=== PATIENT | female | born 1995 | race Caucasian/White ===

== ENCOUNTER 2020-02-11 23:05 | Inpatient (IN) | payer BC, SELFPAY ==
[2020-02-11 22:50] VITALS: BMI 24.7
[2020-02-11 22:57] VITALS: PULSE 87; TEMP 37.2
[2020-02-11] MEDS: Lactated Ringers 1,000 ML 50 ML IV (23:45)
[2020-02-11 23:51] VITALS: BP 118/81; TEMP 37.2; O2SAT 97
[2020-02-11 23:52] VITALS: PULSE 85; O2SAT 96
[2020-02-12] VITALS (51 sets, daily range): BP systolic 89–137; BP diastolic 52–92; PULSE 79–119; RESP 14–16; TEMP 36.1–37.6; O2SAT 97–100
[2020-02-12 00:05] LABS: Absolute Lymphocyte Count 2.24 X10^3/uL (0.83-4.51); Absolute Neutrophil Count 10.4 X10^3/uL (2.0-7.7); Basophil# 0.03 X10^3/uL; Basophil% 0.2 % (0-1); Eosinophil# 0.08 X10^3/uL; Eosinophils% 0.6 % (0-5); Hematocrit 40.6 % (37-47); Hemoglobin 13.7 g/dL (12.0-15.0); Lymphocyte # 2.24 X10^3/ul (4.0); Lymphocyte % 16.2 % (19-41); Mean Corp Hgb Conc 33.7 g/dL (32-36); Mean Corpuscular Hgb 30.7 pg (27.0-32.0); Mean Platelet Vol. 12.2 fl (6.2-12.0); Monocyte# 1.02 X10^3/uL; Monocyte% 7.4 % (0-10); NRBC Flagged by Analyzer 0 % (0-5); Neutrophil # 10.38 X10^3/uL (2.7-7.7); Neutrophil % 75.2 % (47-70); Platelet Count 217 K/mm3 (150-450); RBC Distribution Width CV 12.6 % (11.6-14.6); RBC Distribution Width SD 41.7 fl (35.1-43.9); Red Blood Count 4.46 M/mm3 (4.2-5.4); White Blood Count 13.8 K/mm3 (4.4-11.0)
[2020-02-12] MEDS: Oxytocin 30 units/NS 500 ml 30 UNITS/500 ML IV.SOLN IV (00:17)
[2020-02-12] MEDS: Lactated Ringers 500 ML 999 ML IV ×2 (02:52→04:10)
[2020-02-12] MEDS: fentaNYL-bupivacaine (epidural) 100 ML BAG EPIDURAL (04:02)
--- NOTE | 2020-02-12 07:08 | HP.PCM_ITS ---
- Problem List (1) 39 weeks gestation of Status: Acute (2) Amniotic fluid leaking Status: Acute History Date of Admission: 02/11/20 Final ADRIANA: 02/15/20 Gestational age: 39 Weeks and 4 Days History of this : This is a 24 year-old, G [1], P [0], at 39.4 weeks gestational age that presents with SROM of clear fluid and contractions. Stated large gush of clear fluid around 8:30 pm and started feeling cramping at that time. Positive movement. Denies any vaginal bleeding. Continues to leak clear fluid. Allergies No Known Allergies Allergy (Verified 02/11/20 22:51) Home Medications: Home Medications Vit No.130/Iron/Folic [ Tablet] 1 tab PO DAILY 02/11/20 Smoking Status: Never smoker Number of Fetus(es): 1 NST - FHR Rate Baby A Baseline: 125 Variability:: Moderate Decelerations:: None FHR Category:: Category I Uterine Activity:: TOCO reading every 2-4 minutes History Past Pregnancies: Past Pregnancies Delivery Date Name GA/ Weeks Outcome Route Wt Infant Sex Labor Length Anesthesia Delivery Location Provider FOB Labs: A+ Rubella - Immune HB -neg RPR- NR HIV- NR GBS- positive Expected Delivery Method: Spontaneous Vaginal Review of Systems Constitutional: Denies: Anorexia, Chills, Fever Cardiovascular: Denies: Chest Pain Respiratory: Denies: Cough, Shortness of Breath Gastrointestinal: Denies: Abdominal Pain Genitourinary: Denies: Dysuria Neurological: Denies: Headaches Physical Exam Vitals: Vital Signs Temp Pulse BP Pulse Ox 97.6 F L 108 H 105/64 99 02/12/20 06:28 02/12/20 06:30 02/12/20 06:29 02/12/20 06:30 General: Alert, Oriented x3, Cooperative HEENT: Atraumatic Cardiovascular: Regular rate Lungs: Normal air movement Abdomen: Soft, Non Tender, Gravid Neurological: Cranial nerves II-XII grossly intact Estimated gestational size: Appropriate for gestational size 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 Patel notified and is collaborating physician
[2020-02-12] MEDS: Oxytocin 30 units/NS 500 ml 30 UNITS/500 ML IV.SOLN 334 UNITS IV (09:12)
--- NOTE | 2020-02-12 10:09 | PCM.OPRPT ---
Problem List (1) 39 weeks gestation of Status: Acute (2) Amniotic fluid leaking Status: Acute Report of Operation Date of Procedure: 02/12/20 Pre-Operative Diagnosis: Term gestation, SROM Post-Operative Diagnosis: Same, live femal Vaginal Delivery Maternal Presentation: Active Labor, Spontaneous Rupture of Membranes Amniotic Membrane Rupture Type: Spontaneous at home Rupture of Membrane time: 2019 Amniotic Fluid Description: Clear Final ADRIANA: 02/15/20 Gestational age: 39 Weeks and 4 Days Date of Procedure: 02/12/20 Pre-Operative Diagnosis: Term gestation , SROM Post-Operative Diagnosis: Same, live female infant Surgery/ Procedure Performed: Spontaneous Vaginal Delivery Type of Anesthesia: Epidural Description of Procedure: Patient quickly progressed to complete dilation. Began pushing with contractions. Infant head for several pushes so changed maternal position to left side lying and pushed. found to be in OP position. Repositioned patient to hands and knees to push. head delivered with maternal effort. Anterior shoulder delivered quickly with gentle traction less than 10 seconds. Infant vigorous and attended to by awaiting staff. Cord was clamped and cut by FOB after 2 minute delay. Mother repositioned in bed and infant placed immediately skin to skin. Pitocin infusion started for active management of third stage. Placenta delivered spontaneously and intact. Second degree perineal laceration repaired in usual fashion with 3-0 Vicryl Rapid and was hemostatic. Vaginal sweep completed by me. EBL 350 cc. All needles and sponges accounted for. Fundus was firm 1 below U. Mother and baby bonding well. Presentation: ROP Placental Delivery Description: Spontaneous Placenta Disposition: [facility] Cord Vessel Description: 3 Vessels Cord Entanglement: None Estimated Blood Loss: 350 A gender: Female (1 minute): 9 (5 minute): 9 Episiotomy Description: None Laceration: Perineal Extension/lac, 2nd degree Medications given after delivery: IV Pitocin Complications: None
[2020-02-12] MEDS: 0.9% Saline Lock 10 ML Syringe IV (11:44)
[2020-02-12] MEDS: Acetaminophen 500 MG Tablet 1000 MG PO (17:45)
[2020-02-13 03:34] VITALS: BP 118/79; PULSE 106
[2020-02-13 03:45] VITALS: BP 118/79; PULSE 90; RESP 16; TEMP 36.5; O2SAT 98
[2020-02-13] MEDS: Ibuprofen 600 MG Tablet PO (03:51)
--- NOTE | 2020-02-13 05:59 | PCM.PN.OB ---
Patient Problems: Active and Suspected Problems 39 weeks gestation of (Acute) Amniotic fluid leaking (Acute) Subjective: Patient is doing well. Pain is controlled. She is ambulating and voiding without difficulty. Tolerating regular diet without nausea or vomiting. She denies lightheadedness, dizziness, chest pain, shortness of breath, leg pain. Lochia normal. - Physical Exam Vitals/I&O's: Vital Signs Temp Pulse Resp BP Pulse Ox 97.7 F L 90 16 118/79 98 02/13/20 03:45 02/13/20 03:45 02/13/20 03:45 02/13/20 03:45 02/13/20 03:45 Oxygen Delivery Method Room Air Weight: 153 lb 2 oz Body Mass Index (BMI) 24.7 Intake and Output for Last 24 Hours 02/11/20 02/12/20 02/13/20 23:59 23:59 23:59 Intake Total 3249.09 / 3249.09 Output Total 2400 / 2400 Balance 849.09 / 849.09 General: Alert, No apparent distress HEENT: Atraumatic Abdomen: Soft, Non Tender Extremities: No edema Skin: No rashes Neurological: Neuro grossly intact Psych/Mental Status: Normal Affect, Appropriate Laboratory Results 02/11/20 23:45: Blood Type A POSITIVE, Antibody Screen NEGATIVE Current Medications Acetaminophen (Tylenol) 1,000 mg PO Q8H PRN PRN PRN Reason: Pain Score 1-10/10 Last Admin: 02/12/20 17:45 Dose: 1,000 mg Documented by: Bisacodyl (Dulcolax) 10 mg RECTAL UD PRN PRN Reason: If no BM Dibucaine (Dibucaine) 1 applic TOPICAL TID PRN PRN; Protocol PRN Reason: Discomfort Hydrocortisone (Hytone) 1 applic TOPICAL TID PRN PRN; Protocol PRN Reason: Discomfort Ibuprofen (Motrin) 600 mg PO Q6H PRN PRN PRN Reason: Pain Score 1-10/10 Last Admin: 02/13/20 03:51 Dose: 600 mg Documented by: Methylergonovine Maleate (Methergine) 0.2 mg IM X1 PRN PRN Reason: Excess bleeding/uterine atony Ondansetron HCl (Zofran) 4 mg IV Q4H PRN PRN PRN Reason: Nausea Senna/Docusate Sodium (Senokot-S, Betty-Colace) 1 - 2 tablet PO DAILY PRN PRN PRN Reason: Constipation Simethicone (Mylicon) 80 mg PO PCHS PRN PRN Reason: Indigestion/Stomach pain Sodium Chloride () 5 - 15 ml IV UD PRN PRN Reason: SALINE FLUSH Last Admin: 02/12/20 11:44 Dose: 10 ml Documented by: Medical Necessity - Tobacco Use Smoking Status: Never smoker Assessment/Plan All Active Problems 39 weeks gestation of (Acute) Amniotic fluid leaking (Acute) Patient is day 1 from a spontaneous vaginal delivery. She is doing well. Desires to go home today. Discharge instructions reviewed.
--- NOTE | 2020-02-13 06:01 | DCINST_ITS ---
Discharge Diet: No Restrictions Discharge Activity: May Shower May resume sexual activity in: 6 weeks Ice area for (Minutes): 15 Weight Bearing Status: Weight bearing as tolerated Lifting Restrictions: Nothing heavier than baby for 4 weeks Call your doctor if you observe: Fever of 101 or Higher, Inability to urinate, Inability to have a bowel movement, Using more than one pad per hour, Shortness of breath, Dizziness, Fainting spells, Swelling in the ankles, Chest pain, Increased palpitations (irregular heartbeat), Calf discomfort, Uncontrolled pain Cleanse incision/area with: Soap & Water Additional Instructions: If you experience any of the following, contact your healthcare provider. * Bleeding that soaks a pad every hour for 2 hours * Fever 100.4 or higher * Unrelieved incision or abdominal pain * Swelling, redness, discharge or bleeding from your incision or episiotomy site * Your incision begins to separate * Problems urinating (including inability to urinate or burning while urinating). * Visual changes * Severe headache * Flu-like symptoms * Pain or redness in one of both of your breasts * Pain, warmth, tenderness or swelling in your legs, especially the calf area * Frequent nausea and vomiting * Symptoms of depression or anxiety If you experience any of the following, call 911 or go to the nearest Emergency Room. * Chest pain * Problems breathing * Seizure activity * Partial or complete paralysis of a body part, slurred speech, weakness or drooping of the face, or a sudden inability to walk or hold your balance Allergies/Adverse Reactions: Allergies No Known Allergies Allergy (Verified 02/11/20 22:51) Medications to take at Discharge Vit No.130/Iron/Folic [ Tablet] 1 tab PO DAILY 02/11/20 When: 1-2 weeks for , which can be virtual. Then 6 weeks for post visit. Primary Care Physician: Care Physician,No Primary [Primary Care Provider] - Test Results: Test results from this visit will be discussed in further detail at your follow- up appointment, if applicable.
[2020-02-13 09:41] VITALS: BP 109/76; PULSE 93
[2020-02-13 09:42] VITALS: BP 109/76; PULSE 93; RESP 16; TEMP 36.8; O2SAT 99
[2020-02-13] MEDS: Acetaminophen 500 MG Tablet 1000 MG PO (09:43)
== END 2020-02-13 12:10 | disposition home or self-care (01) | DRG 807 ==
LOC: WPOUT 23:21 → WP 23:21
PROVIDERS: Admitting Provider Advanced Practice Midwife; Visit Provider Advanced Practice Midwife
DX: O99.824 Streptococcus B carrier state complicating childbirth (principal); Z37.0 Single live birth; Z3A.39 39 weeks gestation of pregnancy; O70.1 Second degree perineal laceration during delivery
CPT/HCPCS: 59025; 59050; 85025; 86850; 86900; 86901; 99218; J7120; A4216; G0378

== ENCOUNTER 2020-05-02 11:00 | Outpatient (CLI) | payer BC, SELFPAY | END 2020-05-02 11:40 | disposition home or self-care (01) | LOC: WPOUT 11:12 → WP 11:13 | PROVIDERS: Visit Provider Obstetrics & Gynecology | DX: R63.3 Feeding difficulties (principal) | CPT/HCPCS: 96158 ==

== ENCOUNTER 2023-03-28 01:47 | Inpatient (IN) | payer OTHER, SELFPAY ==
[2023-03-27 21:42] VITALS: BMI 24.8
[2023-03-27 21:46] VITALS: BP 121/77; PULSE 87; TEMP 37.2; O2SAT 97; O2SAT 98
[2023-03-27] MEDS: LACTATED RINGERS 500 ML 999 ML IV (22:25)
[2023-03-27] MEDS: Acetaminophen 500 MG Tablet 1000 MG PO (22:35)
[2023-03-28] VITALS (79 sets, daily range): BP systolic 93–139; BP diastolic 50–97; PULSE 62–108; RESP 16–18; TEMP 36.6–37.1; O2SAT 93–100
[2023-03-28] MEDS: 0.9% Saline Lock 10 ML Syringe IV ×2 (00:31→12:15)
[2023-03-28] MEDS: DiphenhydrAMINE 50 MG/ML Syringe IV (00:31)
[2023-03-28 01:59] LABS: Absolute Lymphocyte Count 1.94 X10^3/uL (0.83-4.51); Absolute Neutrophil Count 10.1 X10^3/uL (2.0-7.7); Basophil# 0.05 X10^3/uL; Basophil% 0.4 % (0-1); Eosinophil# 0.09 X10^3/uL; Eosinophils% 0.7 % (0-5); Hematocrit 39.7 % (37-47); Lymphocyte # 1.94 X10^3/ul (0.83-4.51); Lymphocyte % 14.7 % (19-41); Mean Corp Hgb Conc 32.7 g/dL (32-36); Mean Corpuscular Hgb 30.3 pg (27.0-32.0); Mean Corpuscular Volume 92.5 fL (81-99); Mean Platelet Vol. 12.3 fl (6.2-12.0); Monocyte# 0.98 X10^3/uL; Monocyte% 7.4 % (0-10); NRBC Flagged by Analyzer 0 % (0-5); Neutrophil # 10.11 X10^3/uL (2.7-7.7); Neutrophil % 76.4 % (47-70); Platelet Count 205 K/mm3 (150-450); RBC Distribution Width SD 43.4 fl (35.1-43.9); Red Blood Count 4.29 M/mm3 (4.2-5.4); White Blood Count 13.2 K/mm3 (4.4-11.0)
[2023-03-28 02:02] LABS: ROM Internal Control Test YES-OK TO RESULT pt. (Internal QC); ROM Patient Test POSITIVE (Negative); Record Kit Lot#, ROM+ K1409
[2023-03-28] MEDS: Lactated Ringers 1,000 ML 200 ML IV (02:16)
[2023-03-28] MEDS: LACTATED RINGERS 500 ML 999 ML IV ×2 (02:16→06:58)
[2023-03-28] MEDS: fentaNYL-bupivacaine (epidural) 100 ML BAG EPIDURAL ×2 (02:50→07:37)
[2023-03-28 03:11] LABS: Syphilis Antibodies Non-reactive
[2023-03-28] MEDS: Oxytocin 15 Units/NS 250ml 15 UNITS/250 ML IV.SOLN 2 UNITS IV (05:45)
--- NOTE | 2023-03-28 07:17 | PCM.HP.OB ---
HPI - General General Date of Admission: 03/28/23 HPI Narrative LUAN ESCALONA, is a 27 F at 39.6 weeks gestation who presents to triage with spontaneous onset of contractions and leaking fluid. Maternal Data Information ADRIANA Calculator Estimated Delivery Date Method Current WG Current Estimate 03/29/23 Manual 39w 6d PFSH PFSH Medical History (Updated 03/28/23 @ 07:21 by Naomi Olivera CNM) Anxiety Headache depression Home Medications vits no.130-ferrous fum 27 mg iron-folic acid 800 mcg tablet 1 tab PO DAILY Check with primary doctor 02/11/20 [History Last Taken 03/26/23] Allergy/AdvReac Type Severity Reaction Status Date / Time No Known Allergies Allergy Verified 03/27/23 21:55 Surgical History (Updated 03/27/23 @ 22:40 by Lisa Dennis) History of surgery Social History Smoking Status: Never smoker History Elective abortions Hx Para 1 Spontaneous abortions Hx # Term Pregnancies Ectopic pregnancies Hx # Pregnancies Multiple births # of living children ROS Eyes Eyes: Denies blurry vision, change in vision or spots in vision ENT HEENT: Denies dizziness or headache(s) Cardiovascular Cardiovascular: Denies abdominal pain, chest pain or dyspnea Respiratory/Chest Respiratory/Chest: Denies cough, dyspnea, shortness of breath at rest or shortness of breath with exertion Gastrointestinal Gastrointestinal: Denies abdominal pain, diarrhea or vomiting Genitourinary Genitourinary: Denies change in urinary stream, difficulty urinating or dysuria Musculoskeletal Musculoskeletal: Reports none Integumentary Integumentary: Denies rash Neurologic Neurologic: Denies dizziness, headache(s), memory loss or weakness Psychiatric Psychiatric: Reports none Vital Signs Vital Signs Vital Signs: 03/27/23 21:46 03/27/23 21:46 03/27/23 21:46 Temperature Temperature Source Pulse Rate 87 Blood Pressure 121/77 H BP Systolic 121 BP Diastolic 77 Pulse Ox 97 03/27/23 21:46 03/27/23 21:46 03/27/23 21:46 Temperature 99.0 F Temperature Source Temporal Pulse Rate Blood Pressure BP Systolic BP Diastolic Pulse Ox 98 03/28/23 00:37 03/28/23 00:37 03/28/23 00:37 Temperature 98.8 F Temperature Source Temporal Pulse Rate Blood Pressure BP Systolic BP Diastolic Pulse Ox 97 03/28/23 00:38 03/28/23 00:38 03/28/23 02:22 Temperature Temperature Source Pulse Rate 92 108 H Blood Pressure 111/76 BP Systolic 111 BP Diastolic 76 Pulse Ox 03/28/23 02:22 03/28/23 02:23 03/28/23 02:23 Temperature Temperature Source Pulse Rate 102 H Blood Pressure BP Systolic BP Diastolic Pulse Ox 94 93 03/28/23 02:25 03/28/23 02:25 03/28/23 02:27 Temperature Temperature Source Pulse Rate 90 89 Blood Pressure 120/92 H BP Systolic 120 BP Diastolic 92 Pulse Ox 03/28/23 02:27 03/28/23 02:29 03/28/23 02:29 Temperature Temperature Source Pulse Rate 80 Blood Pressure 125/97 H BP Systolic 125 BP Diastolic 97 Pulse Ox 97 03/28/23 02:32 03/28/23 02:32 03/28/23 02:35 Temperature Temperature Source Pulse Rate 82 Blood Pressure 139/82 H BP Systolic 139 BP Diastolic 82 Pulse Ox 97 03/28/23 02:35 03/28/23 02:37 03/28/23 02:37 Temperature Temperature Source Pulse Rate 91 86 Blood Pressure BP Systolic BP Diastolic Pulse Ox 97 03/28/23 02:39 03/28/23 02:39 03/28/23 02:42 Temperature Temperature Source Pulse Rate 80 88 Blood Pressure 117/78 BP Systolic 117 BP Diastolic 78 Pulse Ox 03/28/23 02:42 03/28/23 02:44 03/28/23 02:44 Temperature Temperature Source Pulse Rate 100 Blood Pressure 133/72 H BP Systolic 133 BP Diastolic 72 Pulse Ox 97 03/28/23 02:47 03/28/23 02:47 03/28/23 02:49 Temperature Temperature Source Pulse Rate 91 Blood Pressure 101/57 L BP Systolic 101 BP Diastolic 57 Pulse Ox 100 03/28/23 02:49 03/28/23 02:52 03/28/23 02:52 Temperature Temperature Source Pulse Rate 96 102 H Blood Pressure BP Systolic BP Diastolic Pulse Ox 100 03/28/23 02:54 03/28/23 02:54 03/28/23 02:57 Temperature Temperature Source Pulse Rate 102 H 93 Blood Pressure 100/58 L BP Systolic 100 BP Diastolic 58 Pulse Ox 03/28/23 02:57 03/28/23 02:59 03/28/23 02:59 Temperature Temperature Source Pulse Rate 89 Blood Pressure 102/55 L BP Systolic 102 BP Diastolic 55 Pulse Ox 100 03/28/23 03:02 03/28/23 03:02 03/28/23 03:04 Temperature Temperature Source Pulse Rate 93 Blood Pressure 110/59 L BP Systolic 110 BP Diastolic 59 Pulse Ox 100 03/28/23 03:04 03/28/23 03:07 03/28/23 03:07 Temperature Temperature Source Pulse Rate 88 92 Blood Pressure BP Systolic BP Diastolic Pulse Ox 100 03/28/23 03:09 03/28/23 03:09 03/28/23 03:12 Temperature Temperature Source Pulse Rate 80 82 Blood Pressure 98/57 L BP Systolic 98 BP Diastolic 57 Pulse Ox 03/28/23 03:12 03/28/23 03:14 03/28/23 03:14 Temperature Temperature Source Pulse Rate 86 Blood Pressure 104/58 L BP Systolic 104 BP Diastolic 58 Pulse Ox 100 03/28/23 03:17 03/28/23 03:17 03/28/23 03:22 Temperature Temperature Source Pulse Rate 83 84 Blood Pressure BP Systolic BP Diastolic Pulse Ox 100 03/28/23 03:22 03/28/23 03:24 03/28/23 03:24 Temperature Temperature Source Pulse Rate 82 Blood Pressure 103/54 L BP Systolic 103 BP Diastolic 54 Pulse Ox 100 03/28/23 03:27 03/28/23 03:27 03/28/23 03:29 Temperature Temperature Source Pulse Rate 87 Blood Pressure 107/60 BP Systolic 107 BP Diastolic 60 Pulse Ox 100 03/28/23 03:29 03/28/23 03:32 03/28/23 03:32 Temperature Temperature Source Pulse Rate 83 85 Blood Pressure BP Systolic BP Diastolic Pulse Ox 100 03/28/23 03:34 03/28/23 03:34 03/28/23 03:37 Temperature Temperature Source Pulse Rate 85 91 Blood Pressure 103/57 L BP Systolic 103 BP Diastolic 57 Pulse Ox 03/28/23 03:37 03/28/23 03:39 03/28/23 03:39 Temperature Temperature Source Pulse Rate 92 Blood Pressure 93/50 L BP Systolic 93 BP Diastolic 50 Pulse Ox 100 03/28/23 03:42 03/28/23 03:42 03/28/23 03:44 Temperature Temperature Source Pulse Rate 84 Blood Pressure 95/50 L BP Systolic 95 BP Diastolic 50 Pulse Ox 99 03/28/23 03:44 03/28/23 03:47 03/28/23 03:47 Temperature Temperature Source Pulse Rate 88 87 Blood Pressure BP Systolic BP Diastolic Pulse Ox 98 03/28/23 03:49 03/28/23 03:49 03/28/23 03:52 Temperature Temperature Source Pulse Rate 83 88 Blood Pressure 99/57 L BP Systolic 99 BP Diastolic 57 Pulse Ox 03/28/23 03:52 03/28/23 03:54 03/28/23 03:54 Temperature Temperature Source Pulse Rate 84 Blood Pressure 101/57 L BP Systolic 101 BP Diastolic 57 Pulse Ox 98 03/28/23 03:57 03/28/23 03:57 03/28/23 04:00 Temperature Temperature Source Pulse Rate 84 Blood Pressure 99/56 L BP Systolic 99 BP Diastolic 56 Pulse Ox 98 03/28/23 04:00 03/28/23 04:02 03/28/23 04:02 Temperature Temperature Source Pulse Rate 83 89 Blood Pressure BP Systolic BP Diastolic Pulse Ox 97 03/28/23 04:04 03/28/23 04:04 03/28/23 04:07 Temperature Temperature Source Pulse Rate 84 91 Blood Pressure 103/55 L BP Systolic 103 BP Diastolic 55 Pulse Ox 03/28/23 04:07 03/28/23 04:18 03/28/23 05:14 Temperature Temperature Source Temporal Pulse Rate Blood Pressure 110/64 BP Systolic 110 BP Diastolic 64 Pulse Ox 98 03/28/23 05:14 03/28/23 05:12 03/28/23 05:12 Temperature 98.0 F Temperature Source Temporal Pulse Rate 79 Blood Pressure BP Systolic BP Diastolic Pulse Ox 03/28/23 05:12 03/28/23 05:12 03/28/23 06:32 Temperature 98.0 F Temperature Source Temporal Temporal Pulse Rate Blood Pressure BP Systolic BP Diastolic Pulse Ox 03/28/23 06:32 03/28/23 06:32 03/28/23 06:32 Temperature 98.5 F Temperature Source Pulse Rate 81 Blood Pressure 101/61 BP Systolic 101 BP Diastolic 61 Pulse Ox Weight Weight: 154 lb 1.65 oz Body Mass Index (BMI) 24.8 Physical Exam Const alert, oriented x3 and no apparent distress General Appearance: cooperative Orientation / Consciousness: awake Exam Limitations: no limitations HEENT normocephalic Head and Scalp: normal to inspection Eyes General Eye: normal appearance of both eyes Neck full ROM and no lymphadenopathy Lymph Lymphatic: no lymphadenopathy noted Chest inspection of chest normal Resp normal respiratory effort, normal air movement and clear to auscultation bilaterally Effort and Inspection: able to speak in complete sentences and symmetric chest movement Cardio regular rate and regular rhythm GI normal to inspection, nondistended, normoactive bowel sounds Manual OB Exam: presentation cephalic Back/Spine normal ROM Extremity full ROM and no calf tenderness Skin no rashes or lesions noted General Skin Exam: no breakdown Neuro oriented x3 and CN's II-XII intact bilaterally Psych mental status grossly normal and thought process normal Labs Labs Labs: Blood Type A POSITIVE Antibody Screen NEGATIVE Hct 39.7 % (37-47) Hgb 13.0 g/dL (12.0-15.0) Syphilis Total Ab Non-reactive Rhogam given: No Assessment & Plan (1) Spontaneous onset of labor: (2) Spontaneous rupture of amniotic membranes: (3) Anxiety: (4) depression: (5) Amniotic fluid leaking: (6) 39 weeks gestation of : PLAN: Plan ROM plus positive CE 5/80/-2 Admit to labor and delivery Routine labs Start IV fluids and run per policy GBS negative Epidural when indicated Start Pitocin IV 2 mu/min and increase per policy Dr. Hilton notified of admission
[2023-03-28] MEDS: Oxytocin 15 Units/NS 250ml 15 UNITS/250 ML IV.SOLN 83 UNITS IV (08:49)
--- NOTE | 2023-03-28 10:11 | EX.PCM.OBRPT ---
Maternal Data Information ADRIANA Calculator Estimated Delivery Date Method Current WG Current Estimate 03/29/23 Manual 39w 6d Vaginal Delivery Maternal Presentation Maternal Presentation: Active Labor Operative Information Date of Procedure: 03/28/23 Pre-Operative Diagnosis: 39 weeks , active labor Post-Operative Diagnosis: same, live female infant Surgery / Procedure Performed: Spontaneous Vaginal Delivery Type of Anesthesia: Epidural Estimated Blood Loss: 150 Time of Delivery: 08:16 Findings Description of Procedure: Progressed to fully dilated. Good maternal pushing efforts delivered the infant's head followed by the anterior and posterior shoulders. Rest infant's body was delivered without complication. The infant was placed on the mother's chest for immediate skin to skin. was vigorous at time of delivery. Delayed cord clamping was performed. Placenta then delivered intact spontaneously without complication. Pitocin was given per protocol. Small second-degree vaginal laceration was appreciated. This was repaired with 3-0 Rapide in usual fashion. Good hemostasis was appreciated. Presentation: Vertex Amniotic Membrane Rupture Type: Spontaneous Amniotic Fluid Description: Clear Placental Delivery Description: Spontaneous Placenta Disposition: [facility] Specimen(s) Removed: placenta Cord Vessel Description: 3 Vessels Cord Entanglement: None Infant A Gender: Female (1 minute): 9 (5 minute): 9 Delayed Cord Clamping: Yes Post Vaginal Delivery Medications Given After Delivery: IV Pitocin Episiotomy Description: None Laceration: Vaginal Extension/lac and 2nd degree Complication Complications: None
--- NOTE | 2023-03-28 12:41 | NURSING ---
Epidural catheter removed with no resistance at 1200 - blue tip intact.
[2023-03-28] MEDS: Ibuprofen 600 MG Tablet PO ×2 (15:57→23:35)
[2023-03-28] MEDS: Acetaminophen 500 MG Tablet PO (20:48)
[2023-03-29 04:00] VITALS: BP 102/66; PULSE 75; RESP 18; TEMP 36.7
[2023-03-29] MEDS: Acetaminophen 500 MG Tablet 1000 MG PO (04:03)
[2023-03-29 08:40] VITALS: BP 121/79; PULSE 88; RESP 16; TEMP 36.8; O2SAT 97
--- NOTE | 2023-03-29 08:41 | PCM.DC.SUM ---
Providers Date of Admission: 03/28/23 Primary Care Physician: Laura Primary Care Phys Reason For Visit: LABOR AND DELIVERY/VAGINAL DELIVERY Diagnosis Discharge Diagnosis (1) Spontaneous onset of labor: Status: Acute (2) Spontaneous rupture of amniotic membranes: Status: Acute (3) Anxiety: Status: Acute Code(s): F41.9 - Anxiety disorder, unspecified (4) depression: Status: Acute Code(s): F53.0 - depression (5) Amniotic fluid leaking: Status: Acute Code(s): O42.90 - Premature rupture of membranes, unspecified as to length of time between rupture and onset of labor, unspecified weeks of gestation (6) 39 weeks gestation of : Status: Acute Code(s): Z3A.39 - 39 weeks gestation of (7) (spontaneous vaginal delivery): Status: Acute Code(s): O80 - Encounter for full-term uncomplicated delivery (8) Care and examination of lactating mother: Status: Acute Code(s): Z39.1 - Encounter for care and examination of lactating mother Medications at Discharge Home Medications vits no.130-ferrous fum 27 mg iron-folic acid 800 mcg tablet 1 tab PO DAILY Check with primary doctor 02/11/20 Hospital Course Operations None Procedures None Summary of Care Provided Minutes Spent on Discharge: 15 Hospital Course: Patient had . Hospital course was uneventful. Physical Exam Narrative Patient seen at bedside. Feeling good. Ambulating and voiding without difficulty. independently. Desires discharge home today. Const alert and no apparent distress General Appearance: cooperative and comfortable Exam Limitations: no limitations HEENT normocephalic Eyes General Eye: normal appearance of both eyes Neck full ROM General: normal visual inspection Chest Chest: symmetrical chest wall rise Resp normal respiratory effort and normal air movement Effort and Inspection: symmetric chest movement Auscultation: clear to auscultation bilaterally Cardio regular rate and regular rhythm GI normal to inspection, nondistended, normoactive bowel sounds Back/Spine normal ROM Extremity full ROM and no calf tenderness General Extremity: normal exam except as noted Skin no rashes or lesions noted Neuro CN's II-XII intact bilaterally Psych mental status grossly normal Weight / BMI Weight Weight: 154 lb 1.65 oz Body Mass Index (BMI) 24.8 ABG / Lab / Microbiology Data 03/27/23 22:20 D/C Instructions Discharge Diet: No restrictions May resume sexual activity in: 6-8 weeks Weight Bearing Status: Weight bearing as tolerated Call your doctor if you observe: Fever of 101 or Higher, Inability to urinate, Using more than 1 pad per hour, Shortness of breath, Chest pain, Calf discomfort and Uncontrolled pain Please Follow Up With: Naomi Olivera CNM When: 2 weeks virtual visit/ 6 weeks in office Meaningful Use Info Meaningful Use Diagnoses (Choose all that apply): None applicable Discharge Plan Admission Admit Date/Time: 03/28/23 01:47 Primary Reason for Your Visit: Labor and Delivery Attending Provider: Meagan Braun Primary Care Provider: Care Physician,No Primary Consulting Providers: Naomi Olivera Discharge Orders/Prescriptions Prescriptions: Continued vit no.[id number] 1 EACH tablet 1 tab PO DAILY Referrals / Follow Up: Naomi Olivera CNM [Med Staff - Adv Practice Prof] - Care Physician,No Primary [Primary Care Provider] - Disposition Disposition (needs filled in before D/C Order can be placed): Home, Self Care
[2023-03-29] MEDS: Senna/Docusate Sodium 1 Tablet PO (09:08)
[2023-03-29] MEDS: Ibuprofen 600 MG Tablet PO (09:08)
--- NOTE | 2023-03-29 11:06 | CASEMGMT ---
Social Work Assessment Labor and Delivery Unit Patient [id number] [address] [place] [address] Phone number: [phone] Date of Referral: 03/28/23 Time of Referral:? [id number] Referred By: Meagan Hilton Date of Intervention: ??03/29/23 Time of Intervention:?1000 Reason for Referral:? Hx of PPD Sw completed chart review and acknowledges social work consult due to maternal history of depression. Sw presented to bedside and introduced self to mother of baby (JACEY- Shavon) and father of baby (FOB- Brian). Sw explained reason for sw involvement and completed psychosocial assessment. History obtained from: medical records and mother of baby (JACEY)???and FOB Household composition: Currently residing in the family home is MICHAEL MARI, their 3 year old daughter (Jhoana: : 02/12/2020), maternal grandma and now baby. Parents state their housing is safe and secure, no concerns at this time. Patient's parent/guardian status:? ?Parents report that they have known each other since Kindergarten, and started dating right after they graduated high school. They attended college together at [employer]. They have been together for 10 years. No concerns at this time regarding domestic violence or intimate partner violence. Medical History: JACEY is 27 year old female who is 2, para 1- now 2 following labor and delivery of baby. JACEY received routine care with [facility] during . JACEY presented to unit in labor at 39 weeks gestation. Baby was born via vaginal delivery. Baby girl, named Festus Fraser, was born weighing 6lb 1oz and her apgars were 8 and 9 at one and five minutes of life respectfully. Baby will be followed by Dr. Doll for pediatrics. Educational Status:? Both parents graduated from high school and obtained college degrees. No concerns regarding reading, learning or comprehension. Financial Status: Both parents are gainfully employed outside of the home. FOJagjit is a chiropractor and states that he is able to take one week off of work. 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 Supplies: Parents state that they have obtained all necessary baby items including: car seat, safe sleep space, clothes, diapers, wipes and a breast pump. Childcare/Caregiver(s):? When both parents are working maternal grandma will babysit for them. Transportation:?? Both parents have their drivers license and reliable means of transportation. No transportation barriers at this time. Programs/Agencies Involved: ?Parents are not connected to any community resources at this time. Isa provided MOB with list of [facility] resources including mental health supports. ?? Children Services/Legal Issues:?No history of involvement, no issues or concerns warranting a referral to be made at this time. ?? Behavioral Health Issues: ??Mental Health History:??MICHAEL denies mental health history/ diagnoses. JACEY states that she has been diagnosed with anxiety and did experience depression following the of her first daughter. MOB states that at that time she developed OCD tendencies with germs. JACEY reports that during that time she also experienced intrusive anxious thoughts, but is also able to recognize that her baby was born during COVID and a lot of that time it was not known what things were going to look like. JACEY states that she is able to recognize when she is struggling mentally and tries to redirect her thought process. JACEY states that her never affected her roland/ connection with the baby, and she denies ever having thoughts of hurting herself or hurting the baby. ? Substance Use History:??MOB denies substance use prior to and during . Family History:???MOB and MICHAEL deny family history of addiction and mental health. ?? Drug Screens: ?No urine screens observed in chart review. ? Family/Social Stressors:?Parents deny stressors at this time. JACEY states that she feels better mentally after this labor/ delivery. Support Systems: Parents report they have a lot of family support from maternal grandma and paternal grandparents. Depression/Shaken Baby/Safe Sleeping:? Sw educated parents on signs and symptoms of baby blue and depression. Sw provided parents with list of mental health resources available to them in [facility]. Sw educated parents on shaken baby prevention and ABCs of safe sleep. Parents expressed understanding. Sw encouraged parents to talk about ways that FOB can be supportive and helpful for MOB if she were to struggle with her mental health during this period. ASSESSMENT:?MOB and baby admitted following labor and delivery. MOB observed to provide tender and loving hands on care of baby. FOB strong support person for MOB. Parents have obtained all necessary baby supplies/ items and have natural supports in place. Parents were talkative and engaged during psychosocial assessment. MOB open regarding her mental health history and her experience with depression/ anxiety after the of her first daughter. MOB was encouraged to get connected to community mental health supports should she struggle with depression/ anxiety during this period- MOB was receptive to that recommendation. PLAN:? MOB and baby to be discharged when medically ready. ?No other services requested or indicated. Tyrell Gonzalez, MANAGER ARCHITECTURAL, [employer]
[2023-03-29 11:55] VITALS: BP 121/79; PULSE 88; RESP 16; TEMP 36.8; O2SAT 97
== END 2023-03-29 12:35 | disposition home or self-care (01) | DRG 807 ==
LOC: WPOUT 01:47 → WP 01:47
PROVIDERS: Advanced Practice Midwife; Admitting Provider Obstetrics & Gynecology; Referring Provider Obstetrics & Gynecology; Visit Provider Obstetrics & Gynecology
DX: O42.92 Full-term premature rupture of membranes, unspecified as to length of time between rupture and onset of labor (principal); Z37.0 Single live birth; O99.344 Other mental disorders complicating childbirth; F41.9 Anxiety disorder, unspecified; O70.1 Second degree perineal laceration during delivery; Z3A.39 39 weeks gestation of pregnancy; Z87.59 Personal history of other complications of pregnancy, childbirth and the puerperium
CPT/HCPCS: 59025; 59050; 84112; 85025; 86780; 86850; 86900; 86901; 99221; J7120; A4216; G0378

== ENCOUNTER 2025-03-05 07:25 | Day surgery (SDC) | payer OTHER, SELFPAY ==
--- NOTE | 2025-03-02 11:22 | HP.PCM_ITS ---
History and Physical Date of Admission: 03/05/25 HPI: The patient is a 29 year old female presenting for pre-operative visit. She is scheduled for laparscopy with removal of malpositioned IUD, for IUD malpositioned, intraperitoneal on 03/05/25. Procedure discussed along with risks, benefits and complications. Other alternatives discussed for management. Consent form signed? Yes. ? ? PAST MEDICAL HISTORY PAST MEDICAL HISTORYDiagnosisDate?Anxiety state??Endometrioma??Ovarian cyst?? depression? ? ? PAST SURGICAL HISTORY PAST SURGICAL HISTORYProcedureLateralityDate?INSERTION OF IUD?07/09/2023?PAST SURGICAL HISTORY OF???wisdom teeth ? ? ? CURRENT MEDICATIONS Current Outpatient MedicationsMedicationSigDispenseRefill?escitalopram oxalate (LEXAPRO) 10 mg tabletTake 1.5 tablets by mouth once daily.90 tablet3?PNV no.95/ferrous fum/folic ac ( PO)Take by mouth.???norethindrone (AYGESTIN) 5 mg tabletTake 1 tablet by mouth once daily.90 tablet3?levonorgestrel (MIRENA) 21 mcg/24 hours (8 yrs) 52 mg IUD1 Each by INTRAUTERINE route as directed.1 Each0?No current facility-administered medications for this visit. ? ? ALLERGIES: Patient has no known allergies. ? PERSONAL HISTORY: [SOCIAL HISTORY] [SOCIAL HISTORY] Social History Tobacco Use ? Smoking status: Never ? Smokeless tobacco: Never Vaping Use ? Vaping status: Never Used Substance Use Topics ? Alcohol use: Yes ? ? Alcohol/week: 1.0 standard drink o f alcohol ? ? Types: 1 Standard drinks or equivalent per week ? ? Comment: occasional ? Drug use: No ? FAMILY HISTORY: FAMILY HISTORY FAMILY HISTORY ProblemRelationAge of Onset?GlaucomaMother??Detached RetinaFather??[id number]?HypertensionFather??Kidney DiseaseMaternal Grandmother??Heart AttackMaternal Grandfather??Alzheimer's DiseasePaternal Grandmother??other (blood infection)Paternal Grandfather??No Known ProblemsDaughter??No Known ProblemsDaughter??HypertensionHalf-brother??HypertensionHalf-brother? ? ? REVIEW OF SYMPTOMS: GENERAL: denies fevers or chills ENDOCRINOLOGY: has not been on steroids Cardiology : denies palpitations or chest pain Respiratory: denies SOB or cough Hematology: denies history of prolonged bleeding or easy bruising or VTE Allergy: Denies history of personal or family history of allergy to anesthesia ? PHYSICAL EXAMINATION: ? VITALS: Blood pressure 110/62, pulse 96, height 165.1 cm (5' 5), weight 67.1 kg (148 lb), last menstrual period 02/25/2025, SpO2 99%, not currently . ? GENERAL: The patient is well nourished, well hydrated in no acute distress. , The patient is oriented to time, place, and person. NECK: Supple. No lynphadenopathy, normal thyroid, no thyromegaly. LUNGS: Clear to auscultation bilaterally. no wheezes, rhonchi or rales HEART: Regular rate and rhythm, Normal heart sounds, and No murmurs or gallops ? IMPRESSION: malpositioned, intraperitoneal IUD ? PLAN: The risks/benefits/alternatives and personal involved for the planned laparoscopy with removal of IUD, possible hysteroscopy if unable to remove IUD laparoscopically, were reviewed with the patient. Her questions were answered to her satisfaction and she desires to proceed. Consent was signed. I reviewed with her postop instructions and expectations. ? ? I have reviewed and updated past medical and surgical history, medications and allergies This H&P was completed in my office on 03/02/25. Assessment & Plan Assessment/Plan (1) Malpositioned IUD:
[2025-03-05] VITALS (9 sets, daily range): BP systolic 105–115; BP diastolic 71–82; PULSE 72–86; RESP 16–20; TEMP 36.1–36.6; O2SAT 98–100; BMI 23.8
--- OUTSIDE RECORDS SUMMARY | 2025-03-05 07:32 | XMS RPT_ITS | CCD ---
Author Organization [facility] Care Team Providers Care Correctional Medicine Physician Name Role Phone Ann Costa Primary Care Provider [phone] ANN COSTA Primary Care Unavailable PROVIDER, UNKNOWN Referring Unavailable Ann Costa Primary Care Provider [phone] Candida LOGISTICS ENGINEER.Dalila ORDONEZ Primary Care Provider GRICEL CHRISTENSEN Referring Unavailable DALILA TIRADO Primary Care Unavailable DALILA TIRADO Attending Unavailable DALILA TIRADO M Primary Care Unavailable JOSE ARMANDO GIRON Attending Unavailable ANN COSTA Primary Care Unavailable ANN COSTA Primary Care Unavailable ANN COSTA Primary Care Unavailable ANN COSTA Primary Care Unavailable JOSE ARMANDO GIRON Attending Unavailable ANN COSTA Primary Care Unavailable SELAM ELLIS Attending Unavailable DALILA TIRADO M Primary Care Unavailable GRICEL CHRISTENSEN Referring Unavailable DALILA TIRADO Primary Care Unavailable GRICEL CHRISTENSEN Attending Unavailable GRICEL CHRISTENSEN Referring Unavailable KANG TIRADOE M Primary Care Unavailable GRICEL CHRISTENSEN Attending Unavailable KANG TIRADOE M Primary Care Unavailable BRAYDEN MOSLEY Attending Unavailable DOROTHEA ADRIAN Referring Unavailable KANG TIRADOE M Primary Care Unavailable DOROTHEA ADRIAN Attending Unavailable KANG TIRADOE M Primary Care Unavailable DOROTHEA ADRIAN Referring Unavailable DEONTE TIRADOLENE M Primary Care Unavailable Selam Ellis Attending Unavailable Care Physician, No Primary Primary Care Unava ilable Medications Current Medications Medication Drug Class(es) Dates Sig (Normalized) Sig (Original) escitalopram 10 mg oral tablet (17 sources) Serotonin Reuptake Inhibitor Start: 06-04-2024 End: 07-23-2024 take 1 tablet by mouth once daily escitalopram oxalate (LEXAPRO) 10 mg tablet Indications: Recurrent mild major depressive disorder with anxiety Take 1 tablet by mouth once daily. 90 tablet 3 07/23/2024 Active iv contrast (will be provided with radiology test) (12 sources) Start: 08-25-2024 End: 08-26-2024 iv contrast (will be provided with radiology test) Indications: Pelvic and perineal pain MRI Female Pelvis Inject, intravenously, once for 1 dose. No IV access, insert saline lock prior to the beginning of sedation, infusion, injection of imaging exam. Discontinue saline lock post exam. If Pt has a central line or IVAD, may access for administration according to line specific nursing protocol. Once exam is complete flush line and de-access according to line specific nursing protocol in the MR contrast administration guidelines link. 1 each 08/25/2024 08/26/2024 Active Start: 06-17-2023 End: 07-07-2024 iv contrast (will be provide d with radiology test) MRI Female Pelvis Inject, intravenously, once for 1 dose. No IV access, insert saline lock prior to the beginning of sedation, infusion, injection of imaging exam. Discontinue saline lock post exam. If Pt has a central line or IVAD, may access for administration according to line specific nursing protocol. Once exam is complete flush line and de-access according to line specific nursing protocol in the MR contrast administration guidelines link. 1 Each 06/17/2023 07/07/2024 Discontinued (Course of therapy completed) Start: 06-17-2023 iv contrast (w ill be provided with radiology test) MRI Female Pelvis Inject, intravenously, once for 1 dose. No IV access, insert saline lock prior to the beginning of sedation, infusion, injection of imaging exam. Discontinue saline lock post exam. If Pt has a central line or IVAD, may access for administration according to line specific nursing protocol. Once exam is complete flush line and de-access according to line specific nursing protocol in the MR contrast administration guidelines link. 1 Each 06/17/2023 Active Start: 06-17-2023 iv contrast (w ill be provided with radiology test) MRI Female Pelvis Inject, intravenously, once for 1 dose. No IV access, insert saline lock prior to the beginning of sedation, infusion, injection of imaging exam. Discontinue saline lock post exam. If Pt has a central line or IVAD, may access for administration according to line specific nursing protocol. Once exam is complete flush line and de-access according to line specific nursing protocol in the MR contrast administration guidelines link. 1 Each 0 06/17/2023 Active Comment on above: MRI Female Pelvis In ject, intravenously, once for 1 dose. No IV access, insert saline lock prior to the beginning of sedation, infusion, injection of imaging exam. Discontinue saline lock post exam. If Pt has a central line or IVAD, may access for administration according to line specific nursing protocol. Once exam is complete flush line and de-access according to line specific nursing protocol in the MR contrast administration guidelines link. levonorgestrel 0.341838 mg/hr intrauterine system (20 sources) Progestin, Progestin-containing Intrauterine Device Start: 07-09-2023 End: 07-07-2031 levonorgestrel (MIRENA) 21 mcg/24 hours (8 yrs) 52 mg IUD 1 Each by INTRAUTERINE route as directed. 1 Each 07/09/2023 07/07/2031 Active Comment on above: 1 Each by INTRAUTERI NE route as directed. metroNIDAZOLE 0.0075 mg/mg vaginal gel (6 sources) Nitroimidazole Antimicrobial Start: 04-22-2023 End: 04-27-2023 metroNIDAZOLE (METROGEL) 0.75 % (37.5mg/5 gram) Vaginal Gel Indications: BV (bacterial vaginosis) Use 1 Applicatorful vaginally daily at bedtime for 5 days. 70 g 0 04/22/2023 04/27/2023 Active Start: 07-19-2022 End: 07-24-2022 metroNIDAZOLE (METROGEL) 0.7 5 % (37.5mg/5 gram) Vaginal Gel Use 1 Applicatorful vaginally daily at bedtime for 5 days. 70 g 0 07/19/2022 07/24/2022 Active Start: 07-05-2022 End: 07-12-2022 take 1 tablet by mouth twice daily metroNIDAZOLE (FLAGYL) 500 mg tablet Take 1 tablet by mouth twice daily for 7 days. 14 tablet 0 07/05/2022 07/12/2022 Active Comment on above: Take 1 tablet by [facility] twice daily for 7 days. Use 1 Applicatorful vaginally daily at bedtime for 5 days. norethindrone acetate 5 mg oral tablet (20 sources) Start: 024 End: 026 take 1 tablet by mouth once daily norethindrone (AYGESTIN) 5 mg tablet Indications: Endometriosis Take 1 tablet by mouth once daily. 90 tablet 3 10/13/2024 10/13/2025 Active Comment on above: Take 1 tablet by alicia th once daily. PNV no.95/ferrous fum/folic ac ( PO) (3 sources) PNV no.95/ferrou s fum/folic ac ( PO) Take by mouth. Active Vit No.[id number]-Youwl (1 source) Start: take 1 tablet by mouth once daily Vit No.765-Vuav-Ugyjs Active 1 TABLET PO DAILY February 10, 2020 11:00pm pseudoephedrine hydrochloride 30 mg oral tablet (1 source) alpha-Adrenergic Agonist Start: 025 End: take 1 tablet by mouth every four hours pseudoephedrine (SUDAFED) 30 mg tablet Indications: Eustachian tube dysfunction, right Take 1 tablet by mouth every 4 hours for 5 days. 30 tablet 07/07/2024 07/12/2024 Active Completed/Discontinued Medications Medication Drug Class(es) Dates Sig (Normalized) Sig (Original) Ethinyl Estradiol / Ferrous fumarate / Norethindrone (2 sources) Estrogen Start: 03-30-2021 End: 07-04-2022 take 1 tablet by mouth once daily, then take 0.05 tablet by mouth once Norethin Antonio-Eth Estrad-FE (,) 1 mg-20 mcg (21)/75 mg (7) per tablet Indications: Cyst of right ovary , Encounter for initial prescription of contraceptive pills Take 1 tablet by mouth once daily. 28 tablet 03/30/2021 07/04/2022 Discontinued (Course of therapy completed) Start: 03-30-2021 take 1 tablet by alicia th once daily, then take 0.05 tablet by mouth once Norethin Antonio-Eth Estrad-FE (,) 1 mg-20 mcg (21)/75 mg (7) per tablet Indications: Cyst of right ovary , Encounter for initial prescription of contraceptive pills Take 1 tablet by mouth once daily. 28 tablet 03/30/2021 Active Comment on above: Take 1 tablet by [facility] once daily. fluticasone propionate 0.05 mg/actuat metered dose nasal spray (3 sources) Corticosteroid Start: 07-07-19 End: 07-24-19 take 1 spray(s) nasal route twice daily fluticasone (FLONASE ALLERGY RELIEF) 50 mcg/actuation nasal spray Indications: Eustachian tube dysfunction, right Use 1 [place] in each nostril two times a day. 1 Each 07/07/2024 07/23/2024 Discontinued PNV 67-syol-crabalroptfe -dha 29 mg iron-1 mg -350 mg CKDR (20 sources) Start: 07-09-19 End: 07-07-19 take 1 capsule by mouth once daily PNV 81-dmts-iyjlewonrkvm -dha 29 mg iron-1 mg -350 mg CKDR Take 1 capsule by mouth once daily. As covered by insurance 30 Each 07/09/2022 07/07/2024 Discontinued (Course of therapy completed) Start: 07-09-2022 take 1 capsule by [facility] once daily PNV 23-mjpp-sfeubvakoopf-dha 29 mg iron- 1 mg -350 mg CKDR Take 1 capsule by mouth once daily. As covered by insurance 30 Each 07/09/2022 Active Comment on above: Take 1 capsule by [facility] once daily. As covered by insurance PNV 67-iron ps-folate no.1-dha (VITAFOL ULTRA) 29 mg iron- 1 mg-200 mg cap (2 sources) Start: 07-04-2022 End: 07-09-2022 take 1 capsule by mouth once daily PNV 67-iron ps-folate no.1-dha (VITAFOL ULTRA) 29 mg iron- 1 mg-200 mg cap Take 1 capsule by mouth once daily. 30 capsule 07/04/2022 07/09/2022 Discontinued (Course of therapy completed) Start: 07-04-2022 take 1 capsule by [facility] once daily PNV 67-iron ps-folate no.1-dha (VITAFOL ULTRA) 29 mg iron- 1 mg-200 mg cap Take 1 capsule by mouth once daily. 30 capsule 07/04/2022 Active Comment on above: Take 1 capsule by [facility] once daily. predniSONE 10 mg oral tablet (3 sources) Start: 07-07-2024 End: 07-23-2024 take 1 tablet by mouth once predniSONE (DELTASONE) 10 mg tablet Indications: Eustachian tube dysfunction, right Day #1 - 6 tablets PO then Day #2 - 5 tablets PO then Day #3 - 4 tablets PO then Day #4 - 3 tablets PO then Day #5 - 2 tablets PO then Day #6 - 1 tablet PO 21 tablet 07/07/2024 07/23/2024 Discontinued Surgical Lubricant Jelly gel (19 sources) Start: 08-25-2024 End: 10-13-2024 Surgical Lubricant Jelly gel Indications: Pelvic and perineal pain For MRI Female Pelvis, MRI department to provide. Administer intra-vaginal Surgilube immediately prior the MRI procedure (total amount to patient toleranace). 3 g 08/25/2024 10/13/2024 Discontinued Start: 08-25-2024 Surgical Lubri cant Jelly gel Indications: Pelvic and perineal pain For MRI Female Pelvis, MRI department to provide. Administer intra-vaginal Surgilube immediately prior the MRI procedure (total amount to patient toleranace). 3 g 08/25/2024 Active Start: 06-17-2023 End: 08-25-2024 Surgical Lubricant Jelly gel For MRI Female Pelvis, MRI department to provide. Administer intra-vaginal Surgilube immediately prior the MRI procedure (total amount to patient toleranace). 1 g 06/17/2023 08/25/2024 Discontinued Start: 06-17-2023 Surgical Lubri cant Jelly gel For MRI Female Pelvis, MRI department to provide. Administer intra-vaginal Surgilube immediately prior the MRI procedure (total amount to patient toleranace). 1 g 06/17/2023 Active Start: 06-17-2023 Surgical Lubri cant Jelly gel For MRI Female Pelvis, MRI department to provide. Administer intra-vaginal Surgilube immediately prior the MRI procedure (total amount to patient toleranace). 1 g 0 06/17/2023 Active Comment on above: For MRI Female Pelvi s, MRI department to provide. Administer intra-vaginal Surgilube immediately prior the MRI procedure (total amount to patient toleranace). Problems Active Problems Problem Classification Problem Date Documented Date Episodic/Chronic Administrative/social admission (1 source) First encounter by subject; Translations: [Persons encountering health services in other specified circumstances] 06-04-2024 Episodic Anxiety disorders (20 sources) Anxiety; Translations: [Anxiety disorder, unspecified] Onset: 07-13-2024 03-28-2023 Chronic Complication of device; implant or graft (7 sources) IUD threads lost; Translations: [Displacement of intrauterine contraceptive device, initial encounter] Onset: 01-01-2025 12-28-2024 Episodic Endometriosis (20 sources) Endometriosis (clinical); Translations: [Endometrioma] Onset: 07-29-2022 Chronic Genitourinary symptoms and ill-defined conditions (20 sources) Female stress incontinence; Translations: [Stress incontinence (female) (male)] Onset: 05-17-2023 05-17-2023 Chronic Inflammatory diseases of female pelvic organs (3 sources) Bacterial vaginosis; Translations: [Acute vaginitis] Episodic Miscellaneous mental health disorders (2 sources) depression; Translations: [ depression] 03-28-2023 Episodic Mood disorders (16 sources) Recurrent mild major depressive disorder co-occurrent with anxiety; Translations: [Major depressive disorder, recurrent, mild] Onset: 07-13-2024 06-04-2024 Chronic Mood disorders (1 source) Mood disorders; Translations: [Depression, unspecified depression type] Onset: 07-23-2024 Other aftercare (1 source) Long-term current use of hormonal contraceptive; Translations: [penitentiary (current) use of hormonal contraceptives] 10-28-2024 Episodic Other ear and sense organ disorders (1 source) Otalgia, right ear; Translations: [Otalgia, unspecified] 07-07-2024 Episodic Other female genital disorders (3 sources) Vaginal discharge; Translations: [Other specified noninflammatory disorders of vagina] Episodic Other female genital disorders (1 source) Vaginal odor; Translations: [Other specified noninflammatory disorders of vagina] 04-19-2023 Episodic Other lower respiratory disease (1 source) Cough; Translations: [Acute cough] 02-22-2024 Episodic Other upper respiratory infections (2 sources) Acute upper respiratory infection; Translations: [Acute upper respiratory infection, unspecified] 02-22-2024 Episodic Otitis media and related conditions (1 source) Dysfunction of right eustachian tube; Translations: [Unspecified Eustachian tube disorder, right ear] 07-07-2024 Episodic Ovarian cyst (3 sources) Cyst of bilateral ovaries; Translations: [Unspecified ovarian cyst, right side] Episodic Polyhydramnios and other problems of amniotic cavity (2 sources) Amniotic fluid leaking; Translations: [Premature rupture of membranes, unspecified as to length of time between rupture and onset of labor, unspecified weeks of gestation] 02-12-2020 Episodic Residual codes; unclassified (2 sources) Treatment not available; Translations: [Procedure and treatment not carried out for other reasons] Episodic Residual codes; unclassified (1 source) Gestation period, 8 weeks; Translations: [8 weeks gestation of ] Episodic Residual codes; unclassified (2 sources) Gestation period, 12 weeks; Translations: [12 weeks gestation of ] Episodic Residual codes; unclassified (1 source) Gestation period, 16 weeks; Translations: [16 weeks gestation of ] Episodic Residual codes; unclassified (2 sources) Gestation period, 20 weeks; Translations: [20 weeks gestation of ] Episodic Residual codes; unclassified (1 source) Gestation period, 28 weeks; Translations: [28 weeks gestation of ] 01-08-2023 Episodic Residual codes; unclassified (1 source) Gestation period, 31 weeks; Translations: [31 weeks gestation of ] 01-25-2023 Episodic Residual codes; unclassified (1 source) Gestation period, 35 weeks; Translations: [35 weeks gestation of ] 02-25-2023 Episodic Residual codes; unclassified (1 source) Gestation period, 37 weeks; Translations: [37 weeks gestation of ] 03-08-2023 Episodic Residual codes; unclassified (1 source) Gestation period, 38 weeks; Translations: [38 weeks gestation of ] 03-15-2023 Episodic Residual codes; unclassified (2 sources) Gestation period, 39 weeks; Translations: [39 weeks gestation of ] 03-27-2023 Episodic Residual codes; unclassified (1 source) 39 weeks gestation of ; Translations: [ state, incidental] 03-29-2023 Episodic Residual codes; unclassified (1 source) Left before being seen; Translations: [Procedure and treatment not carried out due to patient leaving prior to being seen by health care provider] 07-07-2024 Episodic Residual codes; unclassified (1 source) Medical care unavailable; Translations: [Procedure and treatment not carried out for other reasons] 07-07-2024 Episodic Unclassified (2 sources) Spontaneous onset of labor; Translations: [Spontaneous onset of labor] 03-28-2023 Unclassified (2 sources) Spontaneous rupture of membranes; Translations: [Spontaneous rupture of amniotic membranes] 03-28-2023 Unclassified (1 source) Endometrioma; Translations: [Endometrioma] Onset: 07-29-2022 Unclassified (1 source) Patient encounter status 11-24-2024 Past or Other Problems Problem Classification Problem Date Documented Date Episodic/Chronic Abdominal pain (20 sources) Pain in female pelvis; Translations: [Pelvic and perineal pain] Onset: 05-17-2023 Episodic Bacterial infection; unspecified site (19 sources) Bacteria present; Translations: [Streptococcus, group B, as the cause of diseases classified elsewhere] Onset: 01-29-2020 Resolved: 03-28-2020 03-28-2020 Episodic Blindness and vision defects (20 sources) Hypermetropia; Translations: [Hypermetropia, unspecified eye] Onset: 12-21-2014 12-21-2014 Episodic Contraceptive and procreative management (3 sources) Intrauterine contraceptive device in situ; Translations: [Encounter for routine checking of intrauterine contraceptive device] Onset: 11-24-2024 10-28-2024 Episodic Immunizations and screening for infectious disease (20 sources) Requires measles, mumps and rubella vaccination; Translations: [Encounter for immunization] Onset: 11-16-2019 11-16-2019 Episodic Other complications of (20 sources) Bacterial vaginosis in ; Translations: [Infection of other part of genital tract in , unspecified trimester] Onset: 08-06-2022 Episodic Other connective tissue disease (20 sources) Muscle weakness; Translations: [Muscle weakness (generalized)] Onset: 05-17-2023 05-17-2023 Episodic Other and delivery including normal (20 sources) test positive; Translations: [Encounter for test, result positive] Onset: 10-22-2019 Resolved: 03-28-2020 Episodic Other screening for suspected conditions (not mental disorders or infectious disease) (10 sources) Patient encounter status; Translations: [Encounter for screening for nuchal translucency] Onset: 07-23-2024 Episodic Residual codes; unclassified (20 sources) FH: Congenital heart disease; Translations: [Family history of other congenital malformations, deformations and chromosomal abnormalities] Onset: 10-22-2019 10-22-2019 Episodic Residual codes; unclassified (20 sources) H/O: depression; Translations: [Personal history of other complications of , childbirth and the puerperium] Onset: 08-06-2022 Episodic Residual codes; unclassified (20 sources) Family history of cleft palate; Translations: [Family history of other congenital malformations, deformations and chromosomal abnormalities] Onset: 08-06-2022 Episodic Residual codes; unclassified (20 sources) Gestation period, 33 weeks; Translations: [33 weeks gestation of ] Onset: 05-17-2023 02-08-2023 Episodic Residual codes; unclassified (13 sources) Disturbance in sleep behavior; Translations: [Sleep disorder, unspecified] Onset: 07-13-2024 07-13-2024 Episodic Residual codes; unclassified (1 source) Personal history of other complications of , childbirth and the puerperium; Translations: [History of depression] Onset: 08-06-2022 Episodic Screening and history of mental health and substance abuse codes (1 source) Personal history of other mental and behavioral disorders; Translations: [History of depression] Onset: 08-06-2022 Episodic Results Test Name Value Interpretation Reference Range Facil ity Divya 03-01-2025 CNCO Letter Text Normal [facility] CNOVradha 03-01-2025 CNOV Office Visit (OBGYWM) ---- SHAVON ESCALONA ([id number]) 1995 F Date Time Provider Department 03/01/25 9:20 AM SELAM ELLIS OBGYWM During your visit today, we recorded the following information about you: Pulse Blood pressure Weight Height 96/minute 110/62 67.1 kg 1.651 m Last Period 02/25/25 Selam Ellis MD 03/02/2025 11:22 AM Signed Pre-Op History and Physical HPI: The patient is a 29 year old female presenting for pre-operative visit. She is scheduled for laparscopy with removal of malpositioned IUD, for IUD malpositioned, intraperitoneal on 03/05/25. Procedure discussed along with risks, benefits and complications. Other alternatives discussed for management. Consent form signed? Yes. PAST MEDICAL HISTORY Diagnosis Date Anxiety state Endometrioma Ovarian cyst depression PAST SURGICAL HISTORY Procedure Laterality Date INSERTION OF IUD 07/09/2023 PAST SURGICAL HISTORY OF wisdom teeth Current Outpatient Medications Medication Sig Dispense Refill escitalopram oxalate (LEXAPRO) 10 mg tablet Take 1.5 tablets by mouth once daily. 90 tablet 3 PNV no.95/ferrous fum/folic ac ( PO) Take by mouth. norethindrone (AYGESTIN) 5 mg tablet Take 1 tablet by mouth once daily. 90 tablet 3 levonorgestrel (MIRENA) 21 mcg/24 hours (8 yrs) 52 mg IUD 1 Each by INTRAUTERINE route as directed. 1 Each 0 No current facility-administer ed medications for this visit. ALLERGIES: Patient has no known allergies. PERSONAL HISTORY: SOCIAL HISTORY[1] FAMILY HISTORY: FAMILY HISTORY Problem Relation Age of Onset Glaucoma Mother Detached Retina Father Heart Father 70 Hypertension Father Kidney Disease Maternal Grandmother Heart Attack Maternal Grandfather Alzheimer's Disease Paternal Grandmother other (blood infection) Paternal Grandfather No Known Problems Daughter No Known Problems Daughter Hypertension Half-brother Hypertension Half-brother REVIEW OF SYMPTOMS: GENERAL: denies fevers or chills ENDOCRINOLOGY: has not been on steroids Cardiology : denies palpitations or chest pain Respiratory: denies SOB or cough Hematology: denies history of prolonged bleeding or easy bruising or VTE Allergy: Denies history of personal or family history of allergy to anesthesia PHYSICAL EXAMINATION: VITALS: Blood pressure 110/62, pulse 96, height 165.1 cm (5' 5), weight 67.1 kg (148 lb), last menstrual period 02/25/2025, SpO2 99%, not currently . GENERAL: The patient is well nourished, well hydrated in no acute distress. , The patient is oriented to time, place, and person. NECK: Supple. No lynphadenopathy, normal thyroid, no thyromegaly. LUNGS: Clear to auscultation bilaterally. no wheezes, rhonchi or rales HEART: Regular rate and rhythm, Normal heart sounds, and No murmurs or gallops IMPRESSION: malpositioned, intraperitoneal IUD PLAN: The risks/benefits/alte rnatives and personal involved for the planned laparoscopy with removal of IUD, possible hysteroscopy if unable to remove IUD laparoscopically, were reviewed with the patient. Her questions were answered to her satisfaction and she desires to proceed. Consent was signed. I reviewed with her postop instructions and expectations. I have reviewed and updated past medical and surgical history, medications and allergies Selam Ellis M.D. [1] Social History Tobacco Use Smoking status: Never Smokeless tobacco: Never Vaping Use Vaping status: Never Used Substance Use Topics Alcohol use: Yes Alcohol/week: 1.0 standard drink of alcohol Types: 1 Standard drinks or equivalent per week Comment: occasional Drug use: No Selam Ellis MD 03/02/2025 11:22 AM Signed Shavon Escalona is a 29 year old female who presents for problem visit for malpositioned IUD. HPI: 29 YOF who would like to conceive. Was to hae IUD removed and noted no IUD strings visualized. Had workup of pelvic US and pelvic xray and IUD found to be in pelvis, likely extrauterine based on imaging. She had no increased pain or awareness IUD was not in uterus. No new concerns today. OB History Gravida2 Para2 Term2 Preterm0 AB0 Living2 SAB0 IAB0 Ectopic0 Multiple0 Live Births2 Business Services Analyst History LMP: 02/25/2025 (Exact Date), IUD Age at Menarche: Age at First : Age at Menopause: Business Services Analyst History Comments: Sexual Activity: Yes; Male Contraception: I.U.D. PAST MEDICAL HISTORY Diagnosis Date Anxiety state Endometrioma Ovarian cyst depression PAST SURGICAL HISTORY Procedure Laterality Date INSERTION OF IUD 07/09/2023 PAST SURGICAL HISTORY OF wisdom teeth FAMILY HISTORY Problem Relation Age of Onset Glaucoma Mother Detached Retina Father Heart Father 70 Hypertension Father Kidney Disease Maternal Grandmother Heart Attack Maternal Grandfather Alzheimer's Disease Patern (more content not included)... Normal [facility] HISTORY PHYSICALon HISTORY PHYSICAL HNO ID: [id number] Author: SELAM ELLIS MD Service: ? Author Type: Physician Type: H&P Filed: 03/02/2025 11:22 Note Text: Pre-Op History and Physical HPI: The patient is a 29 year old female presenting for pre-operative visit. She is scheduled for laparscopy with removal of malpositioned IUD, for IUD malpositioned, intraperitoneal on 03/05/25. Procedure discussed along with risks, benefits and complications. Other alternatives discussed for management. Consent form signed? Yes. PAST MEDICAL HISTORY Diagnosis Date Anxiety state Endometrioma Ovarian cyst depression PAST SURGICAL HISTORY Procedure Laterality Date INSERTION OF IUD 07/09/2023 PAST SURGICAL HISTORY OF wisdom teeth Current Outpatient Medications Medication Sig Dispense Refill escitalopram oxalate (LEXAPRO) 10 mg tablet Take 1.5 tablets by mouth once daily. 90 tablet 3 PNV no.95/ferrous fum/folic ac ( PO) Take by mouth. norethindrone (AYGESTIN) 5 mg tablet Take 1 tablet by mouth once daily. 90 tablet 3 levonorgestrel (MIRENA) 21 mcg/24 hours (8 yrs) 52 mg IUD 1 Each by INTRAUTERINE route as directed. 1 Each 0 No current facility-administer ed medications for this visit. ALLERGIES: Patient has no known allergies. PERSONAL HISTORY: SOCIAL HISTORY[1] FAMILY HISTORY: FAMILY HISTORY Problem Relation Age of Onset Glaucoma Mother Detached Retina Father Heart Father 70 Hypertension Father Kidney Disease Maternal Grandmother Heart Attack Maternal Grandfather Alzheimer's Disease Paternal Grandmother other (blood infection) Paternal Grandfather No Known Problems Daughter No Known Problems Daughter Hypertension Half-brother Hypertension Half-brother REVIEW OF SYMPTOMS: GENERAL: denies fevers or chills ENDOCRINOLOGY: has not been on steroids Cardiology : denies palpitations or chest pain Respiratory: denies SOB or cough Hematology: denies history of prolonged bleeding or easy bruising or VTE Allergy: Denies history of personal or family history of allergy to anesthesia PHYSICAL EXAMINATION: VITALS: Blood pressure 110/62, pulse 96, height 165.1 cm (5' 5), weight 67.1 kg (148 lb), last menstrual period 02/25/2025, SpO2 99%, not currently . GENERAL: The patient is well nourished, well hydrated in no acute distress. , The patient is oriented to time, place, and person. NECK: Supple. No lynphadenopathy, normal thyroid, no thyromegaly. LUNGS: Clear to auscultation bilaterally. no wheezes, rhonchi or rales HEART: Regular rate and rhythm, Normal heart sounds, and No murmurs or gallops IMPRESSION: malpositioned, intraperitoneal IUD PLAN: The risks/benefits/alte rnatives and personal involved for the planned laparoscopy with removal of IUD, possible hysteroscopy if unable to remove IUD laparoscopically, were reviewed with the patient. Her questions were answered to her satisfaction and she desires to proceed. Consent was signed. I reviewed with her postop instructions and expectations. I have reviewed and updated past medical and surgical history, medications and allergies Selam Ellis M.D. [1] Social History Tobacco Use Smoking status: Never Smokeless tobacco: Never Vaping Use Vaping status: Never Used Substance Use Topics Alcohol use: Yes Alcohol/week: 1.0 standard drink of alcohol Types: 1 Standard drinks or equivalent per week Comment: occasional Drug use: No Normal [facility] XR PELVIS 3V AP/INLET/OUTLET on 02-02-2025 XR PELVIS 3V AP/INLET/OUTLET * * *Final Report* * * DATE OF EXAM: Feb 02 2025 12:30PM LDX [id number] - XR PELVIS 3V AP/INLET/OUTLET / PROCEDURE REASON: Displacement of intrauterine contraceptive device, initial encounter * * * * Physician Interpretation * * * * EXAMINATION: XR PELVIS 3V AP/INLET/OUTLET HISTORY: Displacement of IUD Displacement of intrauterine contraceptive device, initial encounter . TECHNIQUE: XR PELVIS 3V AP/INLET/OUTLET Laterality: NOT APPLICABLE Number of different views (projections): 3 M: XB_1 COMPARISON: Pelvic ultrasound 01/01/2025 RESULT: Only frontal views of the pelvis were obtained. An IUD is present within the upper pelvic region. The IUD is somewhat oblique within the pelvis. No other significant abnormality. IMPRESSION: The IUD appears to be present within the pelvis. It is difficult to determine how the IUD relates to the uterus or other structures present. Please refer to recent pelvic ultrasound. If a true positioning of the IUD is needed to be assessed, CT would be more definitive. Health And Safety Inspector: PSCB Transcribe Date/Time: Feb 06 2025 2:41P Dictated by : JUAN CARLOS MARTÍNEZ MD This examination was interpreted and the report reviewed and electronically signed by: JUAN CARLOS MARTÍNEZ MD on Feb 06 2025 2:44PM EST [id number] Normal [facility] US Pelvison 01-04-2025 Indication IUD strings not seen Impression Normal appearing retroverted uterus that measures 71 mm x 28 mm x 57 mm. Endometrium measures 1.2 mm. No IUD is visualized within endometrial cavity or pelvis. Both ovaries are visualized and appear normal with follicular change. No adnexal masses were observed. There is free fluid visualized in the peritoneal cavity. Recommendations Recommend pelvic xray as clinically indicated. Menstrual History no regular menses with IUD Method Transabdominal, transvaginal, 3D ultrasound examination, Color Doppler examination Uterus Uterus: Visualized Uterus position: retroverted Myometrium: normal Endometrium: endometrial midline: linear Cervix details: normal Uterus length 71 mm Uterus width 57 mm Uterus height 28 mm Uterus Vol 59.0 cm Endometrial thickness, total 1.2 mm IUCD Position control IUCD type: Mirena intrauterine system. Location: no IUCD seen in the endometrial cavity Right Ovary Rt ovary: Visualized Rt ovary morphology: premenopausal normal follicular Rt ovary D1 22 mm Rt ovary D2 24 mm Rt ovary D3 13 mm Rt ovary Vol 3.4 cm Left Ovary Lt ovary: Visualized Lt ovary morphology: premenopausal normal follicular Lt ovary D1 30 mm Lt ovary D2 32 mm Lt ovary D3 19 mm Lt ovary Vol 9.7 cm Cul de Sac Visualized. free fluid visualized Largest pool 15.6 mm x 8.2 mm x 20.6 mm. Vol 1.380 ml Performed By: Sultana Hampton RDMS Read By: aJqui Beaver M.D. MATERNAL MEDICINE [facility] US Pelvison 01-01-2025 Radiology Study observation (narrative) [facility] CNOVon 12-28-2024 CNOV Office Visit (OBGYWM) ---- CANDIESHAVON HOWE ([id number]) 1995 F Date Time Provider Department 12/28/24 9:30 AM GRICEL CHRISTENSEN OBJESÚSWFavian During your visit today, we recorded the following information about you: Blood pressure Weight 98/58 67.6 kg Gricel Christensen APRN.CNM 12/28/2024 10:09 AM Signed Shavon presents for removal of IUD due to desire for . UNIVERSAL PROTOCOL / SAFETY CHECKLIST Procedure to be Performed: IUD removal Sign In: A Moment of CARE was completed. Appropriate PPE (Personal Protective Equipment) worn by all providers involved with the procedure. Special equipment not required. Patient/Surrogate Stated/Verified: Patient name, Date of , Relevant allergies, and The intended procedure Time Out: Relevant labs, photos, and/or imaging studies have been reviewed. Intended patient and procedure match the source document(s) (e.g. consent, HANDP, associated studies [imaging, pathology]) match the intended patient and procedure. Consent obtained and matches the intended procedure. Yes. Correct side/site is not applicable. Medications required for this procedure: Not applicable Fire risk assessed and is not applicable. Implants: are not applicable. Sign Out: Specimens not collected. All instruments, equipment, possible retained foreign bodies are accounted for. Yes. The post-procedure plan of care has been communicated to the patient or surrogate. PROCEDURE: Speculum placed in vagina, IUD strings not visualized. Attempted retrieval of IUD strings and unsuccessful. Unable to visualized strings for removal ASSESSMENT/PLAN: Unable to remove IUD. Will return for ultrasound. Discussed endosee to assist with removal and physicians for management. Will follow up after US results. Contraception plans: Mirena IUD Gricel Christensen APRN.CNM Referring Provider: GRICEL CHRISTENSEN [[id number]] Allergies As of Date: 12/28/2024 (No Known Allergies) Date Reviewed: 12/28/2024 Reviewed by: Fela Berrios MA - Fully Assessed Reason for Visit: IUD Removal [1950] Primary Visit Diagnosis:Intrauter ine contraceptive device threads lost, initial encounter [T83.32XA] Order(s):PELVIC US [facility]I [[id number]] Order #: [id number]: 1 FUTURE Prescriptions as of 12/28/2024 - PNV no.95/ferrous fum/folic ac ( PO) Take by mouth. - norethindrone (AYGESTIN) 5 mg tablet Take 1 tablet by mouth once daily. - escitalopram oxalate (LEXAPRO) 10 mg tablet Take 1 tablet by mouth once daily. - levonorgestrel (MIRENA) 21 mcg/24 hours (8 yrs) 52 mg IUD 1 Each by INTRAUTERINE route as directed. 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] 12/21/2014 Disorder of accommodation [CUN5731] 12/21/2014 with care elsewhere [Z34.90] 10/22/2019 03/28/2020 Family history of congenital heart defect [Z82.*10/22/2019 Need for MMR vaccine [Z23] 11/16/2019 Positive GBS test [B95.1] 01/29/2020 03/28/2020 Endometrioma [N80.129] 07/29/2022 Bacterial vaginosis in [O23.599, B96.*08/06/2022 History of depression [Z87.59, Z86.5*08/06/2022 Family history of cleft palate [Z82.79] 08/06/2022 DIMITRI (stress urinary incontinence, female) [N39.*05/17/2023 Muscle weakness [M62.81] 05/17/2023 Pelvic pressure in [O26.899, R10.2] 05/17/2023 33 weeks gestation of [Z3A.33] 05/17/2023 NATHANIEL (generalized anxiety disorder) [F41.1] 07/13/2024 Recurrent mild major depressive disorder with a*07/13/2024 Sleep disturbance [G47.9] 07/13/2024 Disposition: Return for pelvic us. Follow-up and Disposition History for Encounter Date Provider Department Center 12/28/2024 [id number]-EQRLEGRICEL CHRISTENSEN Encounter Status:Closed by GRICEL CHRISTENSEN on 12/28/24 [facility] CNOVon 11-24-2024 CNOV Office Visit (OBGYWM) ---- SHAVON ESCALONA ([id number]) 1995 F Date Time Provider Department 11/24/24 1:45 PM GRICEL CHRISTENSEN OBGYWM During your visit today, we recorded the following information about you: Blood pressure Weight 108/72 66.7 kg Gricel Christensen APRN.CNM 11/24/2024 2:12 PM Signed Obstetrics and Gynecology [place] [employer] ADJUST[employer] Visit Subjective Recording using [employer] software for draft documentation of the visit was discussed with the patient/authorized district sales representative; all questions welcomed and answered. Patient/authorized district sales representative agreed to proceed CHIEF COMPLAINT: IUD removal HPI: The patient is a 29-year-old female, , with a history of anxiety, presenting for IUD removal and preconception counseling. The patient desires removal of her Mirena IUD. She plans to start trying to conceive in the next few months. She has been taking vitamins continuously and reports minimal pain, with occasional cramping. Her first occurred on the first attempt, while the second took approximately seven months. She is currently taking Lexapro, prescribed by her PCP in June, and inquires about its safety during . She denies use of other antidepressants. HISTORY: OB History Gravida2 Para2 Term2 Preterm0 AB0 Living2 SAB0 IAB0 Ectopic0 Multiple0 Live Births2 Business Services Analyst History LMP: 08/10/2024 (Exact Date), IUD Age at Menarche: Age at First : Age at Menopause: Business Services Analyst History Comments: Sexual Activity: Yes; Male Contraception: No contraception data on record PAST MEDICAL HISTORY Diagnosis Date Anxiety state Endometrioma Ovarian cyst depression PAST SURGICAL HISTORY Procedure Laterality Date PAST SURGICAL HISTORY OF wisdom teeth FAMILY HISTORY Problem Relation Age of Onset No Known Problems Mother Detached Retina Father Heart Father 70 Hypertension Father Kidney Disease Maternal Grandmother Heart Attack Maternal Grandfather Alzheimer's Disease Paternal Grandmother other (blood infection) Paternal Grandfather No Known Problems Daughter No Known Problems Daughter Hypertension Half-brother Hypertension Half-brother Social History Tobacco Use Smoking status: Never Smokeless tobacco: Never Vaping Use Vaping status: Never Used Substance Use Topics Alcohol use: Yes Alcohol/week: 1.0 standard drink of alcohol Types: 1 Standard drinks or equivalent per week Comment: occasional Drug use: No Current Outpatient Medications Medication Sig norethindrone (AYGESTIN) 5 mg tablet Take 1 tablet by mouth once daily. escitalopram oxalate (LEXAPRO) 10 mg tablet Take 1 tablet by mouth once daily. levonorgestrel (MIRENA) 21 mcg/24 hours (8 yrs) 52 mg IUD 1 Each by INTRAUTERINE route as directed. No current facility-administer ed medications for this visit. ALLERGIES No Known Allergies REVIEW OF SYSTEMS: Genitourinary: (+) intermittent crampy pelvic pain Objective SENSITIVE EXAM: The sensitive examination was discussed with the Patient or Patient's Authorized Expeditionary Fighting Vehicle Crewman. As applicable, any other physician, advance practice provider, medical student, or other health professional student that will be observing or involved in the sensitive examination for educational or training purposes was discussed with the Patient or Authorized Expeditionary Fighting Vehicle Crewman. The Patient or Authorized Expeditionary Fighting Vehicle Crewman has agreed to proceed with the sensitive examination. (Sensitive examination includes inspection and/or palpation of the breasts, pelvis, prostate and anorectal regions). PHYSICAL EXAM: BP 108/72 Wt 147 lb (66.7kg) LMP 08/10/2024 GENERAL: Well-appearing, no acute distress BREAST: soft, non-tender, symmetric, no dominant mass, normal nipple-areolar complex, no lymphadenopathy, no nipple discharge PULMONARY: normal inspiratory effort ABDOMEN: soft, non-tender, no masses NEURO: alert and oriented x3 EXTREMITIES: normal Assessment AND Plan ASSESSMENT AND PLAN: 1. Encounter for IUD removal (Z30.432) - REMOVE INTRAUTERINE DEVICE 2. Encounter for preconception consultation - ICD9: V26.49, ICD10: Z31.69 - Advised continuation of Lexapro during ; provided educational handout on potential risks and benefits. - Continue PNV 3. History of depression - ICD9: V13.29, V11.8, ICD10: Z87.59, Z86.59 - Advised continuation of Lexapro during ; provided educational handout on potential risks and benefits. 4. NATHANIEL (generalized anxiety disorder) - ICD9: 300.02, ICD10: F41.1 - Advised continuation of Lexapro during ; provided educational handout on potential risks and benefits. Gricel Christensen APRN.CNM Allergies As of Date: 11/24/2024 (No Known Allergies) Date Reviewed: 11/24/2024 Reviewed by: Cameron Cruz MA - Fully Assessed Reason for Visit: Discussion [813] Cmt: Removal of IUD (more content not included)... Normal [facility] MR Pelvis WO and W contrast Addy 09-30-2024 IMPRESSION: Posterior compartment findings can be seen with deep infiltrative endometriosis. Serially decreased size of a left ovarian lesion that is probably a hemorrhagic cyst rather than endometrioma. Health And Safety Inspector: SHAI Transcribe Date/Time: Sep 30 2024 10:25A Dictated by : JOSE ARMANDO AGUILAR MD This examination was interpreted and the report reviewed and electronically signed by: JOSE PHAN DO on Sep 30 2024 12:56PM [facility] DIVISION OF RADIOLOGY * * *Final Report* * * DATE OF EXAM: Sep 30 2024 10:18AM Q 0713 - MRI FEMALE PELVIS WO/W IVCON / PROCEDURE REASON: Pelvic and perineal pain * * * * Physician Interpretation * * * * MRI OF THE PELVIS WITHOUT AND WITH CONTRAST (ENDOMETRIOSIS PROTOCOL) HISTORY: Pelvic/perineal pain. Concern for endometriosis TECHNIQUE: Magnet: Siemens 3T Skyra scanner. Coil: Torso phased array Sequences / planes: Multisequence, multiplanar MR imaging of the pelvis was performed with and without intravenous contrast. Contrast: Contrast Media 1: IV administration of 6.5 ml of Elucirem Contrast Media 2: Vaginal administration of 30 ml of SurgiLube COMPARISON: Pelvic ultrasound 06/04/2023, 07/10/2022 RESULT: Limitations: Most of the T2 sequences are degraded by motion. Uterus: Size: 4.1 x 3.0 x 7.4 cm Orientation: Retroverted Endometrium: Homogeneous signal intensity with no mass measuring 3 mm. Junctional zone: Maximum thickness: 9 mm, Homogeneous T2 hypointense signal Cervix: Normal Leiomyomas: None Adenomyomas: None Anterior compartment: Bladder: No MR evidence of endometriosis Ureters: No hydronephrosis. Round ligaments: No MR evidence of endometriosis Vesicouterine pouch: No MR evidence of endometriosis Vesicovaginal septum: No MR evidence of endometriosis Prevesicular space: No MR evidence of endometriosis Middle Compartment Disease: Ovaries: - Right ovary: 2.3 x 1.7 x 2.1cm. Physiologic follicles. No endometrioma. - Left ovary: 2.2 x 3.5 x 2.0 cm. Physiologic follicles. T1 hyperintense 7 mm focus (13:49), serially decreasing in size. Fallopian tubes: No hydrosalpinx Vagina: No MR evidence of endometriosis Cervix: No MR evidence of endometriosis Posterior compartment disease: Torus uterinus (Uterine body): T2 hypointense plaque-like thickening of the posterior aspect of the uterine body (3:24) with possible subtle intermingled tiny T1 hyperintense foci (12:41). Uterosacral ligament: No irregular thickening or abnormal signal to suggest endometriosis Retrocervical Space: No MR evidence of endometriosis Anterior rectal wall: No rectal wall involvement Rectovaginal space / septum: Normal Additional bowel lesions present? (Sigmoid colon/ small bowel): -No additional bowel lesions identified -Appendix is normal Additional sites of endometriosis: -No abdominal wall lesions -No findings suspicious for neural endometriosis Pelvis free fluid: Trace free fluid, likely physiologic. Lymph nodes: No lymph nodes enlarged by size criteria. Bones & Soft Tissues: No significant finding. Localizer images: No additional findings. DIVISION OF RADIOLOGY Provider, [facility] - 09/30/2024 * * *Final Report* * * DATE OF EXAM: Sep 30 2024 10:18AM QBM 0713 - MRI FEMALE PELVIS WO/W IVCON / PROCEDURE REASON: Pelvic and perineal pain * * * * Physician Interpretation * * * * MRI OF THE PELVIS WITHOUT AND WITH CONTRAST (ENDOMETRIOSIS PROTOCOL) HISTORY: Pelvic/perineal pain. Concern for endometriosis TECHNIQUE: Magnet: Siemens 3T Skyra scanner. Coil: Torso phased array Sequences / planes: Multisequence, multiplanar MR imaging of the pelvis was performed with and without intravenous contrast. Contrast: Contrast Media 1: IV administration of 6.5 ml of Elucirem Contrast Media 2: Vaginal administration of 30 ml of SurgiLube COMPARISON: Pelvic ultrasound 06/04/2023, 07/10/2022 RESULT: Limitations: Most of the T2 sequences are degraded by motion. Uterus: Size: 4.1 x 3.0 x 7.4 cm Orientation: Retroverted Endometrium: Homogeneous signal intensity with no mass measuring 3 mm. Junctional zone: Maximum thickness: 9 mm, Homogeneous T2 hypointense signal Cervix: Normal Leiomyomas: None Adenomyomas: None Anterior compartment: Bladder: No MR evidence of endometriosis Ureters: No hydronephrosis. Round ligaments: No MR evidence of endometriosis Vesicouterine pouch: No MR evidence of endometriosis Vesicovaginal septum: No MR evidence of endometriosis Prevesicular space: No MR evidence of endometriosis Middle Compartment Disease: Ovaries: - Right ovary: 2.3 x 1.7 x 2.1cm. Physiologic follicles. No endometrioma. - Left ovary: 2.2 x 3.5 x 2.0 cm. Physiologic follicles. T1 hyperintense 7 mm focus (13:49), serially decreasing in size. Fallopian tubes: No hydrosalpinx Vagina: No MR evidence of endometriosis Cervix: No MR evidence of endometriosis Posterior compartment disease: Torus uterinus (Uterine body): T2 hypointense plaque-like thickening of the posterior aspect of the uterine body (3:24) with possible subtle intermingled tiny T1 hyperintense foci (12:41). Uterosacral ligament: No irregular thickening or abnormal signal to suggest endometriosis Retrocervical Space: No MR evidence of endometriosis Anterior rectal wall: No rectal wall involvement Rectovaginal space / septum: Normal Additional bowel lesions present? (Sigmoid colon/ small bowel): -No additional bowel lesions identified -Appendix is normal Additional sites of endometriosis: -No abdominal wall lesions -No findings suspicious for neural endometriosis Pelvis free fluid: Trace free fluid, likely physiologic. Lymph nodes: No lymph nodes enlarged by size criteria. Bones & Soft Tissues: No significant finding. Localizer images: No additional findings. IMPRESSION IMPRESSION: Posterior compartment findings can be seen with deep infiltrative endometriosis. Serially decreased size of a left ovarian lesion that is probably a hemorrhagic cyst rather than endometrioma. Health And Safety Inspector: SHAI Transcribe Date/Time: Sep 30 2024 10:25A Dictated by : JOSE ARMANDO AGUILAR MD This examination was interpreted and the report reviewed and electronically signed by: JOSE PHAN DO on Sep 30 2024 12:56PM EST [facility] Radiology Study observation (narrative) [facility] MR Pelvis WO and W contrast IVOrdered By: [facility] Provider on 09-30-2024 [facility] MRI FEMALE PELVIS WO/W IVCON on 09-30-2024 MRI FEMALE PELVIS WO/W IVCON * * *Final Report* * * DATE OF EXAM: Sep 30 2024 10:18AM QBM 0713 - MRI FEMALE PELVIS WO/W IVCON / PROCEDURE REASON: Pelvic and perineal pain * * * * Physician Interpretation * * * * MRI OF THE PELVIS WITHOUT AND WITH CONTRAST (ENDOMETRIOSIS PROTOCOL) HISTORY: Pelvic/perineal pain. Concern for endometriosis TECHNIQUE: Magnet: Siemens 3T Skyra scanner. Coil: Torso phased array Sequences / planes: Multisequence, multiplanar MR imaging of the pelvis was performed with and without intravenous contrast. Contrast: Contrast Media 1: IV administration of 6.5 ml of Elucirem Contrast Media 2: Vaginal administration of 30 ml of SurgiLube COMPARISON: Pelvic ultrasound 06/04/2023, 07/10/2022 RESULT: Limitations: Most of the T2 sequences are degraded by motion. Uterus: Size: 4.1 x 3.0 x 7.4 cm Orientation: Retroverted Endometrium: Homogeneous signal intensity with no mass measuring 3 mm. Junctional zone: Maximum thickness: 9 mm, Homogeneous T2 hypointense signal Cervix: Normal Leiomyomas: None Adenomyomas: None Anterior compartment: Bladder: No MR evidence of endometriosis Ureters: No hydronephrosis. Round ligaments: No MR evidence of endometriosis Vesicouterine pouch: No MR evidence of endometriosis Vesicovaginal septum: No MR evidence of endometriosis Prevesicular space: No MR evidence of endometriosis Middle Compartment Disease: Ovaries: - Right ovary: 2.3 x 1.7 x 2.1cm. Physiologic follicles. No endometrioma. - Left ovary: 2.2 x 3.5 x 2.0 cm. Physiologic follicles. T1 hyperintense 7 mm focus (13:49), serially decreasing in size. Fallopian tubes: No hydrosalpinx Vagina: No MR evidence of endometriosis Cervix: No MR evidence of endometriosis Posterior compartment disease: Torus uterinus (Uterine body): T2 hypointense plaque-like thickening of the posterior aspect of the uterine body (3:24) with possible subtle intermingled tiny T1 hyperintense foci (12:41). Uterosacral ligament: No irregular thickening or abnormal signal to suggest endometriosis Retrocervical Space: No MR evidence of endometriosis Anterior rectal wall: No rectal wall involvement Rectovaginal space / septum: Normal Additional bowel lesions present? (Sigmoid colon/ small bowel): -No additional bowel lesions identified -Appendix is normal Additional sites of endometriosis: -No abdominal wall lesions -No findings suspicious for neural endometriosis Pelvis free fluid: Trace free fluid, likely physiologic. Lymph nodes: No lymph nodes enlarged by size criteria. Bones and Soft Tissues: No significant finding. Localizer images: No additional findings. IMPRESSION: Posterior compartment findings can be seen with deep infiltrative endometriosis. Serially decreased size of a left ovarian lesion that is probably a hemorrhagic cyst rather than endometrioma. Health And Safety Inspector: PSCB Transcribe Date/Time: Sep 30 2024 10:25A Dictated by : JOSE ARMANDO AGUILAR MD This examination was interpreted and the report reviewed and electronically signed by: JOSE PHAN DO on Sep 30 2024 12:56PM EST [id number] [id number] Normal [facility] CNOVon 07-23-2024 CNOV Office Visit (AGINTMLW) ---- SHAVON ESCALONA ([id number]) 1995 F Date Time Provider Department 07/23/24 2:40 PM DALILA TIRADO AGINTMLW During your visit today, we recorded the following information about you: Pulse Respiration Blood pressure Weight 85/minute 18/minute 106/70 65 kg Height 1.676 m Dalila Tirado, LOGISTICS ENGINEER.RETIREMENT ASSISTANT 07/23/2024 3:45 PM Addendum This note was created using [employer]. Subjective Shavon Escalona is a 28 year old female here today to establish care. PMH NATHANIEL, and depression. NATHANIEL and depression: she had virtual visit on 06/04/24 and 07/13/[address] Giron. She was started on lexapro 10 mg daily. Feeling nervous, anxious, or on edge 1 Several days Not being able to stop or control worrying 1 Several days Worrying too much about different things 0 Not at all sure Trouble relaxing 0 Not at all sure Being so restless that it's hard to sit still 0 Not at all sure Being easily annoyed or irritable 1 Several days Feeling afraid as if something awful might happen 0 Not at all sure NATHANIEL-7 Anxiety Score 3 If you checked off any problems, how difficult have these problems made it for you to do your work, take care of things at home, or get along with other people? Somewhat difficult THE LAST 2 WEEKS, HAVE YOU BEEN BOTHERED BY ANY OF THE FOLLOWING? - Little interest or pleasure in doing things 0 NOT AT ALL Feeling down, depressed, or hopeless 0 Trouble falling or staying asleep, or sleeping too much 1 Feeling tired or having little energy 1 Poor appetite or overeating 0 Feeling bad yourself-you are a failure or have let yourself or others 0 Trouble concentrating, like reading the paper or watching TV 0 Moving/speaking slowly (others notice) OR being more fidgety/restless 0 Thoughts that you would be better off or of hurting yourself 0 PHQ TOTAL SCORE = 2 PHQ problems effect on difficulty of work, home, and social activity: 1 - NOT DIFFICULT AT ALL , she reports hx of ovarian cysts and pelvic cramping. States she is on Aygestin for possible endometriosis. She has MRI ordered. She stop breast feeding 2 wks. Migraines: dx in Middle school. Denies aura. She reports starts back of d. Light and sound sensitivity. She reports at most 2 a month. Will use heating pad and Excedrin migraine. She reports sometimes medicine helps. She reports just working through. 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 She does not smoke or vape. She reports rare alcohol use. 1-2x/month at most. She does work out class once a week. ALLERGIES No Known Allergies Current Outpatient Medications Medication Sig Dispense Refill predniSONE (DELTASONE) 10 mg tablet Day #1 - 6 tablets PO then Day #2 - 5 tablets PO then Day #3 - 4 tablets PO then Day #4 - 3 tablets PO then Day #5 - 2 tablets PO then Day #6 - 1 tablet PO (Patient not taking: Reported on 07/23/2024) 21 tablet 0 fluticasone (FLONASE ALLERGY RELIEF) 50 mcg/actuation nasal spray Use 1 [place] in each nostril two times a day. (Patient not taking: Reported on 07/23/2024) 1 Each 0 escitalopram oxalate (LEXAPRO) 10 mg tablet Take 1 tablet by mouth once daily. 30 tablet 1 norethindrone (AYGESTIN) 5 mg tablet Take 1 tablet by mouth once daily. 90 tablet 3 levonorgestrel (MIRENA) 21 mcg/24 hours (8 yrs) 52 mg IUD 1 Each by INTRAUTERINE route as directed. 1 Each 0 Surgical Lubricant Jelly gel For MRI Female Pelvis, MRI department to provide. Administer intra-vaginal Surgilube immediately prior the MRI procedure (total amount to patient toleranace). 1 g 0 No current facility-administer ed medications for this visit. ACTIVE PROBLEM LIST Hyperopia Disorder of Accommodation Family History of Congenital Heart Defect Need for Mmr Vaccine Endometrioma Bacterial Vaginosis in History of Depression Family History of Cleft Palate Dimitri (Stress Urinary Incontinence, Female) Muscle Weakness Pelvic Pressure in 33 Weeks Gestation of Nathaniel (Generalized Anxiety Disorder) Recurrent Mild Major Depressive Disorder With Anxiety (Hcc) (Hcc) Sleep Disturbance PAST MEDICAL HISTORY Diagnosis Date Anxiety state Endometrioma Ovarian cyst depression PAST SURGICAL HISTORY Procedure Laterality Date PAST SURGICAL HISTORY OF wisdom teeth Social History Tobacco Use Smoking status: Never Smokeless tobacco: Never Vaping Use Vaping status: Never Used Substance Use Topics Alcohol use: Yes Alcohol/week: 1.0 standard drink of alcohol Types: 1 Standard drinks or equivalent per week Comment: occasional Drug use: No Family History Problem Relation Age of Onset No Known Problems Mother Detached Retina Father Heart Father Hypertension Father Hypertension Brother No Known Problems Brother Kidney Disease Maternal Grandmother Heart A (more content not included)... Normal [facility] CNOVon 07-07-2024 CNOV Office Visit (WALKWA) ---- SHAVON ESCALONA ([id number]) 1995 F Date Time Provider Department 07/07/24 12:15 PM LEXII MARTINEZ During your visit today, we recorded the following information about you: Temperature Pulse Blood pressure Weight 97.5 degrees 82/minute 98/60 63.7 kg Lexii Martinez PA-C 07/07/2024 1:01 PM Signed Subjective Shavon Escalona is a 28 year old female with no significant past medical history who presents to [facility] care today for evaluation of right ear pain x 2 days. No fevers. Review of Systems HENT: Positive for ear pain (right). Negative for ear discharge. Skin: Negative for rash and wound. Objective LMP 06/21/2022 (Exact Date) Physical Exam Vitals reviewed. Constitutional: General: She is not in acute distress. Appearance: Normal appearance. She is normal weight. She is not ill-appearing or toxic-appearing. Comments: The patient appears to be non-toxic, in no acute distress, and resting comfortably on the table. HENT: Head: Normocephalic and atraumatic. Right Ear: Tympanic membrane, ear canal and external ear normal. Left Ear: Tympanic membrane, ear canal and external ear normal. Eyes: Extraocular Movements: Extraocular movements intact. Cardiovascular: Rate and Rhythm: Normal rate and regular rhythm. Heart sounds: Normal heart sounds. No murmur heard. No friction rub. No gallop. Pulmonary: Effort: Pulmonary effort is normal. No respiratory distress. Breath sounds: Normal breath sounds. No wheezing. Musculoskeletal: Cervical back: Normal range of motion. Skin: General: Skin is warm and dry. Findings: No erythema or rash. Neurological: General: No focal deficit present. Mental Status: She is alert and oriented to person, place, and time. Mental status is at baseline. Psychiatric: Mood and Affect: Mood normal. Behavior: Behavior normal. Thought Content: Thought content normal. Assessment and Plan Normal exam. Suspect patient's symptoms are due to eustachian tube dysfunction. Patient counseled regarding suspected diagnosis and given prescriptions for prednisone, Sudafed, and Flonase. Advised to follow-up with primary care as needed for any new or worsening symptoms. ASSESSMENT/PLAN: 1. Eustachian tube dysfunction, right - ICD9: 381.81, ICD10: H69.91 (primary diagnosis) - PREDNISONE 10 MG TABLET - PSEUDOEPHEDRINE 30 MG TABLET - FLUTICASONE PROPIONATE 50 MCG/ACTUATION NASAL SPRAY,SUSPENSION 2. Right ear pain - ICD9: 388.70, ICD10: H92.01 Medical Decision Making: Problems: Low: Acute, uncomplicated illness or injury Risk: Minimal: Minimal risk from testing/treatment Moderate: Drug management Medical Decision Making Level: 3 - Low I spent a total of 20 minutes on the date of the service which included preparing to see the patient, [id number] patient care, completing clinical documentation, performing a medically appropriate examination, counseling and educating the patient/family/account executive healthcare, and ordering medications, tests, or procedures. TALYA Hubbard Ariana P, PA-C 07/07/2024 12:51 PM Signed Eustachian Tube Dysfunction, or ETD- can cause dulled hearing. It is usually a temporary problem that lasts a week or so and most commonly occurs during and after a cold. There are various other causes and sometimes it lasts longer. Often, no treatment is needed but decongestants, antihistamines, or a steroid nasal spray can help. What is the Eustachian tube and what does it do? The Eustachian tube is a narrow tube that connects the space behind the eardrum (the middle ear) with the back of the nose. In adults it is about 3-4 cm long. The middle ear is normally filled with air. The air in the middle ear is constantly being absorbed by the cells that line the middle ear. Fresh supplies of air are needed to get to the middle ear periodically. The Eustachian tube is normally closed but opens when we swallow, yawn or chew. This allows air to flow into the middle ear and any mucus to flow out. This keeps the air pressure equal to either side of the eardrum. Having equal air pressure on each side of the eardrum and the middle ear free of mucus, helps the eardrum to vibrate. This vibration is needed for us to hear properly. What is Eustachian tube dysfunction (ETD)? ETD means that the Eustachian tube is blocked or does not open properly. Air cannot then get into the middle ear. Therefore, the air pressure on the outer side of the eardrum becomes greater than the air pressure in the middle ear. This pushes the eardrum inward. The eardrum becomes tense and does not vibrate so well when hit by sound waves. What are the causes of Eustachian tube dysfunction (ETD)? ETD occurs if the Eustachian tube becomes blocked, if the lining of the tube swells, or if the tube does not open fully to allow air to tra (more content not included)... Normal [facility] HCG QUAL UR B/Oon 07-09-2023 status Negative neg - pos [facility] [place] Quality Check Yes [facility] BACTERIAL VAGINOSIS NAATon 0 06-19-2023 Lactobacillus crispatus+gasseri+colton enii + Gardnerella vaginalis + Atopobium vaginae rRNA JUAN+probe Ql (Vag fld) Negative Negative for bacterial vaginosis [facility] CHRISTAL/TRICHOMONAS NAATon 0 06-19-2023 C. glabrata RNA JUAN+probe Ql (Vag fld) Negative Negative for Christal glabrata [facility] Christal sp DNA JUAN+probe Ql (Vag fld) Negative Negative for Christal species [facility] T. vaginalis DNA JUAN+probe Ql (Unsp spec) Negative Negative for Trichomonas vaginalis by amplification [facility] US DOPPLER COMPLETEon 2023 US DOPPLER COMPLETE * * *Final Report* * * DATE OF EXAM: Jun 04 2023 11:32AM FUAD 1033 - US DOPPLER COMPLETE / PROCEDURE REASON: N80.129-Endometriom a * * * * Physician Interpretation * * * * EXAMINATION: TRANSVAGINAL AND LIMITED TRANSABDOMINAL FEMALE PELVIC ULTRASOUND CLINICAL HISTORY: History of endometriosis TECHNIQUE: Sonography of the pelvis was performed by transvaginal and transabdominal (limited) techniques. Images were obtained and stored in a permanent archive. MQ: UFP_2021 COMPARISON: 07/10/2022 RESULT: Uterus: -Size: 8.6 x 3.1 x 5.2 cm -Orientation: Retroverted -Endometrial echo complex: Evaluation of the endometrium was adequate. No endometrial abnormality. The endometrial echo complex measured 0.4 cm. -Cervix: Unremarkable. -Adenomyosis assessment: There are no sonographic findings of adenomyosis. -Fibroids: There are no fibroids. Right Ovary: 2.6 x 1.5 x 2.5 cm. Normal appearance Left Ovary: 4.1 x 2.7 x 1.9 cm 1.1 cm avascular cyst containing low-level echoes. Decreased from prior study. Likely small endometrioma Free Fluid: Trace free pelvic fluid Arterial and venous Doppler interrogation of the right and left ovary is normal IMPRESSION: Avascular cyst within the left ovary containing low level echoes. Decreased from prior study. Likely endometrioma. O-RADS Category 2 ,almost certainly benign. Trace free pelvic fluid. No follow-up necessary Health And Safety Inspector: SHAI Transcribe Date/Time: Jun 04 2023 12:09P Dictated by : CAS SCHOFIELD MD This examination was interpreted and the report reviewed and electronically signed by: CAS SCHOFIELD MD on Jun 04 2023 12:13PM EST [id number] [facility] [place] US FEMALE PELVIS TRANSVAGon 06-04-2023 US FEMALE PELVIS TRANSVAG * * *Final Report* * * DATE OF EXAM: Jun 04 2023 11:32AM U 1060 - US FEMALE PELVIS TRANSVAG / PROCEDURE REASON: N80.129-Endometriom a * * * * Physician Interpretation * * * * EXAMINATION: TRANSVAGINAL AND LIMITED TRANSABDOMINAL FEMALE PELVIC ULTRASOUND CLINICAL HISTORY: History of endometriosis TECHNIQUE: Sonography of the pelvis was performed by transvaginal and transabdominal (limited) techniques. Images were obtained and stored in a permanent archive. MQ: UFP_2021 COMPARISON: 07/10/2022 RESULT: Uterus: -Size: 8.6 x 3.1 x 5.2 cm -Orientation: Retroverted -Endometrial echo complex: Evaluation of the endometrium was adequate. No endometrial abnormality. The endometrial echo complex measured 0.4 cm. -Cervix: Unremarkable. -Adenomyosis assessment: There are no sonographic findings of adenomyosis. -Fibroids: There are no fibroids. Right Ovary: 2.6 x 1.5 x 2.5 cm. Normal appearance Left Ovary: 4.1 x 2.7 x 1.9 cm 1.1 cm avascular cyst containing low-level echoes. Decreased from prior study. Likely small endometrioma Free Fluid: Trace free pelvic fluid Arterial and venous Doppler interrogation of the right and left ovary is normal IMPRESSION: Avascular cyst within the left ovary containing low level echoes. Decreased from prior study. Likely endometrioma. O-RADS Category 2 ,almost certainly benign. Trace free pelvic fluid. No follow-up necessary Health And Safety Inspector: SHAI Transcribe Date/Time: Jun 04 2023 12:09P Dictated by : CAS SCHOFIELD MD This examination was interpreted and the report reviewed and electronically signed by: CAS SCHOFIELD MD on Jun 04 2023 12:13PM EST [id number] [id number] Normal [facility] No Panel InformationOrdered By: Naomi Olivera on 03-28-2023 Vaginal Amniotic Fluid Detection Positive Negative [facility] Comment on above: Amniotic fluid prese nt indicates rupture of Membranes. RESULTS CALLED TO Aleksandra SWENSON 03/28/23 0202 Clinton Carter.REPORT READ BACK BY SAME. Absolute lymphocyte countOrd ered By: Naomi Olivera on 03-27-2023 Lymphocytes Auto (Unsp spec) [#/Vol] 1.94 10*3/uL 0.83-4.51 [facility] Basophil percentageOrdered B y: Naomi Olivera on 03-27-2023 Basophils/100 WBC (Bld) 0.4 % 0-1 [facility] Eosinophils/100 WBC (Bld) 0.7 % 0-5 [facility] Neutrophils (Bld) [#/Vol] 10.1 10*3/uL 2.0-7.7 [facility] Neutrophils/100 WBC (Bld) 76.4 % 47-70 [facility] WBC (Bld) [#/Vol] 13.2 10*3/uL 4.4-11.0 [facility] Blood erythrocytes count (nu mber/volume)Ordered By: Naomi Olivera on 03-27-2023 RBC (Bld) [#/Vol] 4.29 10*6/uL 4.2-5.4 [facility] Blood hemoglobin measurement (mass/volume)Ordered By: Naomi Olivera on 03-27-2023 Hemoglobin (Bld) [Mass/Vol] 13.0 g/dL 12.0-15.0 [facility] Blood lymphocytes/100 leukoc ytesOrdered By: Naomi Olivera on 03-27-2023 Lymphocytes/100 WBC (Bld) 14.7 % 19-41 [facility] Blood monocytes/100 leukocyt esOrdered By: Naomi Olivera on 03-27-2023 Monocytes/100 WBC (Bld) 7.4 % 0-10 [facility] Blood platelet mean volumeOr dered By: Naomi Olivera on 03-27-2023 Platelet mean volume (Bld) [Entitic vol] 12.3 fL 6.2-12.0 [facility] Determination of erythrocyte mean corpuscular volume (MCV)Ordered By: Naomi Olivera on 03-27-2023 MCV (RBC) [Entitic vol] 92.5 fL 81-99 [facility] Hematocrit Auto (Bld) [Volum e fraction]Ordered By: Naomi Olivera on 03-27-2023 Hematocrit (Bld) [Volume fraction] 39.7 % 37-47 [facility] Laboratory - Hematology and Cell countsOrdered By: Naomi Olivera on 03-27-2023 Erythrocyte distribution width (RBC) [Entitic vol] 43.4 fL 35.1-43.9 [facility] Erythrocyte distribution width (RBC) [Ratio] 13.0 % 11.6-14.6 [facility] Immature granulocytes/100 WBC (Bld) 0.400 % 0.0-0.9 [facility] Comment on above: IG% - Immature Granu locytes (promyelocytes, myelocytes and metamyelocytes) > 1% indicates that a LEFT SHIFT is Present. MCH (RBC) [Entitic mass] 30.3 pg 27.0-32.0 [facility] Nucleated RBC/100 WBC (Bld) [Ratio] 0 % 0-5 [facility] MCHC Auto (RBC) [Mass/Vol]Or dered By: Naomi Olivera on 03-27-2023 MCHC (RBC) [Mass/Vol] 32.7 g/dL 32-36 [facility] Platelets bldOrdered By: Estrada Olivera on 03-27-2023 Platelets (Bld) [#/Vol] 205 10*3/uL 150-450 [facility] Serum Treponema species anti body detectionOrdered By: Naomi Olivera on 03-27-2023 Treponema sp Ab Ql (S) Non-Reactive [facility] URINE OB DIP B/Oon 3 Glucose Ql (U) Negative Neg mg/dL [facility] Protein.monoclonal (U) [Mass/Vol] Negative Neg mg/dL [facility] URINE OB DIP B/Oon 3 Glucose Ql (U) Negative Neg mg/dL [facility] Protein.monoclonal (U) [Mass/Vol] Negative Neg mg/dL [facility] URINE OB DIP B/Oon 3 Glucose Ql (U) Negative Neg mg/dL [facility] Protein.monoclonal (U) [Mass/Vol] Negative Neg mg/dL [facility] URINE OB DIP B/Oon 3 Glucose Ql (U) Negative Neg mg/dL [facility] Protein.monoclonal (U) [Mass/Vol] Negative Neg mg/dL [facility] URINE OB DIP B/Oon 3 Glucose Ql (U) Negative Neg mg/dL [facility] Protein.monoclonal (U) [Mass/Vol] Negative Neg mg/dL [facility] URINE OB DIP B/Oon 3 Glucose Ql (U) Negative Neg mg/dL [facility] Protein.monoclonal (U) [Mass/Vol] Negative Neg mg/dL [facility] OBSTETRIC ULTRASOUND WHIon 0 11-29-2022 [facility] OBSTETRIC ULTRASOUND WHIon 0 11-13-2022 [facility] URINE OB DIP B/Oon 3 Glucose Ql (U) Negative Neg mg/dL [facility] Protein.monoclonal (U) [Mass/Vol] Negative Neg mg/dL [facility] URINE OB DIP B/Oon 3 Glucose Ql (U) Negative Neg mg/dL [facility] Protein.monoclonal (U) [Mass/Vol] Negative Neg mg/dL [facility] NUCHAL TRANSLUCENCY WHIon [facility] URINE OB DIP B/Oon 3 Glucose Ql (U) Negative Neg mg/dL [facility] Protein.monoclonal (U) [Mass/Vol] Negative Neg mg/dL [facility] C. trachomatis+N. gonorrhoea e DNA JUAN+probe Ql (Unsp spec)on 08-22-2022 C. trachomatis DNA JUAN+probe Ql (Unsp spec) Negative Negative for Chlamydia trachomatis by amplificaton [facility] N. gonorrhoeae DNA JUAN+probe Ql (Unsp spec) Negative Negative for Neisseria gonorrhoeae by amplification [facility] BACTERIAL VAGINOSIS AMPLIFIC ATIONon 08-21-2022 Lactobacillus crispatus+gasseri+colton enii + Gardnerella vaginalis + Atopobium vaginae rRNA JUAN+probe Ql (Vag fld) Positive Abnormal Negative for bacterial vaginosis [facility] PELVIC US WHIon 07-10-2022 [facility] Comprehensive Metabolic Pane jasbir 10-28-2020 Albumin [Mass/Vol] 4.2 g/dL Normal 3.5-4.6 [facility] Comment on above: Performed By: #### C MP #### [facility] [address] [place] [address] ALP [Catalytic activity/Vol] 68 U/L Normal 40-130 [facility] Comment on above: Performed By: #### C MP #### [facility] [address] [place] [address] ALT [Catalytic activity/Vol] U/L Normal 0-33 [facility] Comment on above: Performed By: #### C MP #### [facility] [address] [place] [address] Anion gap [Moles/Vol] 11 mmol/L Normal 9-15 [facility] Comment on above: Performed By: #### C MP #### [facility] [address] [place] [address] AST [Catalytic activity/Vol] 19 U/L Normal 0-35 [facility] Comment on above: Performed By: #### C MP #### [facility] [address] [place] [address] Bilirubin [Mass/Vol] 0.3 mg/dL Normal 0.2-0.7 [facility] Comment on above: Performed By: #### C MP #### [facility] [address] [place] [address] Calcium [Mass/Vol] 9.4 mg/dL Normal 8.5-9.9 [facility] Comment on above: Performed By: #### C MP #### [facility] [address] [place] [address] Chloride [Moles/Vol] 108 mmol/L Critically high 95-107 [facility] Comment on above: Performed By: #### C MP #### [facility] [address] [place] [address] CO2 [Moles/Vol] 22 mmol/L Normal 20-31 [facility] Comment on above: Performed By: #### C MP #### [facility] [address] [place] [address] Creatinine [Mass/Vol] 0.73 mg/dL Normal 0.50-0.90 [facility] Comment on above: Performed By: #### C MP #### [facility] [address] [place] [address] GFR >60.0 Normal >60 [facility] Comment on above: Result Comment: >60 mL/min/1.73m2 EGFR, calc. for ages 18 and older using the MDRD formula (not corrected for weight), is valid for stable renal function. Performed By: #### C MP #### [facility] [address] [place] [address] GFR/1.73 sq M.predicted among blacks MDRD (S/P/Bld) [Vol rate/Area] mL/min/{1.73_m2} Normal >60 [facility] Comment on above: Result Comment: >60 mL/min/1.73m2 EGFR, calc. for ages 18 and older using the MDRD formula (not corrected for weight), is valid for stable renal function. Performed By: #### C MP #### [facility] [address] [place] [address] Globulin (S) [Mass/Vol] 2.5 g/dL Normal 2.3-3.5 [facility] Comment on above: Performed By: #### C MP #### [facility] [address] [place] [address] Glucose [Mass/Vol] 73 mg/dL Normal 70-99 [facility] Comment on above: Performed By: #### C MP #### [facility] [address] [place] [address] Potassium [Moles/Vol] 4.4 mmol/L Normal 3.4-4.9 [facility] Comment on above: Performed By: #### C MP #### [facility] [address] [place] [address] Protein [Mass/Vol] 6.7 g/dL Normal 6.3-8.0 [facility] Comment on above: Performed By: #### C MP #### [facility] [address] [place] [address] Sodium [Moles/Vol] 141 mmol/L Normal 135-144 [facility] Comment on above: Performed By: #### C MP #### [facility] [address] [place] [address] Urea nitrogen [Mass/Vol] 15 mg/dL Normal 6-20 [facility] Comment on above: Performed By: #### C MP #### [facility] [address] [place] [address] TSH w/out Reflexon TSH w/out Reflex 1.240 uIU/mL Normal 0.440-3.86 [facility] Comment on above: Performed By: #### T SH #### [facility] [address] [place] [address] Thyroxine Freeon 10-28-2020 Thyroxine Free 1.20 ng/dL Normal 0.84-1.68 [facility] Comment on above: Performed By: #### F RT4 #### [facility] [address] [place] [address] CBC With Platelet and Differ entialon 10-10-2020 Basophils (Bld) [#/Vol] 0.0 10*3/uL Normal 0.0-0.2 [facility] Comment on above: Performed By: #### C BCWD #### [facility] [address] [place] [address] Basophils/100 WBC (Bld) 1.0 % Normal [facility] Comment on above: Performed By: #### C BCWD #### [facility] [address] [place] [address] Eosinophils (Bld) [#/Vol] 0.1 10*3/uL Normal 0.0-0.7 [facility] Comment on above: Performed By: #### C BCWD #### [facility] [address] [place] [address] Eosinophils/100 WBC (Bld) 1.6 % Normal [facility] Comment on above: Performed By: #### C BCWD #### [facility] [address] [place] [address] Erythrocyte distribution width (RBC) [Ratio] 13.0 % Normal 11.5-14.5 [facility] Comment on above: Performed By: #### C BCWD #### [facility] [address] [place] [address] Hematocrit (Bld) [Volume fraction] 42.9 % Normal 37.0-47.0 [facility] Comment on above: Performed By: #### C BCWD #### [facility] [address] [place] [address] Hemoglobin (Bld) [Mass/Vol] 14.5 g/dL Normal 12.0-16.0 [facility] Comment on above: Performed By: #### C BCWD #### [facility] [address] [place] [address] Lymphocytes (Bld) [#/Vol] 1.9 10*3/uL Normal 1.0-4.8 [facility] Comment on above: Performed By: #### C BCWD #### [facility] [address] [place] [address] Lymphocytes/100 WBC (Bld) 43.6 % Normal [facility] Comment on above: Performed By: #### C BCWD #### [facility] [address] [place] [address] MCH (RBC) [Entitic mass] 31.3 pg Normal 27.0-31.3 [facility] Comment on above: Performed By: #### C BCWD #### [facility] [address] [place] [address] MCHC 33.8 % Normal 33.0-37.0 [facility] Comment on above: Performed By: #### C BCWD #### [facility] [address] [place] [address] MCV (RBC) [Entitic vol] 92.5 fL Normal 82.0-100.0 [facility] Comment on above: Performed By: #### C BCWD #### [facility] [address] [place] [address] Monocytes (Bld) [#/Vol] 0.4 10*3/uL Normal 0.2-0.8 [facility] Comment on above: Performed By: #### C BCWD #### [facility] [address] [place] [address] Monocytes/100 WBC (Bld) 9.3 % Normal [facility] Comment on above: Performed By: #### C BCWD #### [facility] [address] [place] [address] Neutrophils (Bld) [#/Vol] 2.0 10*3/uL Normal 1.4-6.5 [facility] Comment on above: Performed By: #### C BCWD #### [facility] [address] [place] [address] Neutrophils/100 WBC (Bld) 44.5 % Normal [facility] Comment on above: Performed By: #### C BCWD #### [facility] [address] [place] [address] Platelets (Bld) [#/Vol] 263 10*3/uL Normal 130-400 [facility] Comment on above: Performed By: #### C BCWD #### [facility] [address] [place] [address] RBC (Bld) [#/Vol] 4.63 10*6/uL Normal 4.20-5.40 [facility] Comment on above: Performed By: #### C BCWD #### [facility] [address] [place] [address] WBC (Bld) [#/Vol] 4.5 10*3/uL Low 4.8-10.8 [facility] Comment on above: Performed By: #### C BCWD #### [facility] [address] [place] [address] Iron Profileon 10-10-2020 % Saturation 40 % Normal 11-46 [facility] Comment on above: Performed By: #### I RONP #### [facility] [address] [place] [address] Iron Binding Capacity 290 ug/dL Normal 178-450 [facility] Comment on above: Performed By: #### I RONP #### [facility] [address] [place] [address] Iron [Mass/Vol] 115 ug/dL Normal 37-145 [facility] Comment on above: Performed By: #### I RONP #### [facility] [address] [place] [address] Vitamin B12 and Folateon Cobalamin (Vitamin B12) [Mass/Vol] 743 pg/mL Normal 232-1245 [facility] Comment on above: Performed By: #### B 12FO #### [facility] [address] [place] [address] Folate >20.0 Normal 7.3-26.1 [facility] Comment on above: Result Comment: As o f 15, the methodology has changed. Results from this methodology should not be compared with results from previous methodology. Performed By: #### B 12FO #### [facility] [address] [place] [address] Vital Signs Date Time Vital Sign Value Performing Clinician Tiburcio douglas 12-28-2024 09:34-0400 Body mass index (BMI) [Ratio] 24.05 kg/m2 Gricel Christensen LOGISTICS ENGINEER.CNM Work Phone: [facility] 12-28-2024 09:34-0400 Body weight 67.59 kg Gricel Christensen LOGISTICS ENGINEER.CNM Work Phone: [facility] 12-28-2024 09:34-0400 Diastolic blood pressure 58 mm[Hg] Gricel Christensen LOGISTICS ENGINEER.CNM Work Phone: [facility] 12-28-2024 09:34-0400 Systolic blood pressure 98 mm[Hg] Gricel Christensen LOGISTICS ENGINEER.CNM Work Phone: [facility] 11-24-2024 13:41-0400 Body mass index (BMI) [Ratio] 23.73 kg/m2 Gricel Christensen LOGISTICS ENGINEER.CNM Work Phone: [facility] 11-24-2024 13:41-0400 Body weight 66.68 kg Gricel Christensen LOGISTICS ENGINEER.CNM Work Phone: [facility] 11-24-2024 13:41-0400 Diastolic blood pressure 72 mm[Hg] Gricel Christensen LOGISTICS ENGINEER.CNM Work Phone: [facility] 11-24-2024 13:41-0400 Systolic blood pressure 108 mm[Hg] Gricel Christensen LOGISTICS ENGINEER.CNM Work Phone: [facility] 07-23-2024 14:47-0500 Body height 167.6 cm Dalila Candida LOGISTICS ENGINEER.RETIREMENT ASSISTANT Work Phone: [facility] 07-23-2024 14:47-0500 Body mass index (BMI) [Ratio] 23.15 kg/m2 Dalila Candida LOGISTICS ENGINEER.RETIREMENT ASSISTANT Work Phone: [facility] 07-23-2024 14:47-0500 Body weight 65.05 kg Dalila Candida LOGISTICS ENGINEER.RETIREMENT ASSISTANT Work Phone: [facility] 07-23-2024 14:47-0500 Diastolic blood pressure 70 mm[Hg] Dalila Candida LOGISTICS ENGINEER.RETIREMENT ASSISTANT Work Phone: [facility] 07-23-2024 14:47-0500 Heart rate 85 /min Dalila Candida LOGISTICS ENGINEER.RETIREMENT ASSISTANT Work Phone: [facility] 07-23-2024 14:47-0500 Respiratory rate 18 /min Dalila Candida LOGISTICS ENGINEER.RETIREMENT ASSISTANT Work Phone: [facility] 07-23-2024 14:47-0500 SaO2% (BldA) [Mass fraction] 98 % Dalila Candida LOGISTICS ENGINEER.RETIREMENT ASSISTANT Work Phone: [facility] 07-23-2024 14:47-0500 Systolic blood pressure 106 mm[Hg] Dalila Candida LOGISTICS ENGINEER.RETIREMENT ASSISTANT Work Phone: [facility] 07-07-2024 12:39-0500 Body mass index (BMI) [Ratio] 22.68 kg/m2 Lexii Wormald PA-C Work Phone: [facility] 07-07-2024 12:39-0500 Body temperature 97.5 [degF] Lexii Wormald PA-C Work Phone: [facility] 07-07-2024 12:39-0500 Body weight 63.75 kg Lexii Wormald PA-C Work Phone: [facility] 07-07-2024 12:39-0500 Diastolic blood pressure 60 mm[Hg] Lexii Wormald PA-C Work Phone: [facility] 07-07-2024 12:39-0500 Heart rate 82 /min Lexii Wormald PA-C Work Phone: [facility] 07-07-2024 12:39-0500 SaO2% (BldA) [Mass fraction] 98 % Lexii Wormald PA-C Work Phone: [facility] 07-07-2024 12:39-0500 Systolic blood pressure 98 mm[Hg] Lexii Martinez PA-C Work Phone: [facility] 06-04-2024 08:14-0500 Body height 167.6 cm Jose Armando Giron MD Work Phone: [facility] 06-04-2024 08:14-0500 Body mass index (BMI) [Ratio] 22.27 kg/m2 Jose Armando Giron MD Work Phone: [facility] 06-04-2024 08:14-0500 Body weight 62.6 kg Jose Armando Giron MD Work Phone: [facility] 07-09-2023 15:04-0500 Body weight 64.5 kg Esther Arthur LOGISTICS ENGINEER.RETIREMENT ASSISTANT Work Phone: [facility] 07-09-2023 15:04-0500 Diastolic blood pressure 60 mm[Hg] Esther Arthur LOGISTICS ENGINEER.RETIREMENT ASSISTANT Work Phone: [facility] 07-09-2023 15:04-0500 Systolic blood pressure 92 mm[Hg] Esther Arthur LOGISTICS ENGINEER.RETIREMENT ASSISTANT Work Phone: [facility] 06-18-2023 13:37-0500 Body weight 63.32 kg Gricel Christensen LOGISTICS ENGINEER.CNM Work Phone: [facility] 06-18-2023 13:37-0500 Diastolic blood pressure 62 mm[Hg] Gricel Christensen LOGISTICS ENGINEER.CNM Work Phone: [facility] 06-18-2023 13:37-0500 Systolic blood pressure 100 mm[Hg] Gricel Christensen LOGISTICS ENGINEER.CNM Work Phone: [facility] 04-19-2023 09:49-0500 Body weight 61.24 kg Terrance Gottlieb MD Work Phone: [facility] 04-19-2023 09:49-0500 Diastolic blood pressure 60 mm[Hg] Terrance Gottlieb MD Work Phone: [facility] 04-19-2023 09:49-0500 Systolic blood pressure 100 mm[Hg] Terrance Gottlieb MD Work Phone: [facility] 03-29-2023 11:55-0500 Body temperature 98.3 [degF] [facility] 03-29-2023 11:55-0500 Diastolic blood pressure 79 mm[Hg] [facility] 03-29-2023 11:55-0500 Heart rate 88 /min [facility] 03-29-2023 11:55-0500 Respiratory rate 16 /min [facility] 03-29-2023 11:55-0500 SaO2% (BldA) [Mass fraction] 97 % [facility] 03-29-2023 11:55-0500 Systolic blood pressure 121 mm[Hg] [facility] 03-27-2023 21:42-0500 Body height 167.64 cm [facility] 03-27-2023 21:42-0500 Body mass index (BMI) [Ratio] 24.8 kg/m2 [facility] 03-27-2023 21:42-0500 Body weight 69.9 kg [facility] 03-27-2023 08:41-0500 Body weight 68.95 kg Meagan Hilton MD Work Phone: [facility] 03-27-2023 08:41-0500 Diastolic blood pressure 68 mm[Hg] Meagan Hilton MD Work Phone: [facility] 03-27-2023 08:41-0500 Systolic blood pressure 98 mm[Hg] Meagan Hilton MD Work Phone: [facility] 03-15-2023 11:53-0400 Body weight 67.22 kg Oleg Patel MD Work Phone: [facility] 03-15-2023 11:53-0400 Diastolic blood pressure 62 mm[Hg] Oleg Patel MD Work Phone: [facility] 03-15-2023 11:53-0400 Systolic blood pressure 92 mm[Hg] Oleg Patel MD Work Phone: [facility] 03-08-2023 14:55-0400 Body weight 67.13 kg Meagan Hilton MD Work Phone: [facility] 03-08-2023 14:55-0400 Diastolic blood pressure 60 mm[Hg] Meagan Hilton MD Work Phone: [facility] 03-08-2023 14:55-0400 Systolic blood pressure 106 mm[Hg] Meagan Hilton MD Work Phone: [facility] 02-25-2023 15:11-0400 Body weight 66.68 kg Meagan Hilton MD Work Phone: [facility] 02-25-2023 15:11-0400 Diastolic blood pressure 60 mm[Hg] Meagan Hilton MD Work Phone: [facility] 02-25-2023 15:11-0400 Systolic blood pressure 100 mm[Hg] Meagan Hilton MD Work Phone: [facility] 02-08-2023 14:34-0400 Body weight 65.14 kg Terrance Gottlieb MD Work Phone: [facility] 02-08-2023 14:34-0400 Diastolic blood pressure 60 mm[Hg] Terrance Gottlieb MD Work Phone: [facility] 02-08-2023 14:34-0400 Systolic blood pressure 100 mm[Hg] Terrance Gottlieb MD Work Phone: [facility] 01-25-2023 13:12-0400 Body weight 63.59 kg Naomi Olivera LOGISTICS ENGINEER.CNM Work Phone: [facility] 01-25-2023 13:12-0400 Diastolic blood pressure 64 mm[Hg] Naomi Plotts LOGISTICS ENGINEER.CNM Work Phone: [facility] 01-25-2023 13:12-0400 Systolic blood pressure 102 mm[Hg] Naomi Plotts LOGISTICS ENGINEER.CNM Work Phone: [facility] 01-08-2023 14:54-0400 Body weight 64.41 kg Oleg Patel MD Work Phone: [facility] 01-08-2023 14:54-0400 Diastolic blood pressure 60 mm[Hg] Oleg Patel MD Work Phone: [facility] 01-08-2023 14:54-0400 Systolic blood pressure 100 mm[Hg] Oleg Patel MD Work Phone: [facility] 11-29-2022 08:08-0400 Body height 167.6 cm Ob Ultrasound Work Phone: [facility] 11-29-2022 08:08-0400 Body weight 61.24 kg Ob Ultrasound Work Phone: [facility] 11-13-2022 09:02-0400 Body weight 60.78 kg Oleg Patel MD Work Phone: [facility] 11-13-2022 09:02-0400 Diastolic blood pressure 62 mm[Hg] Oleg Patel MD Work Phone: [facility] 11-13-2022 09:02-0400 Systolic blood pressure 86 mm[Hg] Oleg Patel MD Work Phone: [facility] 11-13-2022 08:03-0400 Body height 167.6 cm Alda Sprague MD Work Phone: [facility] 11-13-2022 08:03-0400 Body weight 60.78 kg Alda Sprague MD Work Phone: [facility] 10-17-2022 15:16-0400 Body weight 60.15 kg Naomi Olivera LOGISTICS ENGINEER.CNM Work Phone: [facility] 10-17-2022 15:16-0400 Diastolic blood pressure 60 mm[Hg] Naomi Harmonts LOGISTICS ENGINEER.CNM Work Phone: [facility] 10-17-2022 15:16-0400 Systolic blood pressure 100 mm[Hg] Naomi Plotts LOGISTICS ENGINEER.CNM Work Phone: [facility] 09-18-2022 08:43-0400 Body weight 57.15 kg Selam Ellis MD Work Phone: [facility] 09-18-2022 08:43-0400 Diastolic blood pressure 58 mm[Hg] Selam Ellis MD Work Phone: [facility] 09-18-2022 08:43-0400 Systolic blood pressure 96 mm[Hg] Selam Ellis MD Work Phone: [facility] 08-21-2022 15:23-0400 Body height 167.6 cm Meagan Hilton MD Work Phone: [facility] 08-21-2022 15:23-0400 Body weight 59.6 kg Meagan Hilton MD Work Phone: [facility] 08-21-2022 15:23-0400 Diastolic blood pressure 60 mm[Hg] Meagan Hilton MD Work Phone: [facility] 08-21-2022 15:23-0400 Systolic blood pressure 100 mm[Hg] Meagan Hilton MD Work Phone: [facility] 08-08-2022 15:29-0400 Body weight 62.14 kg Naomi Plotts LOGISTICS ENGINEER.CNM Work Phone: [facility] 08-08-2022 15:29-0400 Diastolic blood pressure 60 mm[Hg] Naomi Plotts LOGISTICS ENGINEER.CNM Work Phone: [facility] 08-08-2022 15:29-0400 Systolic blood pressure 102 mm[Hg] Naomi Plotts LOGISTICS ENGINEER.CNM Work Phone: [facility] Encounters Encounter Date Encounter Type Care Provider Facility Start: 03-05-2025 ambulatory Selam Ruiz y:[facility] Start: 03-03-2025 Encounter for other preprocedural examination Selam Ellis [facility] Start: 03-01-2025 End: 03-01-2025 ambulatory SELAM ELLIS Facility:[facility] Start: 02-02-2025 [facility] Facility: [facility] Start: 02-02-2025 End: 02-02-2025 Subsequent hospital visit by physician [facility] Comment on above: Displacement of intr auterine contraceptive device, initial encounter [T83.32XA] Start: 01-01-2025 End: 01-01-2025 Patient encounter procedure [employer] [facility]/Gyne[facility] Start: 01-01-2025 End: 01-01-2025 ambulatory [employer] Work Phone: OB/Gynecology Start: 12-28-2024 End: 12-28-2024 Patient encounter procedure Gricel Christensen LOGISTICS ENGINEER.CNM Work Phone: OB/Gynecology Comment on above: Intrauterine contrac eptive device threads lost, initial encounter (Primary Dx) Start: 12-28-2024 End: 12-28-2024 [facility] Facility:[facility] Start: 11-24-2024 End: 11-24-2024 Patient encounter procedure Griceldemetrice Christensen APRN.CNFavian Work Phone: OB/Gynecology Comment on above: Encounter for IUD re moval (Primary Dx); Encounter for preconception consultation; History of depression; NATHANIEL (generalized anxiety disorder) Start: 11-24-2024 End: 11-24-2024 [facility] Facility:[facility] Start: 10-28-2024 End: 10-28-2024 Telemedicine consultation with patient Brayden Mosley DO Work Phone: Obstetrics/Gynecology Start: 10-28-2024 End: 10-28-2024 ambulatory Braydenjuanito Mosley DO Work Phone: Obstetrics/Gynecology Comment on above: Endometriosis (Prima ry Dx); 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; Encounter for management of intrauterine contraceptive device (IUD), unspecified IUD management type Start: 10-13-2024 End: 10-13-2024 Manual pelvic examination Dorothea Adrian APRN.RETIREMENT ASSISTANT Work Phone: Gynecology Comment on above: Female pelvic pain ( Primary Dx); Endometriosis Start: 10-13-2024 End: 10-13-2024 Telemedicine consultation with patient Dorothea Adrian APRN.JOSÉ LUIS Work Phone: Gynecology Start: 10-13-2024 End: 10-13-2024 ambulatory DOROTHEA ADRIAN Facility:[facility] Start: 10-01-2024 End: 10-02-2024 Refill Dorothea Adrian LOGISTICS ENGINEER.RETIREMENT ASSISTANT Work Phone: Obstetrics/Gynecology Comment on above: Refill Request Start: 09-30-2024 ambulatory DOROTHEA ADRIAN Facil ity:[facility] Start: 09-30-2024 End: 09-30-2024 Subsequent hospital visit by physician Mri 7 Radio Main Q (I-Stat/1.5t/3t) Work Phone: [facility] Comment on above: Pelvic and perineal pain [R10.2] Start: 08-24-2024 End: 08-25-2024 Get Medical Advice Brayden Mosley DO Work Phone: Obstetrics/Gynecology Comment on above: MRI Order Start: 07-31-2024 End: 07-31-2024 Refill Dorothea Adrian LOGISTICS ENGINEER.RETIREMENT ASSISTANT Work Phone: Obstetrics/Gynecology Comment on above: Refill Request Start: 07-23-2024 End: 07-23-2024 Patient encounter procedure Dalila Tirado APRN.JOSÉ LUIS Work Phone: [facility] Comment on above: Encounter for medica l examination to establish care (Primary Dx); Recurrent mild major depressive disorder with anxiety (HCC) (HCC); Screening for lipid disorders Start: 07-23-2024 End: 07-23-2024 Patient encounter status Dalila Tirado APRN.JOSÉ LUIS Work Phone: [facility] Work Phone: Start: 07-23-2024 End: 07-23-2024 ambulatory DALILA TIRADO Facility:[facility] Start: 07-23-2024 Encounter for genera l adult medical examination without [facility] Start: 07-13-2024 End: 07-13-2024 [facility] Jose Armando Giron MD Work Phone: [facility] Comment on above: NATHANIEL (generalized anx iety disorder) (Primary Dx); Recurrent mild major depressive disorder with anxiety (HCC) (HCC); Sleep disturbance Start: 07-07-2024 End: 07-07-2024 ambulatory [employer] Facility:[facility] Start: 07-07-2024 End: 07-07-2024 Patient encounter procedure Lexii Martinez PA-C Work Phone: [facility] Comment on above: Eustachian tube dysf unction, right (Primary Dx); Right ear pain Start: 07-07-2024 End: 07-07-2024 ambulatory [employer] Facility:[facility] Start: 07-07-2024 End: 07-07-2024 Telemedicine consultation with patient Alicia Hilton RETIREMENT ASSISTANT Work Phone: Telemedicine Comment on above: Patient left without being seen (Primary Dx) Treatment not availa ble (Primary Dx) Start: 06-04-2024 End: 06-04-2024 [facility] Jose Armando Giron MD Work Phone: [facility] Comment on above: NATHANIEL (generalized anx iety disorder) (Primary Dx); Recurrent mild major depressive disorder with anxiety (HCC) (HCC); Encounter to establish care with new doctor Start: 02-22-2024 End: 02-22-2024 Telemedicine consultation with patient Jennie [place].RETIREMENT ASSISTANT Work Phone: Telemedicine Comment on above: Acute URI (Primary D x); Acute cough; Laryngitis Start: 01-17-2024 End: 01-17-2024 Subsequent hospital visit by physician Mri 7 Radio Main Q (I-Stat/1.5t/3t) Work Phone: MRI Q Start: 01-17-2024 End: 01-23-2024 ambulatory Brayden Mosley DO Work Phone: Obstetrics/Gynecology Comment on above: MRI Start: 07-09-2023 End: 07-09-2023 Patient encounter procedure Esther Storm APRN.RETIREMENT ASSISTANT Work Phone: OB/Gynecology Comment on above: Encounter for IUD in sertion (Primary Dx) Start: 06-26-2023 ambulatory Gricel Christensen APRN.CNM Work Phone: OB/Gynecology Comment on above: Control Start: 06-24-2023 ambulatory Gricel Christensen APRN.CNM Work Phone: [facility] Start: 06-24-2023 Letter encounter Griceljaneen Christensen APRN.CNM Work Phone: OB/Gynecology Comment on above: Return to Work Lette r Start: 06-18-2023 End: 06-18-2023 Patient encounter procedure Griceldemetrice Christensen APRN.CNM Work Phone: OB/Gynecology Comment on above: Vaginal discharge (P rimary Dx); control counseling Start: 06-04-2023 ambulatory [facility] CO[facility] Start: 04-22-2023 Telephone encounter Terrance nunez MD Work Phone: OB/Gynecology Comment on above: Orders Start: 04-19-2023 End: 04-19-2023 Patient encounter procedure Terrance Gottlieb MD Work Phone: OB/Gynecology Comment on above: state (Pr imary Dx); Vaginal odor Start: 04-09-2023 End: 04-09-2023 ambulatory Gricel Christensen APRN.CNM Work Phone: OB/Gynecology Comment on above: Encounter for screen ing for maternal depression (Primary Dx); Lactating mother Start: 04-09-2023 End: 04-09-2023 Telemedicine consultation with patient Gricel Fermin CORTEZ.CNM Work Phone: [facility] Start: 04-05-2023 End: 04-05-2023 Telemedicine consultation with patient Darlene De Leon APRN.RETIREMENT ASSISTANT Work Phone: [facility] Start: 04-05-2023 End: 04-05-2023 ambulatory Darlene De Leon APRN.RETIREMENT ASSISTANT Work Phone: Telemedicine Comment on above: Virtual Visit Treatment not availa ble (Primary Dx) Start: 04-05-2023 E-mail encounter sunita fraire caregiver Darlene De Leon ANUP Work Phone: [facility] Start: 03-28-2023 ambulatory eMagan Hilton MD Work Phone: OB/Gynecology Comment on above: Ob Delivery Note Start: 03-28-2023 End: 03-29-2023 Evaluation and management of inpatient [facility] Work Phone: Start: 03-27-2023 End: 03-27-2023 Patient encounter procedure Meagan Hilton MD Work Phone: OB/Gynecology Comment on above: Encounter for superv ision of other normal in third trimester (Primary Dx); 39 weeks gestation of Start: 03-18-2023 Telephone encounter Naomi alfaro APRN.CNM Work Phone: OB/Gynecology Comment on above: Breast Pump Start: 03-15-2023 End: 03-15-2023 Patient encounter procedure Oleg Patel MD Work Phone: OB/Gynecology Comment on above: 38 weeks gestation o f (Primary Dx); Encounter for supervision of other normal in third trimester Start: 03-08-2023 End: 03-08-2023 Patient encounter procedure Meagan Hilton MD Work Phone: OB/Gynecology Comment on above: Pelvic pressure in p regnancy (Primary Dx); 37 weeks gestation of Start: 02-25-2023 End: 02-25-2023 Patient encounter procedure Meagan Hilton MD Work Phone: OB/Gynecology Comment on above: Encounter for superv ision of normal first in third trimester (Primary Dx); 35 weeks gestation of Start: 02-08-2023 End: 02-08-2023 Patient encounter procedure Terrance Gottlieb MD Work Phone: OB/Gynecology Comment on above: 33 weeks gestation o f (Primary Dx); Encounter for supervision of normal first in third trimester; Need for influenza vaccination; Pelvic pressure in Start: 01-25-2023 End: 01-25-2023 Patient encounter procedure Naomi Olivera APRN.CNM Work Phone: OB/Gynecology Comment on above: 31 weeks gestation o f (Primary Dx); Encounter for supervision of normal first in third trimester Start: 01-08-2023 End: 01-08-2023 Patient encounter procedure Oleg Patel MD Work Phone: OB/Gynecology Comment on above: 28 weeks gestation o f (Primary Dx); Encounter for supervision of other normal in second trimester; Need for vaccination Start: 11-29-2022 End: 11-29-2022 Patient encounter procedure [employer] [place] [facility] Work Phone: OB/Gynecology Comment on above: Encounter for follow -up ultrasound of anatomy [Z36.2] (Primary Dx); Encounter for supervision of other normal in second trimester Start: 11-19-2022 Telephone encounter Meagan Hilton MD Work Phone: OB/Gynecology Comment on above: Orders Start: 11-13-2022 End: 11-13-2022 Patient encounter procedure Oleg Patel MD Work Phone: OB/Gynecology Comment on above: Encounter for superv ision of other normal in second trimester (Primary Dx); 20 weeks gestation of Encounter for anatomic survey (Primary Dx); 20 weeks gestation of Start: 10-17-2022 End: 10-17-2022 Patient encounter procedure Naomi Olivera APRN.BALBIR Work Phone: OB/Gynecology Comment on above: 16 weeks gestation o f (Primary Dx); Encounter for supervision of other normal in first trimester Start: 09-18-2022 End: 09-18-2022 Patient encounter procedure Selam Ellis MD Work Phone: OB/Gynecology Comment on above: Encounter for superv ision of other normal in first trimester (Primary Dx); 12 weeks gestation of ; Vaginal discharge Encounter for (NT) n uchal translucency scan (Primary Dx); Encounter for supervision of other normal in first trimester; 12 weeks gestation of Start: 08-21-2022 End: 08-21-2022 Patient encounter procedure Meagan Hilton MD Work Phone: OB/Gynecology Comment on above: Encounter for superv ision of other normal in first trimester (Primary Dx); 8 weeks gestation of Start: 08-10-2022 Telephone encounter Oleg denis MD Work Phone: OB/Gynecology Comment on above: Results Start: 08-08-2022 End: 08-08-2022 Patient encounter procedure Naomi Olivera LOGISTICS ENGINEER.CNM Work Phone: OB/Gynecology Comment on above: Vaginal discharge (P rimary Dx); Acute vaginitis Start: 08-06-2022 End: 08-06-2022 Nursing evaluation of patient and report Nurse Pnob [facility] Work Phone: OB/Gynecology Comment on above: Supervision of jeovany l first , antepartum (Primary Dx); Bacterial vaginosis in ; History of depression; Family history of cleft palate Start: 07-30-2022 End: 07-30-2022 ambulatory Gricel Christensen APRN.CNFavian Work Phone: OB/Gynecology Comment on above: Endometrioma (Primar y Dx); Ovarian cyst, bilateral; Ovarian cyst, complex; Encounter for test, result positive; Bacterial vaginitis Start: 07-30-2022 End: 07-30-2022 Telemedicine consultation with patient Gricel Fermin SCHMIDT Work Phone: [facility] Start: 07-20-2022 Telephone encounter Naomi alfaro APRN.CNM Work Phone: OB/Gynecology Comment on above: Patient Question Start: 07-19-2022 Telephone encounter Selam Ellis MD Work Phone: OB/Gynecology Comment on above: Vaginal Problem Start: 07-10-2022 End: 07-10-2022 Patient encounter procedure Meagan Hilton MD Work Phone: OB/Gynecology Comment on above: Pelvic pain in femal e (Primary Dx); Ovarian cyst, bilateral Start: 07-10-2022 End: 07-10-2022 ambulatory Ob Ultrasound Work Phone: OB/Gynecology Start: 07-10-2022 End: 07-10-2022 Patient encounter procedure [employer] [facility] Work Phone: [facility] Start: 07-06-2022 Telephone encounter Gricel mosher APRN.CNM Work Phone: OB/Gynecology Comment on above: Insurance Authorizat ion Start: 07-05-2022 Telephone encounter Terrance nunez MD Work Phone: OB/Gynecology Comment on above: Results Start: 07-03-2022 End: 07-03-2022 ambulatory Dago Gamez LOGISTICS ENGINEER.RETIREMENT ASSISTANT Work Phone: Telemedicine Comment on above: Treatment not availa ble (Primary Dx) Start: 07-03-2022 End: 07-03-2022 Telemedicine consultation with patient Desofiyanda Gamez LOGISTICS ENGINEER.RETIREMENT ASSISTANT Work Phone: [facility] Start: 07-02-2022 ambulatory Terrance Christie Work Phone: [facility] Start: 07-02-2022 Patient encounter procedure Terrance Gottlieb MD Work Phone: OB/Gynecology Comment on above: Future Appointment q uestion Procedures Date Procedure Procedure Detail Performing Clinician Start: 01-01-2025 Us pelvic nonobstetr ic real-time image complete Gricel Christensen APRN.CNM Work Phone: Start: 09-30-2024 Mri pelvis w/o & w/c ontrast material Dorothea Adrian APRN.RETIREMENT ASSISTANT Work Phone: Start: 07-13-2024 Follow-up visit Follow Up JOSE ARMANDO N MACK Start: 07-09-2023 Urine test visual color cmprsn meths Gricel Christensen APRN.CNM Work Phone: Start: 06-18-2023 BACTERIAL VAGINOSIS NAAT Gricel Fermin LOGISTICS ENGINEER.CNM Work Phone: Start: 06-18-2023 Iadna trichomonas va ginalis amplified probe tech Gricel Fermin LOGISTICS ENGINEER.CNM Work Phone: Start: 03-27-2023 URINE OB DIP B/O Meagan Hilton MD Work Phone: Start: 03-15-2023 URINE OB DIP B/O Oleg Patel MD Work Phone: Start: 03-08-2023 URINE OB DIP B/O Meagan Hilton MD Work Phone: Start: 02-25-2023 URINE OB DIP B/O Meagan Hilton MD Work Phone: Start: 02-08-2023 INFLUENZA VACCINE, A GE 6 MO - 64 YR, QUADRIVALENT (AFLURIA, FLULAVAL, FLUZONE) Terrance Gottlieb MD Work Phone: Start: 02-08-2023 URINE OB DIP B/O Terrance ballard MD Work Phone: Start: 01-08-2023 URINE OB DIP B/O Oleg Patel MD Work Phone: Start: 11-29-2022 Us preg uterus after 1st trimest / gestation Meagan Hilton MD Work Phone: Start: 11-13-2022 URINE OB DIP B/O Oleg Patel MD Work Phone: Start: 11-13-2022 Us preg uterus after 1st trimest / gestation Meagan Hilton MD Work Phone: Start: 10-17-2022 URINE OB DIP B/O Christian Olivera LOGISTICS ENGINEER.CNM Work Phone: Start: 09-18-2022 URINE OB DIP B/O Darby Ellis MD Work Phone: Start: 09-18-2022 Us nuchal translucency 1st gestation Meagan Hilton MD Work Phone: Start: 08-21-2022 BACTERIAL VAGINOSIS AMPLIFICATION Meagan Hilton MD Work Phone: Start: 08-21-2022 Iadna chlamydia trac homatis amplified probe tq Meagan Hilton MD Work Phone: Start: 07-10-2022 Us pelvic nonobstetr ic real-time image complete Gricel Christensen APRN.CNM Work Phone: Plan of Treatment Date Care Activity Detail Author Start: 01-08-2033 Urine microalbumin profile [facility] Start: 05-17-2026 Screening for malign ant neoplasm of cervix [facility] Start: 01-18-2025 Influenza vaccination [facility] Start: 01-01-2025 End: 01-01-2025 ambulatory 01/01/2025 1:00 PM EDT Procedure OB/Gynecology [address] [place] [address] Remote, [employer] [facility] [address] [place] [address] Intrauterine contraceptive device threads lost, initial encounter [T83.32XA] OB/Gynecology Comment on above: Intrauterine contrac eptive device threads lost, initial encounter [T83.32XA] Start: 12-28-2024 End: 12-28-2025 US Pelvis PELVIC US [facility] Anc Imaging Routine Intrauterine contraceptive device threads lost, initial encounter Expected: 12/28/2024, Expires: 12/28/2025 [facility] Work Phone: Comment on above: Expected: 12/28/2024 , Expires: 12/28/2025 Start: 12-28-2024 End: 12-28-2024 Patient encounter procedure 12/28/2024 9:30 AM EDT Office Visit OB/Gynecology [address] [place] [address] Gricel Christensen APRN.CNM [address] [place] [address] IUD removal OB/Gynecology Comment on above: IUD removal Start: 11-24-2024 End: 11-24-2024 Patient encounter procedure 11/24/2024 1:45 PM EDT Office Visit OB/Gynecology [address] [place] [address] Gricel Christensen APRN.CNM [address] [place] [address] Remove IUD, discuss Lexaprol trying to conceive. OB/Gynecology Comment on above: Remove IUD, discuss Lexaprol trying to conceive. Start: 11-16-2024 Influenza vaccination Influenza Vacc ine (#1) [facility] Comment on above: Postponed from 01/18 (Declined at this time) Start: 10-13-2024 End: 10-13-2024 Follow-up encounter 10/13/2024 4:00 PM EDT [facility] Gynecology [address] [place] [address] Dorothea Adrian, LOGISTICS ENGINEER.RETIREMENT ASSISTANT [address] [place] [address] Follow up - MRI Gynecology Comment on above: Follow up - MRI Start: 07-23-2024 End: 07-23-2024 Patient encounter procedure 07/23/2024 2:40 PM EST Office Visit [facility] [address] [place] [address] Dalila Tirado, LOGISTICS ENGINEER.RETIREMENT ASSISTANT [address] [place] [address] NEW PCP in next 6-8 weeks in the [facility] area. [facility] Comment on above: NEW PCP in next 6-8 weeks in the [facility]. Start: 07-23-2024 End: 10-22-2024 Lipid 1996 panel - Serum or Plasma LIPID PANEL BASIC Lab Routine Screening for lipid disorders Expected: 07/23/2024, Expires: 10/22/2024 [facility] Work Phone: Comment on above: Expected: 07/23/2024 , Expires: 10/22/2024 Start: 07-13-2024 End: 07-13-2024 Follow-up encounter 07/13/2024 3:40 PM EST [facility] [address] [place], [place] [id number] Jose Armando Giron MD [address] [place] [address] ONE MONTH MEDS FOLLOW UP( this was the soonest saturday ) Family Medicine Comment on above: ONE MONTH MEDS FOLLO W UP( this was the soonest saturday ) Start: 07-07-2024 End: 07-07-2024 Patient encounter procedure 07/07/2024 12:15 PM EST Office Visit [facility] [address] [place] [address] Earache [facility] Comment on above: Earache Start: 01-19-2024 Covid-19 Vaccine ( season) Covid-19 Vaccine ( season) [facility] Start: 01-19-2024 Covid-19 Vaccine ( season) Covid-19 Vaccine ( season) [facility] Start: 01-19-2024 Influenza vaccination Influenza Vacc ine (#1) [facility] Start: 05-20-2023 Depression Assessment Depression Ass essment [facility] Start: 03-29-2023 Patient discharge [facility] Start: 03-28-2023 PAP TESTING PAP TESTING [facility] Start: 03-28-2023 Administration of medication [facility] Start: 03-28-2023 Application of ice collar, cap or bag [facility] Start: 03-28-2023 Catheterization of vein [facility] Start: 03-28-2023 Introduction of urin sanaz catheter [facility] Start: 03-28-2023 Measuring intake and output [facility] Start: 03-28-2023 Notification of physician [facility] Start: 03-28-2023 Procedure discontinued [facility] Start: 03-28-2023 Provision of activit y privileges [facility] Start: 03-28-2023 Vital signs measurements [facility] Start: 03-28-2023 [facility] Start: 03-28-2023 Admission procedure [facility] Start: 03-28-2023 Consultation [facility] Start: 01-18-2023 Covid-19 Vaccine () Covid-19 Vaccine () [facility] Start: 01-18-2023 Influenza vaccination C [facility] Start: 11-19-2022 End: 11-20-2023 OBSTETRIC ULTRASOUND [facility] OBSTETRIC ULTRASOUND [facility] Anc Imaging Routine Encounter for supervision of other normal in second trimester Expected: 11/19/2022, Expires: 11/20/2023 [facility] Work Phone: Comment on above: Expected: 11/19/2022 , Expires: 11/20/2023 Start: 10-17-2022 End: 12-17-2022 ALPHA FETOPRO MATERNAL [facility] Work Phone: Comment on above: Expected: 10/17/2022 , Expires: 12/17/2022 Start: 09-18-2022 End: 11-18-2022 Chromosome 21 trisomy [Presence] in Blood or Tissue by Cytogenetics [facility] Work Phone: Comment on above: Expected: 09/18/2022 , Expires: 11/18/2022 Start: 09-18-2022 End: 11-18-2022 Microscopic observation [Identifier] in Vaginal fluid by Gram stain BACT/CHRISTAL VAG GRAM STAIN Microbiology Routine Encounter for supervision of other normal in first trimester 12 weeks gestation of Vaginal discharge Expected: 09/18/2022, Expires: 11/18/2022 [facility] Work Phone: Comment on above: Expected: 09/18/2022 , Expires: 11/18/2022 Start: 08-21-2022 End: 10-21-2022 CBC panel - Blood by Automated count CBC Lab Routine 8 weeks gestation of Encounter for supervision of other normal in first trimester Expected: 08/21/2022, Expires: 10/21/2022 [facility] Work Phone: Comment on above: Expected: 08/21/2022 , Expires: 10/21/2022 Start: 08-21-2022 End: 10-21-2022 Hepatitis B virus surface Ag [Presence] in Serum HEP B SURF AG SCRN Lab Routine 8 weeks gestation of Encounter for supervision of other normal in first trimester Expected: 08/21/2022, Expires: 10/21/2022 [facility] Work Phone: Comment on above: Expected: 08/21/2022 , Expires: 10/21/2022 Start: 08-21-2022 End: 10-21-2022 Hepatitis C virus Ab [Presence] in Serum HEP C AB IA W/CONF SCRN Lab Routine 8 weeks gestation of Encounter for supervision of other normal in first trimester Expected: 08/21/2022, Expires: 10/21/2022 [facility] Work Phone: Comment on above: Expected: 08/21/2022 , Expires: 10/21/2022 Start: 08-21-2022 End: 10-21-2022 HIV 1+2 Ab [Presence] in Serum or Plasma by Immunoassay HIV 1 2 COMBO(AG/AB),WITH REFLEX TO DIFFERENTIATION Lab Routine 8 weeks gestation of Encounter for supervision of other normal in first trimester Expected: 08/21/2022, Expires: 10/21/2022 [facility] Work Phone: Comment on above: Expected: 08/21/2022 , Expires: 10/21/2022 Start: 08-21-2022 End: 08-22-2023 NUCHAL TRANSLUCENCY WHI NUCHAL TRANSLUCENCY [facility] Anc Imaging Routine 8 weeks gestation of Encounter for supervision of other normal in first trimester Expected: 08/21/2022, Expires: 08/22/2023 [facility] Work Phone: Comment on above: Expected: 08/21/2022 , Expires: 08/22/2023 Start: 08-21-2022 End: 08-22-2023 OBSTETRIC ULTRASOUND WHI OBSTETRIC ULTRASOUND [facility] Anc Imaging Routine 8 weeks gestation of Encounter for supervision of other normal in first trimester Expected: 08/21/2022, Expires: 08/22/2023 [facility] Work Phone: Comment on above: Expected: 08/21/2022 , Expires: 08/22/2023 Start: 08-21-2022 End: 10-21-2022 RUBELLA IGG AB RUBELLA IGG AB Lab Routine 8 weeks gestation of Encounter for supervision of other normal in first trimester Expected: 08/21/2022, Expires: 10/21/2022 [facility] Work Phone: Comment on above: Expected: 08/21/2022 , Expires: 10/21/2022 Start: 08-21-2022 End: 10-21-2022 SYPHILIS TOTAL W/REFLEX SYPHILIS TOTAL W/REFLEX Lab Routine 8 weeks gestation of Encounter for supervision of other normal in first trimester Expected: 08/21/2022, Expires: 10/21/2022 [facility] Work Phone: Comment on above: Expected: 08/21/2022 , Expires: 10/21/2022 Start: 08-21-2022 End: 10-21-2022 TYPE + SCREEN TYPE + SCREEN Blood Bank Routine 8 weeks gestation of Encounter for supervision of other normal in first trimester Expected: 08/21/2022, Expires: 10/21/2022 [facility] Work Phone: Comment on above: Expected: 08/21/2022 , Expires: 10/21/2022 Start: 05-20-2022 DEPRESSION ASSESSMENT DEPRESSION ASS ESSMENT [facility] Start: 01-18-2022 Influenza vaccination INFLUENZA (#1) [facility] Start: 2021 HPV Vaccine (1 - 3-d ose SCDM series) HPV Vaccine (1 - 3-dose SCDM series) [facility] Start: 06-19-2021 COVID-19 VACCINE (3 - Booster for Moderna series) COVID-19 VACCINE (3 - Booster for Moderna series) [facility] Start: 06-19-2021 COVID-19 VACCINE (3 - Moderna series) COVID-19 VACCINE (3 - Moderna series) [facility] Start: 2013 Urine microalbumin profile DTAP,TDAP,TD (1 - Tdap) [facility] Start: 2012 Anxiety Screening Anxiety Screening [facility] Start: 2012 Depression Screening Depression Scre ening [facility] Start: 2012 HEPATITIS C SCREENING HEPATITIS C SC REENING [facility] Start: 1994 HEPATITIS B (1 of 3 - 3-dose series) HEPATITIS B (1 of 3 - 3-dose series) [facility] Start: 1994 Hepatitis B Vaccine (1 of 3 - 3-dose series) Hepatitis B Vaccine (1 of 3 - 3-dose series) [facility] Bacteria identified in Urine by Culture URINE CULTURE Microbiology Routine 8 weeks gestation of Encounter for supervision of other normal in first trimester 08/21/2022 4:10 PM EDT [facility] Work Phone: BACTERIAL VAGINOSIS AMPLIFICATION BACTERIAL VAGINOSIS AMPLIFICATION Lab Routine Vaginal discharge 08/08/2022 4:03 PM EDT [facility] Work Phone: CHRISTAL / TRICHOMONA S AMPLIFICATION CHRISTAL / TRICHOMONAS AMPLIFICATION Microbiology Routine Vaginal discharge 08/08/2022 4:03 PM EDT [facility] Work Phone: Chlamydia trachomatis+Neisseria gonorrhoeae DNA [Presence] in Unspecified specimen by JUAN with probe detection GC/CHLAMYDIA DNA DET Lab Routine Vaginal discharge 08/08/2022 4:03 PM EDT [facility] Work Phone: Insertion intrauteri ne device iud INSERT INTRAUTERINE DEVICE Procedures Routine control counseling Ordered: 06/18/2023 [facility] Work Phone: Comment on above: Ordered: 06/18/2023 Insertion intrauteri ne device iud INSERT INTRAUTERINE DEVICE Procedures Routine Encounter for IUD insertion Ordered: 07/09/2023 [facility] Work Phone: Comment on above: Ordered: 07/09/2023 Microscopic observat ion [Identifier] in Vaginal fluid by Gram stain BACT/CHRISTAL VAG GRAM STAIN Microbiology Routine state Vaginal odor 04/19/2023 10:11 AM EST [facility] Work Phone: End: 09-24-2025 MR Pelvis WO and W contrast IV MRI FEMALE PELVIS WO/W IVCON Radiology Routine Pelvic and perineal pain 1 Occurrences starting 08/25/2024 until 09/24/2025 [facility] Work Phone: Comment on above: 1 Occurrences starti ng 08/25/2024 until 09/24/2025 Patient referral [facility] Work Phone: POC AUTOMOTIVE PROJECT ENGINEER ULTRASOUND POC AUTOMOTIVE PROJECT ENGINEER ULTRASO UND Anc Imaging Routine 8 weeks gestation of Ordered: 08/21/2022 [facility] Work Phone: Comment on above: Ordered: 08/21/2022 Removal intrauterine device iud REMOVE INTRAUTERINE DEVICE Procedures Routine Encounter for IUD removal Ordered: 11/24/2024 [facility] Work Phone: Comment on above: Ordered: 11/24/2024 ROUTINE, GR OUP B STREP PCR ROUTINE, GROUP B STREP PCR Microbiology Routine 37 weeks gestation of 03/08/2023 3:11 PM EDT [facility] Work Phone: URINE OB DIP B/O URINE OB DIP B/ O Lab Routine 31 weeks gestation of Encounter for supervision of normal first in third trimester Ordered: 01/25/2023 [facility] Work Phone: Comment on above: Ordered: 01/25/2023 XR Pelvis AP and Inl et and Outlet XR PELVIS 3V AP/INLET/OUTLET Radiology Routine Displacement of intrauterine contraceptive device, initial encounter 02/02/2025 12:30 PM EDT [facility] Work Phone: [facility] Immunizations Immunization Date Immunization Notes Care Provider Fa bita 02-08-2023 influenza, injectabl e, quadrivalent, contains preservative Terrance Gottlieb MD Work Phone: [facility] 02-08-2023 influenza virus vacc ine, unspecified formulation Mri (I-Stat/1.5t/3t) Work Phone: [facility] 01-08-2023 tetanus toxoid, redu junior diphtheria toxoid, and acellular pertussis vaccine, adsorbed Oleg Patel MD Work Phone: [facility] Payers Date Payer Category Payer Self-pay [id number] 2022 Private Health Insurance [id number] 2022 Private Health Insurance [id number] 2019 Unknown [id number] Unknown CAITLIN [id number] Unknown [id number] Social History Date Type Detail Facility Start: 12-21-2014 End: 07-04-2022 Tobacco smoking status NDIS Never smoked tobacco [facility] Work Phone: Start: 12-21-2014 End: 07-04-2022 Tobacco use and exposure Smokeless tobacco non-user [facility] Work Phone: Start: 06-09-2021 End: 07-09-2023 Alcohol intake Ex-drinker (finding) [facility] Start: 10-22-2019 History SDOH Alcohol Frequency 2 [facility] Start: 10-22-2019 History SDOH Financial 5 [facility] Start: 10-22-2019 History SDOH Food Worry 1 [facility] Start: 10-22-2019 Education 18 [facility] Start: 1995 Sex Assigned At Not on file [facility] Start: 07-05-2022 [facility] Start: 10-22-2019 End: 10-17-2022 History of Social function [facility] Work Phone: Start: 10-22-2019 End: 10-17-2022 Alcohol Use Disorder Identification Test - Consumption [AUDIT-C] [facility] Work Phone: How often to you hav e a drink containing alcohol? Monthly or less [facility] Work Phone: Start: 12-07-2014 Average Number of Drinks Not on file [facility] Work Phone: (I/We) worried wheth er (my/our) food would run out before (I/we) got money to buy more. Never true [facility] Work Phone: Start: 03-27-2023 Tobacco smoking status NHIS Unknown if ever smoked [facility] Start: 1995 Sex Assigned At Female [facility] Start: 06-04-2024 End: 12-28-2024 Alcoholic beverage intake Current drinker of alcohol (finding) [facility] Has the [employer], [employer], or [employer] threatened to shut off services in your home in past 12Mo No [facility] Are you now , , , , never or living with a partner? [facility] How many standard dr inks containing alcohol do you have on a typical day? 1 or 2 [facility] How often do you hav e 6 or more drinks on 1 occasion? Never [facility] Do you feel stress - tense, restless, nervous, or anxious, or unable to sleep at night because your mind is troubled all the time - these days [OSQ] To some extent [facility] Start: 07-23-2024 Alcohol Comment occasional [facility] Goals Date Patient Goal Desired Activity /State Clinical Notes 01-29-2020 to 03-02-2025 Chayo Almodovar RT(R) - 02/02/2025 11:30 AM Jaqui Bunn MD - 01/04/2025 1:08 PM Gricel Pitts APRN.CNM - 12/28/2024 9:27 AM Gricel Pitts APRN.CNM - 11/24/2024 1:39 PM EDT Note Date & Type Note Facility 03-02-2025 Note [facility] Medical Records Department [address] [place] [address] History Physical Exam 03/02/25 1122 MR#: [id number] Acct: [id number] Name: SHAVON ESCALONA Rep #: [id number] : 1995 29 From: Selam Ellis MD PCP: Care Physician,No Primary Status:PRE SDC Location: SDC History and Physical Date of Admission: 03/05/25 HPI: The patient is a 29 year old female presenting for pre-operative visit. She is scheduled for laparscopy with removal of malpositioned IUD, for IUD malpositioned, intraperitoneal on 03/05/25. Procedure discussed along with risks, benefits and complications. Other alternatives discussed for management. Consent form signed? Yes. ? PAST MEDICAL HISTORY PAST MEDICAL HISTORYDiagnosisDate???Anxiety state?Endometrioma?Ovar aubree cyst? depression? PAST SURGICAL HISTORY PAST SURGICAL HISTORYProcedureLateralityDate??? INSERTION OF IUD???07/09/2023???PAST SURGICAL HISTORY OF? wisdom teeth ? CURRENT MEDICATIONS Current Outpatient MedicationsMedicationSigDispenseR efill???escitalopram oxalate (LEXAPRO) 10 mg tabletTake 1.5 tablets by mouth once daily.90 tablet3???PNV no.95/ferrous fum/folic ac ( PO)Take by mouth.?norethindrone (AYGESTIN) 5 mg tabletTake 1 tablet by mouth once daily.90 tablet3???levonorgestrel (MIRENA) 21 mcg/24 hours (8 yrs) 52 mg IUD1 Each by INTRAUTERINE route as directed.1 Each0???No current facility-administered medications for this visit. ? ALLERGIES: Patient has no known allergies. ??? PERSONAL HISTORY: [SOCIAL HISTORY] [SOCIAL HISTORY] Social History Tobacco Use ??? Smoking status: Never ??? Smokeless tobacco: Never Vaping Use ??? Vaping status: Never Used Substance Use Topics ??? Alcohol use: Yes ? Alcohol/week: 1.0 standard drink of alc ohol ? Types: 1 Standard drinks or equi valent per week ? Comment: occasional ??? Drug use: No ??? FAMILY HISTORY: FAMILY HISTORY FAMILY HISTORY ProblemRelationAge of Onset???GlaucomaMother?Detac hed RetinaFather?SbysxKjwhph30?? ?HypertensionFather?Kidney DiseaseMaternal Grandmother?Heart AttackMaternal Grandfather?Alzheimer's DiseasePaternal Grandmother?other (blood infection)Paternal Grandfather?No Known ProblemsDaughter?No Known ProblemsDaughter?Hypertensio nHalf-brother?HypertensionHa lf-brother? REVIEW OF SYMPTOMS: GENERAL: denies fevers or chills ENDOCRINOLOGY: has not been on steroids Cardiology : denies palpitations or chest pain Respiratory: denies SOB or cough Hematology: denies history of prolonged bleeding or easy bruising or VTE Allergy: Denies history of personal or family history of allergy to anesthesia ??? PHYSICAL EXAMINATION: ??? VITALS: Blood pressure 110/62, pulse 96, height 165.1 cm (5' 5), weight 67.1 kg (148 lb), last menstrual period 02/25/2025, SpO2 99%, not currently . ??? GENERAL: The patient is well nourished, well hydrated in no acute distress. , The patient is oriented to time, place, and person. NECK: Supple. No lynphadenopathy, normal thyroid, no thyromegaly. LUNGS: Clear to auscultation bilaterally. no wheezes, rhonchi or rales HEART: Regular rate and rhythm, Normal heart sounds, and No murmurs or gallops ??? IMPRESSION: malpositioned, intraperitoneal IUD ??? PLAN: The risks/benefits/alternatives and personal involved for the planned laparoscopy with removal of IUD, possible hysteroscopy if unable to remove IUD laparoscopically, were reviewed with the patient. Her questions were answered to her satisfaction and she desires to proceed. Consent was signed. I reviewed with her postop instructions and expectations. ? I have reviewed and updated past medical and surgical history, medications and allergies This H P was completed in my office on 03/02/25. Assessment Plan Assessment/Plan (1) Malpositioned IUD: 03/02/25 1124 Cosigner Signature (if applicable): CC: Dr. Selam Ellis MD; No Primary Care Physician Signed [facility] 03-02-2025 Note HNO ID: [id number] Author: SELAM ELLIS MD Service: ? Author Type: Physician Type: Progress Notes Filed: 03/02/2025 11:22 Note Text: Shavon Escalona is a 29 year old female who presents for problem visit for malpositioned IUD. HPI: 29 YOF who would like to conceive. Was to hae IUD removed and noted no IUD strings visualized. Had workup of pelvic US and pelvic xray and IUD found to be in pelvis, likely extrauterine based on imaging. She had no increased pain or awareness IUD was not in uterus. No new concerns today. OB History Gravida2 Para2 Term2 Preterm0 AB0 Living2 SAB0 IAB0 Ectopic0 Multiple0 Live Births2 Business Services Analyst History LMP: 02/25/2025 (Exact Date), IUD Age at Menarche: Age at First : Age at Menopause: Business Services Analyst History Comments: Sexual Activity: Yes; Male Contraception: I.U.D. PAST MEDICAL HISTORY Diagnosis Date Anxiety state Endometrioma Ovarian cyst depression PAST SURGICAL HISTORY Procedure Laterality Date INSERTION OF IUD 07/09/2023 PAST SURGICAL HISTORY OF wisdom teeth FAMILY HISTORY Problem Relation Age of Onset Glaucoma Mother Detached Retina Father Heart Father 70 Hypertension Father Kidney Disease Maternal Grandmother Heart Attack Maternal Grandfather Alzheimer's Disease Paternal Grandmother other (blood infection) Paternal Grandfather No Known Problems Daughter No Known Problems Daughter Hypertension Half-brother Hypertension Half-brother SOCIAL HISTORY[1] Current Outpatient Medications Medication Sig escitalopram oxalate (LEXAPRO) 10 mg tablet Take 1.5 tablets by mouth once daily. PNV no.95/ferrous fum/folic ac ( PO) Take by mouth. norethindrone (AYGESTIN) 5 mg tablet Take 1 tablet by mouth once daily. levonorgestrel (MIRENA) 21 mcg/24 hours (8 yrs) 52 mg IUD 1 Each by INTRAUTERINE route as directed. No current facility-administered medications for this visit. Allergies As of Date: 03/01/2025 (No Known Allergies) Fully Assessed 12/28/2024 Allergies and current medication updated:Yes SENSITIVE EXAM: Sensitive exam not performed. EXAM: BP 110/62 Pulse 96 Ht 5' 5 (1.65m) Wt 148 lb (67.1kg) SpO2 99% LMP 02/25/2025 BMI 24.63 kg/(m2). GENERAL: pleasant, female in no apparent distress ASSESSMENT AND PLAN: Assessment AND Plan Malpositioned intrauterine device (IUD), subsequent encounter I d/w her r/b/a laparoscopy with IUD removal. Would perform hysteroscopy only if necessary as based on imaging seems IUD is likely abutting the fundus. Questions answered. Decision for surgery today. Reviewed imaging- pelvic US and xray and mri. See HANDP. Selam Ellis MD [1] Social History Tobacco Use Smoking status: Never Smokeless tobacco: Never Vaping Use Vaping status: Never Used Substance Use Topics Alcohol use: Yes Alcohol/week: 1.0 standard drink of alcohol Types: 1 Standard drinks or equivalent per week Comment: occasional Drug use: No [facility] 02-02-2025 History of Present illness Narrative Radiology Service Progress Note PATIENT NAME: Shavon Escalona DATE OF SERVICE: February 02, 2025 TIME: 12:04 PM PATIENT IDENTITY VERIFICATION COMPLETED USING TWO (2) IDENTIFIERS: Name and Date of confirmed by patient verbally. FALL SCREENING: Has the patient had 2 falls in the last year or 1 fall with injury or currently using an Ambulatory Assistive Device (Walker, Cane, Wheelchair, Crutches, etc.)? No PATIENT GENDER DATA: Assigned female at . status: : No status: NO. PATIENT RELEVANT IMPLANT DATA REVIEWED: Not Applicable PATIENT PRESENTS WITH AN IMPLANTABLE OR ATTACHED APPLICATION PERFORMANCE ENGINEER: No RADIOLOGY DEPARTMENT: General X-ray: Exam(s) Completed: Pelvis X-Ray: Pelvis inlet/outlet PERIPHERAL IV DATA: Not applicable SIGNED BY: RT Edda(R) February 02, 2025 12:04 PM documented in this encounter [facility] 02-02-2025 Note HNO ID: [id number] Author: CHAYO ALMODOVAR RT(R) Service: ? Author Type: Technologist Type: Progress Notes Filed: 02/02/2025 12:05 Note Text: Radiology Service Progress Note PATIENT NAME: Shavon Escalona DATE OF SERVICE: February 02, 2025 TIME: 12:04 PM PATIENT IDENTITY VERIFICATION COMPLETED USING TWO (2) IDENTIFIERS: Name and Date of confirmed by patient verbally. FALL SCREENING: Has the patient had 2 falls in the last year or 1 fall with injury or currently using an Ambulatory Assistive Device (Walker, Cane, Wheelchair, Crutches, etc.)? No PATIENT GENDER DATA: Assigned female at . status: : No status: NO. PATIENT RELEVANT IMPLANT DATA REVIEWED: Not Applicable PATIENT PRESENTS WITH AN IMPLANTABLE OR ATTACHED APPLICATION PERFORMANCE ENGINEER: No RADIOLOGY DEPARTMENT: General X-ray: Exam(s) Completed: Pelvis X-Ray: Pelvis inlet/outlet PERIPHERAL IV DATA: Not applicable SIGNED BY: RT Edda(R) February 02, 2025 12:04 PM [facility] 01-04-2025 Note HNO ID: [id number] Author: JAQUI BEAVER MD Service: ? Author Type: Physician Type: Progress Notes Filed: 01/04/2025 13:10 Note Text: Shavon Escalona is a 29 year old female who presented for systems software designer ultrasound today. Encounter Diagnosis ICD-10-CM 1. Intrauterine contraceptive device threads lost, initial encounter T83.32XA Please see report under imaging tab. Jaqui Beaver MD January 04, 2025 1:08 PM [facility] 01-04-2025 History of Present illness Narrative Shavon Escalona is a 29 year old female who presented for systems software designer ultrasound today. Encounter Diagnosis ICD-10-CM 1. Intrauterine contraceptive device threads lost, initial encounter T83.32XA Please see report under imaging tab. Jaqui Beaver MD January 04, 2025 1:08 PM documented in this encounter [facility] 12-28-2024 Note HNO ID: [id number] Author: GRICEL CHRISTENSEN APRN.CNM Service: ? Author Type: Textile Machinery Instructor Type: Progress Notes Filed: 12/28/2024 10:09 Note Text: Shavon presents for removal of IUD due to desire for . UNIVERSAL PROTOCOL / SAFETY CHECKLIST Procedure to be Performed: IUD removal Sign In: A Moment of CARE was completed. Appropriate PPE (Personal Protective Equipment) worn by all providers involved with the procedure. Special equipment not required. Patient/Surrogate Stated/Verified: Patient name, Date of , Relevant allergies, and The intended procedure Time Out: Relevant labs, photos, and/or imaging studies have been reviewed. Intended patient and procedure match the source document(s) (e.g. consent, HANDP, associated studies [imaging, pathology]) match the intended patient and procedure. Consent obtained and matches the intended procedure. Yes. Correct side/site is not applicable. Medications required for this procedure: Not applicable Fire risk assessed and is not applicable. Implants: are not applicable. Sign Out: Specimens not collected. All instruments, equipment, possible retained foreign bodies are accounted for. Yes. The post-procedure plan of care has been communicated to the patient or surrogate. PROCEDURE: Speculum placed in vagina, IUD strings not visualized. Attempted retrieval of IUD strings and unsuccessful. Unable to visualized strings for removal ASSESSMENT/PLAN: Unable to remove IUD. Will return for ultrasound. Discussed endosee to assist with removal and physicians for management. Will follow up after US results. Contraception plans: Mirena IUD Gricel Christensen APRN.CNM [facility] 12-28-2024 History of Present illness Narrative Shavon presents for removal of IUD due to desire for . UNIVERSAL PROTOCOL / SAFETY CHECKLIST Procedure to be Performed: IUD removal Sign In: A Moment of CARE was completed. Appropriate PPE (Personal Protective Equipment) worn by all providers involved with the procedure. Special equipment not required. Patient/Surrogate Stated/Verified: Patient name, Date of , Relevant allergies, and The intended procedure Time Out: Relevant labs, photos, and/or imaging studies have been reviewed. Intended patient and procedure match the source document(s) (e.g. consent, H&P, associated studies [imaging, pathology]) match the intended patient and procedure. Consent obtained and matches the intended procedure. Yes. Correct side/site is not applicable. Medications required for this procedure: Not applicable Fire risk assessed and is not applicable. Implants: are not applicable. Sign Out: Specimens not collected. All instruments, equipment, possible retained foreign bodies are accounted for. Yes. The post-procedure plan of care has been communicated to the patient or surrogate. PROCEDURE: Speculum placed in vagina, IUD strings not visualized. Attempted retrieval of IUD strings and unsuccessful. Unable to visualized strings for removal ASSESSMENT/PLAN: Unable to remove IUD. Will return for ultrasound. Discussed endosee to assist with removal and physicians for management. Will follow up after US results. Contraception plans: Mirena IUD Gricel Christensen APRN.CNM documented in this encounter [facility] 11-24-2024 Note HNO ID: [id number] Author: GRICEL CHRISTENSEN APRN.CNM Service: ? 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 Patient/authorized district sales representative agreed to proceed CHIEF COMPLAINT: IUD removal HPI: The patient is a 29-year-old female, , with a history of anxiety, presenting for IUD removal and preconception counseling. The patient desires removal of her Mirena IUD. She plans to start trying to conceive in the next few months. She has been taking vitamins continuously and reports minimal pain, with occasional cramping. Her first occurred on the first attempt, while the second took approximately seven months. She is currently taking Lexapro, prescribed by her PCP in June, and inquires about its safety during . She denies use of other antidepressants. HISTORY: OB History Gravida2 Para2 Term2 Preterm0 AB0 Living2 SAB0 IAB0 Ectopic0 Multiple0 Live Births2 Business Services Analyst History LMP: 08/10/2024 (Exact Date), IUD Age at Menarche: Age at First : Age at Menopause: Business Services Analyst History Comments: Sexual Activity: Yes; Male Contraception: No contraception data on record PAST MEDICAL HISTORY Diagnosis Date Anxiety state Endometrioma Ovarian cyst depression PAST SURGICAL HISTORY Procedure Laterality Date PAST SURGICAL HISTORY OF wisdom teeth FAMILY HISTORY Problem Relation Age of Onset No Known Problems Mother Detached Retina Father Heart Father 70 Hypertension Father Kidney Disease Maternal Grandmother Heart Attack Maternal Grandfather Alzheimer's Disease Paternal Grandmother other (blood infection) Paternal Grandfather No Known Problems Daughter No Known Problems Daughter Hypertension Half-brother Hypertension Half-brother Social History Tobacco Use Smoking status: Never Smokeless tobacco: Never Vaping Use Vaping status: Never Used Substance Use Topics Alcohol use: Yes Alcohol/week: 1.0 standard drink of alcohol Types: 1 Standard drinks or equivalent per week Comment: occasional Drug use: No Current Outpatient Medications Medication Sig norethindrone (AYGESTIN) 5 mg tablet Take 1 tablet by mouth once daily. escitalopram oxalate (LEXAPRO) 10 mg tablet Take 1 tablet by mouth once daily. levonorgestrel (MIRENA) 21 mcg/24 hours (8 yrs) 52 mg IUD 1 Each by INTRAUTERINE route as directed. No current facility-administered medications for this visit. ALLERGIES No Known Allergies REVIEW OF SYSTEMS: Genitourinary: (+) intermittent crampy pelvic pain Objective SENSITIVE EXAM: The sensitive examination was discussed with the Patient or Patient's Authorized Expeditionary Fighting Vehicle Crewman. As applicable, any other physician, advance practice provider, medical student, or other health professional student that will be observing or involved in the sensitive examination for educational or training purposes was discussed with the Patient or Authorized Expeditionary Fighting Vehicle Crewman. The Patient or Authorized Expeditionary Fighting Vehicle Crewman has agreed to proceed with the sensitive examination. (Sensitive examination includes inspection and/or palpation of the breasts, pelvis, prostate and anorectal regions). PHYSICAL EXAM: BP 108/72 Wt 147 lb (66.7kg) LMP 08/10/2024 GENERAL: Well-appearing, no acute distress BREAST: soft, non-tender, symmetric, no dominant mass, normal nipple-areolar complex, no lymphadenopathy, no nipple discharge PULMONARY: normal inspiratory effort ABDOMEN: soft, non-tender, no masses NEURO: alert and oriented x3 EXTREMITIES: normal Assessment AND Plan ASSESSMENT AND PLAN: 1. Encounter for IUD removal (Z30.432) - REMOVE INTRAUTERINE DEVICE 2. Encounter for preconception consultation - ICD9: V26.49, ICD10: Z31.69 - Advised continuation of Lexapro during ; provided educational handout on potential risks and benefits. - Continue PNV 3. History of depression - ICD9: V13.29, V11.8, ICD10: Z87.59, Z86.59 - Advised continuation of Lexapro during ; provided educational handout on potential risks and benefits. 4. NATHANIEL (generalized anxiety disorder) - ICD9: 300.02, ICD10: F41.1 - Advised continuation of Lexapro during ; provided educational handout on potential risks and benefits. Gricel Christensen APRN.[facility] 11-24-2024 History of Present illness Narrative Images from the original note were not included. Obstetrics and Gynecology [place] BAR[employer] ENDSHAKE ADJUSTER Visit Subjective Recording using [employer]SpotLand software for draft documentation of the visit was discussed with the patient/authorized district sales representative; all questions welcomed and answered. Patient/authorized district sales representative agreed to proceed CHIEF COMPLAINT: IUD removal HPI: The patient is a 29-year-old female, , with a history of anxiety, presenting for IUD removal and preconception counseling. The patient desires removal of her Mirena IUD. She plans to start trying to conceive in the next few months. She has been taking vitamins continuously and reports minimal pain, with occasional cramping. Her first occurred on the first attempt, while the second took approximately seven months. She is currently taking Lexapro, prescribed by her PCP in June, and inquires about its safety during . She denies use of other antidepressants. HISTORY: OB History Gravida2 Para2 Term2 Preterm0 AB0 Living2 SAB0 IAB0 Ectopic0 Multiple0 Live Births2 Business Services Analyst History LMP: 08/10/2024 (Exact Date), IUD Age at Menarche: Age at First : Age at Menopause: Business Services Analyst History Comments: Sexual Activity: Yes; Male Contraception: No contraception data on record PAST MEDICAL HISTORY Diagnosis Date Anxiety state Endometrioma Ovarian cyst depression PAST SURGICAL HISTORY Procedure Laterality Date PAST SURGICAL HISTORY OF wisdom teeth FAMILY HISTORY Problem Relation Age of Onset No Known Problems Mother Detached Retina Father Heart Father 70 Hypertension Father Kidney Disease Maternal Grandmother Heart Attack Maternal Grandfather Alzheimer's Disease Paternal Grandmother other (blood infection) Paternal Grandfather No Known Problems Daughter No Known Problems Daughter Hypertension Half-brother Hypertension Half-brother Social History Tobacco Use Smoking status: Never Smokeless tobacco: Never Vaping Use Vaping status: Never Used Substance Use Topics Alcohol use: Yes Alcohol/week: 1.0 standard drink of alcohol Types: 1 Standard drinks or equivalent per week Comment: occasional Drug use: No Current Outpatient Medications Medication Sig norethindrone (AYGESTIN) 5 mg tablet Take 1 tablet by mouth once daily. escitalopram oxalate (LEXAPRO) 10 mg tablet Take 1 tablet by mouth once daily. levonorgestrel (MIRENA) 21 mcg/24 hours (8 yrs) 52 mg IUD 1 Each by INTRAUTERINE route as directed. No current facility-administered medications for this visit. ALLERGIES No Known Allergies REVIEW OF SYSTEMS: Genitourinary: (+) intermittent crampy pelvic pain Objective SENSITIVE EXAM: The sensitive examination was discussed with the Patient or Patient's Authorized Expeditionary Fighting Vehicle Crewman. As applicable, any other physician, advance practice provider, medical student, or other health professional student that will be observing or involved in the sensitive examination for educational or training purposes was discussed with the Patient or Authorized Expeditionary Fighting Vehicle Crewman. The Patient or Authorized Expeditionary Fighting Vehicle Crewman has agreed to proceed with the sensitive examination. (Sensitive examination includes inspection and/or palpation of the breasts, pelvis, prostate and anorectal regions). PHYSICAL EXAM: BP 108/72 Wt 147 lb (66.7kg) LMP 08/10/2024 GENERAL: Well-appearing, no acute distress BREAST: soft, non-tender, symmetric, no dominant mass, normal nipple-areolar complex, no lymphadenopathy, no nipple discharge PULMONARY: normal inspiratory effort ABDOMEN: soft, non-tender, no masses NEURO: alert and oriented x3 EXTREMITIES: normal Assessment & Plan ASSESSMENT AND PLAN: 1. Encounter for IUD removal (Z30.432) - REMOVE INTRAUTERINE DEVICE 2. Encounter for preconception consultation - ICD9: V26.49, ICD10: Z31.69 - Advised continuation of Lexapro during ; provided educational handout on potential risks and benefits. - Continue PNV 3. History of depression - ICD9: V13.29, V11.8, ICD10: Z87.59, Z86.59 - Advised continuation of Lexapro during ; provided educational handout on potential risks and benefits. 4. NATHANIEL (generalized anxiety disorder) - ICD9: 300.02, ICD10: F41.1 - Advised continuation of Lexapro during ; provided educational handout on potential risks and benefits. Gricel Christensen APRN.CNM documented in this encounter [facility] 10-28-2024 Instructions Brayden Mosley DO - 10/28/2024 4:25 PM EDT - Continue norethindrone and IUD for symptom management. - When ready to conceive, discontinue norethindrone and remove IUD; monitor symptoms and attempt . - If symptoms worsen or is not achieved, re-evaluate for potential surgical intervention. - No additional hormone panel testing recommended at this time. - Follow-up as needed through [facility], with messages triaged to nurse practitioner for initial review. documented in this encounter [facility] 10-28-2024 Note HNO ID: [id number] Author: BRAYDEN MOSLEY DO Service: ? Author Type: Physician Type: Progress Notes Filed: 10/28/2024 16:25 Note Text: Women's Health [place] SECTION FOR MINIMALLY INVASIVE GYNECOLOGIC SURGERY OUTPATIENT VISIT DATE 10/28/2024 OUTPATIENT VISIT TYPE FUV This is a virtual visit using [facility] Zoom Video Visit. It required patient-provider interaction for the medical decision making as documented below. I have communicated my name and active licensure. The patient's identity and physical location were verified at the time of this visit. Either the patient or their legal district sales representative has been informed of the risks and benefits of -- and alternatives to -- treatment through a remote evaluation and consents to proceed with the evaluation remotely. I spent a total of 30 minutes on the date of the service which included preparing to see the patient, [id number] patient care, completing clinical documentation, obtaining and/or reviewing separately obtained history, performing a medically appropriate examination, counseling and educating the patient/family/caregiver, and ordering medications, tests, or procedures PRIMARY CARE PHYSICIAN: Dalila Tirado [address] [place] [id number] CHIEF COMPLAINT: No chief complaint on file. HISTORY OF PRESENT ILLNESS: Shavon Escalona is a pleasant 28 year old The patient recently completed an MRI after discontinuing . She is currently using both an IUD and norethindrone daily for pain management. Since stopping , she experienced one episode of non-consistent bleeding lasting about a week, which she describes as her only period. She reports occasional spotting lasting a few hours. She notes daily cramping since ceasing , which improves with increased physical activity. She denies any significant gastrointestinal issues but experiences uterine and lower back cramping before bowel movements, describing it as uncomfortable but not impeding bowel function. Compared to May 2023, she reports improvement in pain, attributing it to the norethindrone and IUD. Previously, she experienced daily cramping and multiple cysts. Currently, her pain is manageable and does not interfere with daily activities, social plans, work, or parenting. She occasionally uses a heating pad and performs stretching exercises for relief. She and her are planning to conceive within the next 6-12 months. She is considering continuing current pain management until after another before evaluating further treatment options. She denies any previous surgeries for endometriosis. Past Gynecologic History: Business Services Analyst History LMP: 08/10/2024 (Exact Date), IUD Age at Menarche: Age at First : Age at Menopause: Business Services Analyst History Comments: Sexual Activity: Yes; Male Contraception: No contraception data on record Past Obstetrical History: OB History Gravida2 Para2 Term2 Preterm0 AB0 Living2 SAB0 IAB0 Ectopic0 Multiple0 Live Births2 Past Medical History: PAST MEDICAL HISTORY Diagnosis Date Anxiety state Endometrioma Ovarian cyst depression Past Surgical History: PAST SURGICAL HISTORY Procedure Laterality Date PAST SURGICAL HISTORY OF wisdom teeth Family History: FAMILY HISTORY Problem Relation Age of Onset No Known Problems Mother Detached Retina Father Heart Father 70 Hypertension Father Kidney Disease Maternal Grandmother Heart Attack Maternal Grandfather Alzheimer's Disease Paternal Grandmother other (blood infection) Paternal Grandfather No Known Problems Daughter No Known Problems Daughter Hypertension Half-brother Hypertension Half-brother Social History: Social History Tobacco Use Smoking status: Never Smokeless tobacco: Never Vaping Use Vaping status: Never Used Substance Use Topics Alcohol use: Yes Alcohol/week: 1.0 standard drink of alcohol Types: 1 Standard drinks or equivalent per week Comment: occasional Drug use: No Current Outpatient Medications Medication Sig norethindrone (AYGESTIN) 5 mg tablet Take 1 tablet by mouth once daily. escitalopram oxalate (LEXAPRO) 10 mg tablet Take 1 tablet by mouth once daily. levonorgestrel (MIRENA) 21 mcg/24 hours (8 yrs) 52 mg IUD 1 Each by INTRAUTERINE route as directed. No current facility-administered medications for this visit. Allergies As of Date: 10/28/2024 (No Known Allergies) Fully Assessed 10/13/2024 REVIEW OF SYSTEMS: POSITIVES IN BOLD Genitourinary: (+) pelvic cramping, (+) vaginal spotting Musculoskeletal: (+) low back pain Gastrointestinal: (-) constipation PHYSICAL EXAMINATION: Vital Signs: There were no vitals filed for this visit. There is no height or weight on file to calculate BMI. General appearance: Well appearing, alert, in no acute distress, well-hydrated, well nourished. Skin: Skin (more content not included)... [facility] 10-28-2024 History of Present illness Narrative Images from the original note were not included. Women's Health [place] SECTION FOR MINIMALLY INVASIVE GYNECOLOGIC SURGERY OUTPATIENT VISIT DATE 10/28/2024 OUTPATIENT VISIT TYPE FUV This is a virtual visit using PT [employer] [employer] Video Visit. It required patient-provider interaction for the medical decision making as documented below. I have communicated my name and active licensure. The patient's identity and physical location were verified at the time of this visit. Either the patient or their legal district sales representative has been informed of the risks and benefits of -- and alternatives to -- treatment through a remote evaluation and consents to proceed with the evaluation remotely. I spent a total of 30 minutes on the date of the service which included preparing to see the patient, [id number] patient care, completing clinical documentation, obtaining and/or reviewing separately obtained history, performing a medically appropriate examination, counseling and educating the patient/family/caregiver, and ordering medications, tests, or procedures PRIMARY CARE PHYSICIAN: Dalila Tirado [address] [place], [place] [id number] CHIEF COMPLAINT: No chief complaint on file. HISTORY OF PRESENT ILLNESS: Shavon Escalona is a pleasant 28 year old The patient recently completed an MRI after discontinuing . She is currently using both an IUD and norethindrone daily for pain management. Since stopping , she experienced one episode of non-consistent bleeding lasting about a week, which she describes as her only period. She reports occasional spotting lasting a few hours. She notes daily cramping since ceasing , which improves with increased physical activity. She denies any significant gastrointestinal issues but experiences uterine and lower back cramping before bowel movements, describing it as uncomfortable but not impeding bowel function. Compared to May 2023, she reports improvement in pain, attributing it to the norethindrone and IUD. Previously, she experienced daily cramping and multiple cysts. Currently, her pain is manageable and does not interfere with daily activities, social plans, work, or parenting. She occasionally uses a heating pad and performs stretching exercises for relief. She and her are planning to conceive within the next 6-12 months. She is considering continuing current pain management until after another before evaluating further treatment options. She denies any previous surgeries for endometriosis. Past Gynecologic History: Business Services Analyst History LMP: 08/10/2024 (Exact Date), IUD Age at Menarche: Age at First : Age at Menopause: Business Services Analyst History Comments: Sexual Activity: Yes; Male Contraception: No contraception data on record Past Obstetrical History: OB History Gravida2 Para2 Term2 Preterm0 AB0 Living2 SAB0 IAB0 Ectopic0 Multiple0 Live Births2 Past Medical History: PAST MEDICAL HISTORY Diagnosis Date Anxiety state Endometrioma Ovarian cyst depression Past Surgical History: PAST SURGICAL HISTORY Procedure Laterality Date PAST SURGICAL HISTORY OF wisdom teeth Family History: FAMILY HISTORY Problem Relation Age of Onset No Known Problems Mother Detached Retina Father Heart Father 70 Hypertension Father Kidney Disease Maternal Grandmother Heart Attack Maternal Grandfather Alzheimer's Disease Paternal Grandmother other (blood infection) Paternal Grandfather No Known Problems Daughter No Known Problems Daughter Hypertension Half-brother Hypertension Half-brother Social History: Social History Tobacco Use Smoking status: Never Smokeless tobacco: Never Vaping Use Vaping status: Never Used Substance Use Topics Alcohol use: Yes Alcohol/week: 1.0 standard drink of alcohol Types: 1 Standard drinks or equivalent per week Comment: occasional Drug use: No Current Outpatient Medications Medication Sig norethindrone (AYGESTIN) 5 mg tablet Take 1 tablet by mouth once daily. escitalopram oxalate (LEXAPRO) 10 mg tablet Take 1 tablet by mouth once daily. levonorgestrel (MIRENA) 21 mcg/24 hours (8 yrs) 52 mg IUD 1 Each by INTRAUTERINE route as directed. No current facility-administered medications for this visit. Allergies As of Date: 10/28/2024 (No Known Allergies) Fully Assessed 10/13/2024 REVIEW OF SYSTEMS: POSITIVES IN BOLD Genitourinary: (+) pelvic cramping, (+) vaginal spotting Musculoskeletal: (+) low back pain Gastrointestinal: (-) constipation PHYSICAL EXAMINATION: Vital Signs: There were no vitals filed for this visit. There is no height or weight on file to calculate BMI. General appearance: Well appearing, alert, in no acute distress, well-hydrated, well nourished. Skin: Skin color, texture, turgor normal, no suspicious rashes or lesions IMPRESSION: Ms. Escalona is a 28 year old female who presents today with 1. Endometriosis Patient has not undergone surgery for endometriosis. MRI shows a small cyst on the left ovary, decreasing in size, and non-specific changes in the posterior compartment that could indicate endometriosis. No significant colon or rectal involvement observed. Symptoms are currently well-managed with norethindrone and IUD. - Continue current management with norethindrone and IUD. - Discussed potential for endometrioma to grow if hormonal treatments are stopped - Advised patient to stop norethindrone and remove IUD when ready to conceive, monitoring symptoms and fertility. - Re-evaluate for potential surgery if symptoms worsen or if difficulty conceiving occurs. 2. penitentiary (current) use of hormonal contraceptives Encounter for management of intrauterine contraceptive device (IUD), unspecified IUD management type Patient is currently using norethindrone and has an IUD in place. Symptoms are well-controlled, and patient is not experiencing significant pain or disruption to daily life. - Continue norethindrone and IUD until ready to conceive. - Educated patient on potential for bleeding upon stopping norethindrone. - Discussed future use of norethindrone post- based on symptoms and preferences. - Patient understands and agrees with the plan. Written and verbal health teaching given to patient, patient verbalizes understanding and agrees with treatment plan. Brayden Mosley DO documented in this encounter [facility] 10-13-2024 Note HNO ID: [id number] Author: DOROTHEA ADRIAN APRN.JOSÉ LUIS Service: ? Author Type: Nurse Practitioner Type: Progress Notes Filed: 10/14/2024 12:36 Note Text: [facility] [place] [facility] Ben[facility] Gynecology [facility] PATIENT NAME: Shavon Escalona PCP: Dalila Tirado APRN.RETIREMENT ASSISTANT DATE: 10/13/2024 This is a virtual visit using PT [employer] Video Visit. It required patient-provider interaction for the medical decision making as documented below. I have communicated my name and active licensure. The patient's identity and physical location were verified at the time of this visit. Either the patient or their legal district sales representative has been informed of the risks and benefits of -- and alternatives to -- treatment through a remote evaluation and consents to proceed with the evaluation remotely Shavon Escalona is a 28 year old who presents for a follow up visit to discuss MRI results HPI: She is a patient who has been seen and evaluated by Dr. Mosley 06/18/2023 Her MRI needed to be reordered. She has now completed the imaging and would like to discuss plan of care. At visit with Dr. Mosley plan was to get MRI, Start Norethindrone and have IUD inserted. She had IUD inserted on 07/09/2023. She is still taking Norethindrone. She stopped about 3-4 months ago Over the 2 months she has started having pain and cramping again. IMAGING MRI FEMALE PELVIS WO/W IVCON (09/30/2024 10:18 AM) IMPRESSION: Posterior compartment findings can be seen with deep infiltrative endometriosis. Serially decreased size of a left ovarian lesion that is probably a hemorrhagic cyst rather than endometrioma. OB History Gravida2 Para2 Term2 Preterm0 AB0 Living2 SAB0 IAB0 Ectopic0 Multiple0 Live Births2 Business Services Analyst History LMP: 08/10/2024 (Exact Date), IUD Age at Menarche: Age at First : Age at Menopause: Business Services Analyst History Comments: Sexual Activity: Yes; Male Contraception: No contraception data on record PAST MEDICAL HISTORY Diagnosis Date Anxiety state Endometrioma Ovarian cyst depression PAST SURGICAL HISTORY Procedure Laterality Date PAST SURGICAL HISTORY OF wisdom teeth PHYSICAL EXAM: LMP 08/10/2024 (Exact Date) No Physical Exam Constitutional: Appearance: Normal appearance. Neurological: Mental Status: She is alert. Psychiatric: Mood and Affect: Mood normal. Behavior: Behavior normal. Thought Content: Thought content normal. Judgment: Judgment normal. ASSESSMENT AND PLAN: Assessment AND Plan Female pelvic pain Orders: CONSULT TO PHYSICAL THERAPY; Future Endometriosis Orders: norethindrone (AYGESTIN) 5 mg tablet; Take 1 tablet by mouth once daily. Pelvic pain: Reviewed MRI. Previously seen cyst now described has likely hemorrhagic cyst not endometrioma. Refilled Norethindrone. Ordered PFPT. Please make a follow up appointment with Dr. Mosley for a through discussion of your MRI findings. Dorothea Adrian APRN.JOSÉ LUIS October 13, 2024 4:02 PM [facility] 10-13-2024 History of Present illness Narrative [facility] [place] [facility] PATIENT NAME: Shavon Rainey Vin PCP: Dalila Tirado APRN.RETIREMENT ASSISTANT DATE: 10/13/2024 This is a virtual visit using PT [employer] Video Visit. It required patient-provider interaction for the medical decision making as documented below. I have communicated my name and active licensure. The patient's identity and physical location were verified at the time of this visit. Either the patient or their legal district sales representative has been informed of the risks and benefits of -- and alternatives to -- treatment through a remote evaluation and consents to proceed with the evaluation remotely Shavon Shanksjuanito is a 28 year old who presents for a follow up visit to discuss MRI results HPI: She is a patient who has been seen and evaluated by Dr. Mosley 06/18/2023 Her MRI needed to be reordered. She has now completed the imaging and would like to discuss plan of care. At visit with Dr. Mosley plan was to get MRI, Start Norethindrone and have IUD inserted. She had IUD inserted on 07/09/2023. She is still taking Norethindrone. She stopped about 3-4 months ago Over the 2 months she has started having pain and cramping again. IMAGING MRI FEMALE PELVIS WO/W IVCON (09/30/2024 10:18 AM) IMPRESSION: Posterior compartment findings can be seen with deep infiltrative endometriosis. Serially decreased size of a left ovarian lesion that is probably a hemorrhagic cyst rather than endometrioma. OB History Gravida2 Para2 Term2 Preterm0 AB0 Living2 SAB0 IAB0 Ectopic0 Multiple0 Live Births2 Business Services Analyst History LMP: 08/10/2024 (Exact Date), IUD Age at Menarche: Age at First : Age at Menopause: Business Services Analyst History Comments: Sexual Activity: Yes; Male Contraception: No contraception data on record PAST MEDICAL HISTORY Diagnosis Date Anxiety state Endometrioma Ovarian cyst depression PAST SURGICAL HISTORY Procedure Laterality Date PAST SURGICAL HISTORY OF wisdom teeth PHYSICAL EXAM: LMP 08/10/2024 (Exact Date) No Physical Exam Constitutional: Appearance: Normal appearance. Neurological: Mental Status: She is alert. Psychiatric: Mood and Affect: Mood normal. Behavior: Behavior normal. Thought Content: Thought content normal. Judgment: Judgment normal. ASSESSMENT AND PLAN: Assessment & Plan Female pelvic pain Orders: CONSULT TO PHYSICAL THERAPY; Future Endometriosis Orders: norethindrone (AYGESTIN) 5 mg tablet; Take 1 tablet by mouth once daily. Pelvic pain: Reviewed MRI. Previously seen cyst now described has likely hemorrhagic cyst not endometrioma. Refilled Norethindrone. Ordered PFPT. Please make a follow up appointment with Dr. Mosley for a through discussion of your MRI findings. Dorothea Adrian APRN.JOSÉ LUIS October 13, 2024 4:02 PM documented in this encounter [facility] 10-02-2024 Telephone encounter Note Called Patient. Verified name and . Informed patient that she could schedule VV with an REAL ESTATE ASSESSOR to discuss MRI results Patient needs refill Refill(s) request: Requested Prescriptions Pending Prescriptions Disp Refills norethindrone (AYGESTIN) 5 mg tablet 90 tablet 0 Sig: Take 1 tablet by mouth once daily. Request from: Patient Last order: norethindrone (AYGESTIN) 5 mg tablet Take 1 tablet by mouth once daily. 90 tablet 0 ordered 07/31/2024 07/31/2025 Last visit: Office visit with provider Dr. Mosley on date 06/17/2023 IMPRESSION: Ms. Escalona is a 27 year old female who presents today with endometriosis Reviewed imaging, discussed endometriomas, etiology, diagnosis and management options We discussed at length what is known about the pathophysiology of endometriosis. Educated that there is little if any correlation between the severity of endometriosis seen at the time of surgery and the severity of pain symptoms or even implications for fertility. The diagnosis can only be confirmed by surgery with tissue sample examined by pathology. Educated that endometriosis is often a chronic condition that may recur and often requires a longterm treatment plan. Once endometriosis is identified, there are many effective therapies for endometriosis, but, unfortunately, there is no single therapy that is effective for all women with endometriosis-related pelvic pain. The first line therapy for women with endometriosis who are not trying to conceive is often hormonal suppression and approximately 70% of women experience improvement in their pain with hormonal suppression (i.e., progestins, oral contraceptives). Surgical therapy with excision and/or ablation of endometriosis provides a similar chance for pain improvement (~ 70%), but the risk of recurrent pain approaches 50% just 2 - 4 years after surgery. Repetitive surgeries tend to be less successful than the initial surgery for the treatment of pain. Some women are candidates for denervation procedures such as a presacral neurectomy. Ordered pelvic MRI to evaluate for deep infiltrating endometriosis Rx'd norethindrone 5 mg daily; discussed it is ok to have insertion of mirena iud and take norethindrone daily Rtc after pelvic MRI Future appointments: No future appointments. Appointment scheduled: No follow-up visit currently scheduled. Action taken: Refill request routed to clinician Jyothi Dejesus RN October 02, 2024 11:01 AM [facility] 10-02-2024 Miscellaneous Notes Called Patient. Verified name and . Informed patient that she could schedule VV with an REAL ESTATE ASSESSOR to discuss MRI results Patient needs refill Refill(s) request: Requested Prescriptions Pending Prescriptions Disp Refills norethindrone (AYGESTIN) 5 mg tablet 90 tablet 0 Sig: Take 1 tablet by mouth once daily. Request from: Patient Last order: norethindrone (AYGESTIN) 5 mg tablet Take 1 tablet by mouth once daily. 90 tablet 0 ordered 07/31/2024 07/31/2025 Last visit: Office visit with provider Dr. Mosley on date 06/17/2023 IMPRESSION: Ms. Escalona is a 27 year old female who presents today with endometriosis Reviewed imaging, discussed endometriomas, etiology, diagnosis and management options We discussed at length what is known about the pathophysiology of endometriosis. Educated that there is little if any correlation between the severity of endometriosis seen at the time of surgery and the severity of pain symptoms or even implications for fertility. The diagnosis can only be confirmed by surgery with tissue sample examined by pathology. Educated that endometriosis is often a chronic condition that may recur and often requires a longterm treatment plan. Once endometriosis is identified, there are many effective therapies for endometriosis, but, unfortunately, there is no single therapy that is effective for all women with endometriosis-related pelvic pain. The first line therapy for women with endometriosis who are not trying to conceive is often hormonal suppression and approximately 70% of women experience improvement in their pain with hormonal suppression (i.e., progestins, oral contraceptives). Surgical therapy with excision and/or ablation of endometriosis provides a similar chance for pain improvement (~ 70%), but the risk of recurrent pain approaches 50% just 2 - 4 years after surgery. Repetitive surgeries tend to be less successful than the initial surgery for the treatment of pain. Some women are candidates for denervation procedures such as a presacral neurectomy. Ordered pelvic MRI to evaluate for deep infiltrating endometriosis Rx'd norethindrone 5 mg daily; discussed it is ok to have insertion of mirena iud and take norethindrone daily Rtc after pelvic MRI Future appointments: No future appointments. Appointment scheduled: No follow-up visit currently scheduled. Action taken: Refill request routed to clinician Jyothi Dejesus RN October 02, 2024 11:01 AM documented in this encounter [facility] 09-30-2024 History of Present illness Narrative Radiology Service Progress Note DATE OF SERVICE: September 30, 2024 TIME: 8:44 AM PATIENT WEIGHT: 145 LBS PATIENT IDENTITY VERIFICATION COMPLETED USING TWO (2) STANDARD IDENTIFIERS: Name and Date of confirmed by patient verbally and Name and Date of confirmed by identification band. FALL SCREENING: Has the patient had 2 falls in the last year or 1 fall with injury or currently using an Ambulatory Assistive Device (Walker, Cane, Wheelchair, Crutches, etc.)? No PATIENT GENDER DATA: Assigned female at . status: : No status: NO. ALLERGIES: Reviewed and unchanged CONTRAST ALLERGY: No EXAM: MRI - CONTRAST TYPE: GROUP II IV SITE: Ambulatory: A peripheral IV was started in the Left antecubital site with a Angio cath: 22 gauge. IV SITE APPEARANCE: Clean,Dry and Intact SIGNATURE: Selam Huang RN PATIENT NAME: Shavon Escalona DATE: September 30, 2024 TIME: 8:44 AM Radiology Service Progress Note PATIENT NAME: Shavon Escalona DATE OF SERVICE: September 30, 2024 TIME: 9:16 AM PATIENT IDENTITY VERIFICATION COMPLETED USING TWO (2) IDENTIFIERS: Name and Date of confirmed by patient verbally. FALL SCREENING: Has the patient had 2 falls in the last year or 1 fall with injury or currently using an Ambulatory Assistive Device (Walker, Cane, Wheelchair, Crutches, etc.)? No PATIENT GENDER DATA: Assigned female at . status: : No status: NO. PATIENT RELEVANT IMPLANT DATA REVIEWED: Yes PATIENT PRESENTS WITH AN IMPLANTABLE OR ATTACHED APPLICATION PERFORMANCE ENGINEER: No RADIOLOGY DEPARTMENT: MR; Exam(s) Completed: Body: Female Pelvis. Lavender Administered: No PERIPHERAL IV DATA: Site assessment: Clean,Dry and Intact, Site disposition Discontinued SIGNED BY: RT Spring(R) September 30, 2024 9:16 AM documented in this encounter [facility] 09-30-2024 Note HNO ID: [id number] Author: CHARLES KENNEDY RT(R) Service: Radiology Author Type: Technologist Type: Progress Notes Filed: 09/30/2024 09:16 Note Text: Radiology Service Progress Note PATIENT NAME: Shavon Escalona DATE OF SERVICE: September 30, 2024 TIME: 9:16 AM PATIENT IDENTITY VERIFICATION COMPLETED USING TWO (2) IDENTIFIERS: Name and Date of confirmed by patient verbally. FALL SCREENING: Has the patient had 2 falls in the last year or 1 fall with injury or currently using an Ambulatory Assistive Device (Walker, Cane, Wheelchair, Crutches, etc.)? No PATIENT GENDER DATA: Assigned female at . status: : No status: NO. PATIENT RELEVANT IMPLANT DATA REVIEWED: Yes PATIENT PRESENTS WITH AN IMPLANTABLE OR ATTACHED APPLICATION PERFORMANCE ENGINEER: No RADIOLOGY DEPARTMENT: MR; Exam(s) Completed: Body: Female Pelvis. Lavender Administered: No PERIPHERAL IV DATA: Site assessment: Clean,Dry and Intact, Site disposition Discontinued SIGNED BY: RT Spring(R) September 30, 2024 9:16 AM [facility] 09-30-2024 Note HNO ID: [id number] Author: SELAM HUANG RN Service: Radiology Author Type: Registered Nurse Type: Progress Notes Filed: 09/30/2024 08:55 Note Text: Radiology Service Progress Note DATE OF SERVICE: September 30, 2024 TIME: 8:44 AM PATIENT WEIGHT: 145 LBS PATIENT IDENTITY VERIFICATION COMPLETED USING TWO (2) STANDARD IDENTIFIERS: Name and Date of confirmed by patient verbally and Name and Date of confirmed by identification band. FALL SCREENING: Has the patient had 2 falls in the last year or 1 fall with injury or currently using an Ambulatory Assistive Device (Walker, Cane, Wheelchair, Crutches, etc.)? No PATIENT GENDER DATA: Assigned female at . status: : No status: NO. ALLERGIES: Reviewed and unchanged CONTRAST ALLERGY: No EXAM: MRI - CONTRAST TYPE: GROUP II IV SITE: Ambulatory: A peripheral IV was started in the Left antecubital site with a Angio cath: 22 gauge. IV SITE APPEARANCE: Clean,Dry and Intact SIGNATURE: Selam Huang RN PATIENT NAME: Shavon Escalona DATE: September 30, 2024 TIME: 8:44 AM [facility] 08-25-2024 Telephone encounter Note Assessment & Plan Pelvic and perineal pain Orders: MRI FEMALE PELVIS WO/W IVCON; Future iv contrast (will be provided with radiology test); MRI Female Pelvis Inject, intravenously, once for 1 dose. No IV access, insert saline lock prior to the beginning of sedation, infusion, injection of imaging exam. Discontinue saline lock post exam. If Pt has a central line or IVAD, may access for administration according to line specific nursing protocol. Once exam is complete flush line and de-access according to line specific nursing protocol in the MR contrast administration guidelines link. Surgical Lubricant Jelly gel; For MRI Female Pelvis, MRI department to provide. Administer intra-vaginal Surgilube immediately prior the MRI procedure (total amount to patient toleranace). Dorothea Adrian APRN.CNP August 25, 2024 10:55 AM [facility] 08-25-2024 Miscellaneous Notes Assessment & Plan Pelvic and perineal pain Orders: MRI FEMALE PELVIS WO/W IVCON; Future iv contrast (will be provided with radiology test); MRI Female Pelvis Inject, intravenously, once for 1 dose. No IV access, insert saline lock prior to the beginning of sedation, infusion, injection of imaging exam. Discontinue saline lock post exam. If Pt has a central line or IVAD, may access for administration according to line specific nursing protocol. Once exam is complete flush line and de-access according to line specific nursing protocol in the MR contrast administration guidelines link. Surgical Lubricant Jelly gel; For MRI Female Pelvis, MRI department to provide. Administer intra-vaginal Surgilube immediately prior the MRI procedure (total amount to patient toleranace). Dorothea Adrian APRN.CNP August 25, 2024 10:55 AM [facility] 06/17/2024 IMPRESSION: Ms. Escalona is a 27 year old female who presents today with endometriosis Reviewed imaging, discussed endometriomas, etiology, diagnosis and management options We discussed at length what is known about the pathophysiology of endometriosis. Educated that there is little if any correlation between the severity of endometriosis seen at the time of surgery and the severity of pain symptoms or even implications for fertility. The diagnosis can only be confirmed by surgery with tissue sample examined by pathology. Educated that endometriosis is often a chronic condition that may recur and often requires a watermelon inspector treatment plan. Once endometriosis is identified, there are many effective therapies for endometriosis, but, unfortunately, there is no single therapy that is effective for all women with endometriosis-related pelvic pain. The first line therapy for women with endometriosis who are not trying to conceive is often hormonal suppression and approximately 70% of women experience improvement in their pain with hormonal suppression (i.e., progestins, oral contraceptives). Surgical therapy with excision and/or ablation of endometriosis provides a similar chance for pain improvement (~ 70%), but the risk of recurrent pain approaches 50% just 2 - 4 years after surgery. Repetitive surgeries tend to be less successful than the initial surgery for the treatment of pain. Some women are candidates for denervation procedures such as a presacral neurectomy. Ordered pelvic MRI to evaluate for deep infiltrating endometriosis Rx'd norethindrone 5 mg daily; discussed it is ok to have insertion of mirena iud and take norethindrone daily Rtc after pelvic MRI Written and verbal health teaching given to patient, patient verbalizes understanding and agrees with treatment plan. Brayden Mosley DO documented in this encounter [facility] 08-25-2024 Telephone encounter Note [facility] 06/17/2024 IMPRESSION: Ms. Escalona is a 27 year old female who presents today with endometriosis Reviewed imaging, discussed endometriomas, etiology, diagnosis and management options We discussed at length what is known about the pathophysiology of endometriosis. Educated that there is little if any correlation between the severity of endometriosis seen at the time of surgery and the severity of pain symptoms or even implications for fertility. The diagnosis can only be confirmed by surgery with tissue sample examined by pathology. Educated that endometriosis is often a chronic condition that may recur and often requires a watermelon inspector treatment plan. Once endometriosis is identified, there are many effective therapies for endometriosis, but, unfortunately, there is no single therapy that is effective for all women with endometriosis-related pelvic pain. The first line therapy for women with endometriosis who are not trying to conceive is often hormonal suppression and approximately 70% of women experience improvement in their pain with hormonal suppression (i.e., progestins, oral contraceptives). Surgical therapy with excision and/or ablation of endometriosis provides a similar chance for pain improvement (~ 70%), but the risk of recurrent pain approaches 50% just 2 - 4 years after surgery. Repetitive surgeries tend to be less successful than the initial surgery for the treatment of pain. Some women are candidates for denervation procedures such as a presacral neurectomy. Ordered pelvic MRI to evaluate for deep infiltrating endometriosis Rx'd norethindrone 5 mg daily; discussed it is ok to have insertion of mirena iud and take norethindrone daily Rtc after pelvic MRI Written and verbal health teaching given to patient, patient verbalizes understanding and agrees with treatment plan. Brayden Mosley DO [facility] 07-31-2024 Telephone encounter Note Partial sent The following approved medication requests have been transmitted electronically. Requested Prescriptions Signed Prescriptions Disp Refills norethindrone (AYGESTIN) 5 mg tablet 90 tablet 0 Sig: Take 1 tablet by mouth once daily. Authorizing Provider: DOROTHEA ADRIAN Ordering User: SAMANTHA BENNETT APRN.CNP July 31, 2024 10:37 AM [facility] Work Phone: 07-31-2024 Miscellaneous Notes Partial sent The following approved medication requests have been transmitted electronically. Requested Prescriptions Signed Prescriptions Disp Refills norethindrone (AYGESTIN) 5 mg tablet 90 tablet 0 Sig: Take 1 tablet by mouth once daily. Authorizing Provider: DOROTHEA ADRIAN Ordering User: SAMANTHA BENNETT APRN.CNP July 31, 2024 10:37 AM Refill(s) request: Requested Prescriptions Pending Prescriptions Disp Refills norethindrone (AYGESTIN) 5 mg tablet 90 tablet 3 Sig: Take 1 tablet by mouth once daily. Request from: Patient Last order: norethindrone (AYGESTIN) 5 mg tablet 90 tablet 3 07/23/2023 07/23/2024 Sig: Take 1 tablet by mouth once daily. Sent to pharmacy as: norethindrone (AYGESTIN) 5 mg tablet Class: Normal Route: ORAL Order: [id number] [id number] [place] [address] - [address] [phone] [id number] Last visit: Office visit with provider Brayden Mosley DO on date 06/17/23 IMPRESSION: Ms. Escalona is a 27 year old female who presents today with endometriosis Reviewed imaging, discussed endometriomas, etiology, diagnosis and management options We discussed at length what is known about the pathophysiology of endometriosis. Educated that there is little if any correlation between the severity of endometriosis seen at the time of surgery and the severity of pain symptoms or even implications for fertility. The diagnosis can only be confirmed by surgery with tissue sample examined by pathology. Educated that endometriosis is often a chronic condition that may recur and often requires a longterm treatment plan. Once endometriosis is identified, there are many effective therapies for endometriosis, but, unfortunately, there is no single therapy that is effective for all women with endometriosis-related pelvic pain. The first line therapy for women with endometriosis who are not trying to conceive is often hormonal suppression and approximately 70% of women experience improvement in their pain with hormonal suppression (i.e., progestins, oral contraceptives). Surgical therapy with excision and/or ablation of endometriosis provides a similar chance for pain improvement (~ 70%), but the risk of recurrent pain approaches 50% just 2 - 4 years after surgery. Repetitive surgeries tend to be less successful than the initial surgery for the treatment of pain. Some women are candidates for denervation procedures such as a presacral neurectomy. Ordered pelvic MRI to evaluate for deep infiltrating endometriosis Rx'd norethindrone 5 mg daily; discussed it is ok to have insertion of mirena iud and take norethindrone daily Rtc after pelvic MRI Future appointments: No future appointments. Appointment scheduled: No follow-up visit currently scheduled. Action taken: Refill request routed to clinician Zuri Sandhu RN July 31, 2024 10:02 AM documented in this encounter [facility] 07-31-2024 Telephone encounter Note Refill(s) request: Requested Prescriptions Pending Prescriptions Disp Refills norethindrone (AYGESTIN) 5 mg tablet 90 tablet 3 Sig: Take 1 tablet by mouth once daily. Request from: Patient Last order: norethindrone (AYGESTIN) 5 mg tablet 90 tablet 3 07/23/2023 07/23/2024 Sig: Take 1 tablet by mouth once daily. Sent to pharmacy as: norethindrone (AYGESTIN) 5 mg tablet Class: Normal Route: ORAL Order: [id number] [id number] [place] [address] - [address] [facility] [phone] [id number] Last visit: Office visit with provider Brayden Mosley DO on date 06/17/23 IMPRESSION: Ms. Escalona is a 27 year old female who presents today with endometriosis Reviewed imaging, discussed endometriomas, etiology, diagnosis and management options We discussed at length what is known about the pathophysiology of endometriosis. Educated that there is little if any correlation between the severity of endometriosis seen at the time of surgery and the severity of pain symptoms or even implications for fertility. The diagnosis can only be confirmed by surgery with tissue sample examined by pathology. Educated that endometriosis is often a chronic condition that may recur and often requires a watermelon inspector treatment plan. Once endometriosis is identified, there are many effective therapies for endometriosis, but, unfortunately, there is no single therapy that is effective for all women with endometriosis-related pelvic pain. The first line therapy for women with endometriosis who are not trying to conceive is often hormonal suppression and approximately 70% of women experience improvement in their pain with hormonal suppression (i.e., progestins, oral contraceptives). Surgical therapy with excision and/or ablation of endometriosis provides a similar chance for pain improvement (~ 70%), but the risk of recurrent pain approaches 50% just 2 - 4 years after surgery. Repetitive surgeries tend to be less successful than the initial surgery for the treatment of pain. Some women are candidates for denervation procedures such as a presacral neurectomy. Ordered pelvic MRI to evaluate for deep infiltrating endometriosis Rx'd norethindrone 5 mg daily; discussed it is ok to have insertion of mirena iud and take norethindrone daily Rtc after pelvic MRI Future appointments: No future appointments. Appointment scheduled: No follow-up visit currently scheduled. Action taken: Refill request routed to clinician Zuri Sandhu RN July 31, 2024 10:02 AM [facility] 07-23-2024 Note HNO ID: [id number] Author: SHANAE CURZ LPN Service: ? Author Type: Nurse Practitioner Type: Progress Notes Filed: 07/23/2024 16:05 Note Text: This note was created using [employer]. Subjective Shavon Escalona is a 28 year old female here today to establish care. PMH NATHANIEL, and depression. NATHANIEL and depression: she had virtual visit on 06/04/24 and 07/13/[address] Giron. She was started on lexapro 10 mg daily. Feeling nervous, anxious, or on edge 1 Several days Not being able to stop or control worrying 1 Several days Worrying too much about different things 0 Not at all sure Trouble relaxing 0 Not at all sure Being so restless that it's hard to sit still 0 Not at all sure Being easily annoyed or irritable 1 Several days Feeling afraid as if something awful might happen 0 Not at all sure NATHANIEL-7 Anxiety Score 3 If you checked off any problems, how difficult have these problems made it for you to do your work, take care of things at home, or get along with other people? Somewhat difficult THE LAST 2 WEEKS, HAVE YOU BEEN BOTHERED BY ANY OF THE FOLLOWING? - Little interest or pleasure in doing things 0 NOT AT ALL Feeling down, depressed, or hopeless 0 Trouble falling or staying asleep, or sleeping too much 1 Feeling tired or having little energy 1 Poor appetite or overeating 0 Feeling bad yourself-you are a failure or have let yourself or others 0 Trouble concentrating, like reading the paper or watching TV 0 Moving/speaking slowly (others notice) OR being more fidgety/restless 0 Thoughts that you would be better off or of hurting yourself 0 PHQ TOTAL SCORE = 2 PHQ problems effect on difficulty of work, home, and social activity: 1 - NOT DIFFICULT AT ALL , she reports hx of ovarian cysts and pelvic cramping. States she is on Aygestin for possible endometriosis. She has MRI ordered. She stop breast feeding 2 wks. Migraines: dx in [employer] school. Denies aura. She reports starts back of d. Light and sound sensitivity. She reports at most 2 a month. Will use heating pad and Excedrin migraine. She reports sometimes medicine helps. She reports just working through. 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 She does not smoke or vape. She reports rare alcohol use. 1-2x/month at most. She does work out class once a week. ALLERGIES No Known Allergies Current Outpatient Medications Medication Sig Dispense Refill predniSONE (DELTASONE) 10 mg tablet Day #1 - 6 tablets PO then Day #2 - 5 tablets PO then Day #3 - 4 tablets PO then Day #4 - 3 tablets PO then Day #5 - 2 tablets PO then Day #6 - 1 tablet PO (Patient not taking: Reported on 07/23/2024) 21 tablet 0 fluticasone (FLONASE ALLERGY RELIEF) 50 mcg/actuation nasal spray Use 1 [place] in each nostril two times a day. (Patient not taking: Reported on 07/23/2024) 1 Each 0 escitalopram oxalate (LEXAPRO) 10 mg tablet Take 1 tablet by mouth once daily. 30 tablet 1 norethindrone (AYGESTIN) 5 mg tablet Take 1 tablet by mouth once daily. 90 tablet 3 levonorgestrel (MIRENA) 21 mcg/24 hours (8 yrs) 52 mg IUD 1 Each by INTRAUTERINE route as directed. 1 Each 0 Surgical Lubricant Jelly gel For MRI Female Pelvis, MRI department to provide. Administer intra-vaginal Surgilube immediately prior the MRI procedure (total amount to patient toleranace). 1 g 0 No current facility-administered medications for this visit. ACTIVE PROBLEM LIST Hyperopia Disorder of Accommodation Family History of Congenital Heart Defect Need for Mmr Vaccine Endometrioma Bacterial Vaginosis in History of Depression Family History of Cleft Palate Dimitri (Stress Urinary Incontinence, Female) Muscle Weakness Pelvic Pressure in 33 Weeks Gestation of Nathaniel (Generalized Anxiety Disorder) Recurrent Mild Major Depressive Disorder With Anxiety (Hcc) (Hcc) Sleep Disturbance PAST MEDICAL HISTORY Diagnosis Date Anxiety state Endometrioma Ovarian cyst depression PAST SURGICAL HISTORY Procedure Laterality Date PAST SURGICAL HISTORY OF wisdom teeth Social History Tobacco Use Smoking status: Never Smokeless tobacco: Never Vaping Use Vaping status: Never Used Substance Use Topics Alcohol use: Yes Alcohol/week: 1.0 standard drink of alcohol Types: 1 Standard drinks or equivalent per week Comment: occasional Drug use: No Family History Problem Relation Age of Onset No Known Problems Mother Detached Retina Father Heart Father Hypertension Father Hypertension Brother No Known Problems Brother Kidney Disease Maternal Grandmother Heart Attack Maternal Grandfather Alzheimer's Disease Paternal Grandmother No Known Problems Daughter No Known Problems Daughter . Review of Systems Constitutional: Negative for activity change, appetite change, chills, diaphoresis, fatigue, fever and unexpected weight change. HENT: Negat (more content not included)... [facility] 07-23-2024 History of Present illness Narrative This note was created using [employer]. Subjective Shavon Escalona is a 28 year old female here today to establish care. PMH NATHANIEL, and depression. NATHANIEL and depression: she had virtual visit on 06/04/24 and 07/13/[address] Giron. She was started on lexapro 10 mg daily. Feeling nervous, anxious, or on edge 1 Several days Not being able to stop or control worrying 1 Several days Worrying too much about different things 0 Not at all sure Trouble relaxing 0 Not at all sure Being so restless that it's hard to sit still 0 Not at all sure Being easily annoyed or irritable 1 Several days Feeling afraid as if something awful might happen 0 Not at all sure NATHANIEL-7 Anxiety Score 3 If you checked off any problems, how difficult have these problems made it for you to do your work, take care of things at home, or get along with other people? Somewhat difficult THE LAST 2 WEEKS, HAVE YOU BEEN BOTHERED BY ANY OF THE FOLLOWING? - Little interest or pleasure in doing things 0 NOT AT ALL Feeling down, depressed, or hopeless 0 Trouble falling or staying asleep, or sleeping too much 1 Feeling tired or having little energy 1 Poor appetite or overeating 0 Feeling bad yourself-you are a failure or have let yourself or others 0 Trouble concentrating, like reading the paper or watching TV 0 Moving/speaking slowly (others notice) OR being more fidgety/restless 0 Thoughts that you would be better off or of hurting yourself 0 PHQ TOTAL SCORE = 2 PHQ problems effect on difficulty of work, home, and social activity: 1 - NOT DIFFICULT AT ALL , she reports hx of ovarian cysts and pelvic cramping. States she is on Aygestin for possible endometriosis. She has MRI ordered. She stop breast feeding 2 wks. Migraines: dx in [employer] school. Denies aura. She reports starts back of d. Light and sound sensitivity. She reports at most 2 a month. Will use heating pad and Excedrin migraine. She reports sometimes medicine helps. She reports just working through. 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 She does not smoke or vape. She reports rare alcohol use. 1-2x/month at most. She does work out class once a week. ALLERGIES No Known Allergies Current Outpatient Medications Medication Sig Dispense Refill predniSONE (DELTASONE) 10 mg tablet Day #1 - 6 tablets PO then Day #2 - 5 tablets PO then Day #3 - 4 tablets PO then Day #4 - 3 tablets PO then Day #5 - 2 tablets PO then Day #6 - 1 tablet PO (Patient not taking: Reported on 07/23/2024) 21 tablet 0 fluticasone (FLONASE ALLERGY RELIEF) 50 mcg/actuation nasal spray Use 1 [place] in each nostril two times a day. (Patient not taking: Reported on 07/23/2024) 1 Each 0 escitalopram oxalate (LEXAPRO) 10 mg tablet Take 1 tablet by mouth once daily. 30 tablet 1 norethindrone (AYGESTIN) 5 mg tablet Take 1 tablet by mouth once daily. 90 tablet 3 levonorgestrel (MIRENA) 21 mcg/24 hours (8 yrs) 52 mg IUD 1 Each by INTRAUTERINE route as directed. 1 Each 0 Surgical Lubricant Jelly gel For MRI Female Pelvis, MRI department to provide. Administer intra-vaginal Surgilube immediately prior the MRI procedure (total amount to patient toleranace). 1 g 0 No current facility-administered medications for this visit. ACTIVE PROBLEM LIST Hyperopia Disorder of Accommodation Family History of Congenital Heart Defect Need for Mmr Vaccine Endometrioma Bacterial Vaginosis in History of Depression Family History of Cleft Palate Dimitri (Stress Urinary Incontinence, Female) Muscle Weakness Pelvic Pressure in 33 Weeks Gestation of Nathaniel (Generalized Anxiety Disorder) Recurrent Mild Major Depressive Disorder With Anxiety (Hcc) (Hcc) Sleep Disturbance PAST MEDICAL HISTORY Diagnosis Date Anxiety state Endometrioma Ovarian cyst depression PAST SURGICAL HISTORY Procedure Laterality Date PAST SURGICAL HISTORY OF wisdom teeth Social History Tobacco Use Smoking status: Never Smokeless tobacco: Never Vaping Use Vaping status: Never Used Substance Use Topics Alcohol use: Yes Alcohol/week: 1.0 standard drink of alcohol Types: 1 Standard drinks or equivalent per week Comment: occasional Drug use: No Family History Problem Relation Age of Onset No Known Problems Mother Detached Retina Father Heart Father Hypertension Father Hypertension Brother No Known Problems Brother Kidney Disease Maternal Grandmother Heart Attack Maternal Grandfather Alzheimer's Disease Paternal Grandmother No Known Problems Daughter No Known Problems Daughter . Review of Systems Constitutional: Negative for activity change, appetite change, chills, diaphoresis, fatigue, fever and unexpected weight change. HENT: Negative for congestion, ear pain, postnasal drip, rhinorrhea, sinus pressure, sinus pain, sore throat and trouble swallowing. Eyes: Negative for photophobia and visual disturbance. Respiratory: Negative for cough, chest tightness, shortness of breath and wheezing. Cardiovascular: Negative for chest pain, palpitations and leg swelling. Gastrointestinal: Negative for abdominal pain, blood in stool, constipation, diarrhea, nausea and vomiting. Endocrine: Negative for cold intolerance, heat intolerance, polydipsia, polyphagia and polyuria. Genitourinary: Negative for difficulty urinating, dysuria, hematuria, urgency, vaginal bleeding, vaginal discharge and vaginal pain. LMP 06/2022. Musculoskeletal: Negative for arthralgias, back pain, myalgias and neck pain. Skin: Negative for pallor and rash. Allergic/Immunologic: Negative for environmental allergies and food allergies. Neurological: Positive for headaches. Negative for dizziness, speech difficulty, weakness and numbness. Hx migraines. Hematological: Negative. Negative for adenopathy. Does not bruise/bleed easily. Psychiatric/Behavioral: Negative for confusion, dysphoric mood and sleep disturbance. The patient is not nervous/anxious. She reports waking up at night. States she can fall back to sleep Objective BP 106/70 Pulse 85 Resp 18 Ht 167.6 cm (5' 6) Wt 65 kg (143 lb 6.4 oz) LMP 06/21/2022 (Exact Date) SpO2 98% No BMI 23.15 kg/m Physical Exam Vitals and nursing note reviewed. Constitutional: General: She is not in acute distress. Appearance: Normal appearance. She is not ill-appearing or diaphoretic. HENT: Head: Normocephalic and atraumatic. Right Ear: External ear normal. Left Ear: External ear normal. Nose: Nose normal. No congestion or rhinorrhea. Mouth/Throat: Pharynx: No oropharyngeal exudate. Eyes: General: Lids are normal. No scleral icterus. Right eye: No discharge. Left eye: No discharge. Conjunctiva/sclera: Conjunctivae normal. Pupils: Pupils are equal, round, and reactive to light. Neck: Vascular: Normal carotid pulses. No carotid bruit. Cardiovascular: Rate and Rhythm: Normal rate and regular rhythm. Pulses: Normal pulses. Heart sounds: Normal heart sounds, S1 normal and S2 normal. No murmur heard. No friction rub. No gallop. Pulmonary: Effort: Pulmonary effort is normal. No accessory muscle usage or respiratory distress. Breath sounds: Normal breath sounds. No decreased breath sounds, wheezing, rhonchi or rales. Chest: Chest wall: No tenderness. Abdominal: General: Bowel sounds are normal. There is no distension. Palpations: Abdomen is soft. Tenderness: There is no abdominal tenderness. Musculoskeletal: General: No tenderness. Normal range of motion. Cervical back: Normal range of motion and neck supple. Right lower leg: No edema. Left lower leg: No edema. Skin: General: Skin is warm and dry. Coloration: Skin is not pale. Findings: No erythema or rash. Nails: There is no clubbing. Neurological: General: No focal deficit present. Mental Status: She is alert and oriented to person, place, and time. Motor: No abnormal muscle tone. Coordination: Coordination normal. Deep Tendon Reflexes: Reflexes are normal and symmetric. Psychiatric: Attention and Perception: Attention and perception normal. Mood and Affect: Mood normal. Speech: Speech normal. Behavior: Behavior normal. Behavior is cooperative. Thought Content: Thought content normal. Cognition and Memory: Cognition and memory normal. Judgment: Judgment normal. ASSESSMENT/PLAN: 1. Encounter for medical examination to establish care - ICD9: V70.9, ICD10: Z00.00 (primary diagnosis) - Counseled on healthy diet and regular exercise - Counseled on alcohol intake and health risks - Follow up for annual exam in one year 2. Recurrent mild major depressive disorder with anxiety (HCC) (HCC) - ICD9: 296.31, 300.00, ICD10: F33.0, F41.9 - stable. PHQ improved to 2. Will Continue lexapro 10 mg daily. - call if persists or worsen - ESCITALOPRAM 10 MG TABLET 3. Screening for lipid disorders - ICD9: V77.91, ICD10: Z13.220 - LIPID PANEL BASIC Dalila Tirado APRN.RETIREMENT ASSISTANT documented in this encounter [facility] 07-13-2024 Instructions Jose Armando Giron MD - 07/13/2024 4:28 PM EST - Continue taking escitalopram 10 mg once daily as prescribed. - Keep your appointment with your new primary care physician next to discuss ongoing management and medication refills. - Consider taking melatonin 30-60 minutes before bedtime to help improve sleep; available [id number]. - Schedule an appointment with a therapist from the list of community partners in the [place] and [place] areas provided during your last visit. - Establish care with a new primary care physician in the [place] or [place] area if you haven't already. - Discuss any future plans for with your new primary care physician to ensure safe management of your medication. - Do not stop taking escitalopram abruptly; consult your prescribing doctor for a proper tapering plan if discontinuation is considered in the future. Jose Armando Giron MD documented in this encounter [facility] 07-13-2024 Note HNO ID: [id number] Author: JOSE ARMANDO GIRON MD Service: ? Author Type: Physician Type: Progress Notes Filed: 07/13/2024 16:28 Note Text: [facility] VIRTUAL [facility] -- FAMILY MEDICINE I have communicated my name and active licensure. The patient's identity and physical location were verified at the time of this visit. Either the patient or their legal district sales representative has been informed of the risks and benefits of -- and alternatives to -- treatment through a remote evaluation and consents to proceed with the evaluation remotely. HPI: Shavon Escalona is a 28-year-old female presenting for a follow-up visit to address depression and anxiety management. Shavon was previously seen on 06/04/2024 for a virtual visit, during which she reported mild depression and moderate anxiety. At that time, her PHQ-9 and NATHANIEL-7 scores had increased compared to December 2020. She was advised to start escitalopram 10 mg once daily and follow up in 3-4 weeks. She was also given a list of community partners for therapy in the [place] and [place] areas and advised to establish care with a new PCP. During today's virtual follow-up visit, Shavon reports a noticeable improvement in her daily life since starting escitalopram, with no concerns about the medication. She denies having little interest or pleasure in doing things, feeling down, depressed, or hopeless, feeling bad about herself, or having thoughts of self-harm. She also denies poor appetite, overeating, trouble concentrating, or changes in motor activity. However, she reports difficulty sleeping through the night more than half the days and feeling tired or having little energy several days in the past two weeks. She denies that these issues have made it difficult to work, take care of things at home, or get along with others. Regarding anxiety, she reports feeling nervous, anxious, or on edge several days in the past two weeks, but denies being unable to control worrying or worrying too much about different things. She reports trouble relaxing, becoming easily annoyed or irritable, and feeling afraid as if something awful might happen several days in the past two weeks. She denies that these issues have made it difficult to work, take care of things at home, or get along with others. Shavon has not yet scheduled an appointment with a counselor but has an upcoming PCP visit next week. She inquires about the potential impact of escitalopram on future and the process of discontinuing the medication. She also mentions a recent episode of norovirus, which temporarily prevented her from taking her medications. ROS: Constitutional: (+) fatigue, (-) poor appetite, (-) overeating Neurological: (-) difficulty concentrating, (-) psychomotor agitation, (-) psychomotor retardation Psychiatric: (+) anxiety, (+) irritability, (+) sleep disturbance, (+) feeling afraid something awful might happen, (-) depression, (-) anhedonia, (-) suicidal ideation VIRTUAL EXAM: Constitutional: General: No acute distress. Appearance: Well-developed. HENT: Head: Normocephalic. Eyes: Conjunctiva/sclera: Conjunctivae normal. Pulmonary: Effort: Pulmonary effort is normal. No respiratory distress. Skin: Coloration: Skin is not pale. Findings: No erythema or rash. Neurological: Mental Status: Alert PSYCH: Well-appearing, no acute distress. Behaves appropriately during the encounter. Affect full and appropriate to topic. Normal speech and thought process. Good insight and judgement. LABS AND TESTS: Tests - (Today) - PHQ-9: Score of 3 (minimal depression) - NATHANIEL-7: Score of 3 (minimal anxiety) - (06/04/2024) - PHQ-9: Score of 7 (mild depression) - NATHANIEL-7: Score of 11 (moderate anxiety) - (December 2020) - PHQ-9: Score of 5 (mild depression) - NATHANIEL-7: Score of 6 (mild anxiety) ASSESSMENT/PLAN: # NATHANIEL (generalized anxiety disorder) (F41.1) # Recurrent mild major depressive disorder with anxiety (HCC) (HCC) (F33.0) - Significant improvement noted in both NATHANIEL-7 and PHQ-9 scores since last visit on 06/04/2024. NATHANIEL-7 decreased from 11 (moderate anxiety) to 3 (minimal anxiety); PHQ-9 decreased from 7 (mild depression) to 3 (minimal depression). - Continue escitalopram 10 mg once daily; patient has sufficient medication until next PCP appointment. - Discussed the importance of continuing medication for 6-12 months to achieve long-term benefits and prevent relapse. - Advised patient to establish care with a therapist; provided a list of community partners in the [place] and [place] areas. - Educated on the safety of escitalopram during , emphasizing the importance of managing anxiety and depression during . - Discussed the process of tapering off medication in the future, highlighting the need for medical supervision. # Sleep disturbance (G47.9) - Persistent issues with sleep noted, including difficulty staying asle (more content not included)... [facility] 07-13-2024 History of Present illness Narrative [facility] VIRTUAL VISIT -- FAMILY MEDICINE I have communicated my name and active licensure. The patient's identity and physical location were verified at the time of this visit. Either the patient or their legal district sales representative has been informed of the risks and benefits of -- and alternatives to -- treatment through a remote evaluation and consents to proceed with the evaluation remotely. HPI: Shavon Escalona is a 28-year-old female presenting for a follow-up visit to address depression and anxiety management. Shavon was previously seen on 06/04/2024 for a virtual visit, during which she reported mild depression and moderate anxiety. At that time, her PHQ-9 and NATHANIEL-7 scores had increased compared to December 2020. She was advised to start escitalopram 10 mg once daily and follow up in 3-4 weeks. She was also given a list of community partners for therapy in the [place] and [place] areas and advised to establish care with a new PCP. During today's virtual follow-up visit, Shavon reports a noticeable improvement in her daily life since starting escitalopram, with no concerns about the medication. She denies having little interest or pleasure in doing things, feeling down, depressed, or hopeless, feeling bad about herself, or having thoughts of self-harm. She also denies poor appetite, overeating, trouble concentrating, or changes in motor activity. However, she reports difficulty sleeping through the night more than half the days and feeling tired or having little energy several days in the past two weeks. She denies that these issues have made it difficult to work, take care of things at home, or get along with others. Regarding anxiety, she reports feeling nervous, anxious, or on edge several days in the past two weeks, but denies being unable to control worrying or worrying too much about different things. She reports trouble relaxing, becoming easily annoyed or irritable, and feeling afraid as if something awful might happen several days in the past two weeks. She denies that these issues have made it difficult to work, take care of things at home, or get along with others. Shavon has not yet scheduled an appointment with a counselor but has an upcoming PCP visit next week. She inquires about the potential impact of escitalopram on future and the process of discontinuing the medication. She also mentions a recent episode of norovirus, which temporarily prevented her from taking her medications. ROS: Constitutional: (+) fatigue, (-) poor appetite, (-) overeating Neurological: (-) difficulty concentrating, (-) psychomotor agitation, (-) psychomotor retardation Psychiatric: (+) anxiety, (+) irritability, (+) sleep disturbance, (+) feeling afraid something awful might happen, (-) depression, (-) anhedonia, (-) suicidal ideation VIRTUAL EXAM: Constitutional: General: No acute distress. Appearance: Well-developed. HENT: Head: Normocephalic. Eyes: Conjunctiva/sclera: Conjunctivae normal. Pulmonary: Effort: Pulmonary effort is normal. No respiratory distress. Skin: Coloration: Skin is not pale. Findings: No erythema or rash. Neurological: Mental Status: Alert PSYCH: Well-appearing, no acute distress. Behaves appropriately during the encounter. Affect full and appropriate to topic. Normal speech and thought process. Good insight and judgement. LABS & TESTS: Tests - (Today) - PHQ-9: Score of 3 (minimal depression) - NATHANIEL-7: Score of 3 (minimal anxiety) - (06/04/2024) - PHQ-9: Score of 7 (mild depression) - NATHANIEL-7: Score of 11 (moderate anxiety) - (December 2020) - PHQ-9: Score of 5 (mild depression) - NATHANIEL-7: Score of 6 (mild anxiety) ASSESSMENT/PLAN: # NATHANIEL (generalized anxiety disorder) (F41.1) # Recurrent mild major depressive disorder with anxiety (HCC) (HCC) (F33.0) - Significant improvement noted in both NATHANIEL-7 and PHQ-9 scores since last visit on 06/04/2024. NATHANIEL-7 decreased from 11 (moderate anxiety) to 3 (minimal anxiety); PHQ-9 decreased from 7 (mild depression) to 3 (minimal depression). - Continue escitalopram 10 mg once daily; patient has sufficient medication until next PCP appointment. - Discussed the importance of continuing medication for 6-12 months to achieve long-term benefits and prevent relapse. - Advised patient to establish care with a therapist; provided a list of community partners in the [place] and [place] areas. - Educated on the safety of escitalopram during , emphasizing the importance of managing anxiety and depression during . - Discussed the process of tapering off medication in the future, highlighting the need for medical supervision. # Sleep disturbance (G47.9) - Persistent issues with sleep noted, including difficulty staying asleep more than half the days. - Recommended [id number] melatonin, to be taken 30-60 minutes before bedtime. - Discussed prescription option of trazodone, a [id number] medication, to be considered by the new PCP if needed. - Advised on improving sleep hygiene, including reducing screen time before bed and writing down thoughts. [id number] This visit should be coded by complexity; MDM was of moderate complexity. OVERALL COMPLEXITY Problem Complexity: Moderate Data Level: Straightforward Risk Level: Moderate Overall MDM complexity (2/3 must be met or exceeded): Moderate PROBLEMS SECTION: 1. NATHANIEL (generalized anxiety disorder) - Chronic illness with exacerbation, progression, or side effects of treatment 2. Recurrent mild major depressive disorder with anxiety - Chronic illness with exacerbation, progression, or side effects of treatment 3. Sleep disturbance - Chronic illness with exacerbation, progression, or side effects of treatment One or more chronic illnesses with exacerbation, progression, or side effects of treatment (Moderate complexity) Problem complexity level: Moderate DATA SECTION: - Review of prior external note(s) from each unique source: - Ordering of each unique test: - Assessment requiring an independent historian(s): - Independent interpretation of a test performed by another physician/other qualified health residential child care counselor: - Discussion of management or test interpretation with external physician/other qualified health residential child care counselor/appropriate source: Data complexity level: Minimal; minimal or none RISKS SECTION: Prescription Drug Management (Escitalopram) - Moderate complexity OTC Medication (Melatonin) - Low complexity Lifestyle modification (sleep hygiene) - Minimal complexity Risks complexity level (highest from above): Moderate Jose Armando Giron MD PATIENT INSTRUCTIONS: - Continue taking escitalopram 10 mg once daily as prescribed. - Keep your appointment with your new primary care physician next to discuss ongoing management and medication refills. - Consider taking melatonin 30-60 minutes before bedtime to help improve sleep; available [id number]. - Schedule an appointment with a therapist from the list of community partners in the [place] and [place] areas provided during your last visit. - Establish care with a new primary care physician in the [place] or [place] area if you haven't already. - Discuss any future plans for with your new primary care physician to ensure safe management of your medication. - Do not stop taking escitalopram abruptly; consult your prescribing doctor for a proper tapering plan if discontinuation is considered in the future. Jose Armando Giron MD PHQ-9 Score: 3 (07/13/2024 3:41 PM) (0-4) minimal depression, (5-9) mild depression, (10-14) moderate depression, (15-19) moderately severe depression, (20-27) severe depression 12/28/2020 06/04/2024 07/13/2024 PHQ-9 Score 5 7 3 NATHANIEL-7 Total Score: 3 (07/13/2024 3:44 PM) (0-4) minimal anxiety, (5-9) mild anxiety, (10-14) moderate anxiety, (15-21) severe anxiety 12/28/2020 06/04/2024 07/13/2024 NATHANIEL - 7 SCORES Score 6 11 3 Items addressed in this encounter: Other VV first attempt to contact patient, MADINA Brock RN July 13, 2024 11:41 AM 11:41 AM documented in this encounter [facility] 07-13-2024 Note HNO ID: [id number] Author: KAYE BROCK RN Service: ? Author Type: Registered Nurse Type: Progress Notes Filed: 07/13/2024 16:28 Note Text: Items addressed in this encounter: Other VV first attempt to contact patient, MADINA Kaye Brock RN July 13, 2024 11:41 AM 11:41 AM [facility] 07-07-2024 Instructions Lexii Martinez PA-C - 07/07/2024 12:51 PM EST Eustachian Tube Dysfunction, or ETD- can cause dulled hearing. It is usually a temporary problem that lasts a week or so and most commonly occurs during and after a cold. There are various other causes and sometimes it lasts longer. Often, no treatment is needed but decongestants, antihistamines, or a steroid nasal spray can help. What is the Eustachian tube and what does it do? The Eustachian tube is a narrow tube that connects the space behind the eardrum (the middle ear) with the back of the nose. In adults it is about 3-4 cm long. The middle ear is normally filled with air. The air in the middle ear is constantly being absorbed by the cells that line the middle ear. Fresh supplies of air are needed to get to the middle ear periodically. The Eustachian tube is normally closed but opens when we swallow, yawn or chew. This allows air to flow into the middle ear and any mucus to flow out. This keeps the air pressure equal to either side of the eardrum. Having equal air pressure on each side of the eardrum and the middle ear free of mucus, helps the eardrum to vibrate. This vibration is needed for us to hear properly. What is Eustachian tube dysfunction (ETD)? ETD means that the Eustachian tube is blocked or does not open properly. Air cannot then get into the middle ear. Therefore, the air pressure on the outer side of the eardrum becomes greater than the air pressure in the middle ear. This pushes the eardrum inward. The eardrum becomes tense and does not vibrate so well when hit by sound waves. What are the causes of Eustachian tube dysfunction (ETD)? ETD occurs if the Eustachian tube becomes blocked, if the lining of the tube swells, or if the tube does not open fully to allow air to travel to the middle ear. Colds and nasal, sinus, ear or throat infections These are common causes of ETD: ? blocked nose, or thick mucus that develops during a cold or other infections ? infection may also cause the lining of the Eustachian tube to become inflamed and swollen Most people will have had one or more episodes in their life when they have had a cold and find that they cannot hear so well due to ETD. The symptoms of ETD may persist for up to a week or so (sometimes longer) after the other symptoms of the infection have gone. This is because the trapped mucus and swelling may take a while to clear even when the germ causing the infection has gone. Allergies Allergies that affect the nose, such as persistent runny nose and hay fever, can cause extra mucus and inflammation in and around the Eustachian tube and lead to ETD. Blockages Anything that causes a blockage to the Eustachian tube can cause ETD - for example, enlarged adenoids. Air travel and the Eustachian tube Some people develop ear pain when descending to land during a plane journey. ? unequal pressures develop on either side of the eardrum as the plane descends ? as a plane descends, the air pressure becomes higher nearer ground and pushes the eardrum inwards which can be painful ? often normal swallowing and chewing quickly causes air to travel up the Eustachian tube to equalize the pressure ? if you have a narrow Eustachian tube, a cold, or anything else that can cause blockage to the Eustachian tube, the pressure does not equalize very easily when the plane descends causing severe ear pain ? try chewing gum or eating when the plane is descending What is the treatment for Eustachian tube dysfunction (ETD)? Treatment options depend on the cause and severity of the condition. Often, no treatment is needed. In many cases, the ETD is mild and does not last longer than a few days or a week or so. For example, this is common following a cold. No particular treatment is needed and the symptoms often soon pass. Try to get air to flow into the Eustachian tube Air is more likely to flow in and out of the Eustachian tube if you swallow, yawn or chew. Try doing the following: ? Take a breath in ? Then, try to breathe out gently with your mouth closed and pinching your nose (the Valsalva maneuver) No air is blown out but you are gently pushing air into the Eustachian tube. You may feel your ears go 'pop' as air is forced into the middle ear. This is a particularly good thing to try if you develop ear pain when descending to land in a plane. Decongestant nasal sprays or tablets A decongestant may be advised by your provider if you have a cold or other cause of nasal congestion. ? purchase over the counter at pharmacies ? Phenylephrine and pseudoephedrine are the most common oral decongestants ? relieve a blocked nose for several hours, some products up to 12 hours ? nasal spray works more quickly ? DO NOT USE a decongestant spray for more than 3 days at a time, or spray may cause a worse rebound congestion in the nose Antihistamine tablets or nasal sprays Antihistamines may be advised by your provider if you have an allergy such as hay fever. In this situation they will help to ease nasal congestion and inflammation. Antihistamines also come in combination with a decongestant to maximize effectiveness (certralizine-D, loratadine-D for example). Steroid nasal spray A steroid nasal spray may be advised if an allergy or other cause of persistent inflammation in the nose is suspected. ? reduces inflammation in the nose ? takes several days for a steroid spray to build up to its full effect ? no immediate relief of symptoms when you first start it ? if inflammation is reduced in the back of the nose, then the Eustachian tube is able to work better Referral to a specialist If symptoms continue or the cause of the ETD is not clear, you may be referred to an qualitative researcher for assessment. Treatment options depend on any underlying cause that may be found. documented in this encounter [facility] 07-07-2024 Note HNO ID: [id number] Author: LEXII MARTINEZ PA-C Service: ? Author Type: Physician Bank Guard Type: Progress Notes Filed: 07/07/2024 13:01 Note Text: Subjective Shavon Escalona is a 28 year old female with no significant past medical history who presents to [facility] care today for evaluation of right ear pain x 2 days. No fevers. Review of Systems HENT: Positive for ear pain (right). Negative for ear discharge. Skin: Negative for rash and wound. Objective LMP 06/21/2022 (Exact Date) Physical Exam Vitals reviewed. Constitutional: General: She is not in acute distress. Appearance: Normal appearance. She is normal weight. She is not ill-appearing or toxic-appearing. Comments: The patient appears to be non-toxic, in no acute distress, and resting comfortably on the table. HENT: Head: Normocephalic and atraumatic. Right Ear: Tympanic membrane, ear canal and external ear normal. Left Ear: Tympanic membrane, ear canal and external ear normal. Eyes: Extraocular Movements: Extraocular movements intact. Cardiovascular: Rate and Rhythm: Normal rate and regular rhythm. Heart sounds: Normal heart sounds. No murmur heard. No friction rub. No gallop. Pulmonary: Effort: Pulmonary effort is normal. No respiratory distress. Breath sounds: Normal breath sounds. No wheezing. Musculoskeletal: Cervical back: Normal range of motion. Skin: General: Skin is warm and dry. Findings: No erythema or rash. Neurological: General: No focal deficit present. Mental Status: She is alert and oriented to person, place, and time. Mental status is at baseline. Psychiatric: Mood and Affect: Mood normal. Behavior: Behavior normal. Thought Content: Thought content normal. Assessment and Plan Normal exam. Suspect patient's symptoms are due to eustachian tube dysfunction. Patient counseled regarding suspected diagnosis and given prescriptions for prednisone, Sudafed, and Flonase. Advised to follow-up with primary care as needed for any new or worsening symptoms. ASSESSMENT/PLAN: 1. Eustachian tube dysfunction, right - ICD9: 381.81, ICD10: H69.91 (primary diagnosis) - PREDNISONE 10 MG TABLET - PSEUDOEPHEDRINE 30 MG TABLET - FLUTICASONE PROPIONATE 50 MCG/ACTUATION NASAL SPRAY,SUSPENSION 2. Right ear pain - ICD9: 388.70, ICD10: H92.01 Medical Decision Making: Problems: Low: Acute, uncomplicated illness or injury Risk: Minimal: Minimal risk from testing/treatment Moderate: Drug management Medical Decision Making Level: 3 - Low I spent a total of 20 minutes on the date of the service which included preparing to see the patient, [id number] patient care, completing clinical documentation, performing a medically appropriate examination, counseling and educating the patient/family/caregiver, and ordering medications, tests, or procedures. Lexii Martinez PA-C [facility] 07-07-2024 History of Present illness Narrative Subjective Shavon Escalona is a 28 year old female with no significant past medical history who presents to [facility] care today for evaluation of right ear pain x 2 days. No fevers. Review of Systems HENT: Positive for ear pain (right). Negative for ear discharge. Skin: Negative for rash and wound. Objective LMP 06/21/2022 (Exact Date) Physical Exam Vitals reviewed. Constitutional: General: She is not in acute distress. Appearance: Normal appearance. She is normal weight. She is not ill-appearing or toxic-appearing. Comments: The patient appears to be non-toxic, in no acute distress, and resting comfortably on the table. HENT: Head: Normocephalic and atraumatic. Right Ear: Tympanic membrane, ear canal and external ear normal. Left Ear: Tympanic membrane, ear canal and external ear normal. Eyes: Extraocular Movements: Extraocular movements intact. Cardiovascular: Rate and Rhythm: Normal rate and regular rhythm. Heart sounds: Normal heart sounds. No murmur heard. No friction rub. No gallop. Pulmonary: Effort: Pulmonary effort is normal. No respiratory distress. Breath sounds: Normal breath sounds. No wheezing. Musculoskeletal: Cervical back: Normal range of motion. Skin: General: Skin is warm and dry. Findings: No erythema or rash. Neurological: General: No focal deficit present. Mental Status: She is alert and oriented to person, place, and time. Mental status is at baseline. Psychiatric: Mood and Affect: Mood normal. Behavior: Behavior normal. Thought Content: Thought content normal. Assessment and Plan Normal exam. Suspect patient's symptoms are due to eustachian tube dysfunction. Patient counseled regarding suspected diagnosis and given prescriptions for prednisone, Sudafed, and Flonase. Advised to follow-up with primary care as needed for any new or worsening symptoms. ASSESSMENT/PLAN: 1. Eustachian tube dysfunction, right - ICD9: 381.81, ICD10: H69.91 (primary diagnosis) - PREDNISONE 10 MG TABLET - PSEUDOEPHEDRINE 30 MG TABLET - FLUTICASONE PROPIONATE 50 MCG/ACTUATION NASAL SPRAY,SUSPENSION 2. Right ear pain - ICD9: 388.70, ICD10: H92.01 Medical Decision Making: Problems: Low: Acute, uncomplicated illness or injury Risk: Minimal: Minimal risk from testing/treatment Moderate: Drug management Medical Decision Making Level: 3 - Low I spent a total of 20 minutes on the date of the service which included preparing to see the patient, [id number] patient care, completing clinical documentation, performing a medically appropriate examination, counseling and educating the patient/family/caregiver, and ordering medications, tests, or procedures. Lexii Martinez PA-C documented in this encounter [facility] 07-07-2024 Note HNO ID: [id number] Author: DAGO GAMEZ APRN.JOSÉ LUIS Service: ? Author Type: Nurse Practitioner Type: Progress Notes Filed: 07/07/2024 09:27 Note Text: Telemedicine Visit - Distance Health Virtual Visit Note Patient seen on [employer] Video Visit platform. Location of patient: [place] I have communicated my name and active licensure. The patient's identity and physical location were verified at the time of this visit. Either the patient or their legal district sales representative has been informed of the risks and benefits of -- and alternatives to -- treatment through a remote evaluation and consents to proceed with the evaluation remotely. History of Present Illness Shavon Escalona is a 28 year old female who reports right ear pain, swollen right cervical glands and low grade fever. Concerned for Ear infection. Recommend in person evaluation with Express/urgent care due to limitations with virtual appointment to fully evaluate complaint. Urgent Care/Express Care notified: No. Patient is on her way to work and will determine which EC/UC to go after All questions answered Fee waived Dago Gamez APRN.CNP [facility] 07-07-2024 History of Present illness Narrative Telemedicine Visit - Distance Health Virtual Visit Note Patient seen on [employer] Video Visit platform. Location of patient: [place] I have communicated my name and active licensure. The patient's identity and physical location were verified at the time of this visit. Either the patient or their legal district sales representative has been informed of the risks and benefits of -- and alternatives to -- treatment through a remote evaluation and consents to proceed with the evaluation remotely. History of Present Illness Shavon Escalona is a 28 year old female who reports right ear pain, swollen right cervical glands and low grade fever. Concerned for Ear infection. Recommend in person evaluation with Express/urgent care due to limitations with virtual appointment to fully evaluate complaint. Urgent Care/Express Care notified: No. Patient is on her way to work and will determine which EC/UC to go after All questions answered Fee waived Dago Gamez APRN.RETIREMENT ASSISTANT documented in this encounter [facility] 07-07-2024 Note HNO ID: [id number] Author: ALICIA HILTON APRN.RETIREMENT ASSISTANT Service: ? Author Type: Nurse Practitioner Type: Progress Notes Filed: 07/07/2024 08:09 Note Text: Patient left without being seen. [facility] 07-07-2024 History of Present illness Narrative Images from the original note were not included. Patient left without being seen. documented in this encounter [facility] 06-04-2024 Instructions Jose Armando Giron MD - 06/04/2024 10:54 AM EST - Start taking Lexapro (escitalopram) 10 mg once daily as prescribed; fern picker the medication from [facility] in [place]. - Be consistent with the time you take Lexapro each day; it can be taken in the morning or evening based on your preference. - Be patient with the medication; it may take 3-4 weeks to notice improvement in symptoms. - Schedule an appointment with a therapist; options in [place] and [place] areas are provided in your after-visit summary. - Establish care with a primary care physician in the [place] or [place] area; a care team coordinator scheduler will contact you within 30 minutes to assist with this. - Follow up with Dr. Giron in 3-4 weeks via virtual visit to assess progress with the medication. - If you have any questions or concerns, contact Dr. Giron's office at [phone]. Jose Armando Giron MD [place] [facility] - Insurance Therapy/Counseling [facility] [address] [place] [address] [facility] [address] [place] [address] [id number] [address] [facility] [address] [place] [address] [facility] [address] [place] [address] [employer] [address] [place], [place] [address] [employer] [address] [place] [place] [address] [facility] [address] [place] [address] [place] [address] PCSA - Insurance ([facility]) Therapy/Counseling [facility] [address] [place] [address] Finding Your Identity, [facility] [address] [facility] [address] [facility] [address], [address] [place] [address] [facility] [address] [place], [place] [phone] [facility] [address] [place] [address] [facility] [address] [facility] [address] [facility] [address] documented in this encounter [facility] 06-04-2024 Note HNO ID: [id number] Author: JOSE ARMANDO GIRON MD Service: ? Author Type: Physician Type: Progress Notes Filed: 06/04/2024 11:54 Note Text: [facility] VIRTUAL VISIT -- FAMILY MEDICINE I have communicated my name and active licensure. The patient's identity and physical location were verified at the time of this visit. Either the patient or their legal district sales representative has been informed of the risks and benefits of -- and alternatives to -- treatment through a remote evaluation and consents to proceed with the evaluation remotely. HPI: Shavon Escalona is a 28-year-old female, with a history of depression, presenting with anxiety. Shavon reports experiencing anxiety for the past year, describing it as a gut feeling that makes her feel like she can't get out of [her] head. She has been trying to manage her anxiety through self-help exercises but feels she is not able to navigate it as easily as she wishes. She is for 1 year and 2 months and has two young children. 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 She is the primary caregiver for her children, as her does not get home until about 1900 due to his job. Her mother typically takes care of the children during the day, and her older child goes to an in-home daycare 2 days a week. Shavon has a history of depression, which she was diagnosed with after her first child was born in 2019. She reports that her first experience with depression or anxiety was related to the period. She did not seek therapy at that time, but instead expressed her feelings to her family and was able to manage her symptoms with their support. She reports that her symptoms improved on their own after her first . Her second child was born in 2022, and she reports that her current symptoms are different from her previous experience. She describes feeling shorter fused and struggling to keep up with everything, feeling a lot of weight on her shoulders, and not knowing how to navigate it. She reports feeling like a terrible mom when she starts to feel overwhelmed. Shavon completed the PHQ-9 and NATHANIEL-7 questionnaires prior to the visit, with scores of 7 and 11, respectively. She reports that she is familiar with these questionnaires from previous visits. She also reports that her qjlvdu-ax-vpd and txuccq-za-cte have taken medication for depression or anxiety, but she does not know what they were taking. She is currently her second child and has no concerns about the safety of medication while . She does not have a primary care physician and is interested in establishing care with one in her local community. ROS: Psychiatric: (+) anxiety, (+) irritability, (+) feeling overwhelmed, (+) feelings of guilt, (+) worrying VIRTUAL EXAM: Constitutional: General: No acute distress. Appearance: Well-developed. HENT: Head: Normocephalic. Eyes: Conjunctiva/sclera: Conjunctivae normal. Pulmonary: Effort: Pulmonary effort is normal. No respiratory distress. Skin: Coloration: Skin is not pale. Findings: No erythema or rash. Neurological: Mental Status: Alert PSYCH: Well-appearing, no acute distress. Behaves appropriately during the encounter. Affect full and appropriate to topic. Normal speech and thought process. Good insight and judgement. Emotion: anxious/nervous LABS AND TESTS: Tests - (Today) - PHQ-9: Score of 7, indicating mild depression. - NATHANIEL-7: Score of 11, indicating moderate anxiety. - (December 2020) - PHQ-9: Score of 5. - NATHANIEL-7: Score of 6. ASSESSMENT/PLAN: # NATHANIEL (generalized anxiety disorder) (F41.1) # Recurrent mild major depressive disorder with anxiety (HCC) (HCC) (F33.0) - NATHANIEL-7 score of 11 indicating moderate anxiety; PHQ-9 score of 7 indicating mild depression. - Symptoms of anxiety and depression have worsened compared to previous scores in December 2020 (NATHANIEL-7: 6, PHQ-9: 5). - Discussed the role of serotonin in anxiety and depression, and the need to replenish serotonin levels. - Initiated escitalopram 10 mg orally once daily; potential side effects include mild gastrointestinal upset during the first week. - Advised that medication takes 3-4 weeks to show noticeable effects; follow-up scheduled in 3-4 weeks to assess response. - Provided education on the importance of consistent daily dosing and potential duration of treatment (6-12 months) to restore serotonin reserves. - Discussed the benefits of combining medication with cognitive behavioral therapy (CBT) for optimal outcomes. - Provided a list of [facility] for therapy in [place] and [facility]; patient advised to schedule an appointment with a therapist. # Encounter to establish care with new doctor (Z76.89) - Patient does not have a [facility] (more content not included)... [facility] 06-04-2024 History of Present illness Narrative [facility] VIRTUAL [facility]IS[facility] -- FAMILY MEDICINE I have communicated my name and active licensure. The patient's identity and physical location were verified at the time of this visit. Either the patient or their legal district sales representative has been informed of the risks and benefits of -- and alternatives to -- treatment through a remote evaluation and consents to proceed with the evaluation remotely. HPI: Shavon Escalona is a 28-year-old female, with a history of depression, presenting with anxiety. Shavon reports experiencing anxiety for the past year, describing it as a gut feeling that makes her feel like she can't get out of [her] head. She has been trying to manage her anxiety through self-help exercises but feels she is not able to navigate it as easily as she wishes. She is for 1 year and 2 months and has two young children. 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 She is the primary caregiver for her children, as her does not get home until about 1900 due to his job. Her mother typically takes care of the children during the day, and her older child goes to an in-home daycare 2 days a week. Shavon has a history of depression, which she was diagnosed with after her first child was born in 2019. She reports that her first experience with depression or anxiety was related to the period. She did not seek therapy at that time, but instead expressed her feelings to her family and was able to manage her symptoms with their support. She reports that her symptoms improved on their own after her first . Her second child was born in 2022, and she reports that her current symptoms are different from her previous experience. She describes feeling shorter fused and struggling to keep up with everything, feeling a lot of weight on her shoulders, and not knowing how to navigate it. She reports feeling like a terrible mom when she starts to feel overwhelmed. Shavon completed the PHQ-9 and NATHANIEL-7 questionnaires prior to the visit, with scores of 7 and 11, respectively. She reports that she is familiar with these questionnaires from previous visits. She also reports that her pwzycs-cd-imw and zrqtns-hd-sxs have taken medication for depression or anxiety, but she does not know what they were taking. She is currently her second child and has no concerns about the safety of medication while . She does not have a primary care physician and is interested in establishing care with one in her local community. ROS: Psychiatric: (+) anxiety, (+) irritability, (+) feeling overwhelmed, (+) feelings of guilt, (+) worrying VIRTUAL EXAM: Constitutional: General: No acute distress. Appearance: Well-developed. HENT: Head: Normocephalic. Eyes: Conjunctiva/sclera: Conjunctivae normal. Pulmonary: Effort: Pulmonary effort is normal. No respiratory distress. Skin: Coloration: Skin is not pale. Findings: No erythema or rash. Neurological: Mental Status: Alert PSYCH: Well-appearing, no acute distress. Behaves appropriately during the encounter. Affect full and appropriate to topic. Normal speech and thought process. Good insight and judgement. Emotion: anxious/nervous LABS & TESTS: Tests - (Today) - PHQ-9: Score of 7, indicating mild depression. - NATHANIEL-7: Score of 11, indicating moderate anxiety. - (December 2020) - PHQ-9: Score of 5. - NATHANIEL-7: Score of 6. ASSESSMENT/PLAN: # NATHANIEL (generalized anxiety disorder) (F41.1) # Recurrent mild major depressive disorder with anxiety (HCC) (HCC) (F33.0) - NATHANIEL-7 score of 11 indicating moderate anxiety; PHQ-9 score of 7 indicating mild depression. - Symptoms of anxiety and depression have worsened compared to previous scores in December 2020 (NATHANIEL-7: 6, PHQ-9: 5). - Discussed the role of serotonin in anxiety and depression, and the need to replenish serotonin levels. - Initiated escitalopram 10 mg orally once daily; potential side effects include mild gastrointestinal upset during the first week. - Advised that medication takes 3-4 weeks to show noticeable effects; follow-up scheduled in 3-4 weeks to assess response. - Provided education on the importance of consistent daily dosing and potential duration of treatment (6-12 months) to restore serotonin reserves. - Discussed the benefits of combining medication with cognitive behavioral therapy (CBT) for optimal outcomes. - Provided a list of [facility]; patient advised to schedule an appointment with a therapist. # Encounter to establish care with new doctor (Z76.89) - Patient does not have a [facility] primary care physician. - Arranged for a care team coordinator scheduler to contact the patient within 30 minutes to assist in establishing care with a primary care physician in the [place] or [place] area. - Patient to follow up with new primary care physician for ongoing management and routine healthcare needs. [id number] This visit should be coded by time; visit was 47 minute(s) long. OVERALL COMPLEXITY Problem Complexity: Moderate Data Level: Low Risk Level: Moderate Overall MDM complexity (2/3 must be met or exceeded): Moderate PROBLEMS SECTION: 1. NATHANIEL (generalized anxiety disorder) - Chronic illness with exacerbation, progression, or side effects of treatment 2. Recurrent mild major depressive disorder with anxiety - Chronic illness with exacerbation, progression, or side effects of treatment One or more chronic illness with exacerbation, progression, or side effects of treatment (Moderate complexity) Problem complexity level: Moderate DATA SECTION: - Review of prior external note(s) from each unique source: - Ordering of each unique test: PHQ-9; NATHANIEL-7 - 2 unique tests ordered - Assessment requiring an independent historian(s): - Independent interpretation of a test performed by another physician/other qualified health residential child care counselor: - Discussion of management or test interpretation with external physician/other qualified health residential child care counselor/appropriate source: Data complexity level: Limited; meets the requirements of at least 1 of the 2 categories RISKS SECTION: Prescription Drug Management (Escitalopram) - Moderate complexity Risks complexity level (highest from above): Moderate Jose Armando Giron MD PATIENT INSTRUCTIONS: - Start taking Lexapro (escitalopram) 10 mg once daily as prescribed; fern picker the medication from [facility] in [place]. - Be consistent with the time you take Lexapro each day; it can be taken in the morning or evening based on your preference. - Be patient with the medication; it may take 3-4 weeks to notice improvement in symptoms. - Schedule an appointment with a therapist; options in [place] and [facility] are provided in your after-visit summary. - Establish care with a primary care physician in the [place] or [place] area; a care team coordinator scheduler will contact you within 30 minutes to assist with this. - Follow up with Dr. Giron in 3-4 weeks via virtual visit to assess progress with the medication. - If you have any questions or concerns, contact Dr. Giron's office at [phone]. Jose Armando Giron MD PHQ-9 Score: 7 (06/04/2024 8:25 AM) (0-4) minimal depression, (5-9) mild depression, (10-14) moderate depression, (15-19) moderately severe depression, (20-27) severe depression 12/28/2020 06/04/2024 PHQ-9 Score 5 7 NATHANIEL-7 Total Score: 11 (06/04/2024 8:26 AM) (0-4) minimal anxiety, (5-9) mild anxiety, (10-14) moderate anxiety, (15-21) severe anxiety 12/28/2020 06/04/2024 NATHANIEL - 7 SCORES Score 6 11 Items addressed in this encounter: Virtual Visit Pre Check In Checked in name and location verified patient aware of Telehealth appointment with Dr Mack Garces MA June 04, 2024 8:12 AM 8:12 AM documented in this encounter [facility] 06-04-2024 Note HNO ID: [id number] Author: FRANCHESKA GARCES MA Service: ? Author Type: Veterinary Milk Specialist Type: Progress Notes Filed: 06/04/2024 11:54 Note Text: Items addressed in this encounter: Virtual Visit Pre Check In Checked in name and location verified patient aware of Telehealth appointment with Dr Mack Garces MA June 04, 2024 8:12 AM 8:12 AM [facility] 02-22-2024 Instructions Jennie Santo APRN.[facility] - 02/22/2024 8:49 AM EDT Images from the original note were not included. Croup What is croup? Croup is a viral infection of the vocal cords, voice box (larynx), and windpipe (trachea). Symptoms of a croup include: a tight, low-pitched barking cough a hoarse voice You may hear a harsh, raspy, vibrating sound when your child breathes in. This is called stridor. Stridor is usually present only with crying or coughing. As the disease becomes worse, stridor also occurs when your child is sleeping or relaxed. With severe croup, breathing may be difficult. What causes croup? Croup is usually part of a cold. Swelling of the vocal cords causes hoarseness. Stridor is caused by the opening between the vocal cords becoming more narrow. How long will it last? Croup usually lasts for 5 to 6 days and generally gets worse at night. During this time, it can change from mild to severe and back many times. The worst symptoms are seen in children under 3 years of age. How is it treated? First Aid For Stridor If your child suddenly develops stridor or tight breathing, do the following: Inhalation of warm mist Warm moist air seems to work best to relax the vocal cords and break the stridor. The simplest way to provide this is to have your child breathe through a warm, wet washcloth placed loosely over his nose and mouth. Another good way, if you have a humidifier (not a hot vaporizer), is to fill it with warm water and have your child breathe deeply from the stream of humidity. The foggy bathroom In the meantime, have a hot shower running with the bathroom door closed. Once the room is all fogged up, take your child in there for at least 10 minutes. Cold air Cold air sometimes relieves the stridor. If it is cold outside, take your child outdoors. You can also hold your child in front of an open refrigerator. Try to help your child not be afraid by cuddling or reading a story. Most children settle down with the above treatments and then sleep peacefully through the night. If your child continues to have stridor, call your child's healthcare provider IMMEDIATELY. If your child turns blue, passes out, or stops breathing, call the rescue squad (911). Home Care for a Croupy Cough (without stridor) Humidifier Dry air usually makes a cough worse. Keep the child's bedroom humidified. Use a humidifier if you have one. Run it 24 hours a day. Otherwise, hang wet sheets or towels in your child's room. Warm fluids for coughing spasms Coughing spasms are often due to sticky mucus caught on the vocal cords. Warm fluids may help relax the vocal cords and loosen up the mucus. Use clear fluids (ones you can see through) such as apple juice, lemonade, or herbal tea. Give warm fluids only to children over 4 months old. Cough medicines Medicines are less helpful than either mist or drinking warm, clear fluids. Children over 4 years old can be given cough drops for the cough. Children over 1 year of age can be given 1/2 to 1 teaspoon of corn syrup as needed to thin the secretions. If your child has a fever (over 102 F, or 38.9 C), you may give him acetaminophen (Tylenol) or ibuprofen (Advil). Close observation While your child is croupy, sleep in the same room with him. Croup can be a dangerous disease. Smoke exposure Never let anyone smoke around your child. Smoke can make croup worse. Contagiousness The viruses that cause croup are quite contagious until the fever is gone or at least during the first 3 days of illness. Since spread of this infection can't be prevented, your child can return to school or childrens club attendant once he feels better. When should I call my child's healthcare provider? Call IMMEDIATELY if: Breathing becomes difficult (when your child is not coughing). Your child starts drooling or spitting, or starts having great difficulty swallowing. The warm mist fails to clear up the stridor in 20 minutes. Your child starts acting very sick. Call within 24 hours if: The attacks of stridor occur more than 3 times. A fever lasts more than 3 days. Croup lasts more than 10 days. You have other concerns or questions. Published by [employer]. This content is reviewed periodically and is subject to change as new health information becomes available. The information is intended to inform and educate and is not a replacement for medical evaluation, advice, diagnosis or treatment by a healthcare professional. Written by Rafi Garza M.D., author of Your Child's Health, [employer]. Copyright 2007 [employer] and/or one of its subsidiaries. All Rights Reserved. Copyright [employer] 2008 [employer] UPPER RESPIRATORY INFECTIONS Most cases are caused by viruses and most cases are mild, temporary, and harmless. Symptoms can last 2 to 3 weeks and can include: nasal congestion, sore throat, coughing, muscles aches, headaches, nausea, diarrhea, fatigue and fever. Now that you have been examined, if you are not feeling better within 2-3 weeks, please call back. In the meantime, please: 1. Drink plenty of fluids. 2. Get lots of rest. 3. Avoid dehydrants such as caffeine and alcohol. 4. Nasal saline is an effective decongestant and be used frequently throughout the day. 5. To loosen phlegm and help coughing, drink plenty of fluids and using a humidifier. 6. For sore throats, it is ok to use cough drops, throat sprays, or gargling warm salt water. 7. Always cover your mouth when you cough or sneeze, and wash your hands frequently. Avoid crowded areas like shopping centers, movies while you are sick so you don't fern picker a different virus, or infect others. 8. Avoid exposure to cigarettes or fumes. 9. Avoid irritants such as potpourri, dust, perfumes, scented candles and scented sprays 10. Air conditioning is an effective allergen and irritant avoidance strategy in the spring, summer and fall. 11. Honey is an effective cough suppressant. Try one tsp two to three times per day. The below information is from prescribersletter.Mgv: Antibiotics Will rarely help an upper respiratory infections. Antibiotics lead to more resistant infections that are harder to treat. There is little to no benefit to taking antibiotics for most acute upper respiratory tract infections. Instructions to spray medicated nose sprays (please note the best time to use Flonase, Nasonex, Rhinocort or similar is at night before bed). 1. Blow your nose out before spraying 2. Shake it before spraying each time. 3. Keep head in neutral position or looking down slightly. 4. Put about a quarter of the tip of the bottle in the right nostril and aim at the outside corner of the right eye. 5. [place] one spray only. Take a sniff as you are spraying but do not snort. 6. Repeat in the left nostril while pointing towards the outside corner of the left eye 8. Then if you are doing two sprays in each nostril wait 4-5 minutes before spraying the second spray. 9. If it drips out every time such when the nose is very congested. Have the patient sit on the bed. Look down, spray and then lay down on their back on a bed. This will allow the medicine to coat the nose on the way back. Sit up and repeat for the other side. documented in this encounter [facility] 02-22-2024 History of Present illness Narrative Informed verbal consent was obtained from this patient to communicate and provide care using virtual and other telecommunications tools. This patient has been explained the risks related to unauthorized disclosure or interception of personal health information and steps they can take to help protect their information. We have discussed that care provided through video or audio communication cannot replace the need for physical examination or an in person visit for some disorders or urgent problems and patient understands the need to seek urgent care in an Emergency Department as necessary. Telemedicine Visit - Distance Health Virtual Visit Note Patient seen on Virtual Platform, [employer] Location of patient: [place] History of Present Illness Shavon Escalona is a 28 year old female who presents for the past 2 day with symptoms that are: Worsening Symptoms include: Positive for: COUGH, RASPY VOICE, Negative for: FEVER CHILLS OTC meds/remedies that patient has tried: ROBITUSSIN COUGH AND CHEST CONGESTION. COVID TEST: NO COVID VACCCINE: Tobacco/ SMOKER/ VAPE use: No Recent exposure to strep:No Sick contacts: DTR WAS SICK Recent travel: NO PAST MEDICAL HISTORY Diagnosis Date Anxiety state Endometrioma Ovarian cyst depression PAST SURGICAL HISTORY Procedure Laterality Date PAST SURGICAL HISTORY OF wisdom teeth Current Outpatient Medications Medication Sig norethindrone (AYGESTIN) 5 mg tablet Take 1 tablet by mouth once daily. levonorgestrel (MIRENA) 21 mcg/24 hours (8 yrs) 52 mg IUD 1 Each by INTRAUTERINE route as directed. iv contrast (will be provided with radiology test) MRI Female Pelvis Inject, intravenously, once for 1 dose. No IV access, insert saline lock prior to the beginning of sedation, infusion, injection of imaging exam. Discontinue saline lock post exam. If Pt has a central line or IVAD, may access for administration according to line specific nursing protocol. Once exam is complete flush line and de-access according to line specific nursing protocol in the MR contrast administration guidelines link. Surgical Lubricant Jelly gel For MRI Female Pelvis, MRI department to provide. Administer intra-vaginal Surgilube immediately prior the MRI procedure (total amount to patient toleranace). PNV 83-[id number]-[id number]-dha 29 mg iron-1 mg -350 mg CKDR Take 1 capsule by mouth once daily. As covered by insurance No current facility-administered medications for this visit. ALLERGIES No Known Allergies OBJECTIVE // VIDEO EXAM (if available) General appearance Alert, oriented, pleasant, in NAD: Yes Ill appearing: No Lethargic appearing: No HEENT Eyes: Sclera clear :Yes Conjunctiva without erythema :Yes Frontal sinus tenderness by self palpation;No Maxillary sinus tenderness by self palpation :No Ears: Tragus / outer ear tenderness by self palpation :No Tender cervical adenopathy by self palpation :No Oropharynx: mild erythema PULMONARY Respiratory distress: No Coughing noted: DRY Audible wheezing noted: No Strep Centor Criteria - Age (2-14=+1, 15-44=0, >=45 -1): - Tonsillar exudates: - Tender anterior cervical adenopathy: - Fever by history (>38 or 100.4): - Absence of cough: 0 points- probability of strep is 1-2.5% 1 point- probability of strep is 5-10% 2 points- probability of strep is 11-17% 3 points- probability of strep is 28-35% 4 points- probability of strep is 51-53% Sinusitis: >3-4 days: N Worsening after 3-4 days , lasting 5-6 days: N >10 days not improving: N Fever > or equal to 102 or worsening fever : N; temp N Purulent nasal discharge N Worsening nasal discharge after initial improvement of URI: N Facial pain N Day time cough: Y ASSESSMENT/PLAN: 1. Acute URI - ICD9: 465.9, ICD10: J06.9 (primary diagnosis) - Discussed viral etiology and rationale for treatment. - Symptomatic treatment with prn analgesia - Supportive care with fluids and rest 2. Acute cough - ICD9: 786.2, ICD10: R05.1 CONTINUE ROBITUSSIN WARM LIQUIDS/ FLUIDS REST 3. Laryngitis - ICD9: 464.00, ICD10: J04.0 SALT WATER GARGLES LOZENGES Most consistent at this time with uncomplicated viral URI/respiratory infection. Recommended continued symptomatic treatments and monitoring. -[email or web address] This link shares information about when antibiotics may help and when they may not. - Reviewed OTC medications and supplements to help w/ sxs - Encouraged good hydration, handwashing and use of humidified air - Encouraged REST - Red flags discussed for need for in person care - All questions answered IF YOUR SYMPTOMS PERSIST OR WORSENING IN THE NEXT 10 DAYS THEN PLEASE FOLLOW UP WITH YOUR PCP Jennie Santo, MSN, LOGISTICS ENGINEER-RETIREMENT ASSISTANT, C[facility] [place] documented in this encounter [facility] 07-09-2023 Instructions Cameron Cruz Cma - 07/09/2023 3:02 PM EST POST IUD INSTRUCTIONS You may have irregular bleeding during the first 3 months of use. You may have mild-severe cramping for the next 48 hours. You may use over the counter medication (Motrin, Tylenol) as needed. Your IUD must be removed or replaced based on the following table: IUD Type Removed or replaced within: Sapna 3 years Kyleena 5 years Mirena 8 years Liletta 8 years Paragard 10 years Call the office for signs/symptoms of infection such as severe cramping, fever, or unusual bleeding. Check for string placement as instructed by your doctor. If you have any additional questions, please contact the office. documented in this encounter [facility] 07-09-2023 History of Present illness Narrative Shavon presents today for IUD insertion for contraception. Patient's last menstrual period was 06/21/2022 (exact date). GC/chlamydia: Not done: no risk factors and/or patient declines screening test: negative Side effects including irregular bleeding were discussed with the patient. The patient understands that it should be removed in 8 years or sooner if the patient desires a . IUD source: office provided IUD lot #: [id number] Exp date: 05/19/2025 UNIVERSAL PROTOCOL / SAFETY CHECKLIST Procedure to be Performed: IUD insertion Sign In: A Moment of CARE was completed. Personnel directly involved with the procedure wore the appropriate PPE (Personal Protective Equipment). Patient/Surrogate Stated/Verified: PATIENT VERIFIED(optional for EMERGENT procedures): Patient name, Date of , Relevant allergies, and The intended procedure Time Out Communication: Intended patient and procedure match the source documents. Consent documented and matches the intended procedure. Sign Out: SIGN OUT (optional for EMERGENT procedures): No specimen collected. No instruments, equipment or retained foreign bodies applicable. Post-procedure follow-up management communicated and Plan of Care Visit completed when applicable. The cervix was prepped with betadine. The uterus sounded to 8 cm and the uterus is Anteverted.. Using sterile technique, the Mirena IUD was inserted without difficulty and the string was cut to 2cm from the external os of the cervix. Patient tolerated procedure well. PLAN: Patient was advised to observe for signs and symptoms of infection including but not limited to fever, malodorous vaginal discharge and/or pain. The patient was told to check the string monthly for accurate placement. Bleeding expectations were reviewed. Follow up in one month. Esther Storm APRN.CNP documented in this encounter [facility] 07-02-2023 Miscellaneous Notes [employer] message reviewed per pt. Anny Rocha LPN Reviewed. [employer] message sent to patient documented in this encounter [facility] 06-24-2023 Miscellaneous Notes Yes please draft letter. Gricel Christensen APRN.CNM on 03/28/23. PP visit on 05/17/23. Ok for letter? documented in this encounter [facility] 06-18-2023 History of Present illness Narrative Shavon Escalona is a 27 year old female who presents for problem visit for vaginal discharge. HPI: Follow up today for possible BV and discuss IUD. Had appointment with [facility] and planning IUD insertion. Awaiting formal visit notes. Vaginal discharge, no odor, no cramping or pain. 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 Services Analyst History Comments: Sexual Activity: Yes; Male Contraception: No contraception data on record PAST MEDICAL HISTORY Diagnosis Date Anxiety state Endometrioma Ovarian cyst depression PAST SURGICAL HISTORY Procedure Laterality Date PAST SURGICAL HISTORY OF wisdom teeth FAMILY HISTORY Problem Relation Age of Onset No Known Problems Mother Detached Retina Father Heart Father Hypertension Father Hypertension Brother No Known Problems Brother Kidney Disease Maternal Grandmother Heart Attack Maternal Grandfather Alzheimer's Disease Paternal Grandmother No Known Problems Daughter Social History Tobacco Use Smoking status: Never Smokeless tobacco: Never Vaping Use Vaping Use: Never used Substance Use Topics Alcohol use: Not Currently Drug use: No Current Outpatient Medications Medication Sig iv contrast (will be provided with radiology test) MRI Female Pelvis Inject, intravenously, once for 1 dose. No IV access, insert saline lock prior to the beginning of sedation, infusion, injection of imaging exam. Discontinue saline lock post exam. If Pt has a central line or IVAD, may access for administration according to line specific nursing protocol. Once exam is complete flush line and de-access according to line specific nursing protocol in the MR contrast administration guidelines link. Surgical Lubricant Jelly gel For MRI Female Pelvis, MRI department to provide. Administer intra-vaginal Surgilube immediately prior the MRI procedure (total amount to patient toleranace). norethindrone (AYGESTIN) 5 mg tablet Take 1 tablet by mouth once daily. PNV 79-zsxu-fsmtiozdligc-dha 29 mg iron-1 mg -350 mg CKDR Take 1 capsule by mouth once daily. As covered by insurance No current facility-administered medications for this visit. Allergies As of Date: 06/18/2023 (No Known Allergies) Fully Assessed 06/18/2023 REVIEW OF SYSTEMS Abdomen: No bloating, early satiety, indigestion, or increased flatulence. No abdominal pain, nausea, vomiting, diarrhea, or constipation. Bladder: No dysuria, gross hematuria, urinary frequency, urinary urgency, or incontinence. Breast: No breast lumps, nipple d/c, overlying skin changes, redness or skin retraction. Expanded ROS: N/A Allergies and current medication updated:Yes EXAM: BP 100/62 Wt 139 lb 9.6 oz (63.3kg) LMP 06/21/2022 GENERAL: pleasant, female in no apparent distress HEENT: Normocephalic and atraumatic NECK: Supple and full range of motion DERMATOLOGY: Normal and without lesions CHEST: Normal inspiratory effort ABDOMEN: soft, non-tender, and no masses PELVIC: external genitalia normal, normal Bartholin's glands, urethra, [place]'s glands, no vulvar lesions, no cervical lesions, good vaginal support, physiologic discharge present, normal appearing perineal body and perianal region NEURO: alert and oriented x3,exam grossly non-focal EXTREMITIES: normal ASSESSMENT/PLAN: 1. Vaginal discharge - ICD9: 623.5, ICD10: N89.8 (primary diagnosis) - BACTERIAL VAGINOSIS NAAT - CHRISTAL/TRICHOMONAS NAAT 2. control counseling - ICD9: V25.09, ICD10: Z30.09 - INSERT INTRAUTERINE DEVICE Gricel Christensen APRN.CNM documented in this encounter [facility] 06-04-2023 Note HNO ID: [id number] Author: LUIS ROSE CT Service: Radiology Author Type: Technologist Type: Progress Notes Filed: 06/04/2023 11:34 Note Text: Radiology Service Progress Note PATIENT NAME: Shavon Escalona DATE OF SERVICE: June 04, 2023 TIME: 11:33 AM PATIENT IDENTITY VERIFICATION COMPLETED USING TWO (2) IDENTIFIERS: Name and Date of confirmed by patient verbally. FALL SCREENING: Has the patient had 2 falls in the last year or 1 fall with injury or currently using an Ambulatory Assistive Device (Walker, Cane, Wheelchair, Crutches, etc.)? No PATIENT GENDER DATA: Female. status: : No status: NO. PATIENT RELEVANT IMPLANT DATA REVIEWED: Not Applicable RADIOLOGY DEPARTMENT: Ultrasound PERIPHERAL IV DATA: Not applicable SIGNED BY: MEGAN Cadet June 04, 2023 11:33 AM [facility] 04-22-2023 Miscellaneous Notes See result note Vaginal flagyl sent in for +BV documented in this encounter [facility] 04-19-2023 History of Present illness Narrative EARLY VISIT Shavon Escalona is a 27 year old here for 3 week visit. Delivery Summary: 03/28/23 Female Hadly 6lb 8 oz ROS: No cramping or pain. Has noticed a vaginal odor with vaginal discharge on her pad General: Denies any fever or chills Hypertension Screening: Headache? No. Visual Changes? No Epigastric Pain? No Increased Swelling? No Taking any BP medications at home? No If applicable, monitoring BP at home? (If Yes, include results) NA Mood: normal Depression: denies symptoms of depression. OB Depression and Anxiety Screening- This Encounter (since 04/18/2023) Over the past 2 weeks have you felt down, depressed, or hopeless? Negative Over the past two weeks, have you felt little interest or pleasure in doing things? Negative Feeling nervous, anxious or on edge 0-Not at all Not being able to stop or control worrying 0-Not al all Anxiety Pre-Screening Total (If >/= 3 additional questions will be reviewed) 0 Feeding: Breast feeding problems: None Bladder: No dysuria, gross hematuria, urinary frequency, urinary urgency, or incontinence Bowel symptoms: Negative for abdominal discomfort, blood in stools or black stools and change in bowel habits Abdomen: N/A Bleeding: spotting Bottom and Perineum: No issues Sleep: no sleep concerns, feels rested [place] since delivery: Not resumed Emotional support: Yes Exercise: N/A Other issues: None PHYSICAL EXAMINATION: LMP 06/21/2022 (Exact Date) General: pleasant,female in no apparent distress, A&O x 3. Skin warm and intact. Breast: Deferred Abdomen: soft, non-tender, and no masses /Incision: N/A Pelvic: external genitalia normal, normal Bartholin's glands, urethra, [place]'s glands, no vulvar lesions, no cervical lesions, good vaginal support, normal appearing perineal body and perianal region Bimanual: non-tender and no cervical motion tenderness ASSESSMENT AND PLAN: 27 year old status post with normal course. Contraception plan: Reinforced 6-week pelvic rest. Encouraged condom usage should patient deviate. Education: resources provided - see MA/RN note Check BV, yeast. H/o BV. Normal exam today and discussed reasons to call Follow up: Return to Clinic for 6 week visit and as needed Terrance Gottlieb DO documented in this encounter [facility] 04-09-2023 Instructions Gricel Christenesn APRN.[facility] - 04/09/2023 10:49 AM EST PATIENT INFO: DEPRESSION Depression After the of a Child or Loss depression depression is a complex mix of physical, emotional, and behavioral changes that occur after giving that are attributed to the chemical, social, and psychological changes associated with having a baby. Who is affected by depression? It is common that as many as 50% to 75% of new mothers experience the baby blues after delivery. About 10% of these women will develop a more severe and longer-lasting depression, called depression, after delivery. One in 1,000 women develop the more serious condition called psychosis. What factors increase my risk of being depressed after the of my child? Having a personal or family history of depression or PMDD Age at time of -- the younger you are, the higher the risk Living alone Limited social support Children -- the more you have, the more likely you are to be depressed in a subsequent Marital conflict Ambivalence about the A history of depression during -- 50% of depressed women will have depression Types of depression blues -- Better known as the baby blues, this condition affects between 50%-75% of women after delivery. If you are experiencing the baby blues, you will have frequent, prolonged bouts of crying for no apparent reason, sadness, and anxiety. The condition usually begins in the first week (one to four days) after delivery. Although the experience is unpleasant, the condition usually subsides within two weeks without treatment. All you'll need is reassurance and help with the baby and core oven tender. depression -- This is a far more serious condition than blues, affecting about one in 10 new mothers. If you've had depression before, your risk increases to 30%. You may experience alternating highs and lows, frequent crying, irritability, and fatigue, as well as feelings of guilt, anxiety, and inability to care for your baby or yourself. Symptoms range from mild to severe and may appear within days of the delivery or gradually, even up to a year later. Although symptoms can last from several weeks up to a year, treatment with psychotherapy or antidepressants is very effective. psychosis -- This is an extremely severe form of depression and requires emergency medical attention. This condition is relatively rare, affecting only one in 1,000 women after delivery. The symptoms generally occur quickly after delivery and are severe, lasting for a few weeks to several months. Symptoms include severe agitation, confusion, feelings of hopelessness and shame, insomnia, paranoia, delusions or hallucinations, hyperactivity, rapid speech, or da. psychosis requires immediate medical attention since there is an increased risk of suicide and risk of harm to the baby. Treatment will usually include admission to hospital for the mother, and medicine. What causes depression? More research is needed to determine the link between the rapid drop in hormones after delivery and depression. The levels of estrogen and progesterone, the female reproductive hormones, increase tenfold during but drop sharply after delivery. By three days , levels of these hormones drop back to pre- levels. In addition to these chemical changes, the social and psychological changes associated with having a baby create an increased risk of depression. Can depression be prevented? Here are some tips that can help prevent, or help you cope with depression: Be realistic about your expectations for yourself and your baby Limit visitors when you first go home Ask for help -- let others know how they can help you Sleep or rest when your baby sleeps! Exercise; take a walk and get out of the house for a break Screen your phone calls Follow a sensible diet; avoid alcohol and caffeine Keep in touch with your family and friends -- do not isolate yourself Foster your relationship with your partner -- make time for each other Expect some good days and some bad days Treating depression depression is treated differently depending on the type and severity of the woman s symptoms. Treatment options include antianxiety or antidepressant medicines, psychotherapy, and participation in a support group for emotional support and education. In the case of psychosis, medicines used to treat psychosis are usually added. Hospital admission is also usually necessary. If you are , don t assume that you can't take medicines for depression, anxiety, or even psychosis. There have been no reports of breastfed babies whose mothers are taking antidepressants suffering any ill effects, but as yet no long-term follow-up data is available. What is the outlook? With professional help, almost all women who experience depression are able to overcome their symptoms. A new mom should seek professional help when: Symptoms persist beyond two weeks She is unable to function normally; she can t cope with everyday situations She has thoughts of harming herself or her baby She is feeling extremely anxious, scared, and panicked most of the day (This information is provided by the [facility] and is not intended to replace the medical advice of your doctor or health care provider. Please consult your health care provider for advice about a specific medical condition. For additional written health information, please contact the Health Information Center at the [facility] or toll-free extension [phone] or visit [email or web address] This document was last reviewed on: 2002) documented in this encounter [facility] 04-09-2023 History of Present illness Narrative EARLY VISIT Shavon Escalona is a 27 year old here for 2 week visit. Delivery Summary: 03/28/23 , 2nd degree perineal laceration,female Festus 6lb 8oz. Delivered by ROS: General: Denies any fever or chills Hypertension Screening: Headache? No. Visual Changes? No Epigastric Pain? No Increased Swelling? No Taking any BP medications at home? No If applicable, monitoring BP at home? (If Yes, include results) NA Mood: normal Depression: denies symptoms of depression. EPDS=0 Negative Anxiety screen Feeding: Breast feeding problems: None Bladder: No dysuria, gross hematuria, urinary frequency, urinary urgency, or incontinence Bowel symptoms: Negative for abdominal discomfort, blood in stools or black stools and change in bowel habits Abdomen: N/A Bleeding: None Bottom and Perineum: No issues Sleep: no sleep concerns, feels rested [place] since delivery: Not resumed Emotional support: Yes Exercise: N/A Other issues: None PHYSICAL EXAMINATION: LMP 06/21/2022 (Exact Date) General: pleasant,female in no apparent distress, A&O x 3. Skin warm and intact. Breast: Deferred Abdomen: Deferred /Incision: N/A Pelvic: Deferred Bimanual: Deferred ASSESSMENT AND PLAN: 27 year old status post with normal course. Contraception plan: not applicable. Reinforced 6-week pelvic rest. Encouraged condom usage should patient deviate. Education: resources provided - see MA/RN note Follow up: Return to Clinic for 6 week visit and as needed Gricel Christensen APRN.CNM documented in this encounter [facility] 04-05-2023 History of Present illness Narrative Wrong patient. Completed on Daughter's chart. Darlene De Leon APRN.CNP documented in this encounter [facility] 03-29-2023 Discharge summary Note Date/Time March 29, 2023 8:44am [facility] Medical Records Department [address] [place] [address] Discharge Summary 03/29/23 0841 MR#: [id number] Acct: [id number] Name: CANDIECARLEYSHAVON QUENTIN Rep #:[id number] 2 : 1995 27 From: Naomi Olivera CNM PCP: Care Physician,No Primary Status :ADM IN Location: [id number] Providers Date of Admission: 03/28/23 Primary Care Physician: No Primary Care Phys Reason For Visit: LABOR AND DELIVERY/VAGINAL DELIVERY Diagnosis Discharge Diagnosis (1) Spontaneous onset of labor: Status: Acute (2) Spontaneous rupture of amniotic membranes: Status: Acute (3) Anxiety: Status: Acute Code(s): F41.9 - Anxiety disorder, unspecified (4) depression: Status: Acute Code(s): F53.0 - depression (5) Amniotic fluid leaking: Status: Acute Code(s): O42.90 - Premature rupture of membranes, unspecified as to length of time between rupture and onset of labor, unspecified weeks of gestation (6) 39 weeks gestation of : Status: Acute Code(s): Z3A.39 - 39 weeks gestation of (7) (spontaneous vaginal delivery): Status: Acute Code(s): O80 - Encounter for full-term uncomplicated delivery (8) Care and examination of lactating mother: Status: Acute Code(s): Z39.1 - Encounter for care and examination of lactating mother Medications at Discharge Home Medications vits no.130-ferrous fum 27 mg iron-folic acid 800 mcg tablet 1 tab PO DAILY Check with primary doctor 02/11/20 Hospital Course Operations None Procedures None Summary of Care Provided Minutes Spent on Discharge: 15 Hospital Course: Patient had . Hospital course was uneventful. Physical Exam Narrative Patient seen at bedside. Feeling good. Ambulating and voiding without difficulty. independently. Desires discharge home today. Const alert and no apparent distress General Appearance: cooperative and comfortable Exam Limitations: no limitations HEENT normocephalic Eyes General Eye: normal appearance of both eyes Neck full ROM General: normal visual inspection Chest Chest: symmetrical chest wall rise Resp normal respiratory effort and normal air movement Effort and Inspection: symmetric chest movement Auscultation: clear to auscultation bilaterally Cardio regular rate and regular rhythm GI normal to inspection, nondistended, normoactive bowel sounds Back/Spine normal ROM Extremity full ROM and no calf tenderness General Extremity: normal exam except as noted Skin no rashes or lesions noted Neuro CN's II-XII intact bilaterally Psych mental status grossly normal Weight / BMI Weight Weight: 154 lb 1.65 oz Body Mass Index (BMI) 24.8 ABG / Lab / Microbiology Data 03/27/23 22:20 D/C Instructions Discharge Diet: No restrictions May resume sexual activity in: 6-8 weeks Weight Bearing Status: Weight bearing as tolerated Call your doctor if you observe: Fever of 101 or Higher, Inability to urinate, Using more than 1 pad per hour, Shortness of breath, Chest pain, Calf discomfortand Uncontrolled pain Please Follow Up With: Naomi Olivera CNM When: 2 weeks virtual visit/ 6 weeks in office Meaningful Use Info Meaningful Use Diagnoses (Choose all that apply): None applicable Discharge Plan Admission Admit Date/Time: 03/28/23 01:47 Primary Reason for Your Visit: Labor and Delivery Attending Provider: Meagan Braun Primary Care Provider: Care Physician,No Primary Consulting Providers: Naomi Olivera Discharge Orders/Prescriptions Prescriptions: Continued vit no.[id number] 1 EACH tablet 1 tab PO DAILY Referrals / Follow Up: Naomi Olivera CNM [Med Staff - Adv Practice Prof] - Care Physician,No Primary [Primary Care Provider] - Disposition Disposition (needs filled in before D/C Order can be placed): Home, Self Care 03/29/23 0845 <Electronically signed by Naomi Olivera CNM> Cosigner Signature (if applicable): CC: BALBIR Olivera; No Primary Care Physician~ Signed [facility] Work Phone: 1(866) 152-828411-09-2023 History of Present illness Narrative* Alicia Daley RN - 03/28/2023 10:41 AM EST Patient delivered via at [facility] on 03/28/23 per Meagan Hilton MD. See OB Outcome note. Alicia Daley RN [facility] Procedure [facility]23 History and physical note Author Naomi Olivera [facility] March 28, 2023 7:23am Note Date/Time March 28, 2023 7 :23am [facility] Medical Records Department [facility] [place] [address] H&P Exam - CITY ADMINISTRATOR 03/28/23 0717 MR#: [id number] Acct: [id number] Name: SHAVON ESCALONA Rep #:[id number] : 1995 27 From: Naomi Olivera CNM PCP: Care Physician,No Primary Status :ADM IN Location: [place] [address] HPI - General General Date of Admission: 03/28/23 HPI Narrative SHAVON ESCALONA, is a 27 F at 39.6 weeks gestation who presents to triage with spontaneous onset of contractions and leaking fluid. Maternal Data Information ADRIANA Calculator Estimated Delivery Date Method Current WG Current Estimate 03/29/23 Manual 39w 6d PFSH PFSH Medical History (Updated 03/28/23 @ 07:21 by Naomi Olivera CNM) Anxiety Headache depression Home Medications vits no.130-ferrous fum 27 mg iron-folic acid 800 mcg tablet 1 tab PO DAILY Check with primary doctor 02/11/20 [History Last Taken 03/26/23] Allergy/AdvReac Type Severity Reaction Status Date / Time No Known Allergies Allergy Verified 03/27/23 21:55 Surgical History (Updated 03/27/23 @ 22:40 by Lisa Dennis) History of surgery Social History Smoking Status: Never smoker History Elective abortions Hx Para 1 Spontaneous abortions Hx # Term Pregnancies Ectopic pregnancies Hx # Pregnancies Multiple births # of living children ROS Eyes Eyes: Denies blurry vision, change in vision or spots in vision ENT HEENT: Denies dizziness or headache(s) Cardiovascular Cardiovascular: Denies abdominal pain, chest pain or dyspnea Respiratory/Chest Respiratory/Chest: Denies cough, dyspnea, shortness of breath at rest or shortness of breath with exertion Gastrointestinal Gastrointestinal: Denies abdominal pain, diarrhea or vomiting Genitourinary Genitourinary: Denies change in urinary stream, difficulty urinating or dysuria Musculoskeletal Musculoskeletal: Reports none Integumentary Integumentary: Denies rash Neurologic Neurologic: Denies dizziness, headache(s), memory loss or weakness Psychiatric Psychiatric: Reports none Vital Signs Vital Signs Vital Signs: 03/27/23 21:46 03/27/23 21:46 03/27/23 21:46 Temperature Temperature Source Pulse Rate 87 Blood Pressure 121/77 H BP Systolic 121 BP Diastolic 77 Pulse Ox 97 03/27/23 21:46 03/27/23 21:46 03/27/23 21:46 Temperature 99.0 F Temperature Source Temporal Pulse Rate Blood Pressure BP Systolic BP Diastolic Pulse Ox 98 03/28/23 00:37 03/28/23 00:37 03/28/23 00:37 Temperature 98.8 F Temperature Source Temporal Pulse Rate Blood Pressure BP Systolic BP Diastolic Pulse Ox 97 03/28/23 00:38 03/28/23 00:38 03/28/23 02:22 Temperature Temperature Source Pulse Rate 92 108 H Blood Pressure 111/76 BP Systolic 111 BP Diastolic 76 Pulse Ox 03/28/23 02:22 03/28/23 02:23 03/28/23 02:23 Temperature Temperature Source Pulse Rate 102 H Blood Pressure BP Systolic BP Diastolic Pulse Ox 94 93 03/28/23 02:25 03/28/23 02:25 03/28/23 02:27 Temperature Temperature Source Pulse Rate 90 89 Blood Pressure 120/92 H BP Systolic 120 BP Diastolic 92 Pulse Ox 03/28/23 02:27 03/28/23 02:29 03/28/23 02:29 Temperature Temperature Source Pulse Rate 80 Blood Pressure 125/97 H BP Systolic 125 BP Diastolic 97 Pulse Ox 97 03/28/23 02:32 03/28/23 02:32 03/28/23 02:35 Temperature Temperature Source Pulse Rate 82 Blood Pressure 139/82 H BP Systolic 139 BP Diastolic 82 Pulse Ox 97 03/28/23 02:35 03/28/23 02:37 03/28/23 02:37 Temperature Temperature Source Pulse Rate 91 86 Blood Pressure BP Systolic BP Diastolic Pulse Ox 97 03/28/23 02:39 03/28/23 02:39 03/28/23 02:42 Temperature Temperature Source Pulse Rate 80 88 Blood Pressure 117/78 BP Systolic 117 BP Diastolic 78 Pulse Ox 03/28/23 02:42 03/28/23 02:44 03/28/23 02:44 Temperature Temperature Source Pulse Rate 100 Blood Pressure 133/72 H BP Systolic 133 BP Diastolic 72 Pulse Ox 97 03/28/23 02:47 03/28/23 02:47 03/28/23 02:49 Temperature Temperature Source Pulse Rate 91 Blood Pressure 101/57 L BP Systolic 101 BP Diastolic 57 Pulse Ox 100 03/28/23 02:49 03/28/23 02:52 03/28/23 02:52 Temperature Temperature Source Pulse Rate 96 102 H Blood Pressure BP Systolic BP Diastolic Pulse Ox 100 03/28/23 02:54 03/28/23 02:54 03/28/23 02:57 Temperature Temperature Source Pulse Rate 102 H 93 Blood Pressure 100/58 L BP Systolic 100 BP Diastolic 58 Pulse Ox 03/28/23 02:57 03/28/23 02:59 03/28/23 02:59 Temperature Temperature Source Pulse Rate 89 Blood Pressure 102/55 L BP Systolic 102 BP Diastolic 55 Pulse Ox 100 03/28/23 03:02 03/28/23 03:02 03/28/23 03:04 Temperature Temperature Source Pulse Rate 93 Blood Pressure 110/59 L BP Systolic 110 BP Diastolic 59 Pulse Ox 100 03/28/23 03:04 03/28/23 03:07 03/28/23 03:07 Temperature Temperature Source Pulse Rate 88 92 Blood Pressure BP Systolic BP Diastolic Pulse Ox 100 03/28/23 03:09 03/28/23 03:09 03/28/23 03:12 Temperature Temperature Source Pulse Rate 80 82 Blood Pressure 98/57 L BP Systolic 98 BP Diastolic 57 Pulse Ox 03/28/23 03:12 03/28/23 03:14 03/28/23 03:14 Temperature Temperature Source Pulse Rate 86 Blood Pressure 104/58 L BP Systolic 104 BP Diastolic 58 Pulse Ox 100 03/28/23 03:17 03/28/23 03:17 03/28/23 03:22 Temperature Temperature Source Pulse Rate 83 84 Blood Pressure BP Systolic BP Diastolic Pulse Ox 100 03/28/23 03:22 03/28/23 03:24 03/28/23 03:24 Temperature Temperature Source Pulse Rate 82 Blood Pressure 103/54 L BP Systolic 103 BP Diastolic 54 Pulse Ox 100 03/28/23 03:27 03/28/23 03:27 03/28/23 03:29 Temperature Temperature Source Pulse Rate 87 Blood Pressure 107/60 BP Systolic 107 BP Diastolic 60 Pulse Ox 100 03/28/23 03:29 03/28/23 03:32 03/28/23 03:32 Temperature Temperature Source Pulse Rate 83 85 Blood Pressure BP Systolic BP Diastolic Pulse Ox 100 03/28/23 03:34 03/28/23 03:34 03/28/23 03:37 Temperature Temperature Source Pulse Rate 85 91 Blood Pressure 103/57 L BP Systolic 103 BP Diastolic 57 Pulse Ox 03/28/23 03:37 03/28/23 03:39 03/28/23 03:39 Temperature Temperature Source Pulse Rate 92 Blood Pressure 93/50 L BP Systolic 93 BP Diastolic 50 Pulse Ox 100 03/28/23 03:42 03/28/23 03:42 03/28/23 03:44 Temperature Temperature Source Pulse Rate 84 Blood Pressure 95/50 L BP Systolic 95 BP Diastolic 50 Pulse Ox 99 03/28/23 03:44 03/28/23 03:47 03/28/23 03:47 Temperature Temperature Source Pulse Rate 88 87 Blood Pressure BP Systolic BP Diastolic Pulse Ox 98 03/28/23 03:49 03/28/23 03:49 03/28/23 03:52 Temperature Temperature Source Pulse Rate 83 88 Blood Pressure 99/57 L BP Systolic 99 BP Diastolic 57 Pulse Ox 03/28/23 03:52 03/28/23 03:54 03/28/23 03:54 Temperature Temperature Source Pulse Rate 84 Blood Pressure 101/57 L BP Systolic 101 BP Diastolic 57 Pulse Ox 98 03/28/23 03:57 03/28/23 03:57 03/28/23 04:00 Temperature Temperature Source Pulse Rate 84 Blood Pressure 99/56 L BP Systolic 99 BP Diastolic 56 Pulse Ox 98 03/28/23 04:00 03/28/23 04:02 03/28/23 04:02 Temperature Temperature Source Pulse Rate 83 89 Blood Pressure BP Systolic BP Diastolic Pulse Ox 97 03/28/23 04:04 03/28/23 04:04 03/28/23 04:07 Temperature Temperature Source Pulse Rate 84 91 Blood Pressure 103/55 L BP Systolic 103 BP Diastolic 55 Pulse Ox 03/28/23 04:07 03/28/23 04:18 03/28/23 05:14 Temperature Temperature Source Temporal Pulse Rate Blood Pressure 110/64 BP Systolic 110 BP Diastolic 64 Pulse Ox 98 03/28/23 05:14 03/28/23 05:12 03/28/23 05:12 Temperature 98.0 F Temperature Source Temporal Pulse Rate 79 Blood Pressure BP Systolic BP Diastolic Pulse Ox 03/28/23 05:12 03/28/23 05:12 03/28/23 06:32 Temperature 98.0 F Temperature Source Temporal Temporal Pulse Rate Blood Pressure BP Systolic BP Diastolic Pulse Ox 03/28/23 06:32 03/28/23 06:32 03/28/23 06:32 Temperature 98.5 F Temperature Source Pulse Rate 81 Blood Pressure 101/61 BP Systolic 101 BP Diastolic 61 Pulse Ox Weight Weight: 154 lb 1.65 oz Body Mass Index (BMI) 24.8 Physical Exam Const alert, oriented x3 and no apparent distress General Appearance: cooperative Orientation / Consciousness: awake Exam Limitations: no limitations HEENT normocephalic Head and Scalp: normal to inspection Eyes General Eye: normal appearance of both eyes Neck full ROM and no lymphadenopathy Lymph Lymphatic: no lymphadenopathy noted Chest inspection of chest normal Resp normal respiratory effort, normal air movement and clear to auscultation bilaterally Effort and Inspection: able to speak in complete sentences and symmetric chest movement Cardio regular rate and regular rhythm GI normal to inspection, nondistended, normoactive bowel sounds Manual OB Exam: presentation cephalic Back/Spine normal ROM Extremity full ROM and no calf tenderness Skin no rashes or lesions noted General Skin Exam: no breakdown Neuro oriented x3 and CN's II-XII intact bilaterally Psych mental status grossly normal and thought process normal Labs Labs Labs: Blood Type A POSITIVE Antibody Screen NEGATIVE Hct 39.7 % (37-47) Hgb 13.0 g/dL (12.0-15.0) Syphilis Total Ab Non-reactive Rhogam given: No Assessment & Plan (1) Spontaneous onset of labor: (2) Spontaneous rupture of amniotic membranes: (3) Anxiety: (4) depression: (5) Amniotic fluid leaking: (6) 39 weeks gestation of : PLAN: Plan ROM plus positive CE 5/80/-2 Admit to labor and delivery Routine labs Start IV fluids and run per policy GBS negative Epidural when indicated Start Pitocin IV 2 mu/min and increase per policy Dr. Hilton notified of admission 03/28/23722 <Electronically signed by Naomi Olivera CNM> Cosigner Signature (if applicable): CC: BALBIR Olivera; No Primary Care Physician~ Signed [facility] Work Phone: 1(284) 170-815311-08-2023 Miscellaneous Notes* Quick Notes - Meagan Mason MD - 03/27/2023 9:44 AM EST DM- Pt doing well today. Denies Vaginal Bleeding, Leaking fluid, or contractions. Pt reports good movement. Pt requesting membrane sweep today. IOL scheduled at 40+ weeks per patient request. Kick counts and labor reviewed. Meagan Braun MD [facility]11-08-2023 Instructions* Patient Instructions* Bianca Pollack Ma - 03/27/2023 8:38 AM EST SEQUENTIAL SCREENINGS [facility] offers sequential screenings for women who are interested in screenings for chromosomal abnormalities and certain defects during a . The sequential screen combinesultrasound and blood tests to determine the risk of chromosomal abnormalities, including Down's Syndrome (Trisomy 21) and Trisomy 18, as well as open neural tube defects including spina bifida. Ultrasound examination is performed between 11 weeks and 13 weeks gestational age. Blood tests are drawn after the ultrasound and again later in the between 15 and 21 weeks gestational age. Please let your physician know if you are interested in this testing. It will require an appointment withour social services technician. This is not an ultrasound performed by a physician in our office during a routine visit. SIGNS AND SYMPTOMS OF LABOR 1. Contractions every 10 minutes or more often 2. Clear, pink, or brownish fluid (water) leaking from vagina 3. Feeling that baby is pushing down, pressure 4. Low, dull backache 5. Cramps that feel like a period 6. Cramps with or without diarrhea If you notice any of the above symptoms, contact our office at [phone] and ask to speak with anurse. After hours, you can call doctors registry at [phone] OR call [facility] at [phone] ask to have the doctor splunk consultant paged. If you consider this an emergency, dial [phone] or go to your nearest emergency department. NEED HELP? Are you dealing with a violent or abusive relationship? Are you a victim of rape or sexual assult? Call [facility] ([place]) 24 hour Crisis Hotline: 542.931.4217 or 365-594-9699. MANUAL Your Guide to a Healthy manual is now on-line. Visit [email or web address] to download your free copy documented [facility] this [facility]10-31-2023 Miscellaneous Notes* Telephone Encounter - Alicia Daley RN - 03/19/2023 9:32 AM EDT Faxed * Telephone Encounter - Alicia Daley RN - 03/18/2023 4:09 PM EDT Received breast pump RX from [facility]. To CP to sign documented in [facility]Kn[facility]10-27-2023 Miscellaneous Notes* Quick Notes - Oleg Patel MD - 03/15/2023 11:58 AM EDT KJ - No VB/LOF/ctxs. Reports good FM. A&P: Reviewed labor & FM precautions Oleg Patel MD documented in this [facility]Kn[facility]10-27-2023 Instructions* Patient Instructions* s Chata Conner - 03/15/2023 11:49 AM EDT SEQUENTIAL SCREENINGS [facility] offers sequential screenings for women who are interested in screenings for chromosomal abnormalities and certain defects during a . The sequential screen combinesultrasound and blood tests to determine the risk of chromosomal abnormalities, including Down's Syndrome (Trisomy 21) and Trisomy 18, as well as open neural tube defects including spina bifida. Ultrasound examination is performed between 11 weeks and 13 weeks gestational age. Blood tests are drawn after the ultrasound and again later in the between 15 and 21 weeks gestational age. Please let your physician know if you are interested in this testing. It will require an appointment withour social services technician. This is not an ultrasound performed by a physician in our office during a routine visit. SIGNS AND SYMPTOMS OF LABOR 1. Contractions every 10 minutes or more often 2. Clear, pink, or brownish fluid (water) leaking from vagina 3. Feeling that baby is pushing down, pressure 4. Low, dull backache 5. Cramps that feel like a period 6. Cramps with or without diarrhea If you notice any of the above symptoms, contact our office at [phone] and ask to speak with anurse. After hours, you can call doctors registry at [phone] OR call [facility] at [phone] ask to have the doctor splunk consultant paged. If you consider this an emergency, dial 9--5 or go to your nearest emergency department. NEED HELP? Are you dealing with a violent or abusive relationship? Are you a victim of rape or sexual assult? Call [facility] ([place]) 24 hour Crisis Hotline: 179.337.2993 or 465-008-1570. MANUAL Your Guide to a Healthy manual is now on-line. Visit [email or web address] to download your free copy documented in this encounterKn[facility] Hospital10-20-2023 Miscellaneous Notes* Quick Notes - Meagan Mason MD - 03/08/2023 3:05 PM EDT DM- Pt doing well today. Denies Vaginal Bleeding, Leaking fluid, or contractions. Pt reports good movement. Kick counts and labor reviewed. GBS today. Vertex confirmed on ultrasound. RTO one week. Meagan Hilton MD documented in this encounterKn[facility]10-20-2023 Instructions* Patient Instructions* Bianca Pollack Ma - 03/08/2023 2:55 PM EDT SEQUENTIAL SCREENINGS [facility] offers sequential screenings for women who are interested in screenings for chromosomal abnormalities and certain defects during a . The sequential screen combinesultrasound and blood tests to determine the risk of chromosomal abnormalities, including Down's Syndrome (Trisomy 21) and Trisomy 18, as well as open neural tube defects including spina bifida. Ultrasound examination is performed between 11 weeks and 13 weeks gestational age. Blood tests are drawn after the ultrasound and again later in the between 15 and 21 weeks gestational age. Please let your physician know if you are interested in this testing. It will require an appointment withour social services technician. This is not an ultrasound performed by a physician in our office during a routine visit. SIGNS AND SYMPTOMS OF LABOR 1. Contractions every 10 minutes or more often 2. Clear, pink, or brownish fluid (water) leaking from vagina 3. Feeling that baby is pushing down, pressure 4. Low, dull backache 5. Cramps that feel like a period 6. Cramps with or without diarrhea If you notice any of the above symptoms, contact our office at [phone] and ask to speak with anurse. After hours, you can call doctors registry at [phone] OR call [facility] at [phone] ask to have the doctor splunk consultant paged. If you consider this an emergency, dial 9-1-9 or go to your nearest emergency department. NEED HELP? Are you dealing with a violent or abusive relationship? Are you a victim of rape or sexual assult? Call [facility] ([place]) 24 hour Crisis Hotline: 576.894.7516 or 881-313-7343. MANUAL Your Guide to a Healthy manual is now on-line. Visit [email or web address] to download your free copy documented in this encounterKn[facility] Hospital10-09-2023 Miscellaneous Notes* Quick Notes - Meagan Mason MD - 02/25/2023 3:36 PM EDT DM- Pt doing well today. Denies Vaginal Bleeding, Leaking fluid, or contractions. Pt reports good movement. GBS next visit. Kick counts reviewed. RTO weekly. Meagan Braun MD documented in this encounterKn[facility]10-09-2023 Instructions* Patient Instructions* Bianca Pollack Ma - 02/25/2023 3:09 PM EDT SEQUENTIAL SCREENINGS [facility] offers sequential screenings for women who are interested in screenings for chromosomal abnormalities and certain defects during a . The sequential screen combinesultrasound and blood tests to determine the risk of chromosomal abnormalities, including Down's Syndrome (Trisomy 21) and Trisomy 18, as well as open neural tube defects including spina bifida. Ultrasound examination is performed between 11 weeks and 13 weeks gestational age. Blood tests are drawn after the ultrasound and again later in the between 15 and 21 weeks gestational age. Please let your physician know if you are interested in this testing. It will require an appointment withour social services technician. This is not an ultrasound performed by a physician in our office during a routine visit. SIGNS AND SYMPTOMS OF LABOR 1. Contractions every 10 minutes or more often 2. Clear, pink, or brownish fluid (water) leaking from vagina 3. Feeling that baby is pushing down, pressure 4. Low, dull backache 5. Cramps that feel like a period 6. Cramps with or without diarrhea If you notice any of the above symptoms, contact our office at [phone] and ask to speak with anurse. After hours, you can call doctors registry at [phone] OR call [facility] at [phone] ask to have the doctor splunk consultant paged. If you consider this an emergency, dial 9-2-4 or go to your nearest emergency department. NEED HELP? Are you dealing with a violent or abusive relationship? Are you a victim of rape or sexual assult? Call [facility] ([facility] 24 hour Crisis Hotline: 911.632.5578 or 300-435-7553. MANUAL Your Guide to a Healthy manual is now on-line. Visit [email or web address] to download your free copy documented in this encounterKn[facility] Hospital09-22-2023 Miscellaneous Notes* Quick Notes - Terrance Gottlieb MD - 02/08/2023 2:41 PM EDT SW- No ctx, vb, lof. Good FM. Reviewed travel restrictions. Some pelvic pressure and discomfort. Discussed pelvic floor PT. Discussed PTL precautions. Questions answered. Flu vaccine today. RTO 2 wks. Terrance Gottlieb DO documented in this encounterKnox [facility] Hospital09-22-2023 Instructions* Patient Instructions* Kala Mendoza MA - 02/08/2023 2:31 PM EDT SEQUENTIAL SCREENINGS [facility] offers sequential screenings for women who are interested in screenings for chromosomal abnormalities and certain defects during a . The sequential screen combinesultrasound and blood tests to determine the risk of chromosomal abnormalities, including Down's Syndrome (Trisomy 21) and Trisomy 18, as well as open neural tube defects including spina bifida. Ultrasound examination is performed between 11 weeks and 13 weeks gestational age. Blood tests are drawn after the ultrasound and again later in the between 15 and 21 weeks gestational age. Please let your physician know if you are interested in this testing. It will require an appointment withour social services technician. This is not an ultrasound performed by a physician in our office during a routine visit. SIGNS AND SYMPTOMS OF LABOR 1. Contractions every 10 minutes or more often 2. Clear, pink, or brownish fluid (water) leaking from vagina 3. Feeling that baby is pushing down, pressure 4. Low, dull backache 5. Cramps that feel like a period 6. Cramps with or without diarrhea If you notice any of the above symptoms, contact our office at [phone] and ask to speak with anurse. After hours, you can call doctors registry at [phone] OR call [facility] at [phone] ask to have the doctor splunk consultant paged. If you consider this an emergency, dial 9--1 or go to your nearest emergency department. NEED HELP? Are you dealing with a violent or abusive relationship? Are you a victim of rape or sexual assult? Call [facility] ([place]) 24 hour Crisis Hotline: 136.595.3384 or 051-990-0080. MANUAL Your Guide to a Healthy manual is now on-line. Visit [email or web address] to download your free copy documented in this encounterKn[facility]09-[facility]-2023 Miscellaneous Notes* Quick Notes - Naomi Olivera APRN.CNM - 01/25/2023 1:23 PM EDT Shavon Escalona is a 27 year old female who presents at 31w1d Estimated Date of Delivery: 03/28/23 for a routine visit. Good movement. Denies headache, visual changes, chest pain, shortness of breath, vaginal bleeding, leakage of fluid, or dysuria. Feeling well, no complaints. Size equal to dates. 8 lbs TWG. PTL precautions reviewed. RTC in 2 weeks or sooner if needed. Naomi Olivera APRN.CNM documented in this encounterKnox [facility] Hospital09-08-2023 Instructions* Patient Instructions* Cameron Cruz Cma - 01/25/2023 1:09 PM EDT SEQUENTIAL SCREENINGS [facility] offers sequential screenings for women who are interested in screenings for chromosomal abnormalities and certain defects during a . The sequential screen combinesultrasound and blood tests to determine the risk of chromosomal abnormalities, including Down's Syndrome (Trisomy 21) and Trisomy 18, as well as open neural tube defects including spina bifida. Ultrasound examination is performed between 11 weeks and 13 weeks gestational age. Blood tests are drawn after the ultrasound and again later in the between 15 and 21 weeks gestational age. Please let your physician know if you are interested in this testing. It will require an appointment withour social services technician. This is not an ultrasound performed by a physician in our office during a routine visit. SIGNS AND SYMPTOMS OF LABOR 1. Contractions every 10 minutes or more often 2. Clear, pink, or brownish fluid (water) leaking from vagina 3. Feeling that baby is pushing down, pressure 4. Low, dull backache 5. Cramps that feel like a period 6. Cramps with or without diarrhea If you notice any of the above symptoms, contact our office at [phone] and ask to speak with anurse. After hours, you can call doctors registry at [phone] OR call [facility] at [phone] ask to have the doctor splunk consultant paged. If you consider this an emergency, dial 9-1-4 or go to your nearest emergency department. NEED HELP? Are you dealing with a violent or abusive relationship? Are you a victim of rape or sexual assult? Call [facility] ([place]) 24 hour Crisis Hotline: 200.474.4323 or 604-506-3314. MANUAL Your Guide to a Healthy manual is now on-line. Visit [email or web address] to download your free copy documented in this encounterKnox [facility] Hospital08-22-2023 Miscellaneous Notes* Quick Notes - Oleg Patel MD - 01/08/2023 3:26 PM EDT KJ - No VB/LOF/ctxs. Reports good FM. A&P: 28wk labs today Tdap today Declines LARC Reviewed PTL & FM precautions Oleg Patel MD documented in this encounterKnox [facility] Hospital08-22-2023 History of Present illness Narrative* Kala Mendoza MA - 01/08/2023 2:54 PM EDT Patient identified by name and date of . Shavon Escalona presents today for a vaccination of Tdap. Patient denies an allergy to latex: yes Patient denies a severe (life-threatening) allergy to a previous dose of Tdap, DTP, DTaP, DT or Td vaccine. Yes Patient denies history of epilepsy or neurological problems: Yes Patient is afebrile and denies being moderately or severely ill: Yes Patient denies history of Guillain-Falcon Syndrome (a severe paralytic illness): Yes Tdap Adacel injection was given without incident. See immunizations for details of immunizations administered today. VIS sheet provided: Yes Provider Oleg Patel MD was present in office at time of injection. Kala Mendoza MA documented in this encounterKnox Community Hospital08-22-2023 Instructions* Patient Instructions* Kala Mendoza MA - 01/08/2023 2:45 PM EDT SEQUENTIAL SCREENINGS [facility] offers sequential screenings for women who are interested in screenings for chromosomal abnormalities and certain defects during a . The sequential screen combinesultrasound and blood tests to determine the risk of chromosomal abnormalities, including Down's Syndrome (Trisomy 21) and Trisomy 18, as well as open neural tube defects including spina bifida. Ultrasound examination is performed between 11 weeks and 13 weeks gestational age. Blood tests are drawn after the ultrasound and again later in the between 15 and 21 weeks gestational age. Please let your physician know if you are interested in this testing. It will require an appointment withour social services technician. This is not an ultrasound performed by a physician in our office during a routine visit. SIGNS AND SYMPTOMS OF LABOR 1. Contractions every 10 minutes or more often 2. Clear, pink, or brownish fluid (water) leaking from vagina 3. Feeling that baby is pushing down, pressure 4. Low, dull backache 5. Cramps that feel like a period 6. Cramps with or without diarrhea If you notice any of the above symptoms, contact our office at [phone] and ask to speak with anurse. After hours, you can call doctors registry at [phone] OR call [facility] at [phone] ask to have the doctor splunk consultant paged. If you consider this an emergency, dial 9-1-1 or go to your nearest emergency department. NEED HELP? Are you dealing with a violent or abusive relationship? Are you a victim of rape or sexual assult? Call [facility] ([place]) 24 hour Crisis Hotline: 425.949.5335 or 111-672-9091. MANUAL Your Guide to a Healthy manual is now on-line. Visit [email or web address] to download your free copy documented in this encounterKnox Community Hospital07-03-2023 Miscellaneous Notes* Telephone Encounter - Meagan Hilton MD - 11/19/2022 9:50 AM EDT ordered * Telephone Encounter - Eleni Manrique RN - 11/19/2022 8:18 AM EDT Patient 21w4d is scheduled for f/u anatomy ultrasound on 11/29. Please file pended order. Order willneed to be linked to upcoming appointment. Eleni Manrique RN documented in this encounterKnox Community Hospital06-27-2023 Miscellaneous Notes* Quick Notes - Oleg Patel MD - 11/13/2022 9:31 AM EDT KJ - No VB/LOF/ctxs. Reports some FM. She has questions about endometriosis treatment PP. Also report h/o BV. A&P: Anatomy US today Endometriosis - discussed likely referral to endometriosis specialist PP H/o BV - advised on probiotic and all questions answered Oleg Patel MD documented in this encounterKnox Community Hospital06-27-2023 Instructions* Patient Instructions* Oleg Patel MD - 11/13/2022 8:57 AM EDT [facility] SEQUENTIAL SCREENINGS [facility] offers sequential screenings for women who are interested in screenings for chromosomal abnormalities and certain defects during a . The sequential screen combinesultrasound and blood tests to determine the risk of chromosomal abnormalities, including Down's Syndrome (Trisomy 21) and Trisomy 18, as well as open neural tube defects including spina bifida. Ultrasound examination is performed between 11 weeks and 13 weeks gestational age. Blood tests are drawn after the ultrasound and again later in the between 15 and 21 weeks gestational age. Please let your physician know if you are interested in this testing. It will require an appointment withour social services technician. This is not an ultrasound performed by a physician in our office during a routine visit. SIGNS AND SYMPTOMS OF LABOR 1. Contractions every 10 minutes or more often 2. Clear, pink, or brownish fluid (water) leaking from vagina 3. Feeling that baby is pushing down, pressure 4. Low, dull backache 5. Cramps that feel like a period 6. Cramps with or without diarrhea If you notice any of the above symptoms, contact our office at [phone] and ask to speak with anurse. After hours, you can call doctors registry at [phone] OR call [facility] at [phone] ask to have the doctor splunk consultant paged. If you consider this an emergency, dial 1-1- or go to your nearest emergency department. NEED HELP? Are you dealing with a violent or abusive relationship? Are you a victim of rape or sexual assult? Call [facility] ([facility] 24 hour Crisis Hotline: 503.118.8341 or 113-023-6193. MANUAL Your Guide to a Healthy manual is now on-line. Visit [email or web address] to download your free copy documented in this encounterKnox Community Hospital05-31-2023 Miscellaneous Notes* Quick Notes - Naomi Olivera APRN.BALBIR - 10/17/2022 4:29 PM EDT Shavon Escalona is a 26 year old female who presents at 16w6d for a routine visit. No movement to date. Denies headache, visual changes, chest pain, shortness of breath, vaginal bleeding, leakage of fluid, or dysuria. Feeling well, no complaints. AFP blood work today. Size equal to dates. 9 lbs TWG. PTL / Bleeding precautions reviewed. RTC in 4 weeks for anatomy US and CELY. Naomi Olivera APRN.CNM documented in this encounterKnox Community Hospital05-31-2023 Instructions* Patient Instructions* Kala Mendoza MA - 10/17/2022 3:10 PM EDT SEQUENTIAL SCREENINGS [facility] offers sequential screenings for women who are interested in screenings for chromosomal abnormalities and certain defects during a . The sequential screen combinesultrasound and blood tests to determine the risk of chromosomal abnormalities, including Down's Syndrome (Trisomy 21) and Trisomy 18, as well as open neural tube defects including spina bifida. Ultrasound examination is performed between 11 weeks and 13 weeks gestational age. Blood tests are drawn after the ultrasound and again later in the between 15 and 21 weeks gestational age. Please let your physician know if you are interested in this testing. It will require an appointment withour social services technician. This is not an ultrasound performed by a physician in our office during a routine visit. SIGNS AND SYMPTOMS OF LABOR 1. Contractions every 10 minutes or more often 2. Clear, pink, or brownish fluid (water) leaking from vagina 3. Feeling that baby is pushing down, pressure 4. Low, dull backache 5. Cramps that feel like a period 6. Cramps with or without diarrhea If you notice any of the above symptoms, contact our office at [phone] and ask to speak with anurse. After hours, you can call doctors registry at [phone] OR call [facility] at [phone] ask to have the doctor splunk consultant paged. If you consider this an emergency, dial 9--1 or go to your nearest emergency department. NEED HELP? Are you dealing with a violent or abusive relationship? Are you a victim of rape or sexual assult? Call [facility] ([place]) 24 hour Crisis Hotline: 905.148.7375 or 339-615-0571. MANUAL Your Guide to a Healthy manual is now on-line. Visit [email or web address] to download your free copy documented in this encounterKnox Community Hospital05-02-2023 Miscellaneous Notes* Addendum Note - Selam Ellis MD - 09/18/2022 10:30 AM EDTAddended by: SELAM ELLIS on: 09/18/2022 10:30 AM Modules accepted: Orders * Addendum Note - Fela Berrios Ma - 09/18/2022 9:05 AM EDTAddended by: FELA BERRIOS MA on: 09/18/2022 09:05 AM Modules accepted: Orders * Quick Notes - Selam Ellis MD - 09/18/2022 8:48 AM EDT RR- VB No. LOF No. CTXS No. Movement: present. Other c/o: No. some vaginal discharge, yellowish w/ some odor. Tongue w/ white color and has a bad taste in her mouth. Medication list reviewed. 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 Had US today. Selam Ellis M.D. documented in this encounterKnox Community Hospital05-02-2023 Instructions* Patient Instructions* Fela Berrios Ma - 09/18/2022 8:07 AM EDT SEQUENTIAL SCREENINGS [facility] offers sequential screenings for women who are interested in screenings for chromosomal abnormalities and certain defects during a . The sequential screen combinesultrasound and blood tests to determine the risk of chromosomal abnormalities, including Down's Syndrome (Trisomy 21) and Trisomy 18, as well as open neural tube defects including spina bifida. Ultrasound examination is performed between 11 weeks and 13 weeks gestational age. Blood tests are drawn after the ultrasound and again later in the between 15 and 21 weeks gestational age. Please let your physician know if you are interested in this testing. It will require an appointment withour social services technician. This is not an ultrasound performed by a physician in our office during a routine visit. SIGNS AND SYMPTOMS OF LABOR 1. Contractions every 10 minutes or more often 2. Clear, pink, or brownish fluid (water) leaking from vagina 3. Feeling that baby is pushing down, pressure 4. Low, dull backache 5. Cramps that feel like a period 6. Cramps with or without diarrhea If you notice any of the above symptoms, contact our office at [phone] and ask to speak with anurse. After hours, you can call [facility] registry at [phone] OR call [facility] at [phone] ask to have the doctor splunk consultant paged. If you consider this an emergency, dial 9-1-5 or go to your nearest emergency department. NEED HELP? Are you dealing with a violent or abusive relationship? Are you a victim of rape or sexual assult? Call [facility] ([place]) 24 hour Crisis Hotline: 195.881.7410 or 955-529-7152. MANUAL Your Guide to a Healthy manual is now on-line. 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 INITIAL OB ASSESSMENT OB Provider: Meagan Hilton MD HPI: Shavon Escalona is a 26 year old female here to establish Obstetrical Care. Patient's last menstrual period was 06/21/2022 (exact date). from OB Dating Form. Cycle length: 28 days Complaints: None was planned. OB History T1 L1 SAB0 IAB0 Ectopic0 Multiple0 Live Births1 Prior : yes x 1 History of 4th degree laceration: No Patient's Risk Screening for delivery: History of abnormal pap: No Prior treatment for cervical dysplasia: none. 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 As covered by insurance No current facility-administered medications on file prior to visit. Review of Systems: GENERAL: Negative for: Fever or Chills HEENT: Negative for: Headache, Impaired Vision, Ringing in Ears, Nosebleeds NECK: Negative for: Swelling, Pain, Stiffness RESPIRATORY: Negative for: Cough, Shortness of breath, Wheezing GASTROINTESTINAL: Negative for: Heartburn, Constipation, Diarrhea, Blood in stool, Vomiting MUSCULOSKELETAL: Negative for: Muscle or joint pain, stiffness, Joint swelling NEUROLOGIC/PSYCHIATRIC: Negative for: Weakness, Paralysis, Numbness, Tingling, Tremor, Anxiety, Depression, Memory loss SKIN: Negative for: Rash, Itching GENITOURINARY: Negative for: vaginal itching, hematuria or dysuria. Some discharge- had BV prevoiusly PHYSICAL EXAM: BP 100/60 Ht 5' 6 (1.68m) Wt 131 lb 6.4 oz (59.6kg) LMP 06/21/2022 BMI 21.22 kg/(m^2). GENERAL: pleasant female in no apparent distress DERMATOLOGY: Normal, without lesions, non-icteric, and non-hirsute NECK: Supple, full range of motion, no adenopathy, and thyroid normal BREAST: soft, non-tender, symmetric, no dominant mass, normal nipple-areolar complex, no lymphadenopathy, and no nipple discharge ABDOMEN: soft, non-tender, and no masses NEURO: alert and oriented x3,exam grossly non-focal PELVIS: External genitalia normal without lesions. Perineal body intact. No vaginal or cervical lesions. Cervix closed. Clinical Pelvimetry: not done Limited OB ultrasound exam: single intrauterine and positive cardiac activity OB Risk Screening: Completed, no positive findings documented. ASSESSMENT: 26 year old at 8.4 wks gestational age PLAN: 1) Patient oriented to practice. Discussed nutrition, folic acid supplementation, dietary guidelines, exercise, smoking, alcohol, caffeine, and drug use. Discussed routine OB labs including STD/HIV. Discussed aneuploidy screening options including serum screening and nuchal translucency. 2) NT ordered- deciding maternity 21 vs sequential 3) reviewed treatment of bv ok in first trimester- pt feels symptoms improving- requesting recheck today before treatment. Follow up in 4 weeks or sooner prn. Meagan Braun MD documented in this encounterKnox Community Hospital04-04-2023 Instructions* Patient Instructions* Kala Mendoza MA - 08/21/2022 3:14 PM EDT Please select the following link to access the [facility] Your Guide to a Healthy . [email or web address] documented in this encounterKnox Community Hospital03-24-2023 Miscellaneous Notes* Telephone Encounter - Eleni Manrique RN - 08/10/2022 4:56 PM EDT Patient notified and voiced understanding. Eleni Manrique RN * Telephone Encounter - Oleg Patel MD - 08/10/2022 4:29 PM EDT Typically treat at 12 weeks Oleg Patel MD * Telephone Encounter - Mecca Sanchez LPN - 08/10/2022 2:16 PM EDT Patient was seen by Clara Olivera 08/08/22 and had a positive BV culture. 7w1d Patient asking if she can receive treatment. Previously used metrogel. documented in this encounterKnox Community Hospital03-22-2023 History of Present illness Narrative* Naomi Olivera APRN.CNM - 08/08/2022 3:27 PM EDT SUBJECTIVE: Shavon Escalona is an 26 year old woman who presents with vaginitis. She was treated for bacterial vaginosis last month and symptoms resolved. Last week started feeling increased vaginal irritation, and vaginal discharge described as malodorous, white, yellow, local irritation, and vulvar itching. Feels like bacterial infection has returned. Currently 6 weeks . Predisposing factors: and antibiotics Hx of previous vaginitis: rare Current Outpatient Medications on File Prior to Visit Medication Sig PNV 05-qhoa-yhgdrhjghpqu-dha 29 mg iron-1 mg -350 mg CKDR Take 1 capsule by mouth once daily. As covered by insurance No current facility-administered medications on file prior to visit. ASSESSMENT/PLAN: 1. Vaginal discharge - ICD9: 623.5, ICD10: N89.8 (primary diagnosis) 2. Acute vaginitis - ICD9: 616.10, ICD10: N76.0 PLAN: - BACTERIAL VAGINOSIS AMPLIFICATION - CHRISTAL / TRICHOMONAS AMPLIFICATION - GC/CHLAMYDIA DNA DET - Vulvar hygiene reviewed - Continue probiotic PO daily PE: Discussed vaginitis, modes of transmission, and rationale for treatment. Will notify patient of results and any changes to treatment plan Naomi Olivera APRN.CNM documented in this encounterKnox Community Hospital03-20-2023 Miscellaneous Notes* Quick Notes - Elsa Marie RN - 08/06/2022 11:41 AM EDT DISTANCE HEALTH VISIT This Team Access Model visit is a phone encounter. It required patient-provider interaction for themedical decision making as documented below. Shavon Escalona is a 26 year old female seen for PNOB visit. Patient has a history of an endometrioma that was seen on ultrasound. To be followed up with patient treated for BV in June.States she believes that infection has resolved but would like test of cure at new OB appointment.Pt has a history of depression . She believes that she has anxiety although she has never been diagnosed. She was never treated with any medications. Believes she is doing well. Has seen a counselor in the past in [place]. Discussed increased risks of depression during and and importance of reporting the development or worsening of symptoms should they occur. Pt denies ever having any suicidal thoughts or tendencies or thoughts of hurting others. Patient's brother born with hole in heart that was repaired. Father of the baby's niece born with cleft palate. Patient considering aneuploidy screening. Contact information for [facility] given to patient to check on insurance coverage. Patient states she has had negative carrier screening testing in the past.Elsa Marie RN documented in this encounterKnox Community Hospital03-20-2023 History of Present illness Narrative* Elsa Marie RN - 08/06/2022 11:39 AM EDT # 1 - Date: 02/12/20, Sex: Female, Weight: 7 lb 1 oz (3.204 kg), GA: 39w4d, Delivery: Vaginal, Spontaneous, Apgar1: 9, Apgar5: 9, Living: Living, Comments: SROM, 2nd deg perineal lac, EBL 350 mL # 2 - Date: None, Sex: None, Weight: None, GA: None, Delivery: None, Apgar1: None, Apgar5: None, Living: None, Comments: None documented in this encounterKnox Community Hospital03-13-2023 History of Present illness Narrative* Gricel Christensen APRN.BALBIR - 07/30/2022 3:47 PM EDT DISTANCE HEALTH VISIT This Team Access Model visit is a virtual encounter. It required patient- provider interaction for the medical decision making as documented below. Shavon Escalona is a 26 year old female seen for follow up results for pelvic pain. Over last several months midline pelvis pain that starts week after menses. Menses every month and regular. Not heavy. Nothing for control. Currently sexually active. Partner x 10 years. Has been trying to conceive for 6 months. HISTORY REVIEWED (electronic chart updated): - medical history - medications - allergies REVIEW OF SYSTEMS: GENERAL: feeling well without fatigue, no recent change in weight PHYSICAL EXAMINATION: VIDEO EXAM: (if done, performed via video enabled technology) GENERAL: alert and appropriate, in no distress, well-hydrated, well nourished, and happy, smiling, interactive Impression Normal appearing retroverted uterus that measures 79 mm x 41 mm x 61 mm. The central endometrium complex measures 10.6 mm in combined thickness. No abnormal blood flow to suggest a polyp or focal endometrial pathology is observed within the endometrial complex. The contour of the endometrial cavitywas normal on 3-D imaging. There is a small amount of free fluid visualized in the peritoneal cavity. The right ovary contains multiple cysts- One is 2.2 cm that contains low level internal echoes which is consistent with endometrioma. There is a 1.9cm complex appearing cyst and a 1.7cm cyst that is mostly simple with a thin septation. No internal vascular flow. The left ovary contains a 2.5cm complex cyst with low level internal echoes- this is also consistent with an endometrioma. The slide test is negative on the left ovary. Technique: Three dimensional imaging was created on a dedicated stand-alone 3D workstation with images created and archived, and supervised and reviewed by the interpreting physician utilizing Whisher a US Scan performed on 07/10/22 Duplex scan was performed using B-Mode/abraham scale imaging and Doppler spectral analysis and color flow. Recommendations if no surgical intervention performed recommend follow up in 6-12 weeks to check for cyst resolution. ASSESSMENT/PLAN: 1. Endometrioma - ICD9: 617.9, ICD10: N80.129 (primary diagnosis) -Reviewed with patient endometrioma and recommendation for referral to [facility]. She is since her visit and ultrasound. At this time, will follow up in 6-12 weeks for US during . Discussed follow up after for possible surgical intervention. 2. Ovarian cyst, bilateral - ICD9: 620.2, ICD10: N83.201, N83.202 3. Ovarian cyst, complex - ICD9: 620.2, ICD10: N83.299 4. Encounter for test, result positive - ICD9: V72.42, ICD10: Z32.01 5. Bacterial vaginitis - ICD9: 616.10, 041.9, ICD10: N76.0, B96.89 Gricel Christensen APRN.CNM I spent 20 minutes in the visit, with more than 50% of the total [id number] time of the visit in counseling / coordination of care. [facility] Miscellaneous Notes* Telephone Encounter - Mecca Sanchez LPN - 07/20/2022 11:02 AM EST Patient notified * Telephone Encounter - Anny Rocha LPN - 07/20/2022 10:48 AM EST Pt left voicemail and HelloFreshhart message sent. Anny Rocha LPN * Telephone Encounter - Naomi Olivera APRN.CNM - 07/20/2022 10:34 AM EST Yes, vaginal Metro gel is appropriate. Naomi Olivera APRN.CNM * Telephone Encounter - Kriss Maurer RN - 07/20/2022 10:24 AM EST LMP 06/21/22 4w1d today Patient just found out she was today and was prescribed Metrogel yesterday. Asking if it'sokay if she still uses that? .me documented in this encounterKn[facility]03[facility]23 Miscellaneous Notes* Telephone Encounter - Alicia Daley RN - 07/19/2022 3:42 PM EST Patient notified. Advised to make an appointment if her symptoms don't improve. Alicia Daley RN * Telephone Encounter - Eleni Manrique RN - 07/19/2022 2:54 PM EST Left message to call office. Eleni Manrique RN * Telephone Encounter - Selam Ellis MD - 07/19/2022 2:31 PM EST Patient's request for medication is as follows Requested Prescriptions Signed Prescriptions Disp Refills metroNIDAZOLE (METROGEL) 0.75 % (37.5mg/5 gram) Vaginal Gel 70 g 0 Sig: Use 1 Applicatorful vaginally daily at bedtime for 5 days. Authorizing Provider: SELAM ELLSI Order entered - please phone pharmacy and notify patient. Selam Ellis MD * Telephone Encounter - Alicia Daley RN - 07/19/2022 2:17 PM EST KATIE patient finished course of Flagyl on Saturday. States she is still experiencing vaginal irritationand yellow/green discharge. Symptoms did not improve during course of treatment. Patient confirmed that Metrogel was discussed if the Flagyl did not help. Please advise. Alicia Daley RN documented [facility]Kn[facility]23 Miscellaneous Notes* Telephone Encounter - Gricel Christensen APRN.CNM - 07/09/2022 4:47 PM EST Sent. Thank you, Gricel Christensen APRN.CNM * Telephone Encounter - Anny Rocha LPN - 07/09/2022 2:12 PM EST Received denial for vitamin. Pt must take a generic brand . No specific name was provided. Please advise how you would like to proceed from here. Anny Rocha LPN * Telephone Encounter - Anny Rocha LPN - 07/06/2022 1:20 PM EST Electronic PA submitted for vitamin prescribed. Will await further information from pts insurance. Anny Rocha LPN' documented in [facility] encounterKn[facility]02[facility]23 Miscellaneous Notes* Telephone Encounter - Eleni Manrique RN - 07/05/2022 9:54 AM EST The following approved medications have been transmitted electronically. Requested Prescriptions Signed Prescriptions Disp Refills metroNIDAZOLE (FLAGYL) 500 mg tablet 14 tablet 0 Sig: Take 1 tablet by mouth twice daily for 7 days. Authorizing Provider: TERRANCE GOTTLIEB Pharmacy Information Pharmacy Address [id number] [address] [place] [address] Eleni Manrique RN * Telephone Encounter - Terrance Gottlieb MD - 07/05/2022 9:54 AM EST Filed * Telephone Encounter - Eleni Manrique RN - 07/05/2022 9:35 AM EST Patient was seen by Gricel Christensen in the office yesterday. She saw her results on MyChart and is aware of positive BV result. Reviewed with patient Flagyl instructions. Please send Rx in providers absence as patient is getting ready to go out of town. Will only call patient back if there is a problem. Eleni Manrique RN documented in this encounterKn[facility]02-[facility]-2023 Miscellaneous Notes* Telephone Encounter - Terrance Gottlieb MD - 07/04/2022 9:04 PM EST Per chart review pt was seen today. Will close encounter documented in this encounterKn[facility]02-14-[facility]23 History of Present illness Narrative* Dago Gamez APRN.CNP - 07/03/2022 7:51 PM EST Express [facility] Online visit unable to be completed because no video/audio connection made during attempted visit. Dago Gamez APRN.JOSÉ LUIS documented in this encounterKn[facility]09-11-2020 History of Past illness Narrative* Problem Noted Date Resolved Date Positive GBS test 01/29/2020 03/28/2020 with care elsewhere 0 03/28/2020 Overview: 10/22/2019Patient and live in [place]. 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 Patient will either be hand-carrying her records at her appointment time or we will have them faxed here. TKRN documented as of this encounter (statuses as of 07/04/2022) [facility] Narrative* Problem Noted Date Resolved Date Positive GBS test 01/29/2020 03/28/2020 with care elsewhere 0 03/28/2020 Overview: 10/22/2019Patient and live in [place]. 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 Patient will either be hand-carrying her records at her appointment time or we will have them faxed here. TKRN documented as of this encounter (statuses as of 07/05/2022) [facility] Narrative* Problem Noted Date Resolved Date Positive GBS test 01/29/2020 03/28/2020 with care elsewhere 0 03/28/2020 Overview: 10/22/2019Patient and live in [place]. 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 Patient will either be hand-carrying her records at her appointment time or we will have them faxed here. TKRN documented as of this encounter (statuses as of 07/05/2022) [facility] Narrative* Problem Noted Date Resolved Date Positive GBS test 01/29/2020 03/28/2020 with care elsewhere 0 03/28/2020 Overview: 10/22/2019Patient and live in [place]. 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 Patient will either be hand-carrying her records at her appointment time or we will have them faxed here. TKRN documented as of this encounter (statuses as of 07/11/2022) [facility] Narrative* Problem Noted Date Resolved Date Positive GBS test 01/29/2020 03/28/2020 with care elsewhere 0 03/28/2020 Overview: 10/22/2019Patient and live in [place]. 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 Patient will either be hand-carrying her records at her appointment time or we will have them faxed here. TKRN documented as of this encounter (statuses as of 07/12/2022) [facility] Narrative* Problem Noted Date Resolved Date Positive GBS test 01/29/2020 03/28/2020 with care elsewhere 0 03/28/2020 Overview: 10/22/2019Patient and live in [place]. 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 Patient will either be hand-carrying her records at her appointment time or we will have them faxed here. TKRN documented as of this encounter (statuses as of 07/19/2022) [facility] Narrative* Problem Noted Date Resolved Date Positive GBS test 01/29/2020 03/28/2020 with care elsewhere 0 03/28/2020 Overview: 10/22/2019Patient and live in [place]. 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 Patient will either be hand-carrying her records at her appointment time or we will have them faxed here. TKRN documented as of this encounter (statuses as of 07/20/2022) [facility] Narrative* Problem Noted Date Resolved Date Positive GBS test 01/29/2020 03/28/2020 with care elsewhere 0 03/28/2020 Overview: 10/22/2019Patient and live in [place]. 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 Patient will either be hand-carrying her records at her appointment time or we will have them faxed here. TKRN documented as of this encounter (statuses as of 07/31/2022) [facility] Narrative* Problem Noted Date Resolved Date Positive GBS test 01/29/2020 03/28/2020 with care elsewhere 0 03/28/2020 Overview: 10/22/2019Patient and live in [place]. 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 Patient will either be hand-carrying her records at her appointment time or we will have them faxed here. TKRN documented as of this encounter (statuses as of 08/06/2022) [facility] Narrative* Problem Noted Date Resolved Date Positive GBS test 01/29/2020 03/28/2020 with care elsewhere 0 03/28/2020 Overview: 10/22/2019Patient and live in [place]. 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 Patient will either be hand-carrying her records at her appointment time or we will have them faxed here. TKRN documented as of this encounter (statuses as of 08/07/2022) [facility] Narrative* Problem Noted Date Resolved Date Positive GBS test 01/29/2020 03/28/2020 with care elsewhere 0 03/28/2020 Overview: 10/22/2019Patient and live in [place]. 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 Patient will either be hand-carrying her records at her appointment time or we will have them faxed here. TKRN documented as of this encounter (statuses as of 08/08/2022) [facility] Narrative* Problem Noted Date Resolved Date Positive GBS test 01/29/2020 03/28/2020 with care elsewhere 0 03/28/2020 Overview: 10/22/2019Patient and live in [place]. 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 Patient will either be hand-carrying her records at her appointment time or we will have them faxed here. TKRN documented as of this encounter (statuses as of 08/10/2022) [facility] Narrative* Problem Noted Date Resolved Date Positive GBS test 01/29/2020 03/28/2020 with care elsewhere 0 03/28/2020 Overview: 10/22/2019Patient and live in [place]. 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 Patient will either be hand-carrying her records at her appointment time or we will have them faxed here. TKRN documented as of this encounter (statuses as of 08/22/2022) [facility] Narrative* Problem Noted Date Resolved Date Positive GBS test 01/29/2020 03/28/2020 with care elsewhere 0 03/28/2020 Overview: 10/22/2019Patient and live in [place]. 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 Patient will either be hand-carrying her records at her appointment time or we will have them faxed here. TKRN documented as of this encounter (statuses as of 09/18/2022) [facility] Narrative* Problem Noted Date Resolved Date Positive GBS test 01/29/2020 03/28/2020 with care elsewhere 0 03/28/2020 Overview: 10/22/2019Patient and live in [place]. 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 Patient will either be hand-carrying her records at her appointment time or we will have them faxed here. TKRN documented as of this encounter (statuses as of 09/18/2022) [facility] Narrative* Problem Noted Date Resolved Date Positive GBS test 01/29/2020 03/28/2020 with care elsewhere 0 03/28/2020 Overview: 10/22/2019Patient and live in [place]. 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 Patient will either be hand-carrying her records at her appointment time or we will have them faxed here. TKRN documented as of this encounter (statuses as of 10/18/2022) [facility] Narrative* Problem Noted Date Resolved Date Positive GBS test 01/29/2020 03/28/2020 with care elsewhere 0 03/28/2020 Overview: 10/22/2019Patient and live in [place]. 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 Patient will either be hand-carrying her records at her appointment time or we will have them faxed here. TKRN documented as of this encounter (statuses as of 11/13/2022) [facility]ative* Problem Noted Date Resolved Date Positive GBS test 01/29/2020 03/28/2020 with care elsewhere 0 03/28/2020 Overview: 10/22/2019Patient and live in [place]. 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 Patient will either be hand-carrying her records at her appointment time or we will have them faxed here. TKRN documented as of this encounter (statuses as of 11/13/2022) [facility] Narrative* Problem Noted Date Resolved Date Positive GBS test 01/29/2020 03/28/2020 with care elsewhere 0 03/28/2020 Overview: 10/22/2019Patient and live in [place]. 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 Patient will either be hand-carrying her records at her appointment time or we will have them faxed here. TKRN documented as of this encounter (statuses as of 11/19/2022) [facility] Narrative* Problem Noted Date Diagnosed Date Resolved Date Positive GBS test 01/29/2020 03/28/2020 with care elsewhere 10/22/2019 03/28/2020 Overview: 10/22/2019Patient and live in [place]. 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 Patient will either be hand-carrying her records at her appointment time or we will have them faxed here. TKRN documented as of this encounter (statuses as of 11/29/2022) [facility] Narrative* Problem Noted Date Diagnosed Date Resolved Date Positive GBS test 01/29/2020 03/28/2020 with care elsewhere 10/22/2019 03/28/2020 Overview: 10/22/2019Patient and live in [place]. 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 Patient will either be hand-carrying her records at her appointment time or we will have them faxed here. TKRN documented as of this encounter (statuses as of 01/09/2023) [facility]* Problem Noted Date Diagnosed Date Resolved Date Positive GBS test 01/29/2020 03/28/2020 with care elsewhere 10/22/2019 03/28/2020 Overview: 10/22/2019Patient and live in [place]. 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 Patient will either be hand-carrying her records at her appointment time or we will have them faxed here. TKRN documented as of this encounter (statuses as of 01/25/2023) [facility]* Problem Noted Date Diagnosed Date Resolved Date Positive GBS test 01/29/2020 03/28/2020 with care elsewhere 10/22/2019 03/28/2020 Overview: 10/22/2019Patient and live in [place]. 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 Patient will either be hand-carrying her records at her appointment time or we will have them faxed here. TKRN documented as of this encounter (statuses as of 02/16/2023) [facility]* Problem Noted Date Diagnosed Date Resolved Date Positive GBS test 01/29/2020 03/28/2020 with care elsewhere 10/22/2019 03/28/2020 Overview: 10/22/2019Patient and live in [place]. 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 Patient will either be hand-carrying her records at her appointment time or we will have them faxed here. TKRN documented as of this encounter (statuses as of 02/26/2023) [facility]* Problem Noted Date Diagnosed Date Resolved Date Positive GBS test 01/29/2020 03/28/2020 with care elsewhere 10/22/2019 03/28/2020 Overview: 10/22/2019Patient and live in [place]. 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 Patient will either be hand-carrying her records at her appointment time or we will have them faxed here. TKRN documented as of this encounter (statuses as of 03/08/2023) [facility]* Problem Noted Date Diagnosed Date Resolved Date Positive GBS test 01/29/2020 03/28/2020 with care elsewhere 10/22/2019 03/28/2020 Overview: 10/22/2019Patient and live in [place]. 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 Patient will either be hand-carrying her records at her appointment time or we will have them faxed here. TKRN documented as of this encounter (statuses as of 03/15/2023) [facility]* Problem Noted Date Diagnosed Date Resolved Date Positive GBS test 01/29/2020 03/28/2020 with care elsewhere 10/22/2019 03/28/2020 Overview: 10/22/2019Patient and live in [place]. 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 Patient will either be hand-carrying her records at her appointment time or we will have them faxed here. TKRN documented as of this encounter (statuses as of 03/19/2023) [facility]arr[facility]* Problem Noted Date Diagnosed Date Resolved Date Positive GBS test 01/29/2020 03/28/2020 with care elsewhere 10/22/2019 03/28/2020 Overview: 10/22/2019Patient and live in [place]. 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 Patient will either be hand-carrying her records at her appointment time or we will have them faxed here. TKRN documented as of this encounter (statuses as of 03/28/2023) [facility]* Problem Noted Date Diagnosed Date Resolved Date Positive GBS test 01/29/2020 03/28/2020 with care elsewhere 10/22/2019 03/28/2020 Overview: 10/22/2019Patient and live in [place]. 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 Patient will either be hand-carrying her records at her appointment time or we will have them faxed here. TKRN documented as of this encounter (statuses as of 03/28/2023) [facility] Narrative* Problem Noted Date Diagnosed Date Resolved Date Positive GBS test 01/29/2020 03/28/2020 with care elsewhere 10/22/2019 03/28/2020 Overview: 10/22/2019Patient and live in [place]. 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 Patient will either be hand-carrying her records at her appointment time or we will have them faxed here. TKRN documented as of this encounter (statuses as of 04/06/2023) [facility]ative* Problem Noted Date Diagnosed Date Resolved Date Positive GBS test 01/29/2020 03/28/2020 with care elsewhere 10/22/2019 03/28/2020 Overview: 10/22/2019Patient and live in [place]. 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 Patient will either be hand-carrying her records at her appointment time or we will have them faxed here. TKRN documented as of this encounter (statuses as of 04/06/2023) [facility]* Problem Noted Date Diagnosed Date Resolved Date Positive GBS test 01/29/2020 03/28/2020 with care elsewhere 10/22/2019 03/28/2020 Overview: 10/22/2019Patient and live in [place]. 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 Patient will either be hand-carrying her records at her appointment time or we will have them faxed here. TKRN documented as of this encounter (statuses as of 04/09/2023) [facility]arrative* Problem Noted Date Diagnosed Date Resolved Date Positive GBS test 01/29/2020 03/28/2020 with care elsewhere 10/22/2019 03/28/2020 Overview: 10/22/2019Patient and live in [place]. 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 Patient will either be hand-carrying her records at her appointment time or we will have them faxed here. TKRN documented as of this encounter (statuses as of 04/19/2023) [facility]* Problem Noted Date Diagnosed Date Resolved Date Positive GBS test 01/29/2020 03/28/2020 with care elsewhere 10/22/2019 03/28/2020 Overview: 10/22/2019Patient and live in [place]. 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 Patient will either be hand-carrying her records at her appointment time or we will have them faxed here. TKRN documented as of this encounter (statuses as of 04/22/2023) [facility]* Problem Noted Date Diagnosed Date Resolved Date Positive GBS test 01/29/2020 03/28/2020 with care elsewhere 10/22/2019 03/28/2020 Overview: 10/22/2019Patient and live in [place]. 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 Patient will either be hand-carrying her records at her appointment time or we will have them faxed here. TKRN documented as of this encounter (statuses as of 06/25/2023) [facility]2020 History of Past illness Narrative* Problem Noted Date Diagnosed Date Resolved Date Positive GBS test 01/29/2020 03/28/2020 with care elsewhere 10/22/2019 03/28/2020 Overview: 10/22/2019Patient and live in [place]. 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 Patient will either be hand-carrying her records at her appointment time or we will have them faxed here. TKRN documented as of this encounter (statuses as of 06/25/2023) [facility]-2020 History of Past illness Narrative* Problem Noted Date Diagnosed Date Resolved Date Positive GBS test 01/29/2020 03/28/2020 with care elsewhere 10/22/2019 03/28/2020 Overview: 10/22/2019Patient and live in [place]. 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 Patient will either be hand-carrying her records at her appointment time or we will have them faxed here. TKRN documented as of this encounter (statuses as of 07/02/2023) [facility] History of Past illness Narrative* Problem Noted Date Diagnosed Date Resolved Date Positive GBS test 01/29/2020 03/28/2020 with care elsewhere 10/22/2019 03/28/2020 Overview: 10/22/2019Patient and live in [place]. 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 Patient will either be hand-carrying her records at her appointment time or we will have them faxed here. TKRN documented as of this encounter (statuses as of 07/09/2023) [facility] Diagnosis Treatment not available- Primary Procedure not carried out for other reasons [facility] Diagnosis Pelvic pain in female- Primary Unspecified symptom associated with female genital organs Ovarian cyst, bilateral Other and unspecified ovarian cyst [facility]* Diagnosis Endometrioma- Primary Endometriosis, site unspecified Ovarian cyst, bilateral Other and unspecified ovarian cyst Ovarian cyst, complex Other and unspecified ovarian cyst Encounter for test, result positive examination or test, positive result Bacterial vaginitis Vaginitis and vulvovaginitis, unspecified [facility]* Diagnosis Supervision of normal first , antepartum- Primary Bacterial vaginosis in History of depression Family history of cleft palate Family history of congenital anomalies [facility]* Diagnosis Pelvic pain in female Unspecified symptom associated with female genital organs [facility]* Diagnosis Vaginal discharge- Primary Leukorrhea, not specified as infective Acute vaginitis Vaginitis and vulvovaginitis, unspecified [facility]* Diagnosis Encounter for supervision of other normal in first trimester- Primary 8 weeks gestation of state, incidental [facility]* Diagnosis Encounter for supervision of other normal in first trimester- Primary 12 weeks gestation of state, incidental Vaginal discharge Leukorrhea, not specified as infective [facility] Diagnosis Encounter for (NT) nuchal translucency scan- Primary Other specified screening Encounter for supervision of other normal in first trimester 12 weeks gestation of state, incidental [facility] Diagnosis 16 weeks gestation of - Primary state, incidental Encounter for supervision of other normal in first trimester [facility]* Diagnosis Encounter for supervision of other normal in second trimester- Primary 20 weeks gestation of state, incidental [facility]* Diagnosis Encounter for anatomic survey- Primary 20 weeks gestation of state, incidental [facility] Diagnosis Encounter for supervision of other normal in second trimester- Primary [facility] Diagnosis Encounter for follow-up ultrasound of anatomy [Z36.2]- Primary Encounter for supervision of other normal in second trimester [facility]* Diagnosis 28 weeks gestation of - Primary state, incidental Encounter for supervision of other normal in second trimester Need for vaccination Need for prophylactic vaccination and inoculation against unspecified single disease [facility] Diagnosis 31 weeks gestation of - Primary state, incidental Encounter for supervision of normal first in third trimester Supervision of normal first [facility] Diagnosis 33 weeks gestation of - Primary state, incidental Encounter for supervision of normal first in third trimester Supervision of normal first Need for influenza vaccination Need for prophylactic vaccination and inoculation against influenza Pelvic pressure in Other specified complication, antepartum [facility] Diagnosis Encounter for supervision of normal first in third trimester- Primary Supervision of normal first 35 weeks gestation of state, incidental [facility] Diagnosis Pelvic pressure in - Primary Other specified complication, antepartum 37 weeks gestation of state, incidental [facility] Diagnosis 38 weeks gestation of - Primary state, incidental Encounter for supervision of other normal in third trimester [facility] Diagnosis Encounter for supervision of other normal in third trimester- Primary 39 weeks gestation of state, incidental [facility] Diagnosis Onset Date Resolution Status 39 weeks gestation of acute Amniotic fluid leaking acute Anxiety acute Care and examination of lactating mother acute depression acute Spontaneous onset of labor a cute Spontaneous rupture of amniotic membranes acute (spontaneous vaginal delivery) acute [facility] Work Phone: Evaluation note* Diagnosis Treatment not available- Primary Procedure not carried out for other reasons [facility] Diagnosis Encounter for screening for maternal depression- Primary Lactating mother care and examination of lactating mother [facility]* Diagnosis state- Primary Routine follow-up Vaginal odor Unspecified symptom associated with female genital organs [facility]* Diagnosis BV (bacterial vaginosis)- Primary Vaginitis and vulvovaginitis, unspecified [facility]* Diagnosis Vaginal discharge- Primary Leukorrhea, not specified as infective control counseling General counseling for initiation of other contraceptive measures [facility] Diagnosis Encounter for IUD insertion- Primary Encounter for insertion of intrauterine contraceptive device [facility]* Diagnosis Pelvic and perineal pain Unspecified symptom associated with female genital organs [facility]* Diagnosis Acute URI- Primary Acute upper respiratory infections of unspecified site Acute cough Laryngitis Acute laryngitis, without mention of obstruction [facility]* Diagnosis NATHANIEL (generalized anxiety disorder)- Primary Generalized anxiety disorder Recurrent mild major depressive disorder with anxiety (HCC) (HCC) Encounter to establish care with new doctor Other reasons for seeking consultation [facility] Diagnosis Patient left without being seen- Primary Surgical or other procedure not carried out because of patient's decision [facility] Diagnosis Treatment not available- Primary Procedure not carried out for other reasons [facility] Diagnosis Eustachian tube dysfunction, right- Primary Right ear pain Otalgia, unspecified [facility]* Diagnosis NATHANIEL (generalized anxiety disorder)- Primary Generalized anxiety disorder Recurrent mild major depressive disorder with anxiety (HCC) (HCC) Sleep disturbance Sleep disturbance, unspecified [facility] Diagnosis Encounter for medical examination to establish care- Primary Recurrent mild major depressive disorder with anxiety (HCC) (HCC) Screening for lipid disorders [facility]* Diagnosis Endometriosis Endometriosis, site unspecified documented in this encounter [facility] note* Diagnosis Pelvic and perineal pain- Primary Unspecified symptom associated with female genital organs documented in this encounter [facility] note* Diagnosis Pelvic and perineal pain Unspecified symptom associated with female genital organs documented in this encounter [facility] note* Diagnosis Endometriosis Endometriosis, site unspecified documented in this encounter [facility] note* Diagnosis Female pelvic pain- Primary Unspecified symptom associated with female genital organs Endometriosis Endometriosis, site unspecified documented in this encounter 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 note* Diagnosis Encounter for IUD removal- Primary Encounter for removal of intrauterine contraceptive device Encounter for preconception consultation Other procreative management counseling and advice History of depression NATHANIEL (generalized anxiety disorder) Generalized anxiety disorder documented in this encounter [facility] note* Diagnosis Intrauterine contraceptive device threads lost, initial encounter- Primary documented in this encounter [facility] note* Diagnosis Intrauterine contraceptive device threads lost, initial encounter documented in this encounter [facility] note* Diagnosis Displacement of intrauterine contraceptive device, initial encounter documented in this encounter [facility] for referral (narrative)* Diagnostic Procedure Only (Routine) - Authorized Specialty Diagnoses / Procedures Referred By Lavell mcdermott Referred To Contact [facility] Diagnoses 8 weeks gestation of Encounter for supervision of other normal in first trimester Procedures NUCHAL TRANSLUCENCY WHI US NUCHAL TRANSLUCENCY 1ST GESTATION Meagan Mason MD [address] [place] [address] [facility] [address] [place] [address] Referral ID Status Reason Start Date Expiration Date Visits Requested Visits Authorized [id number] Authorized Auto-Generat ed Referral 08/21/2022 08/21/2023 1 1 * Diagnostic Procedure Only (Routine) - Pending Review Specialty Diagnoses / Procedures Referred By Contac t Referred To Contact [facility] Diagnoses 8 weeks gestation of Encounter for supervision of other normal in first trimester Procedures OBSTETRIC ULTRASOUND WHI US PREG UTERUS AFTER 1ST TRIMEST GESTATION Meagan Mason MD [address] [place] [address] [address] Referral ID Status Reason Start Date Expiration Date Visits Requested Visits Authorized [id number] Pending Review Auto-Generat ed Referral 08/21/2022 08/21/2023 1 1 [facility] for referral (narrative)* Diagnostic Procedure Only (Routine) - Authorized Specialty Diagnoses / Procedures Referred By Contac t Referred To Contact [facility] Diagnoses Encounter for supervision of other normal in second trimester Procedures OBSTETRIC ULTRASOUND WHI US PREG UTERUS AFTER 1ST TRIMEST GESTATION Meagan Mason MD [address] [place] [address] [address] Referral ID Status Reason Start Date Expiration Date Visits Requested Visits Authorized [id number] Authorized Auto-Generat ed Referral 11/19/2022 11/19/2023 1 1 [facility] for referral (narrative)* Outpatient Procedure (Routine) - Pending Review Specialty Diagnoses / Procedures Referred By Contac t Referred To Contact [facility] Diagnoses control counseling Procedures INSERT INTRAUTERINE DEVICE LEVONORGESTREL IU 52MG 5 YR INSERT INTRAUTERINE DEVICE Gricel Christensen APRN.CNFavian [address] [place] [address] [address] Referral ID Status Reason Start Date Expiration Date Visits Requested Visits Authorized [id number] Pending Review Auto-Generat ed Referral 06/18/2023 06/17/2024 1 1 [facility] for referral (narrative)* Outpatient Procedure (Routine) - Pending Review Specialty Diagnoses / Procedures Referred By Contac t Referred To Contact [facility] Diagnoses Encounter for IUD insertion Procedures INSERT INTRAUTERINE DEVICE INSERT INTRAUTERINE DEVICE Esther Storm APRN.RETIREMENT ASSISTANT [address] [place] [address] [address] Referral ID Status Reason Start Date Expiration Date Visits Requested Visits Authorized [id number] Pending Review Auto-Generat ed Referral 07/09/2023 07/08/2024 1 1 [facility] for visit Narrative* Diagnostic Procedure Only (Routine) - Closed Specialty Diagnoses / Procedures Referred By Contac t Referred To Contact [facility] Diagnoses Pelvic pain in female Procedures PELVIC US I US PELVIC NONOBSTETRIC REAL-TIME IMAGE COMPLETE Gricel Christensen APRN.CNM [address] [place] [address] [facility] [address] [place] [id number] Referral ID Status Reason Start Date Expiration Date V isits Requested Visits Authorized [id number] Closed Auto-Generate d Referral 07/04/2022 07/04/2023 1 1 [facility] for visit Narrative* Diagnostic Procedure Only (Routine) - Closed Specialty Diagnoses / Procedures Referred By Contac t Referred To Contact [facility] Diagnoses Intrauterine contraceptive device threads lost, initial encounter Procedures PELVIC US WHI US PELVIC NONOBSTETRIC REAL-TIME IMAGE COMPLETE Gricel Christensen APRN.CN [address] [place] [place] [address] Phone: tel: fax: [facility] [address] [place] [address] Referral ID Status Reason Start Date Expiration Date V isits Requested Visits Authorized [id number] Closed Auto-Generate d Referral 12/28/2024 12/28/2025 1 1 [facility]* Diagnostic Procedure Only (Routine) - Closed Specialty Diagnoses / Procedures Referred By Lavell t Referred To Contact [facility] Diagnoses Displacement of intrauterine contraceptive device, initial encounter Procedures XR PELVIS 3V AP/INLET/OUTLET RADIOLOGIC EXAM PELVIS COMPL MINIMUM 3 VIEWS Gricel Christensen APRN.CNM [address] [place] [address] Phone: tel: fax: [place] [address] Referral ID Status Reason Start Date Expiration Date V isits Requested Visits Authorized [id number] Closed Auto-Generate d Referral 01/11/2025 02/10/2026 1 1 [facility] Summary Purpose Family History No Family History Records FoundNo Family History Records FoundNo Family History Records FoundNo Family History Records FoundNo Family History Records Found Advance Directives No Advanced Directives Records Found Advance Directive Response Recorded Date/ Time Living Will No March 27 10:37pm Power of Vocational Case Manager No March 27, 2023 10:37pm Reason for Referral Specialty Diagnoses / Procedures Referred By Lavell mcdermott Referred To Contact Gricel Christensen APRN.CNM [address] [place] [address] Referral ID Status Reason Start Date Expiration Date Visits Re quested Visits Authorized [id number] Closed 1 1 Specialty Diagnoses / Procedures Referred By Lavell t Referred To Contact [facility] Diagnoses 33 weeks gestation of Pelvic pressure in Procedures CONSULT TO PHYSICAL THERAPY PHYSICAL THERAPY EVALUATION HIGH COMPLEX 45 MINS Terrance Gottlieb MD [address] [place] [address] [facility] [address] [place] [address] Referral ID Status Reason Start Date Expiration Date Visits Requested Visits Authorized [id number] Pending Review Auto-Generat ed Referral 02/08/2023 02/08/2024 1 1 Health Concerns Problem Noted Date OB Reminders 08/21/2022 Problem Noted Date OB Reminders 08/21/2022 Problem Noted Date OB Reminders 08/21/2022 Problem Noted Date OB Reminders 08/21/2022 Problem Noted Date OB Reminders 08/21/2022 Problem Noted Date OB Reminders 08/21/2022 Problem Noted Date OB Reminders 08/21/2022 Problem Noted Date Diagnosed Date OB Reminders 08/21/2022 Problem Noted Date Diagnosed Date OB Reminders 08/21/2022 Problem Noted Date Diagnosed Date OB Reminders 08/21/2022 Problem Noted Date Diagnosed Date OB Reminders 08/21/2022 Problem Noted Date Diagnosed Date OB Reminders 08/21/2022 Problem Noted Date Diagnosed Date OB Reminders 08/21/2022 Problem Noted Date Diagnosed Date OB Reminders 08/21/2022 Problem Noted Date Diagnosed Date OB Reminders 08/21/2022 Problem Noted Date Diagnosed Date OB Reminders 08/21/2022 Problem Noted Date Diagnosed Date OB Reminders 08/21/2022 Chief Complaint and Reason for Visit Chief Complaint LABOR AND DELIVERY/V AGINAL DELIVERY Reason for Visit 39 weeks gestation o f Amniotic fluid leaking Anxiety Care and examination of lactating mother depression Spontaneous onset of labor Spontaneous rupture of amniotic membranes (spontaneous vaginal delivery) Additional Source Comments INFORMATION SOURCE (unrecogn ized section and content) DATE CREATED AUTHOR 10/30/2020 [facility] DATE CREATED AUTHOR AUTHOR'S ORGANIZ ATION 06/05/2023 [facility] DATE CREATED AUTHOR AUTHOR'S ORGANIZ ATION 02/07/2025 [facility] DATE CREATED AUTHOR AUTHOR'S ORGANIZ ATION 03/03/2025 [facility] DATE CREATED AUTHOR AUTHOR'S ORGANIZ ATION 03/03/2025 [facility] Source Comments (unrecognize d section and content) In the event this informatio n is protected by the Federal Confidentiality of Alcohol and Drug Abuse Patient Records regulations: The Federal rules restrict any use of the information to criminally investigate or prosecute any alcohol or drug abuse patient.[facility] event this information is protected by the Federal Confidentiality of Alcohol and Drug Abuse Patient Records regulations: The Federal rules restrict any use of the information to criminally investigate or prosecute any alcohol or drug abuse patient.[facility] the event this information is protected by the Federal Confidentiality of Alcohol and Drug Abuse Patient Records regulations: The Federal rules restrict any use of the information to criminally investigate or prosecute any alcohol or drug abuse patient.[facility] the event this information is protected by the Federal Confidentiality of Alcohol and Drug Abuse Patient Records regulations: The Federal rules restrict any use of the information to criminally investigate or prosecute any alcohol or drug abuse patient.[facility] the event this information is protected by the Federal Confidentiality of Alcohol and Drug Abuse Patient Records regulations: The Federal rules restrict any use of the information to criminally investigate or prosecute any alcohol or drug abuse patient.[facility] the event this information is protected by the Federal Confidentiality of Alcohol and Drug Abuse Patient Records regulations: The Federal rules restrict any use of the information to criminally investigate or prosecute any alcohol or drug abuse patient.[facility] the event this information is protected by the Federal Confidentiality of Alcohol and Drug Abuse Patient Records regulations: The Federal rules restrict any use of the information to criminally investigate or prosecute any alcohol or drug abuse patient.[facility] the event this information is protected by the Federal Confidentiality of Alcohol and Drug Abuse Patient Records regulations: The Federal rules restrict any use of the information to criminally investigate or prosecute any alcohol or drug abuse patient.[facility] the event this information is protected by the Federal Confidentiality of Alcohol and Drug Abuse Patient Records regulations: The Federal rules restrict any use of the information to criminally investigate or prosecute any alcohol or drug abuse patient.[facility] the event this information is protected by the Federal Confidentiality of Alcohol and Drug Abuse Patient Records regulations: The Federal rules restrict any use of the information to criminally investigate or prosecute any alcohol or drug abuse patient.[facility] the event this information is protected by the Federal Confidentiality of Alcohol and Drug Abuse Patient Records regulations: The Federal rules restrict any use of the information to criminally investigate or prosecute any alcohol or drug abuse patient.[facility] the event this information is protected by the Federal Confidentiality of Alcohol and Drug Abuse Patient Records regulations: The Federal rules restrict any use of the information to criminally investigate or prosecute any alcohol or drug abuse patient.[facility] the event this information is protected by the Federal Confidentiality of Alcohol and Drug Abuse Patient Records regulations: The Federal rules restrict any use of the information to criminally investigate or prosecute any alcohol or drug abuse patient.[facility] the event this information is protected by the Federal Confidentiality of Alcohol and Drug Abuse Patient Records regulations: The Federal rules restrict any use of the information to criminally investigate or prosecute any alcohol or drug abuse patient.[facility]In the event this information is protected by the Federal Confidentiality of Alcohol and Drug Abuse Patient Records regulations: The Federal rules restrict any use of the information to criminally investigate or prosecute any alcohol or drug abuse patient.[facility] HospitalIn the event this information is protected by the Federal Confidentiality of Alcohol and Drug Abuse Patient Records regulations: The Federal rules restrict any use of the information to criminally investigate or prosecute any alcohol or drug abuse patient.[facility] HospitalIn the event this information is protected by the Federal Confidentiality of Alcohol and Drug Abuse Patient Records regulations: The Federal rules restrict any use of the information to criminally investigate or prosecute any alcohol or drug abuse patient.[facility] HospitalIn the event this information is protected by the Federal Confidentiality of Alcohol and Drug Abuse Patient Records regulations: The Federal rules restrict any use of the information to criminally investigate or prosecute any alcohol or drug abuse patient.[facility] HospitalIn the event this information is protected by the Federal Confidentiality of Alcohol and Drug Abuse Patient Records regulations: The Federal rules restrict any use of the information to criminally investigate or prosecute any alcohol or drug abuse patient.[facility] HospitalIn the event this information is protected by the Federal Confidentiality of Alcohol and Drug Abuse Patient Records regulations: The Federal rules restrict any use of the information to criminally investigate or prosecute any alcohol or drug abuse patient.[facility] HospitalIn the event this information is protected by the Federal Confidentiality of Alcohol and Drug Abuse Patient Records regulations: The Federal rules restrict any use of the information to criminally investigate or prosecute any alcohol or drug abuse patient.[facility] HospitalIn the event this information is protected by the Federal Confidentiality of Alcohol and Drug Abuse Patient Records regulations: The Federal rules restrict any use of the information to criminally investigate or prosecute any alcohol or drug abuse patient.[facility] HospitalIn the event this information is protected by the Federal Confidentiality of Alcohol and Drug Abuse Patient Records regulations: The Federal rules restrict any use of the information to criminally investigate or prosecute any alcohol or drug abuse patient.[facility] HospitalIn the event this information is protected by the Federal Confidentiality of Alcohol and Drug Abuse Patient Records regulations: The Federal rules restrict any use of the information to criminally investigate or prosecute any alcohol or drug abuse patient.[facility] HospitalIn the event this information is protected by the Federal Confidentiality of Alcohol and Drug Abuse Patient Records regulations: The Federal rules restrict any use of the information to criminally investigate or prosecute any alcohol or drug abuse patient.[facility] HospitalIn the event this information is protected by the Federal Confidentiality of Alcohol and Drug Abuse Patient Records regulations: The Federal rules restrict any use of the information to criminally investigate or prosecute any alcohol or drug abuse patient.[facility] HospitalIn the event this information is protected by the Federal Confidentiality of Alcohol and Drug Abuse Patient Records regulations: The Federal rules restrict any use of the information to criminally investigate or prosecute any alcohol or drug abuse patient.[facility] HospitalIn the event this information is protected by the Federal Confidentiality of Alcohol and Drug Abuse Patient Records regulations: The Federal rules restrict any use of the information to criminally investigate or prosecute any alcohol or drug abuse patient.[facility] HospitalIn the event this information is protected by the Federal Confidentiality of Alcohol and Drug Abuse Patient Records regulations: The Federal rules restrict any use of the information to criminally investigate or prosecute any alcohol or drug abuse patient.[facility] HospitalIn the event this information is protected by the Federal Confidentiality of Alcohol and Drug Abuse Patient Records regulations: The Federal rules restrict any use of the information to criminally investigate or prosecute any alcohol or drug abuse patient.[facility] HospitalIn the event this information is protected by the Federal Confidentiality of Alcohol and Drug Abuse Patient Records regulations: The Federal rules restrict any use of the information to criminally investigate or prosecute any alcohol or drug abuse patient.[facility] HospitalIn the event this information is protected by the Federal Confidentiality of Alcohol and Drug Abuse Patient Records regulations: The Federal rules restrict any use of the information to criminally investigate or prosecute any alcohol or drug abuse patient.[facility] HospitalIn the event this information is protected by the Federal Confidentiality of Alcohol and Drug Abuse Patient Records regulations: The Federal rules restrict any use of the information to criminally investigate or prosecute any alcohol or drug abuse patient.[facility] HospitalIn the event this information is protected by the Federal Confidentiality of Alcohol and Drug Abuse Patient Records regulations: The Federal rules restrict any use of the information to criminally investigate or prosecute any alcohol or drug abuse patient.[facility] HospitalIn the event this information is protected by the Federal Confidentiality of Alcohol and Drug Abuse Patient Records regulations: The Federal rules restrict any use of the information to criminally investigate or prosecute any alcohol or drug abuse patient.[facility] HospitalIn the event this information is protected by the Federal Confidentiality of Alcohol and Drug Abuse Patient Records regulations: The Federal rules restrict any use of the information to criminally investigate or prosecute any alcohol or drug abuse patient.[facility] HospitalIn the event this information is protected by the Federal Confidentiality of Alcohol and Drug Abuse Patient Records regulations: The Federal rules restrict any use of the information to criminally investigate or prosecute any alcohol or drug abuse patient.[facility] HospitalIn the event this information is protected by the Federal Confidentiality of Alcohol and Drug Abuse Patient Records regulations: The Federal rules restrict any use of the information to criminally investigate or prosecute any alcohol or drug abuse patient.[facility] HospitalIn the event this information is protected by the Federal Confidentiality of Alcohol and Drug Abuse Patient Records regulations: The Federal rules restrict any use of the information to criminally investigate or prosecute any alcohol or drug abuse patient.[facility] HospitalIn the event this information is protected by the Federal Confidentiality of Alcohol and Drug Abuse Patient Records regulations: The Federal rules restrict any use of the information to criminally investigate or prosecute any alcohol or drug abuse patient.[facility] HospitalIn the event this information is protected by the Federal Confidentiality of Alcohol and Drug Abuse Patient Records regulations: The Federal rules restrict any use of the information to criminally investigate or prosecute any alcohol or drug abuse patient.[facility] HospitalIn the event this information is protected by the Federal Confidentiality of Alcohol and Drug Abuse Patient Records regulations: The Federal rules restrict any use of the information to criminally investigate or prosecute any alcohol or drug abuse patient.[facility] HospitalIn the event this information is protected by the Federal Confidentiality of Alcohol and Drug Abuse Patient Records regulations: The Federal rules restrict any use of the information to criminally investigate or prosecute any alcohol or drug abuse patient.[facility] HospitalIn the event this information is protected by the Federal Confidentiality of Alcohol and Drug Abuse Patient Records regulations: The Federal rules restrict any use of the information to criminally investigate or prosecute any alcohol or drug abuse patient.[facility] HospitalIn the event this information is protected by the Federal Confidentiality of Alcohol and Drug Abuse Patient Records regulations: The Federal rules restrict any use of the information to criminally investigate or prosecute any alcohol or drug abuse patient.[facility] HospitalIn the event this information is protected by the Federal Confidentiality of Alcohol and Drug Abuse Patient Records regulations: The Federal rules restrict any use of the information to criminally investigate or prosecute any alcohol or drug abuse patient.[facility] HospitalIn the event this information is protected by the Federal Confidentiality of Alcohol and Drug Abuse Patient Records regulations: The Federal rules restrict any use of the information to criminally investigate or prosecute any alcohol or drug abuse patient.[facility] HospitalIn the event this information is protected by the Federal Confidentiality of Alcohol and Drug Abuse Patient Records regulations: The Federal rules restrict any use of the information to criminally investigate or prosecute any alcohol or drug abuse patient.[facility] HospitalIn the event this information is protected by the Federal Confidentiality of Alcohol and Drug Abuse Patient Records regulations: The Federal rules restrict any use of the information to criminally investigate or prosecute any alcohol or drug abuse patient.[facility] HospitalIn the event this information is protected by the Federal Confidentiality of Alcohol and Drug Abuse Patient Records regulations: The Federal rules restrict any use of the information to criminally investigate or prosecute any alcohol or drug abuse patient.[facility] HospitalIn the event this information is protected by the Federal Confidentiality of Alcohol and Drug Abuse Patient Records regulations: The Federal rules restrict any use of the information to criminally investigate or prosecute any alcohol or drug abuse patient.[facility] HospitalIn the event this information is protected by the Federal Confidentiality of Alcohol and Drug Abuse Patient Records regulations: The Federal rules restrict any use of the information to criminally investigate or prosecute any alcohol or drug abuse patient.[facility] HospitalIn the event this information is protected by the Federal Confidentiality of Alcohol and Drug Abuse Patient Records regulations: The Federal rules restrict any use of the information to criminally investigate or prosecute any alcohol or drug abuse patient.[facility] HospitalIn the event this information is protected by the Federal Confidentiality of Alcohol and Drug Abuse Patient Records regulations: The Federal rules restrict any use of the information to criminally investigate or prosecute any alcohol or drug abuse patient.[facility] HospitalIn the event this information is protected by the Federal Confidentiality of Alcohol and Drug Abuse Patient Records regulations: The Federal rules restrict any use of the information to criminally investigate or prosecute any alcohol or drug abuse patient.[facility] HospitalIn the event this information is protected by the Federal Confidentiality of Alcohol and Drug Abuse Patient Records regulations: The Federal rules restrict any use of the information to criminally investigate or prosecute any alcohol or drug abuse patient.[facility] HospitalIn the event this information is protected by the Federal Confidentiality of Alcohol and Drug Abuse Patient Records regulations: The Federal rules restrict any use of the information to criminally investigate or prosecute any alcohol or drug abuse patient.[facility] Reason for Visit (unrecogniz ed section and content) Reason Comments Appointment Cancelled Reason Comments 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 Reason Comments Insurance Authorization Reason Comments Vaginal Problem Reason Comments Patient Question Reason Comments Ovarian Cyst Reason Comments Care Reason Comments Vaginal Discharge Reason Comments Care Reason Onset Date Comments Care 09/18/2022 Reason Comments US Specialty Diagnoses / Procedures Referred By Lavell t Referred To Contact [facility] Diagnoses 8 weeks gestation of Encounter for supervision of other normal in first trimester Procedures NUCHAL TRANSLUCENCY WHI US NUCHAL TRANSLUCENCY 1ST GESTATION Neyhart Hilton, Meagan, MD [address] [place] [address] [address] Referral ID Status Reason Start Date Expiration Date V isits Requested Visits Authorized [id number] Closed Auto-Generate d Referral 08/21/2022 08/21/2023 1 1 Reason Onset Date Comments Care 10/17/2022 Reason Onset Date Comments Care 11/13/2022 Specialty Diagnoses / Procedures Referred By Contac t Referred To Contact [facility] Diagnoses 8 weeks gestation of Encounter for supervision of other normal in first trimester Procedures OBSTETRIC ULTRASOUND WHI US PREG UTERUS AFTER 1ST TRIMEST GESTATION Meagan Mason MD [address] [place] [address] [address] Referral ID Status Reason Start Date Expiration Date V isits Requested Visits Authorized [id number] Closed Auto-Generate d Referral 08/21/2022 08/21/2023 1 1 Reason Comments Orders Specialty Diagnoses / Procedures Referred By Contac t Referred To Contact [facility] Diagnoses Encounter for supervision of other normal in second trimester Procedures OBSTETRIC ULTRASOUND WHI US PREG UTERUS AFTER 1ST TRIMEST GESTATION Meagan Mason MD [address] [place] [address] [address] Referral ID Status Reason Start Date Expiration Date V isits Requested Visits Authorized [id number] Closed Auto-Generate d Referral 11/19/2022 11/19/2023 1 1 Reason Onset Date Comments Care 01/08/2023 Reason Onset Date Comments Care 01/25/2023 Reason Onset Date Comments Care 02/08/2023 Immunizations 02/08/2023 Flu vaccination Reason Onset Date Comments Care 02/25/2023 Reason Onset Date Comments Care 03/08/2023 Reason Onset Date Comments Care 03/15/2023 Reason Comments Breast Pump Reason Onset Date Comments Care 03/27/2023 Reason Comments Ob Delivery Note Reason Comments Eye Problem Reason Comments Early Reason Comments Care Reason Comments Orders Reason Comments Follow Up BV Reason Onset Date Comments Insertion Of IUD 07/09/2023 Specialty Diagnoses / Procedures Referred By Lavell mcdermott Referred To Contact [facility] Diagnoses control counseling Encounter for insertion of intrauterine contraceptive device Procedures INSERT INTRAUTERINE DEVICE LEVONORGESTREL IU 52MG 5 YR INSERT INTRAUTERINE DEVICE REMOVE INTRAUTERINE DEVICE Gricel Christensen APRN.CNM [address] [place] [address] [facility] [address] [place] [address] Referral ID Status Reason Start Date Expiration Date Visits Requested Visits Authorized [id number] Authorized Auto-Generat ed Referral 07/08/2023 05/19/2024 2 2 Specialty Diagnoses / Procedures Referred By Lavell mcdermott Referred To Contact [facility] Diagnoses Pelvic and perineal pain Procedures MRI FEMALE PELVIS WO/W IVCON MRI PELVIS W/O & W/CONTRAST MATERIAL Brayden Mosley DO [address] [place] [address] [facility] [place] [address] Referral ID Status Reason Start Date Expiration Date Visits Requested Visits Authorized [id number] Authorized Auto-Generat ed Referral 06/17/2023 07/16/2024 1 1 Reason Comments Cough Reason Comments Anxiety On going for a year Phq 9 and Nathaniel [facility] Reason Comments Patient Left Without Being Seen Reason Comments Ear Problem Concern for ear infe ction Reason Comments Earache Entered by patient J ust right ear and swollen lymph node started Saturday. Reason Comments Follow Up Medication Reason Comments Establish Care Pt is here to establ richard care today. Reason Onset Date Comments Refill Request 07/31/2024 Reason Comments Radiology MRI Specialty Diagnoses / Procedures Referred By Lavell t Referred To Contact [facility] Diagnoses Pelvic and perineal pain Procedures MRI FEMALE PELVIS WO/W IVCON MRI PELVIS W/O & W/CONTRAST MATERIAL Dorothea Adrian APRN.RETIREMENT ASSISTANT [address] [place] [address] Phone: tel: fax: [place] [address] Referral ID Status Reason Start Date Expiration Date V isits Requested Visits Authorized [id number] Closed Auto-Generate d Referral 09/30/2024 05/19/2025 1 1 Reason Onset Date Comments Refill Request 10/01/2024 Reason Comments Pelvic Pain Results Reason Comments Endometriosis Reason Comments Discussion Removal of IUD Reason Comments IUD Removal Specialty Diagnoses / Procedures Referred By Lavell mcdermott Referred To Contact [facility] Diagnoses Encounter for IUD removal Procedures REMOVE INTRAUTERINE DEVICE REMOVE INTRAUTERINE DEVICE Gricel Christensen APRN.CNFavain [address] [place] [address] Phone: tel: fax: [facility] [address] [place] [address] Referral ID Status Reason Start Date Expiration Date V isits Requested Visits Authorized [id number] Closed Auto-Generate d Referral 11/24/2024 11/24/2025 1 1 Care Teams (unrecognized sec tion and content) Correctional Medicine Physician Relationship Specialty Start Date End Date Ann Costa [address] [place] [address] PCP - General Family Medicine 12/07/14 Correctional Medicine Physician Relationship Specialty Start Date End Date Ann Costa [address] [place] [address] PCP - General Family Medicine 12/07/14 Correctional Medicine Physician Relationship Specialty Start Date End Date Ann Costa [address] [place] [address] PCP - General Family Medicine 12/07/14 Correctional Medicine Physician Relationship Specialty Start Date End Date Ann Costa [address] [place] [address] PCP - General Family Medicine 12/07/14 Correctional Medicine Physician Relationship Specialty Start Date End Date Ann Costa [address] [place] [address] PCP - General Family Medicine 12/07/14 Correctional Medicine Physician Relationship Specialty Start Date End Date Ann Costa [address] [place] [address] PCP - General Family Medicine 12/07/14 Correctional Medicine Physician Relationship Specialty Start Date End Date Ann Costa [address] [place] [address] PCP - General Family Medicine 12/07/14 Correctional Medicine Physician Relationship Specialty Start Date End Date Ann Costa [address] [place] [address] PCP - General Family Medicine 12/07/14 Correctional Medicine Physician Relationship Specialty Start Date End Date Ann Costa [address] [place] [address] PCP - General Family Medicine 12/07/14 Correctional Medicine Physician Relationship Specialty Start Date End Date Ann Costa [address] [place] [address] PCP - General Family Medicine 12/07/14 Correctional Medicine Physician Relationship Specialty Start Date End Date Ann Costa [address] [place] [address] PCP - General Family Medicine 12/07/14 Correctional Medicine Physician Relationship Specialty Start Date End Date Ann Costa [address] [place] [address] PCP - General Family Medicine 12/07/14 Correctional Medicine Physician Relationship Specialty Start Date End Date Ann Costa [address] [place] [address] PCP - General Family Medicine 12/07/14 Correctional Medicine Physician Relationship Specialty Start Date End Date Ann Costa [address] [place] [address] PCP - General Family Medicine 12/07/14 Correctional Medicine Physician Relationship Specialty Start Date End Date Ann Costa [address] [place] [address] PCP - General Family Medicine 12/07/14 Correctional Medicine Physician Relationship Specialty Start Date End Date Ann Costa [address] [facility] [place] [address] PCP - General Family Medicine 12/07/14 Correctional Medicine Physician Relationship Specialty Start Date End Date Ann Costa [address] [place] [address] PCP - General Family Medicine 12/07/14 Correctional Medicine Physician Relationship Specialty Start Date End Date Ann Costa [address] [place] [address] PCP - General Family Medicine 12/07/14 Correctional Medicine Physician Relationship Specialty Start Date End Date Ann Costa [address] [place] [address] PCP - General Family Medicine 12/07/14 Correctional Medicine Physician Relationship Specialty Start Date End Date Ann Costa [address] [place] [address] PCP - General Family Medicine 12/07/14 Correctional Medicine Physician Relationship Specialty Start Date End Date Ann Costa [address] [facility] [place] [address] PCP - General Family Medicine 12/07/14 Correctional Medicine Physician Relationship Specialty Start Date End Date Ann Costa [address] [facility] [place] [address] PCP - General Family Medicine 12/07/14 Team Status: Active Member Role Status Dates No Primary Care Physician Primary Care Provider Active Team Status: Inactive Member Role Status Dates No Primary Care Physician Primary Care Provider Active Naomi Olivera CNM Other Provider Active Dr. Meagan Braun MD Admit Isha velazquez, Attending Provider, Referring Provider Active Correctional Medicine Physician Relationship Specialty Start Date End Date Ann Costa [address] [place] [address] PCP - General Family Medicine 12/07/14 Correctional Medicine Physician Relationship Specialty Start Date End Date Ann Costa [address] [place] [address] PCP - General Family Medicine 12/07/14 Correctional Medicine Physician Relationship Specialty Start Date End Date Ann Costa [address] [place] [address] PCP - General Family Medicine 12/07/14 Correctional Medicine Physician Relationship Specialty Start Date End Date Ann Costa [address] [place] [address] PCP - General Family Medicine 12/07/14 Correctional Medicine Physician Relationship Specialty Start Date End Date Ann Costa [address] [facility] [place] [address] PCP - General Family Medicine 12/07/14 Correctional Medicine Physician Relationship Specialty Start Date End Date Ann Costa [address] [facility] [place] [address] PCP - General Family Medicine 12/07/14 Correctional Medicine Physician Relationship Specialty Start Date End Date Ann Costa [address] [place] [address] PCP - General Family Medicine 12/07/14 Correctional Medicine Physician Relationship Specialty Start Date End Date Ann Costa [address] [facility] [place] [address] PCP - General Family Medicine 12/07/14 Correctional Medicine Physician Relationship Specialty Start Date End Date Ann Costa [address] [facility] [place] [address] PCP - General Family Medicine 12/07/14 Correctional Medicine Physician Relationship Specialty Start Date End Date Dalila Tirado, LOGISTICS ENGINEER.RETIREMENT ASSISTANT [address] [place] [address] PCP - General Internal Medicine 07/23/24 Correctional Medicine Physician Relationship Specialty Start Date End Date Dalila Tirado, LOGISTICS ENGINEER.RETIREMENT ASSISTANT [address] [place] [address] PCP - General Internal Medicine 07/23/24 Correctional Medicine Physician Relationship Specialty Start Date End Date Dalila Tirado, LOGISTICS ENGINEER.RETIREMENT ASSISTANT [address] [place] [address] PCP - General Internal Medicine 07/23/24 Correctional Medicine Physician Relationship Specialty Start Date End Date Dalila Tirado, LOGISTICS ENGINEER.RETIREMENT ASSISTANT [address] [place] [address] PCP - General Internal Medicine 07/23/24 Correctional Medicine Physician Relationship Specialty Start Date End Date Dalila Tirado, LOGISTICS ENGINEER.RETIREMENT ASSISTANT [address] [place] [address] PCP - General Internal Medicine 07/23/24 Correctional Medicine Physician Relationship Specialty Start Date End Date Dalila Tirado, LOGISTICS ENGINEER.RETIREMENT ASSISTANT [address] [place] [address] PCP - General Internal Medicine 07/23/24 Correctional Medicine Physician Relationship Specialty Start Date End Date Dalila Tirado, LOGISTICS ENGINEER.RETIREMENT ASSISTANT [address] [place] [address] PCP - General Internal Medicine 07/23/24 Correctional Medicine Physician Relationship Specialty Start Date End Date Dalila Tirado, LOGISTICS ENGINEER.RETIREMENT ASSISTANT [address] [place], [place] [id number] PCP - General Internal Medicine 07/23/24 Inactive Administered Medications - up to 3 most recent administrations Administered Medications (un recognized section and content) Medication Order MAR Action Action Date Dose Rate Site levonorgestrel 21 mcg/24 hours (8 yrs) 52 mg 1 Each intrauterine device (MIRENA) 1 Each, INTRAUTERINE, ONCE (UP TO 30 DAYS AMB), 1 dose, On Sat07/09/23 at 1530, Hazardous Potential Reproductive Risk Drug: Use appropriate PPE. Given 07/09/2023 4:31 PM EST 1 Each Other FOR RECORDS PERTAINING TO PATIENTS WHO ARE OR HAVE BEEN ENROLLED IN A CHEMICAL DEPENDENCY/SUBSTANCEABUSE PROGRAM, SOME INFORMATION MAY BE OMITTED. This clinical summary was aggregated from multiple sources. Caution should be exercised in using it in the provision of clinical care. This summary normalizes information from multiple sources, and as a consequence, information in this document may materially change the coding, format and clinical context of patient data. In addition, data may be omitted in some cases. CLINICAL DECISIONS SHOULD BE BASED ON THE PRIMARY CLINICAL RECORDS. [employer] provides no warranty or guarantee of the accuracy or completeness of information in this document.
[2025-03-05 07:59] LABS: Internal QC Validated? YES +Cl - CLEAR BKGD; Pregnancy, Urine Negative Negative
[2025-03-05 08:00] LABS: Record Kit Lot#,Urine Preg 980607
[2025-03-05 08:08] LABS: Hematocrit 46.0 % (37-47); Hemoglobin 15.5 g/dL (12.0-15.0); Mean Corp Hgb Conc 33.7 g/dL (32-36); Mean Corpuscular Volume 91.6 fL (81-99); Mean Platelet Vol. 10.8 fl (6.2-12.0); Platelet Count 291 K/mm3 (150-450); RBC Distribution Width CV 11.9 % (11.6-14.6); RBC Distribution Width SD 39.8 fl (35.1-43.9); Red Blood Count 5.02 M/mm3 (4.2-5.4); White Blood Count 5.6 K/mm3 (4.4-11.0)
[2025-03-05] MEDS: Lactated Ringers 1,000 ML 15 ML IV (08:10)
[2025-03-05] MEDS: Ketorolac 30 MG/ML Syringe IV (08:11)
--- NOTE | 2025-03-05 08:56 | PCM.PRE.AN2 ---
ASA Classification* ASA Classification ASA Classification: 2 Assessment & Plan Anesthesia* Anesthesia Assessment Anesthesia Assessment: Discussed sedation and/or anesthesia options, risks, benefits, and alternatives with patient/parents/legal guardian/POA. Questions invited. The patient/parents/legal guardian/POA seems to understand and agrees to proceed with anesthesia plan. Reviewed the physical assessment, medical history, allergy history and patient home medications list prior to surgery/procedure/anesthetic and documented any changes. Performed airway and anesthesia risk assessments. Anesthesia Type Anesthesia Type: General Anesthesia Focused Assessment* Temperature: 97.9 F Pulse Rate: 86 Blood Pressure: 115/81 Respiratory Rate: 16 Pulse Ox: 100 Airway Assessment Mouth opens: >3 cm Mallampati Score: II Labs Anesthesia Preop lab: CBC WBC, (4.4-11.0) 5.6 K/mm3 Today, 08:01 RBC, (4.2-5.4) 5.02 M/mm3 Today, 08:01 Hgb, (12.0-15.0) 15.5 g/dL H Today, 08:01 Hct, (37-47) 46.0 % Today, 08:01 Plt Count, (150-450) 291 K/mm3 Today, 08:01 CHEMISTRY COAG Urine Test Negative Negative Today, 07:40 Pre-Assessment Diagnosis/Proposed Procedure Planned Operative Procedure(s): laparoscopic removal of intrauterine device possible hysteroscopy Anesthesia History Anesthesia History - tearer press clipping: Anesthesia History - tearer press clipping Hx Hospitalization No 03/02/25 13:10 Any Problems With Anesthesia No 03/02/25 13:10 Cholinesterase deficiency No 03/02/25 13:10 You/Your Family Experience No 03/02/25 13:10 fever (hyperthermia) with Relationship Recent Exposure to Contagious Disease Does patient have nerve No 03/02/25 13:10 stimulator Patient instructed to have device shut off --Does patient have Pacemaker No 03/05/25 08:03 or ICD? When Was Last Pacemaker Check QUESTION #4 FULL TEXT: You/Your Family Experience fever (hyperthermia) with Anesthesia Last Oral Intake Last Oral intake: Last Oral Intake NPO since 20:00 03/05/25 08:03 Meds taken in AM with sips of No 03/05/25 08:03 water? Meds patient instructed to take am of surgery PONV PONV - tearer press clipping: PONV - tearer press clipping Female Yes 03/02/25 13:10 HX of Motion Sickness Yes 03/02/25 13:10 HX of N/V After Surgery No 03/02/25 13:10 Non-Smoker No 03/02/25 13:10 Duration of Surgery greater Yes 03/02/25 13:10 than 60 minutes Number of Risk Factors 3 03/02/25 13:10 PONV Score Moderate Risk 03/02/25 13:10 Height & Weight Height & Weight: Anesthesia: Height & Weight Height 5 ft 6 in 03/05/25 08:03 Weight: 67 kg 03/05/25 08:03 Body Mass Index (BMI) 23.8 03/05/25 08:03 Respiratory Assessment Respiratory Assessment - tearer press clipping: Respiratory Tract Infection Hx - tearer press clipping Hx Respiratory Tract Infection No 03/02/25 13:10 STOP Sleep Apnea STOP Sleep Apnea - tearer press clipping: STOP Sleep Apnea - tearer press clipping Hx Hypertension No 03/02/25 13:10 Hx Sleep Apnea No 03/02/25 13:10 CPAP BIPAP Do you snore loudly (louder No 03/02/25 13:10 than talking or can be heard Do you often feel tired/ No 03/02/25 13:10 fatigued/ sleepy during daytime? Has anyone observed you stop No 03/02/25 13:10 breathing during sleep? STOP Results Negative 03/02/25 13:10 QUESTION #5 FULL TEXT : Do you snore loudly (louder than talking or can be heard through closed doors)? Tobacco Use History Tobacco Use History - tearer press clipping: Tobacco Use History - tearer press clipping Tobacco Use Smoking Status Never smoker 03/02/25 13:10 Hx Tobacco Use No 03/02/25 13:10 Years Smoking Packs Smoked per Day Smoking Cessation Date was within the last 15 years Hx Smoking Cessation Date Hx Smoking Cessation Counseling Hematologic Medial History Hematologic Hx - tearer press clipping: Hematologic Medical Hx - front maker lockstitch Hx of Blood Transfusion No 03/02/25 13:10 Hx of Transfusion in last 3 No 03/02/25 13:10 Months Date of Last Transfusion (if within last 3 months) Ever experience any problems No 03/02/25 13:10 with transfusion(s)? Specify any problems Hx of Preganancy in last 3 N/A 03/02/25 13:10 Months Nurse Filling Out Transfusion [email or web address] 03/02/25 13:10 & Questions: Date: 03/02/25 03/02/25 13:10 Time: 13:12 03/02/25 13:10 Patient unable to answer at this time (ie. confused, unrespo /Reproduction History /Reproductive History - tearer press clipping: /Reproductive Hx- tearer press clipping Hx Now No 03/02/25 13:10 Gestational Age (in weeks): EDC: Hx Hx Para Hx Section SAB No 03/02/25 13:10 Active Medications Active Medications: Current Medications Generic Name Dose Route Start Last Admin Trade Name Freq PRN Reason Stop Dose Admin Acetaminophen 1,000 mg 03/05/25 09:00 03/05/25 08:11 Acetaminophen 500 Mg Tablet PO 03/05/25 09:01 1,000 mg PREOP ONE Administration Lactated Ringer's 1,000 mls @ 15 mls/hr 03/05/25 07:45 03/05/25 08:10 IV 15 mls/hr .Q48H VERÓNICA Administration Ketorolac Tromethamine 30 mg 03/05/25 09:00 03/05/25 08:11 Ketorolac 30 Mg/Ml Syringe IV 03/05/25 09:01 30 mg PREOP ONE Administration PFSH Medical History Depression Alcohol use Migraine headache Heartburn Non-smoker Care and examination of lactating mother (spontaneous vaginal delivery) Anxiety depression Headache Home Medications ?Medication ?Instructions ?Recorded ?Last Taken ?Type vits no.130-ferrous fum 1 tab PO DAILY Check with primary 02/11/20 03/26/23 History 27 mg iron-folic acid 800 mcg doctor tablet Lactobacillus acidophilus 10 100 mmu cells PO DAILY 03/02/25 Unknown History billion cell capsule (Probacap) escitalopram oxalate 10 mg tablet 10 mg PO DAILY 03/02/25 Unknown History Allergy/AdvReac Type Severity Reaction Status Date / Time No Known Allergies Allergy Verified 03/02/25 13:02 Surgical History (Updated 03/02/25 @ 13:10 by Dorothea Walls) [place] teeth extracted History of surgery Social History Smoking Status: Never smoker Review of Systems (Anesthesia) ROS Narrative System reviewed and no additional complaints, except as documented.
[2025-03-05] MEDS: Lactated Ringers 1,000 ML 1000 ML IV (09:21)
[2025-03-05] MEDS: Midazolam 2 MG/2 ML Syringe IV (09:21)
[2025-03-05] MEDS: Lidocaine 1% (5 ml sdv) 5 ML Vial 4 ML IV (09:26)
[2025-03-05] MEDS: fentaNYL 100 MCG/2 ML Ampul IV (09:26)
--- NOTE | 2025-03-05 09:36 | PCM.DC ---
Discharge Instructions DC O2, CPAP, BIPAP needs Home O2 Discharge instructions: No Dressing / Incision Discharge Activity: May Drive (in 1-3 days as tolerated) Return to work on:: 03/08/25 May shower in (days): 1 May resume sexual activity in: 1 week Additional Activity Instructions:: Ambulate often the next week after surgery. Nothing in the vagina for 5 days. Dressing / Incision Call your doctor if your incision/area has: Continuous Slow Oozing, Sudden Increased Bleeding, Increased Pain/ Swelling, Increased Redness and Foul Smelling Discharge Call your doctor if you observe: Fever of 101 or Higher Remove Dressing in: 2 days Cleanse incision/area with: Soap & Water Follow Up Care Please Follow Up With: Harriet Kennedy MD When: Call [phone] for questions or concerns or send a [employer] message. You do not have to have a postop appointment. Test Results: Test results from this visit will be discussed in further detail at your follow-up appointment, if applicable. Discharge Plan Admission Primary Reason for Your Visit: Laparoscopic removal of intrauterine device Attending Provider: Harriet Kennedy Primary Care Provider: Arabella Morse NP Instructions Print Language: Albanian Discharge Orders/Prescriptions Prescriptions: Continued vit no.[id number] 1 EACH tablet 1 tab PO DAILY escitalopram oxalate 10 mg tablet 10 mg PO DAILY Probacap 10 billion cell capsule 100 mmu cells PO DAILY Referrals / Follow Up: Care Physician,No Primary [Non-Staff, Medical] Disposition Disposition (needs filled in before D/C Order can be placed): Home, Self Care
--- NOTE | 2025-03-05 10:07 | PCM.OPRPT ---
Operative Report (Standard) Operative Information Date of Procedure: 03/05/25 Pre-Operative Diagnosis: malpositioned IUD Post-Operative Diagnosis: same Surgery/Procedure Performed: Laparoscopic removal of IUDl deburring machine operator: Yes Defensive Fire Control Systems Operator: Kelsey Solorio MS4 Tasks completed by first coat sander: Closing Additional nurse practitioner physician assistant?: No Type of Anesthesia: General RN Documented Start/Stop Times: Operation Date: 03/05/25 09:00 Case Time Into Pre-Op 03/05/25 07:34 Out of Pre-Op 03/05/25 09:17 Anesthesia Start 03/05/25 09:21 Into Room 03/05/25 09:21 Procedure Start 03/05/25 09:45 Procedure Start Time: 09:45 Procedure Stop Time: 10:09 Select all DRAINS/GRAFTS/IMPLANTS that apply: None Special Medications: none Estimated Blood Loss: 5 cc Fluids Replaced: 1000 cc LR Specimen collected: No Description of surgery: The patient was taken to the operating room where she was prepped and draped in the dorsolithotomy position. A weighted speculum was placed in the vagina and the anterior lip of the cervix was grasped with a tenaculum. The Pita uterine manipulator was placed, the uterus sounded to 7 cm and the remainder of the instruments were removed from the vagina. Attention was turned to the abdomen. All port sites were infiltrated with 0.5% Marcaine before skin incisions were made. A 5 mm intraumbilical incision was made. The anterior abdominal wall was tented up with 2 towel clamps while a 5 mm blade less trocar and sleeve were directly inserted using the Visiport. Intraperitoneal placement was confirmed with the laparoscope. The pneumoperitoneum was created and the underlying abdominal contents were intact. The patient was placed in Trendelenburg. A left lower quadrant port was placed under direct visualization lateral to the inferior epigastric vessels. The bowel was swept away and the above findings were noted. The bowel was swept away and the IUD was found lying against the posterior pelvic wall superficially adhered to the peritoneum. I was able to easily grasp it and with just some gentle manipulation it freed easily with the strings attached. The IUD was then removed for the port and was examined and found to be intact with the strings. The lateral port was removed under direct visualization and no active bleeding was noted. The pneumoperitoneum was released. The skin incisions were closed with Monocryl suture in a subcuticular fashion and skin glue. The vaginal instruments were removed and the vaginal sweep was completed by me. The procedure was performed by me with assistance other than as dictated above. All sponge and needle counts were correct and the patient was taken to the recovery room in stable condition. Surgical Findings: normal cervix and vagina, normal uterus tubes and ovaries, IUD lying on posterior pelvic wall at level of uterine fundus superficially adhered Complications Complications: No Admit VTE Documentation VTE Present on Admission: No VTE Mechan Device Prophylaxis: SCD's VTE Pharm Prophylaxis ordered?: No Reason prophylaxis not ordered: Procedure Not Indicated
--- NOTE | 2025-03-05 10:21 | PCM.POST.ANE ---
Anesthesia: Postop Eval I Current Vital Signs Temperature: 97.6 F Pulse Rate: 75 Blood Pressure: 107/74 Respiratory Rate: 20 Pulse Ox: 99 Oxygen Delivery Method: Room Air Assessment Airway patent: Yes Spontaneous unlabored respirations: Yes Mental status: Awake and Calm nausea: No Vomiting: No Anesthesia Complication: No Fluid Hydration Crystalloid volume administer (ml): 1,000 Total IV fluid infused: 1,000 Progress Note Anesthesia document: Postop Eval 1 completed: Yes
--- NOTE | 2025-03-05 10:31 | POSTOPAN2_ITS ---
Anesthesia Postop Eval I Sum Postop Eval Completion status Anesthesia document: Postop Eval 1 completed: Yes Anesthesia Postop Eval I Summary Anesthesia Postop Eval I Summary: Anesthesia Postop Eval I: Assessment Summary Airway patent Yes 03/05/25 10:22 [email or web address] Spontaneous unlabored Yes 03/05/25 10:22 [email or web address] [email or web address] respirations Mental status Awake,Calm 03/05/25 10:22 [email or web address] nausea No 03/05/25 10:22 [email or web address] [email or web address] Vomiting No 03/05/25 10:22 [email or web address] [email or web address] Anesthesia Postop Eval I: Fluid Summary Crystalloid volume administer 1,000 03/05/25 10:22 [email or web address] [email or web address] (ml) Colloids volume administered ( ml) Blood Product volume administered (ml) Total IV fluid infused 1,000 03/05/25 10:22 [email or web address] [email or web address] Anesthesia Postop Eval I: Summary Notes Anesthesia Complication No 03/05/25 10:22 [email or web address] [email or web address] Anesthesia Complication Comment: Post-operative progress note Anesthesia: Postop Eval II Evaluation Mental status: Awake Pain Level: 0 nausea: No Vomiting: No
--- NOTE | 2025-03-05 10:31 | PCM.POSTANE2 ---
Anesthesia Postop Eval I Sum Postop Eval Completion status Anesthesia document: Postop Eval 1 completed: Yes Anesthesia Postop Eval I Summary Anesthesia Postop Eval I Summary: Anesthesia Postop Eval I: Assessment Summary Airway patent Yes 03/05/25 10:22 FILTRATION PLANT [email or web address] Spontaneous unlabored Yes 03/05/25 10:22 FILTRATION PLANT [email or web address] respirations Mental status Awake,Calm 03/05/25 10:22 FILTRATION PLANT [email or web address] nausea No 03/05/25 10:22 FILTRATION PLANT [email or web address] Vomiting No 03/05/25 10:22 FILTRATION PLANT [email or web address] Anesthesia Postop Eval I: Fluid Summary Crystalloid volume administer 1,000 03/05/25 10:22 FILTRATION PLANT [email or web address] (ml) Colloids volume administered ( ml) Blood Product volume administered (ml) Total IV fluid infused 1,000 03/05/25 10:22 FILTRATION PLANT [email or web address] Anesthesia Postop Eval I: Summary Notes Anesthesia Complication No 03/05/25 10:22 FILTRATION PLANT [email or web address] Anesthesia Complication Comment: Post-operative progress note Anesthesia: Postop Eval II Evaluation Mental status: Awake Pain Level: 0 nausea: No Vomiting: No
== END 2025-03-05 11:51 | disposition home or self-care (01) ==
LOC: SDC 07:29 → AC 07:32
PROVIDERS: PCP Nurse Practitioner Adult Health; Referring Provider Obstetrics & Gynecology; Visit Provider Obstetrics & Gynecology
PROC: (CPT 49320; principal; 2025-03-05 08:45)
DX: T83.32XA Displacement of intrauterine contraceptive device, initial encounter (principal); Y76.8 Miscellaneous obstetric and gynecological devices associated with adverse incidents, not elsewhere classified; Z79.899 Other long term (current) drug therapy
CPT/HCPCS: 58301; 00940; 81025; 85027; J2405